=== PATIENT | male | born 1940 | race Caucasian/White ===

== ENCOUNTER 2018-02-18 01:23 | Outpatient (CLI) | payer MEDICARE, OTHER, SELFPAY ==
[2018-02-18 11:26] LABS: Hemoglobin A1C 5.8 % (4.5-6.2)
[2018-02-18 11:36] LABS: ALT 29 U/L (12-78); AST 16 U/L (15-37); Alkaline Phosphatase 74 U/L (46-116); Anion Gap 8.3 mmol/L (3-11); BUN 18 mg/dL (7-18); Bilirubin, Total 0.7 mg/dL (0.2-1.0); CO2 29.7 mmol/L (21.0-32.0); CREATININE 0.83 mg/dL (0.70-1.30); Chloride 104 mmol/L (98-107); Cholesterol 162 mg/dL (50-200); Glucose 99 mg/dL (70-100); HDL Cholesterol 47 mg/dL (40-60); LDL CHOLESTEROL 92 mg/dL (<100); Potassium 4.1 mmol/L (3.5-5.1); Sodium 142 mmol/L (136-145); Total Protein 6.4 g/dL (6.4-8.2); Triglyceride 151 mg/dL (30-150)
== END 2018-02-18 01:43 ==
PROVIDERS: PCP Family Medicine; Visit Provider Family Medicine
DX: E11.9 Type 2 diabetes mellitus without complications (principal)
CPT/HCPCS: 36415; 80053; 80061; 83721; 83036

== ENCOUNTER 2018-04-20 11:22 | Emergency (ER) | payer MEDICARE, OTHER, SELFPAY ==
[2018-04-20 11:32] VITALS: BP 158/69; PULSE 73; RESP 16; TEMP 37; O2SAT 97
--- NOTE | 2018-04-20 11:55 | ED.GENADUL_ITS ---
Discharge Plan Disposition Patient Disposition: HOME Condition: Improving Discharge Details Chief Complaint: EarProblem Clinical Impression: Acute foreign body of right ear canal Primary Care Provider: Sanjana Langley ED Provider: Jese Dillard Home Meds and New Rx's Prescriptions: No Action tamsulosin 0.4 mg capsule 0.4 mg PO BID RF: 0 gabapentin 300 mg capsule 300 mg PO TID Qty: 90 RF: 2 ropinirole 0.5 mg tablet 0.5 mg PO HS Qty: 30 RF: 3 Hold Instructions: None diltiazem HCl [Cardizem] 120 MG tablet 120 mg PO Q8H PRN Qty: 30 RF: 2 CONTOUR STRIPS 1 strip Sub-Q DAILY Qty: 100 RF: 1 magnesium gluconate 27.5 MG tablet 27.5 mg PO BID Qty: 60 RF: 3 Eliquis 5 MG tablet 5 mg PO BID Qty: 180 RF: 3 metformin [Glucophage] 500 MG tablet 500 mg PO BID Qty: 180 RF: 4 pravastatin 40 MG tablet 40 mg PO DAILY Qty: 90 RF: 3 meloxicam [Mobic] 15 MG tablet 15 mg PO DAILY PRNQty: 90 RF: 0 amlodipine-benazepril [Lotrel] 1 EACH capsule 1 tab-cap PO DAILY Qty: 90 RF: 4 esomeprazole magnesium [Nexium] 20 MG capsule,delayed release(DR/EC) 20 mg PO DAILY Qty: 90 RF: 4 finasteride 5 MG tablet 5 mg PO DAILY Qty: 90 RF: 3 Discharge Instructions Instructions: Ear Foreign Body (ED) Additional Instructions: Watch for any signs of acute localized infection due to foreign body being in the ear otherwise follow-up with primary care provider as needed for reassessment. Referrals: Sanjana Langley MD [Primary Care Provider] - (As needed) Discharge Data Discharge Date/Time-TO BE ENTERED AT DEPARTURE: 04/20/18 12:01 Medical Decision Making Patient presenting to the emergency department for chief complaint of foreign body in his right ear. Patient states that he had a piece of his hearing aid get stuck in his right ear. Attempted to remove it but feels like they may have pushed it in further. Patient denies any drainage from the ear, hearing loss, or other symptoms. Visualization of the right ear shows a plastic retained foreign body that is consistent with hearing aid plastic part. Tweezers were utilized to pull this out and was removed without incident, no bleeding, only minimal discomfort stated by patient. TM was then visualized and no signs of rupture and only local irritation. Patient encouraged to watch for any signs or symptoms of infection and return immediately HPI General Mode of arrival: ambulatory . Date/Time Provider Initiated Documentation: 04/20/18 11:37 . Limitations to Documentation: no limitations . Information obtained by: patient and RN notes reviewed . History of Present Illness 77 year old M presents to the emergency department with the chief complaint of Foreign body in ear, Quality is described as other (Denies pain ), Patient started experiencing this day(s) (1) and it has been constant. Patient notes no other symptoms.. Patient did receive the following treatments prior to arrival, none Related Data Home Medications Medication Instructions Recorded Confirmed diltiazem HCl [Cardizem] 120 mg PO Q8H PRN #30 tab 09/21/15 04/20/18 magnesium gluconate 27.5 mg PO BID #60 tab-cap 10/17/16 04/20/18 amlodipine-benazepril [Lotrel 1 tab-cap PO DAILY #90 tab-cap 06/28/17 04/20/18 5/20mg Capsule] apixaban [Eliquis] 5 mg PO BID #180 tab-cap 06/28/17 04/20/18 esomeprazole magnesium [Nexium] 20 mg PO DAILY #90 tab-cap 06/28/17 04/20/18 meloxicam [Mobic] 15 mg PO DAILY PRN #90 tab-cap 06/28/17 04/20/18 metformin [Glucophage] 500 mg PO BID #180 tab-cap 06/28/17 04/20/18 pravastatin 40 mg PO DAILY #90 tab-cap 06/28/17 04/20/18 finasteride 5 mg PO DAILY #90 tab-cap 08/07/17 04/20/18 ropinirole 0.5 mg tablet 0.5 mg PO HS #30 tab 02/13/18 04/20/18 gabapentin 300 mg capsule 300 mg PO TID #90 cap 04/10/18 04/20/18 tamsulosin 0.4 mg capsule 0.4 mg PO BID tab-cap 12/20/18 12/30/18 Previous Rx's Medication Instructions Recorded amlodipine-benazepril [Lotrel 1 tab-cap PO DAILY #90 tab-cap 06/28/17 5/20mg Capsule] apixaban [Eliquis] 5 mg PO BID #180 tab-cap 06/28/17 esomeprazole magnesium [Nexium] 20 mg PO DAILY #90 tab-cap 06/28/17 metformin [Glucophage] 500 mg PO BID #180 tab-cap 06/28/17 pravastatin 40 mg PO DAILY #90 tab-cap 06/28/17 finasteride 5 mg PO DAILY #90 tab-cap 08/07/17 ropinirole 0.5 mg tablet 0.5 mg PO HS #30 tab 02/13/18 gabapentin 300 mg capsule 300 mg PO TID #90 cap 04/10/18 Allergies Allergy/AdvReac Type Severity Reaction Status Date / Time No Known Allergies Allergy Unverified 04/20/18 11:35 General Stated Complaint: EarProblem ERICK: 4 Review of Systems Constitutional Denies chills and Denies fever(s) ENT Reports as per HPI, Denies vertigo, Denies dizziness, Denies ear discharge, Denies otalgia, Denies nasal congestion and Denies nasal discharge Neurologic Denies vertigo and Denies dizziness PFSH Surgical History Arthroscopy, Shoulder Extraction of cataract (~2012) Family History Mother Diabetes Heart disease Hyperlipidemia Father No problems noted. Sister Essential hypertension Hyperlipidemia Brother Neoplasm Brother No problems noted. Grandfather No problems noted. Grandfather No problems noted. Grandmother Essential hypertension Heart disease Hyperlipidemia Grandmother No problems noted. Daughter No problems noted. Daughter No problems noted. Daughter No problems noted. Social History current occupational status: retired duration: 60-90 minutes/day Smoking/Tobacco Use Status: Former Tobacco Use alcohol intake: current alcohol intake frequency: a few times a month substance use type: marijuana and other details: MED[employer]IN[employer] car/faith: OTHER special car needs: No Exam Const General: cooperative, healthy appearing and comfortable Orientation: alert, awake and oriented x3 HENMT Head: normal to inspection Ears: mastoids normal, no periauricular adenopathy and unable to visualize TM on the right (Due to plastic hearing aid part) Resp Effort & Inspection: normal respiratory effort and able to speak in complete sentences Course Vital Signs Temperature 37 C 04/20/18 11:32 Pulse 73 04/20/18 11:32 Respiratory Rate 16 04/20/18 11:32 Blood Pressure 158/69 H 04/20/18 11:32 Pulse Oximetry 97 04/20/18 11:32 Temperature 37 C 04/20/18 11:32 Temperature Source Skin 04/20/18 11:32 Pulse 73 04/20/18 11:32 Respiratory Rate 16 04/20/18 11:32 Respiratory Effort Non-Labored 04/20/18 11:32 Blood Pressure 158/69 H 04/20/18 11:32 Blood Pressure Position Sitting 04/20/18 11:32 Pulse Oximetry 97 04/20/18 11:32 Oxygen Delivery Method Room Air 04/20/18 11:32 Oxygen Flow Rate 0 04/20/18 11:32 Pain Level 3 04/20/18 11:32
== END 2018-04-20 12:01 | disposition home or self-care (01) ==
PROVIDERS: Emergency Provider Nurse Practitioner Family; PCP Family Medicine
DX: T16.1XXA Foreign body in right ear, initial encounter (principal)
CPT/HCPCS: 69200

== ENCOUNTER → 2018-04-29 14:33 | Outpatient (BNVA) | payer MEDICARE, OTHER, SELFPAY | PROVIDERS: PCP Family Medicine; Visit Provider Nurse Practitioner Gerontology | DX: N40.1 Benign prostatic hyperplasia with lower urinary tract symptoms (principal); R35.0 Frequency of micturition | CPT/HCPCS: 51798; 99213 ==

== ENCOUNTER → 2018-08-13 09:05 | Outpatient (BNVA) | payer MEDICARE, SELFPAY | PROVIDERS: PCP Family Medicine; Visit Provider Student in an Organized Health Care Education/Training Program | DX: I48.0 Paroxysmal atrial fibrillation (principal); I10 Essential (primary) hypertension; E78.00 Pure hypercholesterolemia, unspecified; E11.40 Type 2 diabetes mellitus with diabetic neuropathy, unspecified | CPT/HCPCS: 99214 ==

== ENCOUNTER 2018-08-13 09:45 | Outpatient (CLI) | payer MEDICARE, OTHER, SELFPAY ==
[2018-08-13 10:18] LABS: HCT 43.1 % (40.0-50.0); HGB 14.9 g/dL (13.5-17.5); Mean Corp. HGB Concentration 34.6 g/dL (32.0-36.0); Mean Corpuscular Hemoglobin 29.8 pg (27.0-33.0); Mean Corpuscular Volume 86.2 fL (80-95); Mean Platelet Volume 9.6 fL (8.0-11.0); Platelet Count 162 x1000/uL (130-400); RBC Distribution Width 12.2 % (11.8-14.1); White Blood Cell Count 5.18 k/cumm (4.4-10.8)
[2018-08-13 11:31] LABS: ALT 29 U/L (12-78); AST 15 U/L (15-37); Alkaline Phosphatase 78 U/L (46-116); Anion Gap 9.9 mmol/L (3-11); BUN 14 mg/dL (7-18); Bilirubin, Direct 0.13 mg/dL (0.00-0.20); Bilirubin, Total 0.6 mg/dL (0.2-1.0); CO2 27.1 mmol/L (21.0-32.0); CREATININE 0.77 mg/dL (0.70-1.30); Calcium 8.6 mg/dL (8.5-10.1); Chloride 103 mmol/L (98-107); Glucose 126 mg/dL (70-100); Sodium 140 mmol/L (136-145); Total Protein 6.4 g/dL (6.4-8.2)
== END 2018-08-13 10:05 ==
PROVIDERS: PCP Family Medicine; Visit Provider Student in an Organized Health Care Education/Training Program
DX: I48.0 Paroxysmal atrial fibrillation (principal); I28.9 Disease of pulmonary vessels, unspecified; I10 Essential (primary) hypertension; E78.00 Pure hypercholesterolemia, unspecified
CPT/HCPCS: 36415; 80048; 80076; 85027; 99214

== ENCOUNTER 2018-10-13 10:27 | Outpatient (CLI) | payer MEDICARE, OTHER, SELFPAY ==
[2018-10-13 13:49] LABS: Magnesium 1.9 mg/dL (1.8-2.4)
[2018-10-13 15:46] LABS: Microalb ug/mg Crea 20.2 ug/mg Cr
== END 2018-10-13 10:47 ==
PROVIDERS: PCP Family Medicine; Visit Provider Family Medicine
DX: E11.9 Type 2 diabetes mellitus without complications (principal); E83.42 Hypomagnesemia
CPT/HCPCS: 36415; 82043; 82570; 83036; 83735

== ENCOUNTER 2019-02-23 09:22 | Emergency (ER) | payer MEDICARE, OTHER, SELFPAY ==
[2019-02-23] VITALS (9 sets, daily range): BP systolic 137–162; BP diastolic 77–89; PULSE 50–80; RESP 16–18; TEMP 36.6; O2SAT 93–98
--- NOTE | 2019-02-23 09:27 | ED.GENADUL_ITS ---
Discharge Plan Disposition Patient Disposition: HOME Condition: Fair Discharge Details Chief Complaint: Nausea/Vomit/Diar Clinical Impression: Nausea & vomiting, Dizziness Primary Care Provider: Sanjana Langley ED Provider: Trish Guadarrama Home Meds and New Rx's Prescriptions: New promethazine 12.5 mg tablet 12.5 mg PO QID PRN (Reason: nausea and vomiting) Qty: 10 RF: 0 meclizine 12.5 mg tablet 12.5 mg PO TID PRN (Reason: dizziness) Qty: 5 RF: 0 Continued gabapentin 300 mg capsule 300 mg PO TID Qty: 360 RF: 4 diltiazem HCl [Cardizem] 120 MG tablet 120 mg PO Q8H PRN Qty: 30 RF: 2 CONTOUR STRIPS 1 strip Sub-Q DAILY Qty: 100 RF: 1 magnesium gluconate 27.5 MG tablet 27.5 mg PO BID Qty: 60 RF: 3 metformin [Glucophage] 500 mg tablet 500 mg PO BID Qty: 180 RF: 4 pravastatin 40 mg tablet 40 mg PO DAILY Qty: 90 RF: 3 finasteride 5 mg tablet 5 mg PO DAILY Qty: 90 RF: 3 esomeprazole magnesium [Nexium] 20 mg capsule,delayed release(DR/EC) 20 mg PO DAILY Qty: 90 RF: 4 Eliquis 5 mg tablet 5 mg PO BID Qty: 180 RF: 3 amlodipine-benazepril [Lotrel] 5-20 mg capsule 1 cap PO DAILY Qty: 90 RF: 4 meloxicam [Mobic] 15 mg tablet 15 mg PO DAILY PRN (Reason: pain) Qty: 90 RF: 3 tamsulosin 0.4 mg capsule 0.4 mg PO BID Qty: 180 RF: 3 Discharge Instructions Instructions: Acute Nausea and Vomiting (ED), Dizziness (ED) Additional Instructions: This is likely a viral illness. CT scan of the abdomen is reassuring today only shows diverticulosis and also arthritis in her spine. MRI is also reassuring with no findings to suggest mass or stroke. Labs are also reassuring small amount of. Please follow-up with your primary care provider later this week for reevaluation. If you develop chest pain, shortness of breath, inability stay hydrated, increased abdominal pain or the new/worsening symptoms please seek care urgently once again. May use Phenergan as prescribed to help with any recurrence of your nausea or vomiting, meclizine as prescribed to help with dizziness. Advance diet as tolerated. Referrals: Sanjana Langley MD [Primary Care Provider] - Discharge Data Discharge Date/Time-TO BE ENTERED AT DEPARTURE: 02/23/19 15:04 Medical Decision Making Patient is a 78-year-old male, accompanied by his , with chief complaint of abdominal pain and nausea/vomiting. Since she can just over 24 hours ago. Denies any fevers or chills. No known sick contacts. States that he is able to keep down small sips of water but often is bringing up even water he takes. Has not been able to take his medications. Denies any hematemesis, coffee-ground emesis, change in bowel habits. Denies any chest pain or shortness of breath. On exam, patient is resting comfortably. He is holding an emesis bag and endorses active nausea. No peritoneal findings on exam the patient is tender directly over McBurney's point. Remaining exam is benign. Plan for rehydration, antiemetics, imaging to evaluate for possible appendicitis. EKG. By Dr. Piña, difficult to visualize P waves, patient is in a regular rhythm. Patient reports some improvement with zofran, requesting further antiemetics. Will give PO phenergan. CT reviewed by radiology: The lung bases show dependent changes. The liver, gallbladder, spleen, pancreas and adrenals are unremarkable. There is a small right renal cyst. There is no evidence of urinary tract calculi or hydronephrosis. The prostate is mildly enlarged and shows calcification. The prostate and impresses on the base of the bladder. The urinary bladder wall shows diffuse mild wall thickening and trabeculation. There small bilateral fatty containing inguinal hernias. The appendix is well seen and appears normal. There is a normal quantity of stool. There are few scattered diverticula. There is no evidence of diverticulitis or colitis. There is no small bowel dilatation. The aorta shows mild calcification is normal in diameter. There are degenerative changes in the spine greatest at L5-S1. IMPRESSION: No acute abnormality. Influenza negative. Discussed these findings with the patient. He is now reporting that his dizziness is what seems to be driving his GI upset. This is not initially made clear. He is reporting dizziness over the past 2 days. Describes further as things floating in front of him. States that when he looks around he sees objects swimming. Denies any headache. Has not noted any areas of weakness. No sensory deficit. Is currently asymptomatic. Neurologic exam was performed and found to be normal. No nystagmus noted. However, given his symptoms, I feel that MRI is appropriate to look for evidence of posterior stroke. Discussed plan with patient who is in agreement. MRI reviewed by radiologist: There is age-related atrophy. No acute infarct, hemorrhage or mass is seen. There are no significant white matter changes. The ventricles are normal in size. Vascular flow voids appear intact. There is minimal sinus disease. The re are no areas of restricted diffusion. IMPRESSION: Atrophy. No acute abnormality. Discussed these findings with the patient. Repeat ECG appears improved, reviewed by Dr. Piña.NSR, no acute ischemic changes. The patient's description of his symptoms seem more vertiginous in nature than a lightheadedness associated with cardiac etiology or PE. Labs are reassuring. EKG without acute abnormalities, imaging completing today without significant abnormality. Advised this may be associated with acute illness driving symptoms. He reports that he has used meclizine historically with good results. We will continue with the oral Phenergan as this worked well here. He was given strict return precautions. Advise follow-up with primary care in the next few days for reevaluation. Advised that this may be viral illness that could be causing labyrinthitis and subsequent nausea vomiting. Patient feels improved and is ready for discharge at this time. All of his questions and concerns were addressed and he is in agreement this plan. HPI General Mode of arrival: ambulatory . Date/Time Provider Initiated Documentation: 02/23/19 09:27 . Limitations to Documentation: no limitations . Information obtained by: patient, family () and RN notes reviewed . HPI Narrative: Patient is 78-year-old male, accompanied by his , chief complaint of nausea vomiting and right lower quadrant pain. Patient has history of peripheral neuropathy, hypercholesterolemia, GERD, hypertension, type 2 diabetes, BPH, atrial fibrillation. States that symptoms began at 3 AM yest erday. States that yesterday he vomited multitude of times. Is vomited 3 times thus far today. Is currently nauseated. Denies any fevers or chills. No previous abdominal surgeries. No other sick contacts. Denies any diarrhea. No melena or hematochezia. No dysuria, hematuria. Does report that he urinates multiple times a night but states this is baseline associated with BPH. No recent travel. No unusual foods, states that she is been eating samples he has. Related Data Home Medications Medication Instructions Recorded Confirmed diltiazem HCl [Cardizem] 120 mg PO Q8H PRN #30 tab 09/21/15 10/13/18 magnesium gluconate 27.5 mg PO BID #60 tab-cap 10/17/16 10/13/18 amlodipine 5 mg-benazepril 20 mg 1 cap PO DAILY #90 tab-cap 06/11/18 10/13/18 capsule apixaban 5 mg tablet 5 mg PO BID #180 tab-cap 06/11/18 10/13/18 esomeprazole magnesium 20 mg 20 mg PO DAILY #90 tab-cap 06/11/18 10/13/18 capsule,delayed release finasteride 5 mg tablet 5 mg PO DAILY #90 tab-cap 06/11/18 10/13/18 metformin 500 mg tablet 500 mg PO BID #180 tab-cap 06/11/18 10/13/18 pravastatin 40 mg tablet 40 mg PO DAILY #90 tab-cap 06/11/18 10/13/18 meloxicam 15 mg tablet 15 mg PO DAILY PRN #90 tab-cap 08/06/18 10/13/18 gabapentin 300 mg capsule 300 mg PO TID #360 cap 10/13/18 10/13/18 tamsulosin 0.4 mg capsule 0.4 mg PO BID #180 tab-cap 11/02/18 meclizine 12.5 mg PO TID PRN #5 tab 02/23/19 promethazine 12.5 mg PO QID PRN #10 tab 02/23/19 Previous Rx's Medication Instructions Recorded amlodipine 5 mg-benazepril 20 mg 1 cap PO DAILY #90 tab-cap 06/11/18 capsule apixaban 5 mg tablet 5 mg PO BID #180 tab-cap 06/11/18 esomeprazole magnesium 20 mg 20 mg PO DAILY #90 tab-cap 06/11/18 capsule,delayed release finasteride 5 mg tablet 5 mg PO DAILY #90 tab-cap 06/11/18 metformin 500 mg tablet 500 mg PO BID #180 tab-cap 06/11/18 pravastatin 40 mg tablet 40 mg PO DAILY #90 tab-cap 06/11/18 meloxicam 15 mg tablet 15 mg PO DAILY PRN #90 tab-cap 08/06/18 gabapentin 300 mg capsule 300 mg PO TID #360 cap 10/13/18 tamsulosin 0.4 mg capsule 0.4 mg PO BID #180 tab-cap 11/02/18 meclizine 12.5 mg PO TID PRN #5 tab 02/23/19 promethazine 12.5 mg PO QID PRN #10 tab 02/23/19 Allergies Allergy/AdvReac Type Severity Reaction Status Date / Time No Known Allergies Allergy Unverified 10/13/18 09:22 General ERICK: 4 Review of Systems Constitutional Constitutional: Reports as per HPI, Denies chills, Denies fatigue, Denies fever(s) and Denies headache(s) ENT Ears, Nose, Mouth, and Throat: Denies headache(s) Cardiovascular Cardiovascular: Reports as per HPI, Denies chest pain and Denies dyspnea Respiratory Respiratory: Reports as per HPI, Denies cough and Denies dyspnea Gastrointestinal Gastrointestinal: Reports as per HPI, Reports abdominal pain, Denies melena, Denies hematochezia, Denies change in stool character, Denies coffee ground emesis, Denies constipation, Reports nausea, Reports vomiting and Denies hematemesis Genitourinary Genitourinary: Denies system reviewed and no additional complaints, except as docu (patient denies any change in urinary habits) Musculoskeletal Musculoskeletal: Reports as per HPI and Denies back pain Integumentary/Breasts Skin/Breast: Reports as per HPI and Denies rash Neurologic Neurologic: Reports as per HPI and Denies headache(s) Endocrine Endocrine: Denies fatigue PFSH Surgical History Arthroscopy, Shoulder [facility]; LEFT Extraction of cataract (~2012) B/L Social History Smoking/Tobacco Use Status: Former Tobacco Use Quit Date: 04/22/74 Alcohol Intake: current Alcohol Intake frequency: 0-2 drinks per day Alcohol type: hard liquor Drug use: Daily Substance use type: marijuana and other Details: MEDICINAL PURPOSES Caregiver/Support person: No Household members: spouse Pets and animals: Yes Pets and animals: other Details: goats Sexually active: Yes Do you think of yourself as: straight/heterosexual What is your relationship status?: How often do you talk on the phone with friends or family?: three or more times per week How often do you get together with friends or relatives?: decline to answer How often do you attend confucianist or amish services?: decline to answer Do you belong to any clubs or organized social groups?: yes Panel score (0-1 are the most socially isolated patients): 3 What type of physical activity do you participate in: other Details: Cutting wood, yard work, gardening Duration: 60-90 minutes/day Frequency: 3-4 times per week Randa/Scientologist: OTHER Special randa needs: No Seatbelt use: always Drive intox or ride w/intox drive away driver: No Do you feel safe in your relationship?: Yes Exam Const General: cooperative, healthy appearing, comfortable, no acute distress and well developed Nutritional Appearance: average body habitus and well nourished Orientation: alert and awake HENMT Head: normal to inspection Mouth: mucous membranes dry (patient appears dry) Resp Effort & Inspection: normal respiratory effort, able to speak in complete sentences and no respiratory distress Auscultation: clear to auscultation bilaterally, no rales, no rhonchi and no wheezes Cardio Rate: regular rate Rhythm: regular rhythm Heart Sounds: S1 normal and S2 normal GI Inspection: normal to inspection, no edema, non-distended, no incisions, no visible herniation and no visible pulsation Palpation: soft, no hepatosplenomegaly, not firm, no guarding, no hernias, no masses, not rigid, tender at McBurney's point and No ascites Percussion: normal to percussion Auscultation: hypoactive bowel sounds Back/Spine/Pelvis Back: no CVA tenderness Skin General skin exam: no rashes or lesions noted Trauma: no lacerations or abrasions Neuro General: alert, awake, oriented x3, gait normal, tone normal, moves all extremities, no meningeal signs, no focal motor deficits and deep tendon reflexes 2+ bilaterally Cranial Nerves: CN's II-XI intact bilaterally Cognition: normal cognition Speech: speech normal Gait: normal gait Motor: muscle tone normal throughout, strength 5/5 throughout, no pronator drift, no movement abnormalities noted and no fasciculations Sensory Exam: no sensory deficits noted Coordination: [id number] test normal, [id number] test normal, Romberg test normal and tandem gait normal Psych Appearance: grossly normal and well kempt Mental Status: mental status grossly normal Speech and Movement: speech and movement normal
[2019-02-23] MEDS: Ondansetron 4 MG/2 ML VIAL IVP (09:57)
[2019-02-23 10:04] LABS: Abs Immature Grans 0.01 k/cumm (0.0-0.09); Absolute Basophil Count 0.01 k/cumm (0.0-0.2); Absolute Eosinophil Count 0.02 k/cumm (0.0-0.7); Absolute Lymphocyte Count 0.91 k/cumm (1.2-3.4); Absolute Monocyte Count 0.51 k/cumm (0.11-0.7); Absolute Neutrophil Count 3.75 k/cumm (1.2-6.7); Basophils % 0.2; Eosinophils % 0.4; HGB 16.6 g/dL (13.5-17.5); Immature Grans % 0.2; Lymphocytes % 17.5; Mean Corp. HGB Concentration 34.6 g/dL (32.0-36.0); Mean Corpuscular Hemoglobin 29.5 pg (27.0-33.0); Mean Corpuscular Volume 85.4 fL (80-95); Mean Platelet Volume 9.7 fL (8.0-11.0); Monocytes % 9.8; Neutrophils % 71.9; Platelet Count 209 x1000/uL (130-400); RBC 5.62 m/cumm (4.50-6.00); RBC Distribution Width 12.3 % (11.8-14.1); White Blood Cell Count 5.21 k/cumm (4.4-10.8)
[2019-02-23 10:18] LABS: Anion Gap 9.3 mmol/L (3-11); CO2 29.7 mmol/L (21.0-32.0); Chloride 101 mmol/L (98-107); Potassium 3.6 mmol/L (3.5-5.1); Sodium 140 mmol/L (136-145)
[2019-02-23 10:32] LABS: Bilirubin Negative (Negative); Blood Negative (Negative); Clarity Clear (Clear); Glucose Negative (Negative); Ketones 15 mg/dL (Negative); Leukocyte Esterase Negative (Negative); Nitrite Negative (Negative); Urobilinogen 0.2 EU/dL (Up TO 0.2); pH 7.5 (5-8)
[2019-02-23] MEDS: Promethazine 25 MG TAB PO (10:38)
[2019-02-23 10:42] LABS: ALT 24 U/L (16-63); AST 20 U/L (15-37); Albumin 4.1 g/dL (3.4-5.0); Alkaline Phosphatase 88 U/L (46-116); BUN 16 mg/dL (7-18); Bilirubin, Total 0.9 mg/dL (0.2-1.0); CREATININE 0.84 mg/dL (0.70-1.30); Calcium 8.9 mg/dL (8.5-10.1); Glucose 144 mg/dL (70-100); Total Protein 7.2 g/dL (6.4-8.2)
[2019-02-23 10:47] LABS: Troponin I < 0.05 ng/mL (0.00-0.06)
[2019-02-23 10:50] LABS: Bacteria Few HPF (Negative); Crystals Few Amorphous HPF (Negative); Epithelial Cells Rare HPF (Negative); Other Cells Rare Renal (Negative)
[2019-02-23] MEDS: Normal Saline 1,000 ML 1000 ML IV (10:52)
[2019-02-23 10:53] LABS: C & S Indicated? No; Casts Negative LPF (Negative); Mucus Trace (Negative)
--- NOTE | 2019-02-23 11:06 | DI.CT_ITS ---
EXAM: CT ABDOMEN PELVIS W CLINICAL HISTORY: RLQ pain TECHNIQUE: Post IV contrast. No oral contrast. COMPARISON: ABDOMEN ULTRASOUND (P) from 03/05/2013 FINDINGS: The lung bases show dependent changes. The liver, gallbladder, spleen, pancreas and adrenals are un remarkable. There is a small right renal cyst. There is no evidence of urinary tract calculi or hyd ronephrosis. The prostate is mildly enlarged and shows calcification. The prostate and impresses on the base of the bladder. The urinary bladder wall shows diffuse mild wall thickening and trabeculat ion. There small bilateral fatty containing inguinal hernias. The appendix is well seen and appears normal. There is a normal quantity of stool. There are few scattered diverticula. There is no david dence of diverticulitis or colitis. There is no small bowel dilatation. The aorta shows mild calcif ication is normal in diameter. There are degenerative changes in the spine greatest at L5-S1. IMPRESSION: No acute abnormality.
[2019-02-23] MEDS: Omnipaque 350 MG/ML 100 ML BTL IJ (11:07)
[2019-02-23] MEDS: Acetaminophen 325 MG TAB 650 MG PO (12:22)
--- NOTE | 2019-02-23 13:51 | DI.MRI_ITS ---
EXAM: MR BRAIN WO CLINICAL HISTORY: dizziness and vomiting, concerned for stroke. TECHNIQUE: Multiplanar multisequence MRI was performed. COMPARISON: No exams were available for comparison FINDINGS: There is age-related atrophy. No acute infarct, hemorrhage or mass is seen. There are no signific ant white matter changes. The ventricles are normal in size. Vascular flow voids appear intact. Th ere is minimal sinus disease. There are no areas of restricted diffusion. IMPRESSION: Atrophy. No acute abnormality.
== END 2019-02-23 15:04 | disposition home or self-care (01) ==
PROVIDERS: Emergency Provider Physician Assistant; PCP Family Medicine
DX: R11.2 Nausea with vomiting, unspecified (principal); R42 Dizziness and giddiness; E11.42 Type 2 diabetes mellitus with diabetic polyneuropathy; Z79.84 Long term (current) use of oral hypoglycemic drugs; I10 Essential (primary) hypertension
CPT/HCPCS: 80053; 87449; 93005; 96361; 96374; 99285; 70551; 74177; 81003; 81015; 84484; 85025; 93010; 99284; J2405; J3490

== ENCOUNTER → 2019-05-04 10:23 | Outpatient (BNVA) | payer MEDICARE, OTHER, SELFPAY | PROVIDERS: PCP Family Medicine; Visit Provider Nurse Practitioner Gerontology | DX: N40.1 Benign prostatic hyperplasia with lower urinary tract symptoms (principal); N13.8 Other obstructive and reflux uropathy | CPT/HCPCS: 99213 ==

== ENCOUNTER → 2019-08-04 11:21 | Outpatient (BNVA) | payer MEDICARE, OTHER, SELFPAY | PROVIDERS: PCP Family Medicine; Referring Provider Family Medicine; Visit Provider Internal Medicine Cardiovascular Disease | DX: I48.91 Unspecified atrial fibrillation (principal); I48.0 Paroxysmal atrial fibrillation; I10 Essential (primary) hypertension | CPT/HCPCS: 99203; 99442 ==

== ENCOUNTER 2019-10-13 01:23 | Outpatient (CLI) | payer MEDICARE, OTHER, SELFPAY ==
[2019-10-13 17:23] LABS: Iron 82 ug/dL (65-175); Total Iron Binding Capacity 269 ug/dL (250-450); Transferrin Sat 30 % (20-55)
[2019-10-13 17:24] LABS: COMMENT (LAB VIEW ONLY) 259.21 mg/dL
[2019-10-13 17:26] LABS: Microalb ug/mg Crea 51.3 ug/mg Cr
[2019-10-13 17:28] LABS: Hemoglobin A1C 6.1 % (3.8-5.6)
[2019-10-13 17:31] LABS: ALT 24 U/L (16-63); AST 19 U/L (15-37); Alkaline Phosphatase 87 U/L (46-116); Anion Gap 10.7 mmol/L (3-11); BUN 21 mg/dL (7-18); Bilirubin, Total 0.6 mg/dL (0.2-1.0); CO2 25.3 mmol/L (21.0-32.0); CREATININE 0.95 mg/dL (0.70-1.30); Calcium 8.6 mg/dL (8.5-10.1); Calculated LDL 46 mg/dL (<100); Chloride 106 mmol/L (98-107); Cholesterol 144 mg/dL (<200); Ferritin 62 ng/mL (26-388); Glucose 135 mg/dL (74-106); HDL Cholesterol 42 mg/dL (40-60); Magnesium 1.7 mg/dL (1.8-2.4); Potassium 4.3 mmol/L (3.5-5.1); Sodium 142 mmol/L (136-145); Total Protein 6.1 g/dL (6.4-8.2); Triglyceride 283 mg/dL (<150)
== END 2019-10-13 01:43 ==
PROVIDERS: PCP Family Medicine; Visit Provider Family Medicine
DX: E11.9 Type 2 diabetes mellitus without complications (principal); I48.91 Unspecified atrial fibrillation; E83.42 Hypomagnesemia; G25.81 Restless legs syndrome; R79.89 Other specified abnormal findings of blood chemistry
CPT/HCPCS: 36415; 80053; 80061; 82043; 82570; 82728; 83036; 83540; 83550; 83735

== ENCOUNTER 2020-02-21 15:06 | Observation (INO) | payer MEDICARE, OTHER, SELFPAY ==
[2020-02-21] VITALS (106 sets, daily range): BP systolic 97–164; BP diastolic 57–94; PULSE 57–95; RESP 11–24; TEMP 36–36.4; O2SAT 92–99
--- NOTE | 2020-02-21 15:00 | RT.EKG_ITS ---
APPROVED REPORT Exam: Resting ECG Patient Location: E HR:72 bpm ECG Measurements Heart Rate 72 AXIS MS 228 P 18 QRSd 101 QRS -7 QT 387 T 66 QTc 424 Conclusion Sinus rhythm...normal P axis, V-rate 60- 99 Prolonged MS interval...MS >220, V-rate 50- 90
[2020-02-21 15:47] LABS: Abs Immature Grans 0.01 10^3/uL (0.0-0.06); Absolute Basophil Count 0.01 10^3/uL (0.0-0.2); Absolute Eosinophil Count 0.01 10^3/uL (0.0-0.7); Absolute Monocyte Count 0.41 10^3/uL (0.1-0.8); Absolute Neutrophil Count 3.98 10^3/uL (1.2-6.7); Basophils % 0.2; Eosinophils % 0.2; HCT 42.9 % (40.0-50.0); HGB 14.7 g/dL (13.5-17.5); Immature Grans % 0.2; Lymphocytes % 18.5; MCH 30.4 pg (27.0-33.0); MCHC 34.3 % (32.0-36.0); MCV 88.8 fL (80-95); Monocytes % 7.6; Neutrophils % 73.3; Nucleated RBC 0 %; Platelet Count 193 10^3/uL (130-400); RBC 4.83 10^6/uL (4.36-5.78); RDW 11.6 % (11.8-14.1); RDW-SD 37.3 fL; WBC 5.42 10^3/uL (4.4-10.8)
--- NOTE | 2020-02-21 15:50 | W.ED.GENAD ---
Discharge Plan Disposition Patient Disposition: [facility] INPATIENT Condition: Serious Discharge Details Chief Complaint: Palpitatns Clinical Impression: Heart palpitations, Syncope, Hypomagnesemia Primary Care Provider: Sanjana Langley ED Provider: Yovani Piña Home Meds and New Rx's Prescriptions: No Action Shingrix (PF) 50 mcg/0.5 mL suspension for reconstitution 0.5 ml IM ONCE Qty: 1 RF: 1 diltiazem HCl [Cardizem] 120 MG tablet 120 mg PO Q8H PRN Qty: 30 RF: 2 CONTOUR STRIPS 1 strip Sub-Q DAILY Qty: 100 RF: 1 magnesium gluconate 27.5 MG tablet 27.5 mg PO BID Qty: 60 RF: 3 Eliquis 5 mg tablet 5 mg PO BID Qty: 180 RF: 3 finasteride 5 mg tablet 5 mg PO DAILY Qty: 90 RF: 3 pravastatin 40 mg tablet 40 mg PO DAILY Qty: 90 RF: 3 amlodipine-benazepril [Lotrel] 5-20 mg capsule 1 cap PO DAILY Qty: 90 RF: 4 esomeprazole magnesium [Nexium] 20 mg capsule,delayed release(DR/EC) 20 mg PO DAILY Qty: 90 RF: 4 metformin [Glucophage] 500 mg tablet 500 mg PO BID Qty: 180 RF: 4 gabapentin 300 mg capsule 300 - 900 mg PO DIRECTED Qty: 360 RF: 2 meloxicam [Mobic] 15 mg tablet 15 mg PO DAILY PRN (Reason: pain) Qty: 90 RF: 3 pramipexole 0.25 mg tablet 0.25 mg PO QHS Qty: 90 RF: 1 tamsulosin 0.4 mg capsule 0.4 mg PO BID Qty: 180 RF: 3 promethazine 12.5 mg tablet 12.5 mg PO QID PRN (Reason: nausea and vomiting) Qty: 10 RF: 0 Medical Decision Making 1554??79-year-old male with multimedical problems including history of A. fib, on Eliquis, hypercholesterolemia, hypertension, diabetes, BPH, here with intermittent palpitations over the past 16 hours and episode of brief syncope about an hour prior to arrival. Screening ECG was reviewed and interpreted by me: Sinus rhythm 72 bpm, prolonged DE interval 228, normal axis. While assessing the patient I did interpret continuous ECG monitoring and patient having intermittent bouts irregular rhythm, suspect rate controlled A. fib. Unclear as to etiology for syncope. Consider sick sinus syndrome and bradycardic episode versus ventricular arrhythmia. Plan to check electrolytes and TSH. Plan for likely admission for cardiac monitoring. 16:20 --Labs reviewed and mild hypomagnesemia noted. I will give magnesium 1 g IV. I called and spoke with hospitalist on-call, Dr. Jones, we discussed ED presentation and course including diagnostics. She will admit the patient to her service for cardiac monitoring. Care transition to Dr. Jones. Lab Data Lab results reviewed: Yes I reviewed the patient's lab results. Labs: Laboratory Tests Range/Units 02/21/20 02/21/20 02/21/20 15:30 15:30 16:23 WBC (4.4-10.8) 10^3/uL 5.42 RBC (4.36-5.78) 10^6/uL 4.83 Hgb (13.5-17.5) g/dL 14.7 Hct (40.0-50.0) % 42.9 MCV (80-95) fL 88.8 MCH (27.0-33.0) pg 30.4 MCHC (32.0-36.0) % 34.3 RDW (11.8-14.1) % 11.6 L Plt Count (130-400) 10^3/uL 193 MPV (8.0-11.0) fL 10.0 Immature Gran % 0.2 Neutrophils % 73.3 Lymphocytes % 18.5 Monocytes % 7.6 Eosinophils % 0.2 Basophils % 0.2 Nucleated RBC % % 0 Absolute Neutrophils (1.2-6.7) 10^3/uL 3.98 Absolute Lymphocytes (1.2-3.4) 10^3/uL 1.00 L Absolute Monocytes (0.1-0.8) 10^3/uL 0.41 Absolute Eosinophils (0.0-0.7) 10^3/uL 0.01 Absolute Basophils (0.0-0.2) 10^3/uL 0.01 Sodium (136-145) mmol/L 138 Potassium (3.5-5.1) mmol/L 3.6 Chloride (98-107) mmol/L 104 Carbon Dioxide (21.0-32.0) mmol/L 26.7 Anion Gap (3-11) mmol/L 7.3 BUN (7-18) mg/dL 14 Creatinine (0.70-1.30) mg/dL 1.05 Estimated GFR/1.73 m2 (mL/min/1.73m2) >= 60.00 Glucose (74-106) mg/dL 184 H Calcium (8.5-10.1) mg/dL 8.6 Magnesium (1.8-2.4) mg/dL 1.7 L Total Bilirubin (0.2-1.0) mg/dL 0.4 AST (15-37) U/L 15 ALT (16-63) U/L 23 Alkaline Phosphatase (46-116) U/L 89 Troponin I (<0.06) ng/mL < 0.05 Total Protein (6.4-8.2) g/dL 6.5 Albumin (3.4-5.0) g/dL 4.0 TSH (0.36-3.74) uIU/mL 0.53 COVID-19 PCR Cancelled Nasopharyn COVID-19 PCR Cancelled Ref Test Perform Site Cancelled HPI General Mode of arrival: ambulatory. Date/Time Provider Initiated Documentation: 02/21/20 15:17. Limitations to Documentation: no limitations. Information obtained by: patient. HPI Narrative: 79-year-old male with history of atrial fibrillation, diabetes, hypertension, hypercholesterolemia, presents with chief complaint of palpitations. Patient notes he has had intermittent palpitations for the past 15 hours. He does have a history of atrial fibrillation but is not typically in A. fib. Patient states episodes of palpitations last seconds to minutes, occur frequently, and has no modifiers. Concerning to him was a brief episode of loss of consciousness while at rest 1 hour prior to arrival today. Patient notes he was sitting holding a phone and lost consciousness and dropped the phone. Patient denies associated chest pain. He does have some shortness of breath when he is having palpitations. He currently does not have shortness of breath. No leg swelling. No calf pain. Patient has been taking Eliquis as prescribed. Related Data Home Medications Medication Instructions Recorded Confirmed diltiazem HCl [Cardizem] 120 mg PO Q8H PRN #30 tab 09/21/15 02/21/20 magnesium gluconate 27.5 mg PO BID #60 tab-cap 10/17/16 02/21/20 promethazine 12.5 mg PO QID PRN #10 tab 02/23/19 02/21/20 apixaban 5 mg tablet 5 mg PO BID #180 tab-cap 04/17/19 02/21/20 finasteride 5 mg tablet 5 mg PO DAILY #90 tab-cap 04/17/19 02/21/20 pravastatin 40 mg tablet 40 mg PO DAILY #90 tab-cap 04/17/19 02/21/20 amlodipine 5 mg-benazepril 20 mg 1 cap PO DAILY #90 tab-cap 06/23/19 02/21/20 capsule esomeprazole magnesium 20 mg 20 mg PO DAILY #90 tab-cap 06/23/19 02/21/20 capsule,delayed release metformin 500 mg tablet 500 mg PO BID #180 tab-cap 06/23/19 02/21/20 varicella-zoster glycoE vacc-[id number] 0.5 ml IM ONCE #1 each 10/21/19 02/21/20 adj(PF) 50 mcg/0.5 mL IM susp, kit gabapentin 300 mg capsule 300 - 900 mg PO DIRECTED #360 01/26/20 02/21/20 cap meloxicam 15 mg tablet 15 mg PO DAILY PRN #90 tab-cap 01/26/20 02/21/20 pramipexole 0.25 mg tablet 0.25 mg PO QHS #90 tab 01/26/20 02/21/20 tamsulosin 0.4 mg capsule 0.4 mg PO BID #180 tab-cap 02/18/20 02/21/20 Previous Rx's Medication Instructions Recorded promethazine 12.5 mg PO QID PRN #10 tab 02/23/19 apixaban 5 mg tablet 5 mg PO BID #180 tab-cap 04/17/19 finasteride 5 mg tablet 5 mg PO DAILY #90 tab-cap 04/17/19 pravastatin 40 mg tablet 40 mg PO DAILY #90 tab-cap 04/17/19 amlodipine 5 mg-benazepril 20 mg 1 cap PO DAILY #90 tab-cap 06/23/19 capsule esomeprazole magnesium 20 mg 20 mg PO DAILY #90 tab-cap 06/23/19 capsule,delayed release metformin 500 mg tablet 500 mg PO BID #180 tab-cap 06/23/19 varicella-zoster glycoE vacc-AS01B 0.5 ml IM ONCE #1 each 10/21/19 adj(PF) 50 mcg/0.5 mL IM susp, kit gabapentin 300 mg capsule 300 - 900 mg PO DIRECTED #360 01/26/20 cap meloxicam 15 mg tablet 15 mg PO DAILY PRN #90 tab-cap 01/26/20 pramipexole 0.25 mg tablet 0.25 mg PO QHS #90 tab 01/26/20 tamsulosin 0.4 mg capsule 0.4 mg PO BID #180 tab-cap 02/18/20 Allergies Allergy/AdvReac Type Severity Reaction Status Date / Time No Known Allergies Allergy Unverified 02/21/20 15:19 General Stated Complaint: Palpitatns ERICK: 2 Review of Systems All systems reviewed & are unremarkable except as noted in HPI and below Constitutional Constitutional: Denies fever(s) Gastrointestinal Comments: Intermittent bilateral lower abdominal pain (not currently present) [facility] Medical History Atrial fibrillation ECHO NEG, HOLTER 04/29 FEW PVC'S/PAC'S Eliqu/2017: Benign prostatic hyperplasia (05/28/12) Diabetes mellitus (09/24/12) no ophtalmopathy: : normal microalb. 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 Sister Essential hypertension Hyperlipidemia Brother , 62 Diabetes Blastoma Brother No problems noted. Maternal Grandfather , 47 No problems noted. Paternal Grandfather , 85 Hyperlipidemia Hypertension Maternal Grandmother , 85 Essential hypertension Heart disease Hyperlipidemia Paternal Grandmother , 95 No problems noted. Daughter No problems noted. Daughter No problems noted. Daughter No problems noted. Social History Smoking/Tobacco Use Status: Former Tobacco Use Quit Date: 04/22/74 Smoking risk assessment performed?: Yes Alcohol Intake: current Alcohol Intake frequency: 0-2 drinks per day Alcohol type: hard liquor Drug use: Daily Substance use type: marijuana and other Details: MEDICINAL PURPOSES Caregiver/Support person: No Household members: spouse Communication Needs: Hard of Hearing Do you need help understanding health information?: Never Pets and animals: Yes Pets and animals: other Details: goats Sexually active: Yes Do you think of yourself as: straight/heterosexual What is your relationship status?: How often do you talk on the phone with friends or family?: three or more times per week How often do you get together with friends or relatives?: decline to answer How often do you attend adventism or christian services?: decline to answer Do you belong to any clubs or organized social groups?: yes Panel score (0-1 are the most socially isolated patients): 3 What type of physical activity do you participate in: other Details: Cutting wood, yard work, gardening, Golf Duration: 60-90 minutes/day Frequency: 5-6 times per week Randa/Baptist: OTHER Special randa needs: No Seatbelt use: always Drive intox or ride w/intox meals on wheels driver: No Do you feel safe in your relationship?: Yes Exam Const General: cooperative and no acute distress [facility] Head: normocephalic and atraumatic Mouth: moist mucous membranes Eyes Conjunctivae: normal conjunctivae Sclera: normal sclerae Neck Neck: trachea midline and supple Resp Auscultation: clear to auscultation bilaterally, no rales, no rhonchi and no wheezes Cardio Jugular venous pressure: no JVD Rate: regular rate and not tachycardic Rhythm: abnormal rhythm irregularly irregular GI Palpation: soft, not firm, no guarding, no masses, not rigid and nontender Skin General skin exam: no rashes or lesions noted Neuro General: patient alert, patient awake, patient oriented x3 and tone normal Extrem General: no edema Psych Appearance: grossly normal Mental Status: mental status grossly normal Speech and Movement: speech and movement normal Course Vital Signs Vital signs: Vital Signs Temperature 36.4 C L 02/21/20 15:14 Pulse 95 H 02/21/20 15:14 Respiratory Rate 16 02/21/20 15:14 Blood Pressure 152/79 H 02/21/20 15:14 Pulse Oximetry 97 02/21/20 15:14 Temperature 36.4 C L 02/21/20 15:14 Temperature Source Skin 02/21/20 15:14 Pulse 95 H 02/21/20 15:14 Respiratory Rate 16 02/21/20 15:14 Respiratory Effort Non-Labored 02/21/20 15:14 Blood Pressure 152/79 H 02/21/20 15:14 Blood Pressure Position Supine 02/21/20 15:14 Pulse Oximetry 97 02/21/20 15:14 Oxygen Delivery Method Room Air 02/21/20 15:14 Oxygen Flow Rate 0 02/21/20 15:14 Pain Level 2 02/21/20 15:23 Lab/Test Results Lab/Test Results: Laboratory Tests Range/Units 02/21/20 15:30 WBC (4.4-10.8) 10^3/uL 5.42 RBC (4.36-5.78) 10^6/uL 4.83 Hgb (13.5-17.5) g/dL 14.7 Hct (40.0-50.0) % 42.9 MCV (80-95) fL 88.8 MCH (27.0-33.0) pg 30.4 MCHC (32.0-36.0) % 34.3 RDW (11.8-14.1) % 11.6 L Plt Count (130-400) 10^3/uL 193 MPV (8.0-11.0) fL 10.0 Immature Gran % 0.2 Neutrophils % 73.3 Lymphocytes % 18.5 Monocytes % 7.6 Eosinophils % 0.2 Basophils % 0.2 Nucleated RBC % % 0 Absolute Neutrophils (1.2-6.7) 10^3/uL 3.98 Absolute Lymphocytes (1.2-3.4) 10^3/uL 1.00 L Absolute Monocytes (0.1-0.8) 10^3/uL 0.41 Absolute Eosinophils (0.0-0.7) 10^3/uL 0.01 Absolute Basophils (0.0-0.2) 10^3/uL 0.01
[2020-02-21 16:08] LABS: ALT 23 U/L (16-63); AST 15 U/L (15-37); Alkaline Phosphatase 89 U/L (46-116); Anion Gap 7.3 mmol/L (3-11); BUN 14 mg/dL (7-18); Bilirubin, Total 0.4 mg/dL (0.2-1.0); CO2 26.7 mmol/L (21.0-32.0); CREATININE 1.05 mg/dL (0.70-1.30); Calcium 8.6 mg/dL (8.5-10.1); Chloride 104 mmol/L (98-107); Glucose 184 mg/dL (74-106); Magnesium 1.7 mg/dL (1.8-2.4); Potassium 3.6 mmol/L (3.5-5.1); Sodium 138 mmol/L (136-145); TSH (W/Ref FT4) 0.53 uIU/mL (0.36-3.74); Total Protein 6.5 g/dL (6.4-8.2); Troponin I < 0.05 ng/mL (<0.06)
--- NOTE | 2020-02-21 16:28 | W.PM.HP.N ---
Date of service: 02/21/20 Time of Service: 16:28 Assessment and Plan Assessment and plan (1) Syncope: Status: Acute Assessment and plan: In setting of paroxysmal Afib, patient touching his carotid, as well as prolonged DE interval, h/o tick bite. Concern for SSS/heart block, other arrhythmia, lyme carditis, carotid stenosis. Monitor on tele. Obtain echo and carotid doppler. Tick studies pending. Due to lack of actually witnessed nonconducted P waves, I am not yet starting the patient on ceftriaxone (for Lyme carditis). Will trend troponins. Replete mag (2) Heart palpitations: Status: Acute Assessment and plan: As above (3) Chest pain: Status: Acute Assessment and plan: R/o ACS. Monitor on tele. Repeat EKG in am. Obtain an echo and plan for a stress test. NPO after midnight. (4) Hypomagnesemia: Status: Acute Assessment and plan: As above (5) Atrial fibrillation: Status: Chronic Assessment and plan: As above Continue eliquis for anticoagulation. Obtain an echo (6) Diabetes mellitus: Status: Acute Assessment and plan: Hold metformin. Cover with corrective insulin. (7) Essential hypertension: Status: Acute Assessment and plan: At this time, holding amlodipine/benazepril. The patient is already on diltiazem. On discharge, perhaps, could go on deysi-i and diltiazem. (8) Gastroesophageal reflux disease with esophagitis: Status: Acute Assessment and plan: Continue PPI (9) DVT prophylaxis: Status: Acute Assessment and plan: On therapeutic eliquis (10) Discharge planning issues: Status: Acute Assessment and plan: DNR/DNI Observation status. History of Present Illness History of Present Illness Chief Complaint: palpitations, syncope Narrative: Mr Glass is a 79 year old male with PMHx of paroxysmal Atrial fibrillation, on eliquis, as well as h/o HTN, hyperlipidemia, NIDDM2 with neuropathy, BPH, who presented to [facility] ED today following a syncopal episode at about 2 pm while talking on the phone with his , sitting. The patient states that he normally gets palpitations on and off, but he noticed them more so last night and this morning. Additionally, this morning he also noticed L-sided dull chest pain lasting for about an hour, at rest. The patient also describes a headache, feeling short of breath with the palpitations, and slight dizziness. The patient was calling his to discuss his symptoms and tried to assess his pulse/rhythm by putting his fingers on the left carotid artery. He states that he, then, fainted for a few seconds, phone falling out of his hands. The patient does not have any chest pain currently. He states he has had a stress test in the past (the only mention of one I can find is from 2005), which was negative. In the ED, his workup revealed baseline NSR with occasional bouts of Afib/PACs, but he does have a prolonged DE interval of 228 msec and a magnesium of 1.7. His troponin is negative. The patient endorses having a tick bite in the beginning of summer, but did not pursue testing. Review of Systems All systems reviewed & are unremarkable except as noted in HPI and below PFSH Medical History Atrial fibrillation ECHO NEG, HOLTER 04/29 FEW PVC'S/PAC'S Eliqu: Benign prostatic hyperplasia (05/28/12) Diabetes mellitus (09/24/12) no ophtalmopathy: : normal microalb. 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 Sister Essential hypertension Hyperlipidemia Brother , 62 Diabetes Blastoma Brother No problems noted. Maternal Grandfather , 47 No problems noted. Paternal Grandfather , 85 Hyperlipidemia Hypertension Maternal Grandmother , 85 Essential hypertension Heart disease Hyperlipidemia Paternal Grandmother , 95 No problems noted. Daughter No problems noted. Daughter No problems noted. Daughter No problems noted. Social History Smoking/Tobacco Use Status: Former Tobacco Use Quit Date: 04/22/74 Smoking risk assessment performed?: Yes Alcohol Intake: current Alcohol Intake frequency: 0-2 drinks per day Alcohol type: hard liquor Drug use: Daily Substance use type: marijuana and other Details: MEDICINAL PURPOSES Caregiver/Support person: No Household members: spouse Communication Needs: Hard of Hearing Do you need help understanding health information?: Never Pets and animals: Yes Pets and animals: other Details: goats Sexually active: Yes Do you think of yourself as: straight/heterosexual What is your relationship status?: How often do you talk on the phone with friends or family?: three or more times per week How often do you get together with friends or relatives?: decline to answer How often do you attend restoration or latter day services?: decline to answer Do you belong to any clubs or organized social groups?: yes Panel score (0-1 are the most socially isolated patients): 3 What type of physical activity do you participate in: other Details: Cutting wood, yard work, gardening, Golf Duration: 60-90 minutes/day Frequency: 5-6 times per week Randa/Cheondoism: OTHER Special randa needs: No Seatbelt use: always Drive intox or ride w/intox milk delivery driver: No Do you feel safe in your relationship?: Yes Meds Home Medications and Allergies Home Medications Medication Instructions Recorded Confirmed Type diltiazem HCl [Cardizem] 120 mg PO Q8H PRN #30 tab 09/21/15 02/21/20 History Contour Strips 1 strip SUB-Q DAILY #100 strip 06/22/16 02/21/20 Clinic magnesium gluconate 27.5 mg PO BID #60 tab-cap 10/17/16 02/21/20 History promethazine 12.5 mg PO QID PRN #10 tab 02/23/19 02/21/20 Rx apixaban 5 mg tablet 5 mg PO BID #180 tab-cap 04/17/19 02/21/20 Rx finasteride 5 mg tablet 5 mg PO DAILY #90 tab-cap 12/27/19 11/01/20 Rx pravastatin 40 mg tablet 40 mg PO DAILY #90 tab-cap 04/17/19 02/21/20 Rx amlodipine 5 mg-benazepril 20 mg 1 cap PO DAILY #90 tab-cap 06/23/19 02/21/20 Rx capsule esomeprazole magnesium 20 mg 20 mg PO DAILY #90 tab-cap 06/23/19 02/21/20 Rx capsule,delayed release metformin 500 mg tablet 500 mg PO BID #180 tab-cap 06/23/19 02/21/20 Rx varicella-zoster glycoE vacc-AS01B 0.5 ml IM ONCE #1 each 10/21/19 02/21/20 Rx adj(PF) 50 mcg/0.5 mL IM susp, kit gabapentin 300 mg capsule 300 - 900 mg PO DIRECTED #360 01/26/20 02/21/20 Rx cap meloxicam 15 mg tablet 15 mg PO DAILY PRN #90 tab-cap 01/26/20 02/21/20 Rx pramipexole 0.25 mg tablet 0.25 mg PO QHS #90 tab 01/26/20 02/21/20 Rx tamsulosin 0.4 mg capsule 0.4 mg PO BID #180 tab-cap 02/18/20 02/21/20 Rx Allergies Allergy/AdvReac Type Severity Reaction Status Date / Time No Known Allergies Allergy Unverified 02/21/20 15:19 Exam Narrative Exam Narrative: General: Pleasant elderly male who looks younger than his stated age, laying comfortably in bed, good history provider Neurological: A&Ox3, slight difficulty hearing, no focal deficits Psychiatric: appropriate speech pattern/ content Skin: Visible skin intact HEENT: Atraumatic, normocephalic, EOMI, dry MM, clear oropharynx, no submandibular or cervical lymphadenopathy, no goiter or JVD Cardiovascular: RRR, no m/r/g Lungs: CTAB Gastrointestinal: soft, nontender, nondistended Genitourinary: deferred Extremities: no e/c/c BLE's, +1 pedal pulses B Results Imaging Additional studies: EKG: SR, HR 72, DE interval of 228 ms, no acute ischemia Labs Result diagrams: 02/21/20 15:30 02/21/20 15:30 Labs: Laboratory Results - last 24 hr 02/21/20 02/21/20 15:30 15:30 WBC 5.42 RBC 4.83 Hgb 14.7 Hct 42.9 MCV 88.8 MCH 30.4 MCHC 34.3 RDW 11.6 L Plt Count 193 MPV 10.0 Immature Gran % 0.2 Neutrophils % 73.3 Lymphocytes % 18.5 Monocytes % 7.6 Eosinophils % 0.2 Basophils % 0.2 Nucleated RBC % 0 Absolute Neutrophils 3.98 Absolute Lymphocytes 1.00 L Absolute Monocytes 0.41 Absolute Eosinophils 0.01 Absolute Basophils 0.01 Sodium 138 Potassium 3.6 Chloride 104 Carbon Dioxide 26.7 Anion Gap 7.3 BUN 14 Creatinine 1.05 Estimated GFR/1.73 m2 >= 60.00 Glucose 184 H Calcium 8.6 Magnesium 1.7 L Total Bilirubin 0.4 AST 15 ALT 23 Alkaline Phosphatase 89 Troponin I < 0.05 Total Protein 6.5 Albumin 4.0 TSH 0.53 Last Vital Signs Temp 36.4 C L 02/21/20 15:14 Pulse 95 H 02/21/20 15:14 Resp 16 02/21/20 15:14 BP 152/79 H 02/21/20 15:14 Pulse Ox 97 02/21/20 15:14 COVID-19 Screening Have you,or household,traveled outside [place] in last 14 days?: No Had IN PERSON contact w/suspected or confirmed C-19 person: No
[2020-02-21] MEDS: MAGNESIUM SULFATE 1 GM/100 ML BAG IVPB (16:31)
[2020-02-21 17:10] LABS: NT-proBNP 44 pg/mL (<300)
[2020-02-21] MEDS: Normal Saline 1,000 ML 125 ML IV (18:31)
[2020-02-21] MEDS: Normal Saline Flush 10 ML SYR IVP (18:32)
[2020-02-21] MEDS: Apixaban 5 MG TAB PO (20:57)
[2020-02-21] MEDS: Tamsulosin 0.4 MG CAPCR PO (20:57)
[2020-02-21] MEDS: dilTIAZem 60 MG TAB 120 MG PO (20:58)
[2020-02-21] MEDS: Magnesium Gluconate 500 MG TAB PO (21:38)
[2020-02-21] MEDS: Pramipexole 0.25 MG TAB PO (21:38)
[2020-02-21] MEDS: Gabapentin 300 MG CAP 900 MG PO (21:38)
[2020-02-21] MEDS: Melatonin 3 MG TAB PO (21:38)
[2020-02-21] MEDS: Insulin Aspart 300 UNITS/3 ML PEN SC (21:49)
[2020-02-21 22:31] LABS: Troponin I < 0.05 ng/mL (<0.06)
[2020-02-22] VITALS (25 sets, daily range): BP systolic 105–168; BP diastolic 43–86; PULSE 45–71; RESP 11–21; TEMP 36.8; O2SAT 94–99
[2020-02-22] MEDS: Normal Saline 1,000 ML 125 ML IV ×2 (02:24→11:00)
[2020-02-22 07:09] LABS: Anion Gap 4.9 mmol/L (3-11); BUN 13 mg/dL (7-18); CO2 29.1 mmol/L (21.0-32.0); CREATININE 0.83 mg/dL (0.70-1.30); Calcium 7.8 mg/dL (8.5-10.1); Calculated LDL 73 mg/dL (<100); Chloride 105 mmol/L (98-107); Cholesterol 134 mg/dL (<200); Glucose 110 mg/dL (74-106); HDL Cholesterol 40 mg/dL (40-60); Magnesium 1.7 mg/dL (1.8-2.4); Potassium 3.9 mmol/L (3.5-5.1); Sodium 139 mmol/L (136-145); Triglyceride 105 mg/dL (<150)
[2020-02-22 07:30] LABS: Troponin I < 0.05 ng/mL (<0.06)
--- NOTE | 2020-02-22 08:00 | DI.US_ITS ---
EXAM: US CAROTID CLINICAL HISTORY: ?carotid stenosis. TECHNIQUE: Ultrasound carotids performed using grayscale, color-flow, and spectral Doppler imaging. COMPARISON: No exams were available for comparison FINDINGS: RIGHT CAROTID ARTERY: Plaque: Minimal. Velocity elevation: None. LEFT CAROTID ARTERY: Plaque: Minimal. Velocity elevation: None. VERTEBRAL ARTERIES: Antegrade flow. Measurements: R Bulb: 72cm/s PS / 10.9cm/s ED R CCA: 112.5cm/s PS / 12.2cm/s ED R ECA: 111.8cm/s PS / 10.3cm/s ED R ICA Prox: 66.8cm/s PS /14.1cm/s ED R ICA Mid: 69.4cm/s PS / 11.6cm/s ED R ICA Distal: 77.1cm/s PS /18cm/s ED R Vert: 54cm/s PS / 7.1cm/s ED R SVR: 0.69 R DVR: 1.48 L Bulb: 73.3cm/s PS /9cm/s ED L CCA: 102.2cm/s PS / 14.1cm/s ED L ECA: 73.9cm/s PS /8.4cm/s ED L ICA Prox:69.4cm/s PS / 13.5cm/s ED L ICA Mid: 83.6cm/sPS / 16.7cm/s ED L ICA Distal: 86.8cm/s PS / 19.3cm/s ED L Vert: 50.5cm/s PS / 8.9cm/s ED L SVR: 0.85 L DVR: 1.37 IMPRESSION: No evidence for hemodynamically significant carotid stenosis. Criteria for Carotid Stenosis: Normal: ICA PSV <125 cm/s no plaque or intimal thickening is visible. <50% stenosis: ICA PSV <125 cm/s and plaque or intimal thickening is visible. 50-69% stenosis: ICA PSV is 125-250 cm/s and plaque is visible. >70% stenosis to near occlusion: ICA PSV >250 cm/s with visible plaque and luminal narrowing. DATA REPOSITORY:
--- NOTE | 2020-02-22 08:00 | DI.NM_ITS ---
APPROVED REPORT Exam: Pharmacologic Patient Location: In-Patient Room/Bed: Stress Nurse: Tiffany Robb RN BMI: 25.79 Baseline Rhythm: First Degree Heart Block Indications: Syncope. Medical History Medical History: Paroxysmal Atrial Fibrillation, GERD, HTN, Hypercholesterolemia, Peripheral Neuropat hy, Diabetes, Smoking. Cardiac Medications: Diltiazem (PRN), Esomeprazole, Apixaban, Amlodipine-Benazepril, Metformin, Magne sium Gluconate, Pravastatin. Allergies: NKDA. Cardiac Risk Factors: HTN, Hyperlipidemia, Diabetes (non-insulin), Smoking (former) Previous Cardiac Procedures: None. Pretest Chest Pain Characteristics: No chest pain Exercise History: Physically active Physical Disabilities: None. Lung Sounds: Clear to auscultation Heart Sounds: Regular Stress Test Details Test: Pharmacologic stress testing performed using 0.4 mg of regadenoson per 5 mL given IV over 10 s econds. Reason for pharmacologic stress test: COVID results pending. Nuclear Acquisition: Rest Tc-99m/Stress Tc-99m 1 day Rest Isotope: Tc-99m Sestamibi. Dose: 11.6 Date: 02/22/2020 Injection Time: 1145 Stress Isotope: Tc-99m Sestamibi. Dose: 36.1 Date: 02/22/2020 Injection Time: 1342 HR Resting HR Supine: 63 bpm Max Heart Rate (APMHR): 142 bpm Target HR (85% APMHR): 120 bpm Max HR Achieved: 88 bpm % of APMHR: 61 BP Resting BP Supine: 178/76 mmHg Max BP: 178/76 mmHg Recovery BP: 160/72 mmHg ECG Resting ECst degree AV block Ectopy: None. Stress ECst degree AV block ST Change: No significant ST segment changes noted. Arrhythmia: None. Recovery ECst degree AV block Recovery ST Change: No significant ST segment changes noted. Recovery Arrhythmia: None. Stress ECG Conclusion 1. This is a pharmacological stress test. 2. The patient no symptoms suggestive of ischemia 3. EKG portion of this exam is nondiagnostic. Stress Test Summary STAGE HR BP Symptoms NOTES Supine 63 178/76 1 min post Lexiscan injection 81 162/70 None. 3 min post Lexiscan injection 76 158/76 6 min post Lexiscan injection 66 160/72 MPI Conclusion Patient's ejection fraction was 67% with stress. There were no wall motion abnormalities. There is no evidence of ischemia on the imaging portion of the exam. This represents a normal SPECT stress test. Radiologist Interpretation Radiologist Interpretation by: Javed Roper MD Interpretation Date/Time: 02/23/2020 09:15:09
--- NOTE | 2020-02-22 08:14 | W.PM.PROGNOT ---
Subjective Subjective Interval history since last seen: Bradycardic, 40s overnight consistently. Went to 30s 3 times. 1 apnea period - 20 seconds? 4 am cardizem held. MPI this morning. No syncope overnight. Objective Last Vital Signs Temp 36 C L 02/21/20 20:50 Pulse 45 L 02/22/20 06:01 Resp 13 02/22/20 06:01 BP 106/43 L 02/22/20 06:01 Pulse Ox 95 02/22/20 06:01 Laboratory Results - last 24 hr 02/21/20 02/21/20 02/21/20 15:30 15:30 15:30 WBC 5.42 RBC 4.83 Hgb 14.7 Hct 42.9 MCV 88.8 MCH 30.4 MCHC 34.3 RDW 11.6 L Plt Count 193 MPV 10.0 Immature Gran % 0.2 Neutrophils % 73.3 Lymphocytes % 18.5 Monocytes % 7.6 Eosinophils % 0.2 Basophils % 0.2 Nucleated RBC % 0 Absolute Neutrophils 3.98 Absolute Lymphocytes 1.00 L Absolute Monocytes 0.41 Absolute Eosinophils 0.01 Absolute Basophils 0.01 Sodium 138 Potassium 3.6 Chloride 104 Carbon Dioxide 26.7 Anion Gap 7.3 BUN 14 Creatinine 1.05 Estimated GFR/1.73 m2 >= 60.00 Glucose 184 H Hemoglobin A1c Calcium 8.6 Magnesium 1.7 L Total Bilirubin 0.4 AST 15 ALT 23 Alkaline Phosphatase 89 Troponin I < 0.05 NT-Pro-B Natriuret Pep 44 Total Protein 6.5 Albumin 4.0 Triglycerides Total Cholesterol LDL Cholesterol, Calc HDL Cholesterol TSH 0.53 COVID-19 PCR Nasopharyn COVID-19 PCR Ref Test Perform Site 02/21/20 02/21/20 02/22/20 16:23 22:05 06:15 WBC RBC Hgb Hct MCV MCH MCHC RDW Plt Count MPV Immature Gran % Neutrophils % Lymphocytes % Monocytes % Eosinophils % Basophils % Nucleated RBC % Absolute Neutrophils Absolute Lymphocytes Absolute Monocytes Absolute Eosinophils Absolute Basophils Sodium 139 Potassium 3.9 Chloride 105 Carbon Dioxide 29.1 Anion Gap 4.9 BUN 13 Creatinine 0.83 Estimated GFR/1.73 m2 >= 60.00 Glucose 110 H D Hemoglobin A1c Calcium 7.8 L Magnesium 1.7 L Total Bilirubin AST ALT Alkaline Phosphatase Troponin I < 0.05 < 0.05 NT-Pro-B Natriuret Pep Total Protein Albumin Triglycerides 105 Total Cholesterol 134 LDL Cholesterol, Calc 73 HDL Cholesterol 40 TSH COVID-19 PCR Cancelled Nasopharyn COVID-19 PCR Cancelled Ref Test Perform Site Cancelled 02/22/20 06:15 WBC RBC Hgb Hct MCV MCH MCHC RDW Plt Count MPV Immature Gran % Neutrophils % Lymphocytes % Monocytes % Eosinophils % Basophils % Nucleated RBC % Absolute Neutrophils Absolute Lymphocytes Absolute Monocytes Absolute Eosinophils Absolute Basophils Sodium Potassium Chloride Carbon Dioxide Anion Gap BUN Creatinine Estimated GFR/1.73 m2 Glucose Hemoglobin A1c 6.0 H Calcium Magnesium Total Bilirubin AST ALT Alkaline Phosphatase Troponin I NT-Pro-B Natriuret Pep Total Protein Albumin Triglycerides Total Cholesterol LDL Cholesterol, Calc HDL Cholesterol TSH COVID-19 PCR Nasopharyn COVID-19 PCR Ref Test Perform Site
--- NOTE | 2020-02-22 08:30 | RT.EKG_ITS ---
APPROVED REPORT Exam: Resting ECG Patient Location: I HR:56 bpm ECG Measurements Heart Rate 56 AXIS VA [id number] P [id number] QRSd 99 QRS 4 QT 426 T 62 QTc 413 Conclusion Sinus bradycardia
--- NOTE | 2020-02-22 08:36 | DI.US_ITS ---
APPROVED REPORT EXAM: Comprehensive 2D, Doppler, and color-flow Echocardiogram Patient Location: In-Patient Room/Bed: [id number] [place] Technician: Meghna Patel RDCS (AE) Indications: Syncope, Palpitations, Chest pain, A Fib Other Information Study Quality: Adequate Conclusion Left Ventricle : The left ventricle is normal size. The left ventricular systolic function is normal. The left ventricular ejection fraction is within the normal range. There is normal left ventricular wall thickness. There is normal LV segmental wall motion. The left ventricular diastolic function is normal. LVEF is 56%. Right Ventricle : The right ventricle is normal size. The right ventricular systolic function is norm al. The RVSP is 23.2mmHg. Atria : The left atrium size is normal. The right atrium size is normal. Valves: There are no hemodynamically significant valvular lesions. Great Vessels : The aortic root is normal in size. The ascending aorta is normal in size. IVC is norm al in size and collapses >50% with inspiration. Compared to study from 07/11/2016, there is no significant change. Wall motion Left Ventricle The left ventricle is normal size. The left ventricular systolic function is normal. The left ventric ular ejection fraction is within the normal range. There is normal left ventricular wall thickness. T here is normal LV segmental wall motion. The left ventricular diastolic function is normal. There is no ventricular septal defect visualized. LVEF is 56%. Right Ventricle The right ventricle is normal size. The right ventricular systolic function is normal. The RVSP is 23 .2mmHg. Atria The left atrium size is normal. The right atrium size is normal. The interatrial septum is intact wit h no evidence for an atrial septal defect. Aortic Valve The Aortic valve is sclerotic. Aortic valve is trileaflet. There is no aortic valvular stenosis. No a ortic regurgitation is present. Mitral Valve Mild mitral annular calcification. No evidence of mitral valve stenosis. Trace mitral regurgitation. Tricuspid Valve The tricuspid valve is normal in structure. There is no tricuspid valve stenosis. Trace tricuspid reg urgitation. Pulmonic Valve The pulmonary valve is normal in structure. There is no pulmonic valvular stenosis. Trace pulmonic re gurgitation. Great Vessels The aortic root is normal in size. The ascending aorta is normal in size. IVC is normal in size and c ollapses >50% with inspiration. Pericardium There is no pericardial effusion. 2D Dimensions IVSD d PLAX 1.04 cm M: 0.6-1.2 LV Vol A2C d MOD 100.6 mL LVPW d PLAX 1.05 cm M: 0.6 - 1.2 LV Vol A4C d MOD 120.7 mL LVID d PLAX 4.48 cm M: 4.2 - 5.8 LA vol/ BSA A2C s A-L 21.8 mL/m2 LVDs 3.10 cm M: 2.5 - 4.0 LA vol/ BSA A4C s A-L 26.7 mL/m2 Ao Root d 3.09 cm M: 3.1 - 3.7 LA Vol/ BSA Biplane s A-L 27.0 mL/m2 RA Area A4C 12.15 cm2 LA Area A4C s MOD 18.89 cm2 RA Vol/ BSA A4C s A-L 13.0 mL/m2 LA Area A2C s MOD 15.29 cm2 Ao Asc Diam d 3.36 cm M: 2.6 - 3.4 LV EF A4C MOD 54.2 % LV EF Teichholz 58.5 % LV EF A2C MOD 56.6 % LVEF (Glass's) 55.02 % M: 52 - 72 LV EF Biplane MOD 55.0 % LV Volume 81.98 mL M: 62 - 150 SV 60.49 mL LV Volume Index 40.38 mL/m2 M: 34 - 74 SV Index 29.72 mL/m2 LV Vol Biplane MOD 110.0 mL FS 30.75 % M-Mode TAPSE 2.76 cm (M/F) >1.7 LV Diastology MV E' medial 0.067 (>0.07 m/s) E/A Ratio 1.1 LV E/e MED 11.85 (<14) MV E Vmax 0.80 (0.4-1.3 m/s) MV E' lateral 0.083 (>0.1 m/s) MV A Vmax 0.70 (0.4-1.3 m/s) LV E/e LAT 9.60 (<14) MV E/A Ratio 1.10 MV E/E' medial 11.89 MV E/E' lateral 9.62 Aortic Valve LVOT Area 2.87 cm2 AoV Area Vmax 1.89 cm2 LVOT Vmax 1.06 m/s AoV Area/ BSA (Vmax) 0.93 cm2/m2 LVOT Mean Darrell. 0.74 m/s JADEN Mean Darrell. 1.83 cm2 LVOT Peak Grad 4.5 mmHg JADEN Mean Darrell. Index 0.90 cm2/m2 LVOT Mean Grad 2.5 mmHg LVOT VTI 0.266 m LVOT Diam s 1.90 cm AoV Vmax 1.61 m/s Velocity Ratio 0.65 AoV Mean Darrell. 1.16 m/s AoV Peak Grad 10.4 mmHg LVOT SV 76.42 mL AoV Mean Grad 6.1 mmHg AoV VTI 0.340 m AoV Area VTI 2.25 cm2 AoV Area/ BSA (VTI) 1.10 cm/m2 Mitral Valve MV DT 205 (160-240 msec) MV PHT 59 msec MV Area PHT 3.70 cm2 MV VTI 0.281 m MV Area VTI 2.72 (4.0-6.0 cm2) Pulmonary Valve PV Vmax 0.80 (0.5-1.5 m/s) RVOT Peak Gr. 2.07 mmHg PV Peak Grad 2.6 mmHg RVOT Mean Gr. 1.00 mmHg PV Mean Grad 1.4 mmHg RVOT VTI 0.177 m PV VTI 0.177 m RVOT Vmax 0.72 m/s Tricuspid Valve TR Peak Grad 20.2 mmHg TR Vmax 2.25 m/s RA Pressure 3.00 mmHg RVSP (TR) 23.2 mmHg
--- NOTE | 2020-02-22 09:32 | INITIAL_ITS ---
- If Service Date Differs Date of service: 02/22/20 Time of Service: 09:32 Care Management Initial Assess REASON FOR HOSPITALIZATION:: Syncope, paroxysmal afib PAST MEDICAL HISTORY/PAST SURGICAL HISTORY:: Medical History . Atrial fibrillation. Benign prostatic hyperplasia (05/28/12). Diabetes mellitus (09/24/12). no ophtalmopathy: . : normal microalb. Essential hypertension (02/25/13). Gastroesophageal reflux disease with esophagitis. H/O THOMPSON'S, ENDOSCOPY 1994. Hypercholesterolemia (09/24/12). Joint pain. multiple joint pains w/ osteoarthritis. Peripheral neuropathy (11/24/14). evaluated : db related . POLST (Physician Orders for Life-Sustaining Treatment). Tinnitus. Trochanteric bursitis of right hip (11/18/15). Surgical History . Arthroscopy, Shoulder. [facility]; LEFT. Extraction of cataract. B/L PREVIOUS FUNCTIONAL STATUS/SOCIAL/FAMILY SUPPORTS:: Elie lives with his spouse Annette in [place], [place]. 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 He continues to drive and care for himself. CURRENT FUNCTIONAL STATUS:: Elie is alert and engaged he is hopeful to return home today. His heart rate is currently in the 60's which he reports is normal for him. He understands his medication management of his afib. ADVANCE DIRECTIVES:: [employer] on file his spouse is his agent Annette Has patient been provided with info about the portal/API?: Yes Did the patient sign up for the portal?: Yes CODE STATUS:: DNR/DNI INSURANCE COVERAGE / FINANCIAL ISSUES:: Medicare, [employer] CURRENT HOME/COMMUNITY SERVICES/EQUIPMENT:: None at this time do not anticiapte any services at discharge. PRIMARY CARE PHYSICIAN:: POTENTIAL DISCHARGE NEEDS:: Anticipate he will need a cardiac event monitor and follow up scheduled with his primary care and professional athletes coach. PATIENT/FAMILY EDUCATION NEEDS:: Discharge education, limitations and follow up plan of care including ask me three. ANTICIPATED BARRIERS TO DISCHARGE:: None at this time TRANSPORTATION:: Via private car with spouse. PLAN:: Elie will be discharged home when medically ready. Anticipate he will not need and additional home services, per morning meeting he will need a ken dowling event monitor at time of discharge.
[2020-02-22] MEDS: Apixaban 5 MG TAB PO (09:39)
[2020-02-22] MEDS: MAGNESIUM SULFATE 2 GM/50 ML BAG IVPB (09:39)
[2020-02-22] MEDS: Finasteride 5 MG TAB PO (09:39)
[2020-02-22] MEDS: Magnesium Gluconate 500 MG TAB 1000 MG PO (09:39)
[2020-02-22] MEDS: Esomeprazole 20 MG CAPCR PO (09:39)
[2020-02-22] MEDS: Gabapentin 300 MG CAP PO (09:39)
[2020-02-22] MEDS: Tamsulosin 0.4 MG CAPCR PO (09:39)
--- NOTE | 2020-02-22 11:58 | PDOC.CMPRO ---
- If Service Date Differs Date of service: 02/22/20 Time of Service: 11:58
[2020-02-22] MEDS: Regadenoson 0.4 MG/5 ML SYR IVP (13:33)
--- NOTE | 2020-02-22 15:52 | DSE_ITS ---
Date of service: 02/22/20 Time of Service: 15:52 DS: Diagnosis Discharge Diagnosis (1) Syncope: Status: Acute (2) Atrial fibrillation: Status: Chronic (3) Heart palpitations: Status: Acute (4) Chest pain: Status: Acute (5) First degree heart block: Status: Acute (6) Hypomagnesemia: Status: Acute (7) Hypocalcemia: Status: Acute (8) Diabetes mellitus: Status: Acute (9) Essential hypertension: Status: Acute (10) Gastroesophageal reflux disease with esophagitis: Status: Acute (11) Benign prostatic hyperplasia: Status: Acute Discharge Plan Disposition Patient Disposition: HOME Condition: Stable Discharge Details Reason For Visit: SYNCOPE,PAROXYSMAL AFIV,PROLONGED AL INTERVAL Admit Date/Time: 02/21/20 16:20 Admit Provider: Liberty Jones Attending Provider: Liberty Jones Primary Care Provider: [facility] Hospital Course: Mr Glass is a 79 year old male with PMHx of paroxysmal Afib, as well as chronic hypomagnesemia, hypertension, hyperlipidemia, who was observed on [facility] hospitalist service from 02/21/2020 until 02/22/2020 after presenting c/o prolonged period of palpitations and a syncopal episode. He also reported chest pain. He ruled out for ACS. He did not have evidence of arrhythmia other than occasional PACs on telemetry. He does have a baseline 1st degree heart block, and his heart rate does dip into 30s when he sleeps (when cardizem is on board). He was hypomagnesemic, which was repleted. He underwent a nuclear stress test, which was negative. He had an echocardiogram which showed LVEF of 56%, no wall motion abnormalities, no hemodynamically significant valvular lesions. He does have evidence of mild pulmonary hypertension (RVSP 23.2 mmHg). This, along with the fact that the patient has a h/o Afib and was noted to have an episode of apnea overnight, suggests that he should undergo a sleep study, as it is likely that he has obstructive sleep apnea. As far as his syncopal episode, the patient did describe trying to feel his carotid pulse immediately before he syncopized. It is possible that this delivered enough of a vagal stimulus for the patient to syncopize as it could be interpreted as carotid massage. His carotid doppler was checked and did not reveal any hemodynamically significant stenosis. He is felt to be safe for discharge home today with a 30 day event recorder, bloodwork in 1 week (magnesium), and follow up with his PCP within 1 week. Home Meds and New Rx's Prescriptions: New melatonin 3 mg Tablet Extended Release 3 mg PO HS Qty: 30 RF: 0 Continued Shingrix (PF) 50 mcg/0.5 mL suspension for reconstitution 0.5 ml IM ONCE Qty: 1 RF: 1 diltiazem HCl [Cardizem] 120 MG tablet 120 mg PO DAILY PRN PRN (Reason: rapid afib) Qty: 30 RF: 2 CONTOUR STRIPS 1 strip Sub-Q DAILY Qty: 100 RF: 1 Eliquis 5 mg tablet 5 mg PO BID Qty: 180 RF: 3 finasteride 5 mg tablet 5 mg PO DAILY Qty: 90 RF: 3 pravastatin 40 mg tablet 40 mg PO DAILY Qty: 90 RF: 3 amlodipine-benazepril [Lotrel] 5-20 mg capsule 1 cap PO DAILY Qty: 90 RF: 4 esomeprazole magnesium [Nexium] 20 mg capsule,delayed release(DR/EC) 20 mg PO DAILY Qty: 90 RF: 4 metformin [Glucophage] 500 mg tablet 500 mg PO BID Qty: 180 RF: 4 gabapentin 300 mg capsule 300 - 900 mg PO DIRECTED Qty: 360 RF: 2 meloxicam [Mobic] 15 mg tablet 15 mg PO DAILY PRN (Reason: pain) Qty: 90 RF: 3 pramipexole 0.25 mg tablet 0.25 mg PO QHS Qty: 90 RF: 1 tamsulosin 0.4 mg capsule 0.4 mg PO BID Qty: 180 RF: 3 promethazine 12.5 mg tablet 12.5 mg PO QID PRN (Reason: nausea and vomiting) Qty: 10 RF: 0 Changed magnesium gluconate 27.5 MG tablet 55 mg PO BID Qty: 60 RF: 3 Discharge Instructions Instructions: Syncope (DC), Hypomagnesemia (DC) Additional Instructions: Return to the hospital with any fever, bleeding, chest pain, shortness of breath, or recurrent syncope/fainting. Bloodwork in 1 week. Follow up with your PCP in 1 week. Stand Alone Forms: Nursing Discharge Form Referrals: [facility] [OTHER] - Sanjana Langley MD [Primary Care Provider] - Activity:: Activity as Tolerated Equipment/Supplies:: cardiac event recorder Diet:: As Tolerated Discharge Orders Discharge Orders: Discharge Order (Routine); Ordered 02/22/20 Ordered By: Liberty Jones Other Ambulatory Orders: Basic Metabolic Panel (Routine) Timeframe: 1 Week Location: Determined by Patient Ordered By: Liberty Jones Magnesium (Routine) Timeframe: 1 Week Location: Determined by Patient Ordered By: Liberty Jones Cardiac Event Recorder (Outpt) (ONCE) Timeframe: [id number] Facility: [facility] - Location: Respiratory Therapy Ordered By: Liberty Jones DS: Summary Status at Discharge Functional status at discharge: independent ambulation Overall status at discharge: patient is back to baseline Mental Status: mental status grossly normal Speech and Movement: speech and movement normal Mood: congruent mood Affect: normal affect Exam Narrative Exam Narrative: General: Pleasant elderly male who looks younger than his stated age, laying comfortably in bed, A&Ox3 HEENT: Atraumatic, normocephalic, EOMI, MMM Cardiovascular: RRR, no m/r/g Lungs: CTAB Gastrointestinal: soft, nontender, nondistended Extremities: no e/c/c BLE's, +1 pedal pulses B Psych Mental Status: mental status grossly normal Speech and Movement: speech and movement normal Mood: congruent mood Affect: normal affect DS: Data Vitals/I&O Vitals and I&O: Vital Signs Temperature 36 C L 02/21/20 20:50 Temperature Source Temporal Artery Scan 02/21/20 20:50 Pulse 59 L 02/22/20 12:40 Pulse Rhythm Regular 02/22/20 08:30 Pulse 53 L 02/22/20 12:00 Respiratory Rate 13 02/22/20 12:00 Respiratory Effort Non-Labored 02/22/20 08:30 Respiratory Depth Normal 02/22/20 08:30 Respiratory Pattern Normal 02/22/20 08:30 Blood Pressure 146/70 H 02/22/20 12:40 Blood Pressure Mean 89 02/22/20 12:40 Blood Pressure Position Supine 02/21/20 20:50 Pulse Oximetry 96 02/22/20 12:00 Oxygen Delivery Method Room Air 02/21/20 20:50 Oxygen Flow Rate 0 02/21/20 20:50 Pain Level 0 02/21/20 20:50 Intake & Output 02/21/20 02/22/20 02/22/20 23:59 11:59 23:59 Intake Total 580 / 580 2189.167 / 2189.167 0 / 2189.167 Output Total 500 / 500 975 / 1200 225 / 1200 Balance 80 / 80 1214.167 / 989.167 -225 / 989.167 Weight 83.6 kg 86.4 kg Intake: IV 100 / 100 2189.167 / 2189.167 0 / 2189.167 Oral 480 / 480 Output: Urine 500 / 500 975 / 1200 225 / 1200 Other: Urine Color Pale Pale Yellow Yellow Yellow Urine Appearance Clear Clear Clear Urine Odor Normal Normal Normal Voiding Methods Urinal Urinal Data Completed and Pending Completed studies during hospitalization [Text1]: Echo: Left Ventricle : The left ventricle is normal size. The left ventricular systolic function is normal. The left ventricular ejection fraction is within the normal range. There is normal left ventricular wall thickness. There is normal LV segmental wall motion. The left ventricular diastolic function is normal. LVEF is 56%. Right Ventricle : The right ventricle is normal size. The right ventricular systolic function is normal. The RVSP is 23.2mmHg. Atria : The left atrium size is normal. The right atrium size is normal. Valves: There are no hemodynamically significant valvular lesions. Great Vessels : The aortic root is normal in size. The ascending aorta is normal in size. IVC is normal in size and collapses >50% with inspiration. Compared to study from 07/11/2016, there is no significant change. US carotid: No evidence for hemodynamically significant carotid stenosis. MPI: Stress ECG Conclusion 1. This is a pharmacological stress test. 2. The patient no symptoms suggestive of ischemia 3. EKG portion of this exam is nondiagnostic. MPI Conclusion Patient's ejection fraction was 67% with stress. There were no wall motion abnormalities. There is no evidence of ischemia on the imaging portion of the exam. This represents a normal SPECT stress test. Pending studies at discharge: COVID-19 PCR Labs on day of discharge: Labs from last 24 hours 02/22/20 02/22/20 02/21/20 06:15 06:15 22:05 Sodium 139 Potassium 3.9 Chloride 105 Carbon Dioxide 29.1 Anion Gap 4.9 BUN 13 Creatinine 0.83 Estimated GFR/1.73 m2 >= 60.00 Glucose 110 H D Hemoglobin A1c 6.0 H Calcium 7.8 L Magnesium 1.7 L Total Bilirubin AST ALT Alkaline Phosphatase Troponin I < 0.05 < 0.05 NT-Pro-B Natriuret Pep Total Protein Albumin Triglycerides 105 Total Cholesterol 134 LDL Cholesterol, Calc 73 HDL Cholesterol 40 TSH COVID-19 PCR Nasopharyn COVID-19 PCR SARS-CoV-2 Source SARS-CoV-2 (PCR) Ref Test Perform Site 02/21/20 02/21/20 02/21/20 16:23 15:30 15:30 Sodium 138 Potassium 3.6 Chloride 104 Carbon Dioxide 26.7 Anion Gap 7.3 BUN 14 Creatinine 1.05 Estimated GFR/1.73 m2 >= 60.00 Glucose 184 H Hemoglobin A1c Calcium 8.6 Magnesium 1.7 L Total Bilirubin 0.4 AST 15 ALT 23 Alkaline Phosphatase 89 Troponin I < 0.05 NT-Pro-B Natriuret Pep 44 Total Protein 6.5 Albumin 4.0 Triglycerides Total Cholesterol LDL Cholesterol, Calc HDL Cholesterol TSH 0.53 COVID-19 PCR Cancelled Nasopharyn COVID-19 PCR Cancelled SARS-CoV-2 Source Pending SARS-CoV-2 (PCR) Pending Ref Test Perform Site Cancelled [facility] Medical History Atrial fibrillation ECHO NEG, HOLTER 04/29 FEW PVC'S/PAC'S Eliquis/2017: Benign prostatic hyperplasia (05/28/12) Diabetes mellitus (09/24/12) no ophtalmopathy: : normal microalb. 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 Sister Essential hypertension Hyperlipidemia Brother , 62 Diabetes Blastoma Brother No problems noted. Maternal Grandfather , 47 No problems noted. Paternal Grandfather , 85 Hyperlipidemia Hypertension Maternal Grandmother , 85 Essential hypertension Heart disease Hyperlipidemia Paternal Grandmother , 95 No problems noted. Daughter No problems noted. Daughter No problems noted. Daughter No problems noted. Social History Smoking/Tobacco Use Status: Former Tobacco Use Quit Date: 04/22/74 Smoking risk assessment performed?: Yes Alcohol Intake: current Alcohol Intake frequency: 0-2 drinks per day Alcohol type: hard liquor Drug use: Daily Substance use type: marijuana and other Details: MEDICINAL PURPOSES Caregiver/Support person: No Household members: spouse Communication Needs: Hard of Hearing Do you need help understanding health information?: Never Pets and animals: Yes Pets and animals: other Details: goats Sexually active: Yes Do you think of yourself as: straight/heterosexual What is your relationship status?: How often do you talk on the phone with friends or family?: three or more times per week How often do you get together with friends or relatives?: decline to answer How often do you attend tenriism or catholic services?: decline to answer Do you belong to any clubs or organized social groups?: yes Panel score (0-1 are the most socially isolated patients): 3 What type of physical activity do you participate in: other Details: Cutting wood, yard work, gardening, Golf Duration: 60-90 minutes/day Frequency: 5-6 times per week Randa/Restorationism: OTHER Special randa needs: No Seatbelt use: always Drive intox or ride w/intox recycling collections driver: No Do you feel safe in your relationship?: Yes
[2020-02-23 15:21] LABS: SARS-CoV-2 RNA Not Detected (NotDetected); SARS-CoV-2 RNA Source Nasal/Nares
[2020-02-24 20:39] LABS: Anaplasma phagocytophilum Negative (Negative); B. miyamotoi PCR Negative (Negative); Babesia divergens/MO-1 Negative (Negative); Babesia duncani Negative (Negative); Babesia microti Negative (Negative); Ehrlichia chaffeensis Negative (Negative); Ehrlichia ewingii/canis Negative (Negative); Ehrlichia muris eauclairensis Negative (Negative)
[2020-02-25 10:52] LABS: Lyme Ab w Rflx to Lyme Confirm Negative (Negative)
== END 2020-02-22 17:00 | disposition home or self-care (01) ==
LOC: ER 16:51 → ICU 17:23
PROVIDERS: Admitting Provider Internal Medicine; Emergency Provider Student in an Organized Health Care Education/Training Program; PCP Family Medicine; Visit Provider Internal Medicine
DX: R55 Syncope and collapse (principal); R00.2 Palpitations; I44.0 Atrioventricular block, first degree; E83.42 Hypomagnesemia; I48.0 Paroxysmal atrial fibrillation; R94.31 Abnormal electrocardiogram [ECG] [EKG]; E78.00 Pure hypercholesterolemia, unspecified; I10 Essential (primary) hypertension; E11.42 Type 2 diabetes mellitus with diabetic polyneuropathy; N40.0 Benign prostatic hyperplasia without lower urinary tract symptoms; Z66 Do not resuscitate; Z11.59 Encounter for screening for other viral diseases; R51.9 Headache, unspecified; Z79.01 Long term (current) use of anticoagulants; R42 Dizziness and giddiness; K21.00 Gastro-esophageal reflux disease with esophagitis, without bleeding; E83.51 Hypocalcemia
CPT/HCPCS: 36415; 78452; 80048; 80053; 80061; 87798; 90662; 93005; 93016; 93018; 93270; 93306; 96365; 99217; 99220; 99285; U0003; 83036; 83735; 83880; 84443; 84484; 85025; 86618; 93010; 93017; 93880; G0378; J0610; J2785; J3475

== ENCOUNTER 2020-02-29 05:05 | Outpatient (CLI) | payer MEDICARE, OTHER, SELFPAY ==
[2020-02-29 10:30] LABS: COMMENT (LAB VIEW ONLY) 77.13 mg/dL
[2020-02-29 10:42] LABS: Anion Gap 9.6 mmol/L (3-11); BUN 12 mg/dL (7-18); CO2 27.4 mmol/L (21.0-32.0); CREATININE 0.73 mg/dL (0.70-1.30); Calcium 8.8 mg/dL (8.5-10.1); Chloride 105 mmol/L (98-107); Glucose 110 mg/dL (74-106); Magnesium 1.8 mg/dL (1.8-2.4); Sodium 142 mmol/L (136-145)
[2020-02-29 11:22] LABS: Hemoglobin A1C 6.1 % (<5.7)
== END 2020-02-29 05:25 ==
PROVIDERS: PCP Family Medicine; Visit Provider Internal Medicine
DX: E11.9 Type 2 diabetes mellitus without complications (principal); E83.42 Hypomagnesemia
CPT/HCPCS: 36415; 80048; 82043; 82570; 83036; 83735

== ENCOUNTER → 2020-03-15 12:34 | Outpatient (BNVA) | payer MEDICARE, OTHER, SELFPAY ==
--- NOTE | 2020-04-04 08:32 | W.CARDEVENT ---
Date of service: 04/04/20 Time of Service: 08:32 Cardiac Event Recorder Referring Provider:: reji Indications:: syncope Cardiac Event Note: This is a 30-day event recorder ordered for indication of syncope. ?Patient was in normal sinus rhythm for the majority of the recording with an average heart rate of 60 bpm. ?The patient had 3 episodes of nonsustained ventricular tachycardia with the longest lasting 16 beats. ?The patient had 12 triggered events which were associated with sinus rhythm and PVCs. ?There was one episode labeled as atrial fibrillation which is likely normal sinus rhythm with a PVC.
== END ==
PROVIDERS: PCP Family Medicine; Referring Provider Family Medicine; Visit Provider Internal Medicine Cardiovascular Disease
DX: I47.2 Ventricular tachycardia (principal); I10 Essential (primary) hypertension; I48.91 Unspecified atrial fibrillation; Z79.01 Long term (current) use of anticoagulants; E11.9 Type 2 diabetes mellitus without complications
CPT/HCPCS: 99215

== ENCOUNTER 2020-04-04 08:32 | Outpatient (CLI) | payer MEDICARE, OTHER, SELFPAY | END 2020-04-04 08:52 | PROVIDERS: PCP Family Medicine; Referring Provider Family Medicine; Visit Provider Internal Medicine Cardiovascular Disease | DX: R55 Syncope and collapse (principal); I47.1 Supraventricular tachycardia; I49.3 Ventricular premature depolarization | CPT/HCPCS: 93272 ==

== ENCOUNTER → 2020-04-19 10:44 | Outpatient (BNVA) | payer MEDICARE, OTHER, SELFPAY | PROVIDERS: PCP Family Medicine; Referring Provider Family Medicine; Visit Provider Internal Medicine Cardiovascular Disease | DX: I47.2 Ventricular tachycardia (principal); R00.2 Palpitations; I48.91 Unspecified atrial fibrillation | CPT/HCPCS: 99214 ==

== ENCOUNTER → 2020-05-03 10:23 | Outpatient (BNVA) | payer MEDICARE, OTHER, SELFPAY | PROVIDERS: PCP Family Medicine; Referring Provider Family Medicine; Visit Provider Nurse Practitioner Gerontology | DX: N40.0 Benign prostatic hyperplasia without lower urinary tract symptoms (principal); R33.9 Retention of urine, unspecified; Z12.5 Encounter for screening for malignant neoplasm of prostate | CPT/HCPCS: 99213 ==

== ENCOUNTER 2020-05-03 15:21 | Outpatient (REF) | payer MEDICARE, OTHER, SELFPAY ==
[2020-05-03 22:34] LABS: PSA, Screening 0.5 ng/mL (0.0-6.5)
== END 2020-05-03 15:41 ==
LOC: LBN 15:21
PROVIDERS: PCP Family Medicine; Visit Provider Nurse Practitioner Gerontology
DX: N40.0 Benign prostatic hyperplasia without lower urinary tract symptoms (principal); Z12.5 Encounter for screening for malignant neoplasm of prostate
CPT/HCPCS: 84153

== ENCOUNTER 2020-05-19 01:53 | Outpatient (CLI) | payer MEDICARE, OTHER, SELFPAY ==
--- NOTE | 2020-05-19 07:00 | DI.US_ITS ---
EXAM: US RENAL CLINICAL HISTORY: elevated PVR, ? hydro,URINARY RETENTION,BENIGN PROSTATIC HYPERPLASIA TECHNIQUE: Ultrasound of both kidneys performed using standard protocol. COMPARISON: Prior CT scan February 2019. FINDINGS: RIGHT KIDNEY: Measures 12 cm in length. There is a small midpole level cyst measuring 11 x 8 millimeters. Normal c ortical thickness and corticomedullary differentiation .No solid masses No intrarenal calculi nor hydronephrosis. LEFT KIDNEY: Measures 12 cm in length. No cysts evident. Normal cortical thickness and corticomedullary different iaion. No solids masses. No intrarenal calculi nor hydonephrosis. URINARY BLADDER: Prevoid volume is 229 cc Postvoid volume is 157 cc Bladder wall is trabeculated No evidence of bladder mass nor diverticuli. Ureterovesical jets: Both identified and appear symmetrical IMPRESSION: 1. No significant ultrasound findings in the kidneys. Small midpole level benign cyst in the right kidney, as evident prior CT scan February 2019. 2. Significantly increased postvoid residual bladder volume of 157 cc. The prostate gland is enlarg ed and the urinary bladder is trabeculated. DATA REPOSITORY:
== END 2020-05-19 02:13 ==
PROVIDERS: PCP Family Medicine; Visit Provider Nurse Practitioner Gerontology
DX: N28.1 Cyst of kidney, acquired (principal); N40.1 Benign prostatic hyperplasia with lower urinary tract symptoms; R33.9 Retention of urine, unspecified
CPT/HCPCS: 76770

== ENCOUNTER → 2020-05-23 11:35 | Outpatient (BNVA) | payer MEDICARE, OTHER, SELFPAY | PROVIDERS: PCP Family Medicine; Referring Provider Family Medicine; Visit Provider Nurse Practitioner Gerontology | DX: N40.0 Benign prostatic hyperplasia without lower urinary tract symptoms (principal) | CPT/HCPCS: 99442 ==

== ENCOUNTER 2020-06-09 02:32 | Outpatient (CLI) | payer MEDICARE, OTHER, SELFPAY ==
[2020-06-10 13:42] LABS: COVID-19 RT-PCR UVMMC Result Negative (Negative)
== END 2020-06-09 02:33 | disposition home or self-care (01) ==
LOC: LBO 02:33
PROVIDERS: PCP Family Medicine; Visit Provider Urology
DX: Z20.822 Contact with and (suspected) exposure to COVID-19 (principal); Z01.818 Encounter for other preprocedural examination
CPT/HCPCS: U0003; U0005

== ENCOUNTER 2020-06-13 06:10 | Inpatient (IN) | payer MEDICARE, OTHER, SELFPAY ==
[2020-06-13] VITALS (15 sets, daily range): BP systolic 98–155; BP diastolic 44–80; PULSE 48–67; RESP 11–20; TEMP 34.7–36.6; O2SAT 95–97
--- NOTE | 2020-06-13 06:51 | W.PM.HP.N ---
Date of service: 06/13/20 Time of Service: 06:51 Assessment and Plan Assessment and plan (1) Lower urinary tract symptoms (LUTS): Status: Acute Assessment and plan: He presents for TURP. We will plan to keep him overnight for continuous bladder irrigation post operatively History of Present Illness Narrative: This is a 79 year old man whois followed for LUTS. He has been managed with maximal medical therapy (on tamsulosin 0.4 mg twice daily and Proscar 5 mg). He notes over the past year he is started to develop some urge incontinence. He has not seen gross hematuria nor had dysuria. He was evaluated with a renal ultrasound that showed no hydronephrosis, but he has a high PVR and has had progression of his symptoms. He presents for TURP. He does note that he ran out of his tamsulosin for a few days and can definitely noticed a difference for the worse when he was off the medication. He states that a few days of the medication his LUTS improved. He has no abnormal weight loss or abnormal bleeding or bruising. Review of Systems Narrative: No fevers or chills Hx cataracts. No dysphasia No thyroid dysfunction No shortness of breath, cough or hemoptysis c/o palpitations. Hx A Fib and SVT. No chest pain Hx GERD. No hepatitis, ulcers, jaundice, diarrhea or constipation No seizures, strokes No bleeding disorders or anemia No gout PFSH Medical History (Updated 06/13/20 @ 06:59 by Trip Santos MD) Atrial fibrillation ECHO NEG, HOLTER 04/29 FEW PVC'S/PAC'S Eliquis/2017: Benign prostatic hyperplasia (05/28/12) Diabetes mellitus (09/24/12) no ophtalmopathy: : normal microalb. 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 Sister Essential hypertension Hyperlipidemia Brother , 62 Diabetes Blastoma Brother No problems noted. Maternal Grandfather , 47 No problems noted. Paternal Grandfather , 85 Hyperlipidemia Hypertension Maternal Grandmother , 85 Essential hypertension Heart disease Hyperlipidemia Paternal Grandmother , 95 No problems noted. Daughter No problems noted. Daughter No problems noted. Daughter No problems noted. Social History Smoking/Tobacco Use Status: Former Tobacco Use Quit Date: 04/22/74 Smoking risk assessment performed?: Yes Alcohol Intake: current Alcohol Intake frequency: 0-2 drinks per day Alcohol type: hard liquor Drug use: Daily Substance use type: marijuana and other Details: MEDICINAL PURPOSES Caregiver/Support person: No Household members: spouse Communication Needs: Hard of Hearing Do you need help understanding health information?: Never Pets and animals: Yes Pets and animals: other Details: goats Sexually active: Yes Do you think of yourself as: straight/heterosexual What is your relationship status?: How often do you talk on the phone with friends or family?: three or more times per week How often do you get together with friends or relatives?: decline to answer How often do you attend zoroastrian or restorationism services?: decline to answer Do you belong to any clubs or organized social groups?: yes Panel score (0-1 are the most socially isolated patients): 3 What type of physical activity do you participate in: other Details: Cutting wood, yard work, gardening, Golf Duration: 60-90 minutes/day Frequency: 5-6 times per week Randa/Rastafarian: OTHER Special randa needs: No Seatbelt use: always Drive intox or ride w/intox lyft driver: No Do you feel safe in your relationship?: Yes Meds Home Medications and Allergies Home Medications Medication Instructions Recorded Confirmed Type diltiazem HCl [Cardizem] 120 mg PO DAILY PRN PRN #30 tab 09/21/15 06/13/20 History Contour Strips 1 strip SUB-Q DAILY #100 strip 06/22/16 06/10/20 Clinic promethazine 12.5 mg PO QID PRN #10 tab 02/23/19 06/13/20 Rx varicella-zoster glycoE [id number] 0.5 ml IM ONCE #1 each 10/21/19 06/10/20 Rx adj(PF) 50 mcg/0.5 mL IM susp, kit tamsulosin 0.4 mg capsule 0.4 mg PO BID #180 tab-cap 02/18/20 06/13/20 Rx magnesium gluconate 55 mg PO BID #60 tab-cap 02/22/20 06/13/20 Rx melatonin 3 mg PO HS #30 tab 02/22/20 06/13/20 Rx meloxicam 15 mg tablet 15 mg PO DAILY PRN #90 tab-cap 02/26/20 06/13/20 Rx gabapentin 300 mg capsule 1,200 mg PO .daily as directed 03/10/20 06/13/20 Rx #360 cap apixaban 5 mg tablet 5 mg PO BID #180 tab-cap 04/05/20 06/13/20 Rx finasteride 5 mg tablet 5 mg PO DAILY #90 tab-cap 04/05/20 06/13/20 Rx pravastatin 40 mg tablet 40 mg PO DAILY #90 tab-cap 04/05/20 06/13/20 Rx metoprolol succinate 25 mg 25 mg PO DAILY #90 tab 04/19/20 06/13/20 Rx tablet,extended release 24 hr pramipexole 0.25 mg tablet 0.25 mg PO QHS #90 tab 04/29/20 06/13/20 Rx amlodipine 5 mg-benazepril 20 mg 1 cap PO DAILY #90 tab-cap 05/27/20 06/13/20 Rx capsule esomeprazole magnesium 20 mg 20 mg PO DAILY #90 tab-cap 05/27/20 06/13/20 Rx capsule,delayed release metformin 500 mg tablet 500 mg PO BID #180 tab-cap 05/27/20 06/13/20 Rx Allergies Allergy/AdvReac Type Severity Reaction Status Date / Time No Known Allergies Allergy Unverified 06/13/20 06:26 Exam Const General: cooperative and no acute distress Neck Neck: supple Resp Effort & Inspection: normal respiratory effort Auscultation: clear to auscultation bilaterally Cardio Rate: regular rate Rhythm: regular rhythm GI Palpation: soft and no masses Neuro General: patient alert, patient awake and patient oriented x3 Results Last Vital Signs Temp 36.3 C L 06/13/20 06:27 Pulse 60 06/13/20 06:27 Resp 16 06/13/20 06:27 BP 152/77 H 06/13/20 06:27 Pulse Ox 97 06/13/20 06:27 COVID-19 Screening Have you, or household traveled for leisure in last 14 days?: No Had IN PERSON contact w/suspected or confirmed C-19 person: No
[2020-06-13] MEDS: Lactated Ringers 1,000 ML 80 ML IV (06:57)
[2020-06-13] MEDS: ceFAZolin 2 GM/50 ML BAG IVPB (07:45)
--- NOTE | 2020-06-13 08:56 | PROST_PTH ---
PATIENT: Elie Glass LOC: U#:[id number] AGE/SX: 79/M ROOM: 229 RE06/13/[address]: Trip Santos MD : 1940 BED: A DIS: 06/14/2020 SPEC #: [id number] RECD: 06/13/20 12:44 STATUS: JOSELO REQ #: [id number] EMILY: 06/13/20 08:[address]: Trip Santos DEPT: Surgical Specimen RECD BY: Ember Nicholas ENTERED: 06/13/20 12:44 SP TYPE: PROST OTHR DR: Sanjana Langley MD Tissues: 1 - PROSTATE CURRETTINGS Procedures: GROSS AND MICRO LEVEL 4 Comments: [id number]
[2020-06-13] MEDS: Lidocaine 2% Jelly 6 ML SYR (09:00)
--- NOTE | 2020-06-13 09:12 | W.PM.OP ---
Date of service: 06/13/20 Time of Service: 09:12 Operative Note Operative Note DATE OF PROCEDURE: 06/13/20 PRE-OP DIAGNOSIS: Lower urinary tract symptoms POST-OP DIAGNOSIS: same PROCEDURE: cystoscopy, TURP, vaporization of prostate SURGEON: Trip Santos ANESTHESIA TYPE: Spinal Refer to Anesthesia Record ESTIMATED BLOOD LOSS: 150 PATHOLOGY: other (prostate chips) COMPLICATIONS: None Patient was transported to: PACU Patient's condition: stable Implants: 24 Moroccan hematuria catheter with 30 cc sterile water in balloon Indications: This is a 79-year-old gentleman who has a history of lower urinary tract symptoms. He is on maximal medical management and his symptoms have progressed. He presents for transurethral resection of the prostate Findings: Trabeculated bladder with no papillary or nodular masses Procedure Description: Patient was given preoperative IV antibiotics. After successful induction of spinal anesthesia, he was placed in the dorsal lithotomy position. His genitalia was prepped and draped. 2% Xylocaine jelly was instilled into the urethra to act as a local anesthetic. A 24 Moroccan resectoscope sheath was then passed through the urethra into the bladder. We used a visual obturator and a 30 degree lens to inspect the urethra and bladder. The pendulous, bulbous and membranous urethra was appeared normal with no strictures. The prostatic urethra showed lateral lobe enlargement but no significant median lobe. The bladder neck was entered and the bladder mucosa was inspected. Both ureteral orifice ease were identified. Clear urine was seen coming from each side. The remainder the bladder was moderately trabeculated with no papillary or nodular lesions. We then utilized bipolar cautery and an Phelan resectoscope to perform transurethral resection from the bladder neck out to the verumontanum. The depth of the resection was down to the prostatic capsule. Periprosthetic fat could be seen in a few areas. All resected chips were evacuated and sent to pathology for permanent section. We then switched over to a vaporization button and vaporize the remaining prostatic tissue back to the capsule. The bladder was then filled with irrigant and the resectoscope was removed. I passed a 24 Moroccan hematuria catheter through the urethra into the bladder. The catheter balloon was inflated with 30 cc of sterile water. Continuous bladder irrigation was begun. Traction was placed on the catheter until the irrigant became clear. He tolerated the procedure well with no complications. He was taken to the recovery room in stable condition.
[2020-06-13] MEDS: fentaNYL 100 MCG/2 ML VIAL IVP (09:42)
[2020-06-13] MEDS: Ketorolac 15 MG/ML VIAL IVP ×3 (09:48→22:53)
[2020-06-13] MEDS: Lactated Ringers 1,000 ML 100 ML IV ×2 (11:15→20:22)
[2020-06-13] MEDS: Acetaminophen 325 MG TAB 650 MG PO ×2 (13:48→18:55)
[2020-06-13] MEDS: Tamsulosin 0.4 MG CAPCR PO (16:33)
[2020-06-13] MEDS: ceFAZolin 1 GM/50 ML BAG IVPB ×2 (16:33→23:40)
[2020-06-13] MEDS: Normal Saline Flush 10 ML SYR IV (16:33)
[2020-06-13] MEDS: metFORMIN 500 MG TAB PO (16:33)
[2020-06-13] MEDS: Pravastatin 40 MG TAB PO (20:21)
[2020-06-13] MEDS: Magnesium Gluconate 500 MG TAB PO (20:21)
[2020-06-13] MEDS: Docusate Sodium 100 MG CAP PO (20:21)
[2020-06-13] MEDS: Pramipexole 0.25 MG TAB PO (21:27)
[2020-06-13] MEDS: Gabapentin 300 MG CAP 900 MG PO (21:27)
[2020-06-13] MEDS: Melatonin 3 MG TAB PO (21:27)
[2020-06-13] MEDS: traMADol 50 MG TAB PO (22:53)
[2020-06-14] MEDS: Lactated Ringers 1,000 ML 100 ML IV (06:23)
[2020-06-14 06:35] LABS: HCT 36.1 % (40.0-50.0); HGB 12.6 g/dL (13.5-17.5); MCHC 34.9 % (32.0-36.0); MPV 9.9 fL (8.0-11.0); Platelet Count 156 10^3/uL (130-400); RDW-SD 37.7 fL; WBC 9.72 10^3/uL (4.4-10.8)
[2020-06-14 06:55] LABS: Anion Gap 6.2 mmol/L (3-11); BUN 18 mg/dL (7-18); CO2 28.8 mmol/L (21.0-32.0); CREATININE 0.8 mg/dL (0.70-1.30); Calcium 8.4 mg/dL (8.5-10.1); Chloride 104 mmol/L (98-107); Glucose 118 mg/dL (74-106); Potassium 4.1 mmol/L (3.5-5.1); Sodium 139 mmol/L (136-145)
--- NOTE | 2020-06-14 07:21 | W.PM.PROGNOT ---
Date of Service Date of service: 06/14/20 Time of Service: 07:21 Assessment and Plan Assessment and plan (1) Lower urinary tract symptoms (LUTS): Status: Acute Assessment and plan: He is doing well in the postoperative time. We will discontinue his bladder irrigation and Hep-Lock his IV fluids. We will recheck him later this morning and decide if we give him a voiding trial or if we discharged him to home with a Black catheter in place. Subjective Subjective Interval history since last seen: He has been relatively comfortable once his catheter was more stably secured to his leg with a strap. He has not had any clot retention. He is tolerating oral nutrition and medications. Exam Narrative Exam Narrative: He looks comfortable. He does not appear septic or toxic. His vital signs are documented elsewhere He is awake and alert His bladder irrigation is clear Objective Last Vital Signs Temp 36.4 C L 06/13/20 23:40 Pulse 57 L 06/13/20 23:40 Resp 17 06/13/20 23:40 BP 152/80 H 06/13/20 23:40 Pulse Ox 95 06/13/20 23:40 Laboratory Results - last 24 hr 06/14/20 06/14/20 06:05 06:05 WBC 9.72 RBC 4.20 L Hgb 12.6 L Hct 36.1 L MCV 86.0 MCH 30.0 MCHC 34.9 RDW 12.0 Plt Count 156 MPV 9.9 Sodium 139 Potassium 4.1 Chloride 104 Carbon Dioxide 28.8 Anion Gap 6.2 BUN 18 Creatinine 0.8 Estimated GFR/1.73 m2 >= 60.00 Glucose 118 H Calcium 8.4 L
--- NOTE | 2020-06-14 07:23 | W.PM.DS.N ---
Date of service: 06/14/20 Time of Service: 07:23 DS: Diagnosis Discharge Diagnosis (1) Lower urinary tract symptoms (LUTS): Status: Acute Discharge Plan Disposition Patient Disposition: HOME Condition: Stable Discharge Details Reason For Visit: LOWER URINARY TRACT SYMPTOMS Admit Date/Time: 06/13/20 06:10 Admit Provider: Trip Santos Attending Provider: Trip Santos Primary Care Provider: Lemuel Shattuck Hospital Course Hospital Course: The patient was admitted and taken to the operating room where he underwent a transurethral resection of the prostate with vaporization using bipolar cautery. The procedure was uneventful. Afterwards, he was admitted for continuous bladder irrigation. The irrigation was maintained for 24 hours and discontinued on postoperative day #1. Once the irrigation was discontinued, the urine was pink-tinged but transparent. His postoperative hemoglobin and creatinine were both stable. He was afebrile. He was able to tolerate oral nutrition and medications. He is being discharged to home on postoperative day #1. Home Meds and New Rx's Prescriptions: New tramadol 50 mg tablet 50 mg PO Q6H PRNQty: 12 RF: 0 cephalexin 500 mg capsule 500 mg PO QHS Qty: 3 RF: 0 No Action Shingrix (PF) 50 mcg/0.5 mL suspension for reconstitution 0.5 ml IM ONCE Qty: 1 RF: 1 diltiazem HCl [Cardizem] 120 MG tablet 120 mg PO DAILY PRN PRN (Reason: rapid afib) Qty: 30 RF: 2 CONTOUR STRIPS 1 strip Sub-Q DAILY Qty: 100 RF: 1 tamsulosin 0.4 mg capsule 0.4 mg PO BID Qty: 180 RF: 3 meloxicam [Mobic] 15 mg tablet 15 mg PO DAILY PRN (Reason: pain) Qty: 90 RF: 3 gabapentin 300 mg capsule 1,200 mg PO .daily as directed Qty: 360 RF: 2 Eliquis 5 mg tablet 5 mg PO BID Qty: 180 RF: 3 finasteride 5 mg tablet 5 mg PO DAILY Qty: 90 RF: 3 pravastatin 40 mg tablet 40 mg PO DAILY Qty: 90 RF: 3 metoprolol succinate 25 mg tablet extended release 24 hr 25 mg PO DAILY Qty: 90 RF: 0 pramipexole 0.25 mg tablet 0.25 mg PO QHS Qty: 90 RF: 3 amlodipine-benazepril [Lotrel] 5-20 mg capsule 1 cap PO DAILY Qty: 90 RF: 4 esomeprazole magnesium [Nexium] 20 mg capsule,delayed release(DR/EC) 20 mg PO DAILY Qty: 90 RF: 4 metformin [Glucophage] 500 mg tablet 500 mg PO BID Qty: 180 RF: 4 promethazine 12.5 mg tablet 12.5 mg PO QID PRN (Reason: nausea and vomiting) Qty: 10 RF: 0 melatonin 3 mg Tablet Extended Release 3 mg PO HS Qty: 30 RF: 0 magnesium gluconate 27.5 MG tablet 55 mg PO BID Qty: 60 RF: 3 Discharge Instructions Additional Instructions: Restart Eliquis on 06/17/2020 (as long as the urine remains clear) No straining or lifting more than 10 to 20 pounds Followup 2 to 3 days for catheter removal (nurse visit) Follow-up appointment in about 2-4 weeks for surgical pathology discussion - likelt already has this appt Stand Alone Forms: Nursing Discharge Form Referrals: Trip Santos MD [ [facility] STAFF PHYSICIAN] - Activity:: No straining or lifting o Equipment/Supplies:: downey to legbag Diet:: As Tolerated Discharge Orders Discharge Orders: Discharge Order (Routine); Ordered 06/14/20 Ordered By: Trip Santos DS: Summary Time Spent with Patient providing and/or coordinating discharge services: Less than 30 minutes Status at Discharge Functional status at discharge: independent ambulation Overall status at discharge: patient is back to baseline Mental Status: mental status grossly normal Speech and Movement: speech and movement normal Mood: congruent mood Affect: normal affect Exam Narrative Exam Narrative: At the time of discharge, he was not in any acute distress. He did not appear septic or toxic His vital signs are documented elsewhere His lungs are clear Cardiac exam shows a regular rate and rhythm His abdomen is soft with no distention His urine is clear He is awake and alert Psych Mental Status: mental status grossly normal Speech and Movement: speech and movement normal Mood: congruent mood Affect: normal affect DS: Data Vitals/I&O Vitals and I&O: Vital Signs Temperature 36.4 C L 06/13/20 23:40 Temperature Source Temporal Artery Scan 06/13/20 23:40 Pulse 57 L 06/13/20 23:40 Pulse Rhythm Regular 06/14/20 03:08 Respiratory Rate 17 06/13/20 23:40 Respiratory Effort Non-Labored 06/14/20 03:08 Respiratory Depth Normal 06/14/20 03:08 Respiratory Pattern Normal 06/13/20 10:35 Blood Pressure 152/80 H 06/13/20 23:40 Pulse Oximetry 95 06/13/20 23:40 Respiratory End-tidal CO2 42 06/13/20 10:20 Oxygen Delivery Method Room Air 06/13/20 23:40 Oxygen Flow Rate 0 06/13/20 23:40 Pain Level 3 06/13/20 23:40 Intake & Output 06/13/20 06/13/20 06/14/20 11:59 23:59 11:59 Intake Total 992 / 3285.334 2293.334 / 3285.334 1050 / 1050 Balance 992 / 3285.334 2293.334 / 3285.334 1050 / 1050 Weight 83.915 kg Intake: IV 992 / 2865.334 1873.334 / 2865.334 1050 / 1050 Oral 420 / 420 Other: Urine Color Hoskins [place] Hoskins Hoskins Urine Appearance Clear Hematuria Hematuria Comment irrigating well, translucent pink to hoskins. still irrigating well, translucent pink to hoskins. Emesis Description None Data Completed and Pending Labs on day of discharge: Labs from last 24 hours 06/14/20 06/14/20 06:05 06:05 WBC 9.72 RBC 4.20 L Hgb 12.6 L Hct 36.1 L MCV 86.0 MCH 30.0 MCHC 34.9 RDW 12.0 Plt Count 156 MPV 9.9 Sodium 139 Potassium 4.1 Chloride 104 Carbon Dioxide 28.8 Anion Gap 6.2 BUN 18 Creatinine 0.8 Estimated GFR/1.73 m2 >= 60.00 Glucose 118 H Calcium 8.4 L PFSH Medical History (Updated 06/13/20 @ 06:59 by Trip Santos MD) Atrial fibrillation ECHO NEG, HOLTER 04/29 FEW PVC'S/PAC'S Eliquis/2017: Benign prostatic hyperplasia (05/28/12) Diabetes mellitus (09/24/12) no ophtalmopathy: : normal microalb. 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 Sister Essential hypertension Hyperlipidemia Brother , 62 Diabetes Blastoma Brother No problems noted. Maternal Grandfather , 47 No problems noted. Paternal Grandfather , 85 Hyperlipidemia Hypertension Maternal Grandmother , 85 Essential hypertension Heart disease Hyperlipidemia Paternal Grandmother , 95 No problems noted. Daughter No problems noted. Daughter No problems noted. Daughter No problems noted. Social History Smoking/Tobacco Use Status: Former Tobacco Use Quit Date: 04/22/74 Smoking risk assessment performed?: Yes Alcohol Intake: current Alcohol Intake frequency: 0-2 drinks per day Alcohol type: hard liquor Drug use: Daily Substance use type: marijuana and other Details: MEDICINAL PURPOSES Caregiver/Support person: No Household members: spouse Communication Needs: Hard of Hearing Do you need help understanding health information?: Never Pets and animals: Yes Pets and animals: other Details: goats Sexually active: Yes Do you think of yourself as: straight/heterosexual What is your relationship status?: How often do you talk on the phone with friends or family?: three or more times per week How often do you get together with friends or relatives?: decline to answer How often do you attend buddhism or alevism services?: decline to answer Do you belong to any clubs or organized social groups?: yes Panel score (0-1 are the most socially isolated patients): 3 What type of physical activity do you participate in: other Details: Cutting wood, yard work, gardening, Golf Duration: 60-90 minutes/day Frequency: 5-6 times per week Randa/Zoroastrianism: OTHER Special randa needs: No Seatbelt use: always Drive intox or ride w/intox national dedicated truck driver: No Do you feel safe in your relationship?: Yes
[2020-06-14 07:42] VITALS: BP 177/70; PULSE 61; RESP 18; TEMP 36.5; O2SAT 96
[2020-06-14] MEDS: metFORMIN 500 MG TAB PO (08:41)
[2020-06-14] MEDS: Finasteride 5 MG TAB PO (08:41)
[2020-06-14] MEDS: Tamsulosin 0.4 MG CAPCR PO (08:41)
[2020-06-14] MEDS: ceFAZolin 1 GM/50 ML BAG IVPB (08:41)
[2020-06-14] MEDS: Magnesium Gluconate 500 MG TAB PO (08:41)
[2020-06-14] MEDS: Benazepril 10 MG TAB 20 MG PO (08:42)
[2020-06-14] MEDS: amLODIPine 5 MG TAB PO (08:42)
[2020-06-14] MEDS: Esomeprazole 20 MG CAPCR PO (08:42)
[2020-06-14] MEDS: Metoprolol CR 25 MG TABCR PO (08:42)
== END 2020-06-14 10:38 | disposition home or self-care (01) | DRG 714 ==
LOC: PDS 06:11 → MS 09:45
PROVIDERS: Admitting Provider Urology; PCP Family Medicine; Visit Provider Urology
PROC: 0VT08ZZ Resection of Prostate, Via Natural or Artificial Opening Endoscopic (ICD-10-PCS; CPT 52601; principal; 2020-06-13 07:30)
DX: C61 Malignant neoplasm of prostate (principal); N40.1 Benign prostatic hyperplasia with lower urinary tract symptoms; I48.91 Unspecified atrial fibrillation; I10 Essential (primary) hypertension; N39.41 Urge incontinence; K21.9 Gastro-esophageal reflux disease without esophagitis; E78.00 Pure hypercholesterolemia, unspecified; E11.42 Type 2 diabetes mellitus with diabetic polyneuropathy; I44.0 Atrioventricular block, first degree
CPT/HCPCS: 52601; 36415; 80048; 85027; 88305; 99238; NC; J0131; J0690; J1100; J1885; J2001; J2405; J2704; J3010

== ENCOUNTER → 2020-06-17 07:47 | Outpatient (BNVA) | payer MEDICARE, OTHER, SELFPAY | PROVIDERS: PCP Family Medicine; Referring Provider Family Medicine; Visit Provider Urology | DX: Z48.816 Encounter for surgical aftercare following surgery on the genitourinary system (principal) ==

== ENCOUNTER 2020-06-22 08:37 | Outpatient (CLI) | payer MEDICARE, OTHER, SELFPAY ==
--- NOTE | 2020-06-22 08:30 | RT.EKG_ITS ---
APPROVED REPORT Exam: Resting ECG Patient Location: O HR:65 bpm ECG Measurements Heart Rate 65 AXIS NJ 221 P 0 QRSd 109 QRS 3 QT 420 T 57 QTc 437 Conclusion Sinus rhythm...normal P axis, V-rate 50- 99 Borderline prolonged NJ interval...NJ >212, V-rate 50- 90 RSR' in V1 or V2, probably normal variant...small R' only
== END 2020-06-22 08:38 | disposition home or self-care (01) ==
LOC: DI.CARD 08:38
PROVIDERS: PCP Family Medicine; Visit Provider Internal Medicine Cardiovascular Disease

== ENCOUNTER → 2020-06-22 09:49 | Outpatient (BNVA) | payer MEDICARE, OTHER, SELFPAY | PROVIDERS: PCP Family Medicine; Referring Provider Family Medicine; Visit Provider Internal Medicine Cardiovascular Disease | DX: R00.2 Palpitations (principal); I48.91 Unspecified atrial fibrillation | CPT/HCPCS: 99213 ==

== ENCOUNTER → 2020-07-05 10:52 | Outpatient (BNVA) | payer MEDICARE, OTHER, SELFPAY | PROVIDERS: PCP Family Medicine; Referring Provider Family Medicine; Visit Provider Urology | DX: Z48.816 Encounter for surgical aftercare following surgery on the genitourinary system (principal); C61 Malignant neoplasm of prostate; N40.0 Benign prostatic hyperplasia without lower urinary tract symptoms ==

== ENCOUNTER → 2020-07-29 09:36 | Outpatient (BNVA) | payer MEDICARE, OTHER, SELFPAY | PROVIDERS: PCP Family Medicine; Referring Provider Family Medicine; Visit Provider Internal Medicine Cardiovascular Disease | DX: R00.2 Palpitations (principal); I47.2 Ventricular tachycardia; I48.91 Unspecified atrial fibrillation; Z79.01 Long term (current) use of anticoagulants; I10 Essential (primary) hypertension | CPT/HCPCS: 99214; 99213 ==

== ENCOUNTER 2020-11-04 03:14 | Outpatient (CLI) | payer MEDICARE, OTHER, SELFPAY ==
[2020-11-07 09:32] LABS: PSA, Diagnostic 0.3 ng/mL (0.0-6.5)
== END 2020-11-04 03:15 | disposition home or self-care (01) ==
PROVIDERS: PCP Family Medicine; Visit Provider Urology
DX: C61 Malignant neoplasm of prostate (principal)
CPT/HCPCS: 36415; 84153

== ENCOUNTER → 2020-11-15 10:17 | Outpatient (BNVA) | payer MEDICARE, OTHER, SELFPAY | PROVIDERS: PCP Family Medicine; Referring Provider Family Medicine; Visit Provider Urology | DX: C61 Malignant neoplasm of prostate (principal); R35.0 Frequency of micturition | CPT/HCPCS: 99213 ==

== ENCOUNTER 2020-11-21 15:54 | Outpatient (CLI) | payer MEDICARE, OTHER, SELFPAY ==
--- NOTE | 2020-11-21 16:00 | RT.EKG_ITS ---
APPROVED REPORT Exam: Resting ECG Reason for Exam: bradycardia Patient Location: O HR:71 bpm ECG Measurements Heart Rate 71 AXIS W[place] 232 P 46 QRSd 92 QRS 7 QT 428 T 65 QTc 428 Conclusion Sinus rhythm...normal P axis, V-rate 60- 99
== END 2020-11-21 15:55 | disposition home or self-care (01) ==
PROVIDERS: PCP Family Medicine; Visit Provider Family Medicine
DX: R00.1 Bradycardia, unspecified (principal); R00.2 Palpitations
CPT/HCPCS: 93010

== ENCOUNTER 2020-11-23 03:20 | Outpatient (CLI) | payer MEDICARE, OTHER, SELFPAY ==
[2020-11-23 12:31] LABS: HCT 45.4 % (40.0-50.0); MCH 29.4 pg (27.0-33.0); MCV 88.8 fL (80-95); MPV 10.6 fL (8.0-11.0); Platelet Count 192 10^3/uL (130-400); RBC 5.11 10^6/uL (4.36-5.78); RDW 12.7 % (11.8-14.1); RDW-SD 41.3 fL; WBC 5.22 10^3/uL (4.4-10.8)
[2020-11-23 13:21] LABS: Hemoglobin A1C 6.3 % (<5.7)
[2020-11-23 13:23] LABS: ALT 28 U/L (16-63); AST 18 U/L (15-37); Albumin 4.2 g/dL (3.4-5.0); Alkaline Phosphatase 71 U/L (46-116); Anion Gap 8.7 mmol/L (3-11); BUN 14 mg/dL (7-18); Bilirubin, Total 0.9 mg/dL (0.2-1.0); CO2 27.3 mmol/L (21.0-32.0); CREATININE 0.9 mg/dL (0.70-1.30); Chloride 105 mmol/L (98-107); Glucose 129 mg/dL (74-106); Potassium 4.3 mmol/L (3.5-5.1); Sodium 141 mmol/L (136-145); TSH 0.82 uIU/mL (0.36-3.74); Total Protein 6.6 g/dL (6.4-8.2)
[2020-11-23 13:43] LABS: COMMENT (LAB VIEW ONLY) 126.18 mg/dL
[2020-11-23 13:48] LABS: Microalb ug/mg Crea 106.4 ug/mg Cr
== END 2020-11-23 03:21 | disposition home or self-care (01) ==
PROVIDERS: PCP Family Medicine; Visit Provider Family Medicine
DX: E11.9 Type 2 diabetes mellitus without complications (principal); R00.2 Palpitations; Z01.30 Encounter for examination of blood pressure without abnormal findings
CPT/HCPCS: 36415; 80053; 85027; 82043; 82570; 83036; 83735; 84443

== ENCOUNTER → 2021-01-26 09:25 | Outpatient (BNVA) | payer MEDICARE, OTHER, SELFPAY | PROVIDERS: PCP Family Medicine; Referring Provider Family Medicine; Visit Provider Internal Medicine Cardiovascular Disease | DX: R00.2 Palpitations (principal); I10 Essential (primary) hypertension; I48.91 Unspecified atrial fibrillation; Z79.899 Other long term (current) drug therapy | CPT/HCPCS: 99214; 99213 ==

== ENCOUNTER 2021-02-22 08:37 | Outpatient (CLI) | payer MEDICARE, OTHER, SELFPAY ==
--- NOTE | 2021-02-22 08:30 | RT.EKG_ITS ---
APPROVED REPORT Exam: Resting ECG Reason for Exam: VT, afib Patient Location: O HR:68 bpm ECG Measurements Heart Rate 68 AXIS CO 218 P -22 QRSd 107 QRS -5 QT 415 T 63 QTc 442 Conclusion Sinus rhythm...normal P axis, V-rate 50- 99 Borderline prolonged CO interval...CO >212, V-rate 50- 90
== END 2021-02-22 08:38 | disposition home or self-care (01) ==
LOC: DI.CARD 08:45
PROVIDERS: PCP Family Medicine; Referring Provider Family Medicine; Visit Provider Internal Medicine Cardiovascular Disease
DX: I47.2 Ventricular tachycardia (principal); I48.91 Unspecified atrial fibrillation
CPT/HCPCS: 93010

== ENCOUNTER → 2021-02-22 08:37 | Outpatient (BNVA) | payer MEDICARE, OTHER, SELFPAY | PROVIDERS: PCP Family Medicine; Referring Provider Family Medicine; Visit Provider Internal Medicine Cardiovascular Disease | DX: I47.2 Ventricular tachycardia (principal); I48.91 Unspecified atrial fibrillation | CPT/HCPCS: 99214 ==

== ENCOUNTER 2021-02-23 09:18 | Outpatient (RCR) | payer MEDICARE, OTHER, SELFPAY ==
--- NOTE | 2021-02-23 11:30 | HOLTER_ITS ---
APPROVED REPORT Conclusion This is a 24-hour Holter monitor ordered for atrial fibrillation, palpitations, ventricular tachycard ia Predominant rhythm was sinus with an average heart rate of 59. Minimum was 46, maximum 86 There were very rare ventricular ectopic beats, 1 ventricular couplet, no ventricular tachycardia There were very rare atrial premature beats, 1 atrial couplet There was no supraventricular tachycardia or atrial fibrillation. There were no pauses greater than 3 seconds. There was no high-grade AV block Patient symptoms corresponded to sinus rhythm at 62
== END 2021-03-21 23:59 | disposition home or self-care (01) ==
LOC: RT 09:18
PROVIDERS: PCP Family Medicine; Visit Provider Internal Medicine Cardiovascular Disease
DX: R00.2 Palpitations (principal); I48.91 Unspecified atrial fibrillation; I47.2 Ventricular tachycardia; I49.3 Ventricular premature depolarization
CPT/HCPCS: 93227; 93225; 93226

== ENCOUNTER 2021-05-12 01:46 | Outpatient (CLI) | payer MEDICARE, OTHER, SELFPAY ==
[2021-05-12 11:11] LABS: Hemoglobin A1C 6.3 % (<5.7)
[2021-05-12 11:52] LABS: BUN 11 mg/dL (7-18); CREATININE 0.9 mg/dL (0.70-1.30); Chloride 101 mmol/L (98-107); Glucose 225 mg/dL (74-106); Potassium 4.2 mmol/L (3.5-5.1); Sodium 139 mmol/L (136-145)
[2021-05-12 11:55] LABS: COMMENT (LAB VIEW ONLY) 44.73 mg/dL
[2021-05-12 12:09] LABS: Microalb ug/mg Crea 159.6 ug/mg Cr
[2021-05-12 17:18] LABS: PSA, Diagnostic 0.5 ng/mL (0.0-6.5)
== END 2021-05-12 01:47 | disposition home or self-care (01) ==
LOC: LBO 01:46
PROVIDERS: Family Medicine; PCP Family Medicine; Visit Provider Urology
DX: E11.9 Type 2 diabetes mellitus without complications (principal); C61 Malignant neoplasm of prostate
CPT/HCPCS: 36415; 80048; 82043; 82570; 83036; 84153

== ENCOUNTER → 2021-05-19 09:44 | Outpatient (BNVA) | payer MEDICARE, OTHER, SELFPAY | PROVIDERS: PCP Family Medicine; Referring Provider Family Medicine; Visit Provider Urology | DX: C61 Malignant neoplasm of prostate (principal) | CPT/HCPCS: 99213 ==

== ENCOUNTER → 2021-10-26 09:18 | Outpatient (BNVA) | payer MEDICARE, OTHER, SELFPAY | PROVIDERS: PCP Nurse Practitioner Family; Referring Provider Nurse Practitioner Family; Visit Provider Internal Medicine Cardiovascular Disease | DX: R00.2 Palpitations (principal); I10 Essential (primary) hypertension; I48.91 Unspecified atrial fibrillation; I47.2 Ventricular tachycardia | CPT/HCPCS: 99214; 99213 ==

== ENCOUNTER 2021-11-17 01:11 | Outpatient (CLI) | payer MEDICARE, OTHER, SELFPAY ==
[2021-11-17 18:22] LABS: PSA, Diagnostic 0.5 ng/mL (<=6.5)
== END 2021-11-17 01:12 | disposition home or self-care (01) ==
LOC: LBO 01:12
PROVIDERS: PCP Nurse Practitioner Family; Visit Provider Urology
DX: C61 Malignant neoplasm of prostate (principal)
CPT/HCPCS: 36415; 84153

== ENCOUNTER → 2021-11-24 10:08 | Outpatient (BNVA) | payer MEDICARE, OTHER, SELFPAY | PROVIDERS: PCP Nurse Practitioner Family; Referring Provider Nurse Practitioner Family; Visit Provider Urology | DX: C61 Malignant neoplasm of prostate (principal) | CPT/HCPCS: 99214 ==

== ENCOUNTER 2022-02-05 11:18 | Outpatient (REF) | payer MEDICARE, OTHER, SELFPAY ==
--- NOTE | 2022-02-05 09:30 | SKI_PTH ---
PATIENT: Elie Glass LOC: [facility] U#:[id number] AGE/SX: 81/M ROOM: RE02/05/[address]: Mac Ravi MD : 1940 BED: DIS: 02/05/2022 SPEC #: [id number] RECD: 02/05/22 17:04 STATUS: JOSELO RELidia #: [id number] EMILY: 02/05/22 09:[address]: Mac Ravi DEPT: Surgical Specimen RECD BY: Ember Nicholas ENTERED: 02/05/22 17:04 SP TYPE: NILE DE SANTIAGO DR: Hiram Shankar, [employer] Tissues: 1 - SKIN BIOPSY(SHAVE/PUNCH) Procedures: SKIN LEVEL 4 Comments: [id number]
== END 2022-02-05 11:19 | disposition home or self-care (01) ==
LOC: LBN 11:18
PROVIDERS: PCP Nurse Practitioner Family; Visit Provider Otolaryngology
DX: C44.212 Basal cell carcinoma of skin of right ear and external auricular canal (principal)
CPT/HCPCS: 88305

== ENCOUNTER → 2022-02-21 08:44 | Outpatient (BNVA) | payer MEDICARE, OTHER, SELFPAY | PROVIDERS: PCP Nurse Practitioner Family; Referring Provider Nurse Practitioner Family; Visit Provider Internal Medicine Cardiovascular Disease | DX: I48.91 Unspecified atrial fibrillation (principal); G47.30 Sleep apnea, unspecified | CPT/HCPCS: 99214 ==

== ENCOUNTER 2022-04-24 04:11 | Outpatient (CLI) | payer MEDICARE, SELFPAY ==
[2022-04-24 19:26] LABS: PSA, Screening 0.6 ng/mL (<=6.5)
== END 2022-04-24 04:12 | disposition home or self-care (01) ==
PROVIDERS: PCP Nurse Practitioner Family; Visit Provider Urology
DX: C61 Malignant neoplasm of prostate (principal); Z12.5 Encounter for screening for malignant neoplasm of prostate
CPT/HCPCS: 36415; 84153

== ENCOUNTER 2022-06-22 01:50 | Outpatient (CLI) | payer MEDICARE, OTHER, SELFPAY ==
[2022-06-22 20:05] LABS: PSA, Diagnostic 0.6 ng/mL (<=6.5)
== END 2022-06-22 01:51 | disposition home or self-care (01) ==
LOC: LBO 01:50
PROVIDERS: PCP Nurse Practitioner Family; Visit Provider Urology
DX: C61 Malignant neoplasm of prostate (principal)
CPT/HCPCS: 36415; 84153

== ENCOUNTER → 2022-06-29 10:20 | Outpatient (BNVA) | payer MEDICARE, OTHER, SELFPAY | PROVIDERS: PCP Nurse Practitioner Family; Visit Provider Urology | DX: R35.0 Frequency of micturition (principal); C61 Malignant neoplasm of prostate | CPT/HCPCS: 99213 ==

== ENCOUNTER 2022-08-29 12:25 | Outpatient (CLI) | payer MEDICARE, OTHER, SELFPAY ==
--- NOTE | 2022-08-29 10:30 | DI.RAD_ITS ---
Exam(s) XR RIBS RT W PA LAT CHEST CLINICAL HISTORY: rib pain for 6 months,r07.81. COMPARISON: CR CHEST 2 VIEWS PA,LAT from 07/26/2016 TECHNIQUE:: PA and lateral views of the chest and four views of the right ribs were performed. FINDINGS: LUNGS:Clear. No pleural abnormality seen. HEART: Normal. MEDIASTINUM: Normal. BONES: No displaced rib fracture is seen. No bony destructive lesion is seen. Prominent degenerative changes in the thoracic spine. Degenerative and postsurgical changes of the right shoulder. IMPRESSION: 1. Unremarkable radiographic appearance of the right ribs. 2. No acute pulmonary findings.
== END 2022-08-29 12:45 ==
LOC: DI 12:26
PROVIDERS: PCP Nurse Practitioner Family; Visit Provider Nurse Practitioner Family
DX: R07.81 Pleurodynia (principal)
CPT/HCPCS: 71046; 71100

== ENCOUNTER 2022-10-26 08:25 | Outpatient (CLI) | payer MEDICARE, OTHER, SELFPAY ==
--- NOTE | 2022-10-26 08:15 | RT.EKG_ITS ---
APPROVED REPORT Exam: Resting ECG Reason for Exam: history of a fib Patient Location: O HR:55 bpm ECG Measurements Heart Rate 55 AXIS AR 223 P 11 QRSd 104 QRS 3 QT 410 T 54 QTc 393 Conclusion Sinus rhythm...normal P axis, V-rate 50- 99 Prolonged AR interval...AR >220, V-rate 50- 90 RSR' in V1 or V2
== END 2022-10-26 08:26 | disposition home or self-care (01) ==
LOC: DI.CARD 08:31
PROVIDERS: PCP Nurse Practitioner Family; Visit Provider Internal Medicine Cardiovascular Disease
DX: I48.91 Unspecified atrial fibrillation (principal)
CPT/HCPCS: 93010

== ENCOUNTER → 2022-10-26 09:01 | Outpatient (BNVA) | payer MEDICARE, OTHER, SELFPAY | PROVIDERS: PCP Nurse Practitioner Family; Visit Provider Internal Medicine Cardiovascular Disease | DX: Z79.01 Long term (current) use of anticoagulants (principal); E11.9 Type 2 diabetes mellitus without complications; I48.91 Unspecified atrial fibrillation; I10 Essential (primary) hypertension | CPT/HCPCS: 93005; 99213 ==

== ENCOUNTER 2022-12-21 02:39 | Outpatient (CLI) | payer MEDICARE, OTHER, SELFPAY ==
[2022-12-21 09:32] LABS: HGB 16.4 g/dL (13.5-17.5); MCH 29.1 pg (27.0-33.0); MCHC 34.2 % (32.0-36.0); MCV 85 fL (80-95); MPV 9.4 fL (8.0-11.0); Platelet Count 203 10^3/uL (130-400); RBC 5.64 10^6/uL (4.36-5.78); RDW 11.9 % (11.8-14.1); RDW-SD 36.8 fL
[2022-12-24 09:02] LABS: PSA, Diagnostic 0.9 ng/mL (<=6.5)
== END 2022-12-21 02:40 | disposition home or self-care (01) ==
LOC: LBO 02:41
PROVIDERS: Family Medicine; PCP Nurse Practitioner Family; Visit Provider Urology
DX: C61 Malignant neoplasm of prostate (principal); R53.83 Other fatigue
CPT/HCPCS: 36415; 85027; 84153

== ENCOUNTER → 2022-12-27 15:10 | Outpatient (BNVA) | payer MEDICARE, OTHER, SELFPAY | PROVIDERS: PCP Nurse Practitioner Family; Visit Provider Nurse Practitioner Gerontology | DX: R39.89 Other symptoms and signs involving the genitourinary system (principal); E11.9 Type 2 diabetes mellitus without complications; I10 Essential (primary) hypertension; C61 Malignant neoplasm of prostate | CPT/HCPCS: 99213 ==

== ENCOUNTER → 2023-01-25 00:53 | Outpatient (CLI) | payer MEDICARE, OTHER, SELFPAY ==
--- NOTE | 2023-01-25 07:45 | DI.MRI_ITS ---
Exam(s) MR LUMBAR SPINE WO EXAM: MR LUMBAR SPINE WO CLINICAL HISTORY: Worsening lower back pain. TECHNIQUE: Multiplanar multisequence MRI of the Lumbar spine was performed. COMPARISON: None FINDINGS: Bones: The last intervertebral disc space is designated the L5/S1 level for the numbering purpose of this ex amination. The vertebral body heights are well maintained. Endplate osteophytes and degenerative signal changes throughout. No suspicious lesions. Alignment: Mild degenerative dextroscoliosis. Cord: The conus tip ends at the T12 level. It is of normal size and signal intensity. T12-L1: No focal disc herniation is present. No central spinal canal stenosis.No neural foraminal st enosis. L1-2:No focal disc herniation is present. No central spinal canal stenosis.No neural foraminal stenos is. L2-3:Moderate to severe loss of disc height with endplate osteophytes eccentric toward the left. No f ocal disc herniation is present. No central spinal canal stenosis.Severe left neural foraminal narrow ing. Mild right neural foraminal narrowing. L3-4: Moderate to severe loss of disc height. Broad-based disc osteophytes. Facet degenerative jane ges and ligamentous hypertrophy. Severe bilateral neural foraminal. Moderate central canal stenosis . L4-5: Severe loss of disc height eccentric toward the right. Prominent facet degenerative changes an d ligamentous hypertrophy on the right. Moderate central canal stenosis. Severe right and mild left neural foraminal narrowing. L5-S1: Severe loss of disc height with endplate osteophytes eccentric toward the left. High facet de generative changes and ligamentous hypertrophy. No significant central canal stenosis. Severe bilat eral neural foraminal narrowing The visualized SI joints and sacrum are well maintained. Soft tissues: The paraspinal soft tissues are unremarkable. IMPRESSION: Advanced degenerative disc changes from L2-3 through L5-S1. Multilevel severe bilateral neural bessie inal narrowing. Moderate central canal stenosis at L3-4 and L4-5. DATA REPOSITORY:
== END ==
PROVIDERS: PCP Nurse Practitioner Family; Visit Provider Nurse Practitioner Family
DX: E11.9 Type 2 diabetes mellitus without complications (principal); M51.36 Other intervertebral disc degeneration, lumbar region; M99.63 Osseous and subluxation stenosis of intervertebral foramina of lumbar region
CPT/HCPCS: 72148

== ENCOUNTER 2023-03-01 11:33 | Outpatient (CLI) | payer MEDICARE, OTHER, SELFPAY | END 2023-03-01 11:34 | disposition home or self-care (01) | LOC: DI.CM 11:33 | PROVIDERS: PCP Nurse Practitioner Family; Visit Provider Nurse Practitioner Family | DX: Z01.810 Encounter for preprocedural cardiovascular examination (principal) | CPT/HCPCS: 93010 ==

== ENCOUNTER 2023-03-26 02:32 | Outpatient (CLI) | payer MEDICARE, OTHER, SELFPAY ==
--- OUTSIDE RECORDS SUMMARY | 2023-03-26 02:34 | XMS_ITS | Continuity of Care Document ---
Author Name Unknown Organization [facility] Address [address] [place] [address] Care Team Providers Care Supervisor Labor Gang Name Role Phone RAJAN LUCIA Primary Care Physicia n Encounter [facility] NBR [id number] Date(s): 02/08/23 - 02/08/23 [facility] [address] [place] [address]- [place] Discharge Disposition: Home Patient Care team information Care Team Personnel Name: RAJAN LUCIA Position: No Access Member Role: Primary Care Physician Address: Address: [address] [place] [address] [address] [place], [place] [address]
[2023-03-26 10:52] LABS: BUN 13 mg/dL (7-18); CREATININE 0.9 mg/dL (0.70-1.30); Calcium 9.3 mg/dL (8.5-10.1); Chloride 102 mmol/L (98-107); Glucose 230 mg/dL (74-106); Sodium 137 mmol/L (136-145)
== END 2023-03-26 02:33 | disposition home or self-care (01) ==
LOC: LBO 02:32
PROVIDERS: PCP Nurse Practitioner Family; Visit Provider Nurse Practitioner Family
DX: E11.21 Type 2 diabetes mellitus with diabetic nephropathy (principal)
CPT/HCPCS: 36415; 80048

== ENCOUNTER 2023-06-26 04:57 | Outpatient (CLI) | payer MEDICARE, OTHER, SELFPAY ==
[2023-06-27 18:44] LABS: PSA, Ultrasensitive 1.3 ng/mL (<= 7.2)
== END 2023-06-26 04:58 | disposition home or self-care (01) ==
LOC: LOS 04:58
PROVIDERS: PCP Nurse Practitioner Family; Visit Provider Nurse Practitioner Gerontology
DX: C61 Malignant neoplasm of prostate (principal)
CPT/HCPCS: 36415; 84153

== ENCOUNTER 2023-07-05 01:56 | Outpatient (RCR) | payer MEDICARE, OTHER, SELFPAY ==
[2023-07-03] MEDS: Normal Saline Flush 10 ML SYR IVP (14:28)
[2023-07-04] MEDS: Normal Saline Flush 10 ML SYR IVP (09:15)
[2023-07-05] MEDS: Normal Saline Flush 10 ML SYR IVP (09:30)
== END 2023-07-21 23:59 | disposition home or self-care (01) ==
LOC: INF 01:56
PROVIDERS: PCP Nurse Practitioner Family; Visit Provider Nurse Practitioner Family
DX: C61 Malignant neoplasm of prostate (principal)
CPT/HCPCS: 96365; J2930

== ENCOUNTER 2023-08-21 05:20 | Outpatient (CLI) | payer MEDICARE, OTHER, SELFPAY ==
[2023-08-21 12:56] LABS: Vitamin B12 1357 pg/mL (193-986)
[2023-08-21 13:07] LABS: C-Reactive Protein 0.73 mg/dL (<or=0.5)
[2023-08-22 13:02] LABS: Albumin 66.4 % (55.8-66.1); Albumin g/dL 4.2 g/dL (3.6-5.2); Total Protein 6.4 g/dL (6.3-8.2)
== END 2023-08-21 05:21 | disposition home or self-care (01) ==
LOC: LOS 05:21
PROVIDERS: PCP Nurse Practitioner Family; Visit Provider Nurse Practitioner Family
DX: G54.1 Lumbosacral plexus disorders (principal)
CPT/HCPCS: 36415; 82607; 84165; 86140

== ENCOUNTER 2023-10-07 05:57 | Outpatient (CLI) | payer MEDICARE, OTHER, SELFPAY ==
[2023-10-09 10:10] LABS: PSA, Ultrasensitive 1.1 ng/mL (<= 7.2)
== END 2023-10-07 05:58 | disposition home or self-care (01) ==
LOC: LOS 05:57
PROVIDERS: PCP Nurse Practitioner Family; Visit Provider Nurse Practitioner Gerontology
DX: C61 Malignant neoplasm of prostate (principal)
CPT/HCPCS: 36415; 84153

== ENCOUNTER → 2023-10-16 13:20 | Outpatient (BNVA) | payer MEDICARE, OTHER, SELFPAY | PROVIDERS: PCP Nurse Practitioner Family; Visit Provider Nurse Practitioner Gerontology | DX: R31.0 Gross hematuria (principal); R33.8 Other retention of urine; C61 Malignant neoplasm of prostate | CPT/HCPCS: 51798; 99213 ==

== ENCOUNTER → 2023-10-21 09:21 | Outpatient (BNVA) | payer MEDICARE, OTHER, SELFPAY | PROVIDERS: PCP Nurse Practitioner Family; Visit Provider Internal Medicine Cardiovascular Disease | DX: I48.91 Unspecified atrial fibrillation (principal); I10 Essential (primary) hypertension | CPT/HCPCS: 99213 ==

== ENCOUNTER → 2023-10-22 02:22 | Outpatient (CLI) | payer MEDICARE, OTHER, SELFPAY ==
--- NOTE | 2023-10-22 08:00 | DI.US_ITS ---
Exam(s) US RENAL EXAM: US RENAL CLINICAL HISTORY: ? hydro w/ incomplete emptying,Gross hematuria,R31.0,R33.9. TECHNIQUE: Casiano scale, color and spectral Doppler were used. COMPARISON: No exams were available for comparison FINDINGS: Renal size in cm: Right: 11.7. Left: 12.7. Echogenicity: Normal. Hydronephrosis: No. Cyst or mass: There is a simple cyst in the left kidney measuring 1.7 x 1.5 x 1.9 cm. No follow-up i s recommended. Nephrolithiasis: No. Other findings: None. Bladder:There is mild thickening of the around the wall of the urinary bladder. Ureteral jets: Right: Visualized and unremarkable. Left: Visualized and unremarkable. Prevoid vol:305 cc Postvoid vol:100 cc Prostate: 7 cc Renal color flow: Symmetric and within normal limits. IMPRESSION: 1. No evidence of hydronephrosis. 2. Mild wall thickening/trabeculation of the urinary bladder. Differential considerations include ch ronic bladder outlet obstruction, cystitis or neurogenic bladder. Please correlate clinically. 3. Large postvoid urinary bladder residual. DATA REPOSITORY:
== END ==
PROVIDERS: PCP Nurse Practitioner Family; Visit Provider Nurse Practitioner Gerontology
DX: R31.0 Gross hematuria (principal); R33.9 Retention of urine, unspecified
CPT/HCPCS: 76770

== ENCOUNTER 2024-03-11 02:24 | Outpatient (CLI) | payer MEDICARE, OTHER, SELFPAY ==
[2024-03-11 12:20] LABS: Calculated LDL 151 mg/dL (<100); Cholesterol 230 mg/dL (<200); HDL Cholesterol 49 mg/dL (40-60); Triglyceride 152 mg/dL (<150)
== END 2024-03-11 02:25 | disposition home or self-care (01) ==
LOC: LOS 02:25
PROVIDERS: PCP Nurse Practitioner Family; Visit Provider Nurse Practitioner Family
DX: Z13.6 Encounter for screening for cardiovascular disorders (principal)
CPT/HCPCS: 36415; 80061

== ENCOUNTER 2024-04-08 04:20 | Outpatient (CLI) | payer MEDICARE, OTHER, SELFPAY ==
[2024-04-10 13:49] LABS: PSA, Ultrasensitive 1.2 ng/mL (<= 7.2)
== END 2024-04-08 04:21 | disposition home or self-care (01) ==
LOC: LOS 04:21
PROVIDERS: PCP Nurse Practitioner Family; Visit Provider Nurse Practitioner Gerontology
DX: C61 Malignant neoplasm of prostate (principal)
CPT/HCPCS: 36415; 84153

== ENCOUNTER → 2024-04-13 14:28 | Outpatient (BNVA) | payer MEDICARE, OTHER, SELFPAY | PROVIDERS: PCP Nurse Practitioner Family; Visit Provider Nurse Practitioner Gerontology | DX: C61 Malignant neoplasm of prostate (principal); R39.9 Unspecified symptoms and signs involving the genitourinary system; R33.9 Retention of urine, unspecified; R31.0 Gross hematuria | CPT/HCPCS: 51798; 99213 ==

== ENCOUNTER 2024-04-14 03:10 | Outpatient (CLI) | payer MEDICARE, OTHER, SELFPAY ==
--- NOTE | 2024-04-14 07:00 | DI.MRI_ITS ---
Exam(s) MR LUMBAR SPINE WO EXAM: MR LUMBAR SPINE WO CLINICAL HISTORY: low back pain, weakness rt leg,r29.898,m54.50,g89.20. TECHNIQUE: Multiplanar multisequence MRI of the Lumbar spine was performed. COMPARISON: MR MR LUMBAR SPINE WO from 01/25/2023 FINDINGS: Bones: The last intervertebral disc space is designated the L5/S1 level for the numbering purpose of this examination. The patient has had a prior L3 and L4 laminectomy. There is a right convex lumba r scoliosis. There are endplate degenerative signal changes at multiple levels of the lumbar spine. The findings are most marked from L2-3 through L5-S1. There is disc space narrowing at L2-3, L3-4 a nd L5-S1. Cord: The conus tip ends at the T12 level. It is of normal size and signal intensity. T12-L1: No disc herniations or bulges are present. No central spinal canal or neural foraminal stenos is. L1-2: No disc herniations or bulges are present. No central spinal canal or neural foraminal stenosis . L2-3: There is a diffuse disc bulge. Degenerative changes of the facets are seen. There is mild netta rowing of the central spinal canal. No significant right neural foraminal stenosis is seen. There i s moderately severe left neural foraminal stenosis. L3-4: There is a diffuse disc bulge. Degenerative changes of the facets are present. Mild narrowing of the central spinal canal is present. There are small synovial cysts seen bilaterally projecting into the spinal canal. There is marked right and moderately severe left neural foraminal stenosis. L4-5: There is a diffuse disc bulge present. There are degenerative changes of the facets. There al so appears to be a 0.7 x 1.1 cm synovial cyst arising from the right facet joints and extending into the central spinal canal. There is mild narrowing of the central spinal canal.There is marked right neural foraminal stenosis and moderate left neural foraminal stenosis. L5-S1: There is a diffuse disc bulge eccentric to the right. It does extend into the right neural fo ramen. There are degenerative changes of the facets. There is mild narrowing of the central spinal canal. There is moderately severe right and moderate to severe left neural foraminal stenosis. Soft tissues: The visualized SI joints and sacrum are well maintained. The paraspinal soft tissues ar e unremarkable. IMPRESSION: 1. Marked degenerative changes seen in the lumbar spine resulting in central spinal canal and neural foraminal stenosis as described above. Please see the above discussion for the individual levels. 2. Postsurgical changes with laminectomies at L3 and L4. DATA REPOSITORY:
== END 2024-04-14 03:30 ==
LOC: DI 03:10
PROVIDERS: PCP Nurse Practitioner Family; Visit Provider Student in an Organized Health Care Education/Training Program
DX: M48.062 Spinal stenosis, lumbar region with neurogenic claudication (principal)
CPT/HCPCS: 72148

== ENCOUNTER 2024-06-01 02:50 | Outpatient (CLI) | payer MEDICARE, OTHER, SELFPAY ==
[2024-06-01 14:29] LABS: Hemoglobin A1C 6.5 % (<5.7)
== END 2024-06-01 02:51 | disposition home or self-care (01) ==
LOC: LBO 02:50
PROVIDERS: PCP Nurse Practitioner Family; Visit Provider Nurse Practitioner Gerontology
DX: E11.9 Type 2 diabetes mellitus without complications (principal)
CPT/HCPCS: 36415; 83036

== ENCOUNTER 2024-06-01 14:13 | Observation (INO) | payer MEDICARE, OTHER, SELFPAY ==
[2024-06-01] VITALS (50 sets, daily range): BP systolic 114–163; BP diastolic 40–67; PULSE 44–71; RESP 11–20; TEMP 36–37; O2SAT 89–100
--- NOTE | 2024-06-01 14:00 | RT.EKG_ITS ---
APPROVED REPORT Exam: Resting ECG Reason for Exam: chest pain Patient Location: E HR:70 bpm ECG Measurements Heart Rate 70 AXIS ME 202 P 39 QRSd 92 QRS -19 QT 406 T 43 QTc 440 Conclusion Sinus rhythm...normal P axis, V-rate 60- 99 No STEMI
--- NOTE | 2024-06-01 14:30 | DI.RAD_ITS ---
Exam(s) XR PORTABLE CHEST AP EXAM: XR PORTABLE CHEST AP CLINICAL HISTORY: Chest pain TECHNIQUE: 2D digital imaging was performed. COMPARISON: CR XR RIBS RT W PA LAT CHEST from 08/29/2022 FINDINGS: Exam is mildly limited by under penetration at the lung bases and suboptimal pulmonary inflation. LUNGS: Clear. No pleural abnormality seen. HEART: Normal size. AORTA: Normal diameter. BONES: Postsurgical changes in the shoulders. Degenerative changes in the spine. Soft tissues: Unremarkable. IMPRESSION: No acute findings. DATA REPOSITORY: RADIATION DOSE DELIVERED:
--- NOTE | 2024-06-01 14:35 | W.ED.GENAD ---
Discharge Plan Discharge Details Chief Complaint: Chest Pain Primary Care Provider: Hiram Shankar ED Provider: Jason Saucedo Home Meds and New Rx's Prescriptions: No Action hydrochlorothiazide 25 mg tablet 25 mg PO DAILY Qty: 90 3RF CONTOUR STRIPS 1 strip Sub-Q DAILY Qty: 100 1RF sennosides-docusate sodium [Senna with Docusate Sodium] 8.6-50 mg tablet 2 tab-cap PO BID PRN Rx Instructions: per [facility] discharge metformin 500 mg tablet 500 mg PO BID Qty: 180 4RF gabapentin 300 mg capsule 600 mg PO TID Qty: 540 0RF Eliquis 5 mg tablet 5 mg PO BID Qty: 180 4RF pramipexole 0.5 mg tablet 0.5 mg PO QHS Qty: 90 3RF metoprolol succinate 25 mg tablet extended release 24 hr 25 mg PO DAILY Qty: 90 3RF tamsulosin [Flomax] 0.4 mg capsule 0.4 mg PO DAILY Qty: 90 3RF amlodipine-benazepril [Lotrel] 10-20 mg capsule 1 cap PO DAILY Qty: 90 3RF esomeprazole magnesium [Nexium] 20 mg capsule,delayed release(DR/EC) 20 mg PO DAILY Qty: 90 4RF oxycodone 5 mg tablet 5 mg PO QHS MDD 5 PRN (Reason: pain) Qty: 30 0RF magnesium gluconate 27.5 MG tablet 55 mg PO BID Qty: 60 3RF HPI General Date/Time Provider Initiated Documentation: 06/01/24 14:24. HPI Narrative: MDM This is an overall well-appearing afebrile and not tachycardic 83-year-old male with risk factors for ACS in the emergency department setting of chest pain radiating to his left shoulder. He has a nonischemic ECG however will obtain troponins to rule stratify for ACS. No tearing quality to suggest aortic dissection. No shortness of breath to suggest PE so I did not send a D-dimer. No pain or proportion to suggest necrotizing soft tissue infection. Patient not hypotensive nor a dialysis patient making my suspicion low for tamponade. No trauma to chest to suggest pneumothorax. No history of recent emesis to suggest esophageal rupture. No rash to chest to suggest zoster. 4:42 PM Initial troponin reassuring. Given risk factors and elevated heart score advised patient that he should remain in the emergency department. He is amenable to staying in the ED. I signed patient out to Dr. Oneil pending repeat troponin testing and hospitalization. HEART SCORE Chest pain Diagnostic Protocol: [- History/Physical/Gestalt: Moderately Suspicious (+1)] [-EKG: Normal and/or unchanged from prior EKG (0)] [- AGE: 65 and older (+2)] [- RISK FACTORS: 3 or more risk factors and/or known CAD (+2)] [-TROPONIN: <= normal limit (0)] - TOTAL SCORE: 5 Chronic conditions affecting the care of the patient: Diabetes hypertension hyperlipidemia History obtained from an outside historian: N/A External record review: N/A [Diagnostic interpretations performed by me: Per my independent interpretation chest x-ray shows: No acute cardiopulmonary process Per my independent interpretation EKG shows: Narrow complex normal sinus rhythm at a rate of 70. Left axis deviation no signs of LVH. First-degree AV block. Compared to prior dated 2 years ago first-degree AV block persistent. Left axis persistent. No acute injury pattern. Medications: 324 mg aspirin HPI This is an 83-year-old male with history of hypertension hyperlipidemia diabetes right in the emergency department via private vehicle in setting of chest pain this morning that radiated to his left shoulder. He has a history of atrial fibrillation and took his diltiazem today. Says his pain began when he was exercising. He describes a pain in his neck and chest that is dull. No falls. No nausea. No vomiting. Patient denies history of coronary artery disease. No chest pain at the moment. Denies tobacco occasionally drinks ethanol. Exam General: Well-appearing in no acute distress speaking in complete sentences. Head: Normocephalic, atraumatic. Eye: Extraocular eye movements intact. No conjunctival injection. No scleral icterus. Ear, nose, mouth, throat: Grossly normal inspection. Normal voice, handling secretions normally. Neck: Trachea midline. Cardiovascular: Well-perfused distal extremities. Respiratory: Nonlabored respiration. Clear lungs bilaterally. Gastrointestinal: Nondistended abdomen. Regular rate and rhythm. Musculoskeletal: No edema. Moving all 4 extremities spontaneously. Skin: Normal for age and race, grossly normal temperature and turgor. No acute rash. Neurologic: Alert and appropriate, no apparent acute deficits. Psychiatric: Mood and manner are appropriate. Grooming and personal hygiene are appropriate. Related Data Home Medications ?Medication ?Instructions ?Recorded ?Confirmed magnesium gluconate 27.5 mg 55 mg (2 x 27.5 mg magne- sium 02/22/20 06/01/24 magnesium (500 mg) tablet (500 mg)) PO BID #60 tab-caps sennosides 8.6 mg-docusate sodium 2 tab-cap PO BID PRN 03/18/23 06/01/24 50 mg tablet (Senna with Docusate Sodium) metformin 500 mg tablet 500 mg PO BID #180 tab-caps 05/27/23 06/01/24 gabapentin 300 mg capsule 600 mg (2 x 300 mg) PO TID #540 07/03/23 06/01/24 caps apixaban 5 mg tablet (Eliquis) 5 mg PO BID #180 tab-caps 08/21/23 06/01/24 pramipexole 0.5 mg tablet 0.5 mg PO QHS #90 tabs 09/11/23 06/01/24 metoprolol succinate 25 mg 25 mg PO DAILY #90 tabs 10/18/23 06/01/24 tablet,extended release 24 hr tamsulosin 0.4 mg capsule (Flomax) 0.4 mg PO DAILY #90 caps 11/01/23 06/01/24 hydrochlorothiazide 25 mg tablet 25 mg PO DAILY #90 tabs 01/17/24 06/01/24 amlodipine 10 mg-benazepril 20 mg 1 cap PO DAILY #90 caps 02/26/24 06/01/24 capsule (Lotrel) esomeprazole magnesium 20 mg 20 mg PO DAILY #90 tab-caps 05/13/24 06/01/24 capsule,delayed release (Nexium) oxycodone 5 mg tablet 5 mg PO QHS PRN pain #30 tabs 05/20/24 06/01/24 Previous Rx's ?Medication ?Instructions ?Recorded magnesium gluconate 27.5 mg 55 mg (2 x 27.5 mg magne- sium 02/22/20 magnesium (500 mg) tablet (500 mg)) PO BID #60 tab-caps metformin 500 mg tablet 500 mg PO BID #180 tab-caps 05/27/23 gabapentin 300 mg capsule 600 mg (2 x 300 mg) PO TID #540 07/03/23 caps apixaban 5 mg tablet (Eliquis) 5 mg PO BID #180 tab-caps 08/21/23 pramipexole 0.5 mg tablet 0.5 mg PO QHS #90 tabs 09/11/23 metoprolol succinate 25 mg 25 mg PO DAILY #90 tabs 10/18/23 tablet,extended release 24 hr tamsulosin 0.4 mg capsule (Flomax) 0.4 mg PO DAILY #90 caps 11/01/23 hydrochlorothiazide 25 mg tablet 25 mg PO DAILY #90 tabs 01/17/24 amlodipine 10 mg-benazepril 20 mg 1 cap PO DAILY #90 caps 02/26/24 capsule (Lotrel) esomeprazole magnesium 20 mg 20 mg PO DAILY #90 tab-caps 05/13/24 capsule,delayed release (Nexium) oxycodone 5 mg tablet 5 mg PO QHS PRN pain #30 tabs 05/20/24 Allergies Allergy/AdvReac Type Severity Reaction Status Date / Time No Known Allergies Allergy Verified 06/01/24 14:28 General Stated Complaint: Chest Pain ERICK: 3 Course Vital Signs Vital signs: Vital Signs Temperature 36.3 C L 06/01/24 14:16 Pulse 71 06/01/24 14:16 Respiratory Rate 14 06/01/24 14:16 Blood Pressure 144/62 H 06/01/24 14:16 Pulse Oximetry 97 06/01/24 14:16 Temperature 36.3 C L 06/01/24 14:16 Temperature Source Oral 06/01/24 14:16 Pulse 71 06/01/24 14:16 Respiratory Rate 14 06/01/24 14:16 Blood Pressure 144/62 H 06/01/24 14:16 Pulse Oximetry 97 06/01/24 14:16 Oxygen Delivery Method Room Air 06/01/24 14:16 Oxygen Flow Rate 0 06/01/24 14:16 Medical Decision Making Quality:SDOH Health Related Social Needs: Health related social needs details none PFSH All Active Problems (Updated 05/06/24 @ 10:38 by Luiz Sierra DO) Lumbar radiculopathy (Acute) Bilateral lower extremity edema (Acute) Chronic pain syndrome (Chronic) Weakness of right leg (Acute) Lumbosacral plexopathy (Acute) Restless leg syndrome (Acute) Low back pain (Acute) Sleep apnea, unspecified (Acute) Skin lesion of right ear (Acute) Wrist pain (Acute) Skin lesion (Acute) Hyperlipidemia (Acute) 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 tach-16 beats, asymptomatic, Atrial fibrillation (Chronic) ECHO NEG, HOLTER 04/29 FEW PVC'S/PAC'S Eliqu: Followed by cardiology at [facility] Diabetes mellitus (Acute 09/24/12) no ophtalmopathy: : normal microalb. Essential hypertension (Acute 02/25/13) Gastroesophageal reflux disease with esophagitis (Acute) H/O [facility], ENDOSCOPY 1994 Peripheral neuropathy (Acute 11/24/14) evaluated : db related Medical History Basal cell carcinoma of right ear Prostate cancer First degree heart block Syncope Surgical History History of tonsillectomy and adenoidectomy S/P TURP (status post transurethral resection of prostate) History of rotator cuff surgery right Extraction of cataract (~2012) B/L Arthroscopy, Shoulder [facility]; LEFT Family History Mother , 88 Diabetes Heart disease Hyperlipidemia Father , 97 No problems noted. Sister Essential hypertension Hyperlipidemia Brother , 62 Diabetes Blastoma Brother No problems noted. Maternal Grandfather , 47 No problems noted. Paternal Grandfather , 85 Hyperlipidemia Hypertension Maternal Grandmother , 85 Essential hypertension Heart disease Hyperlipidemia Paternal Grandmother , 95 No problems noted. Daughter No problems noted. Daughter No problems noted. Daughter No problems noted. Social History Smoking/Tobacco Use Status: Former Tobacco Use Quit Date: 04/22/74 Smoking risk assessment performed?: Yes Alcohol Intake: current Alcohol Intake frequency: 0-2 drinks per day Alcohol type: hard liquor Drug use: Daily Substance use type: marijuana and other Details: MEDICINAL PURPOSES Adopted: No Caregiver/Support person: Yes Household members: spouse Housing: apartment Number of Children: 3 number of grandchildren: 6 Communication Needs: Hard of Hearing and Corrective Lenses Do you need help understanding health information?: Often current occupation: Retired Pets and animals: Yes Pets and animals: other Details: goats Sexually active: Yes Do you think of yourself as: decline to answer Current gender identity: decline to answer What is your relationship status?: How often do you talk on the phone with friends or family?: decline to answer How often do you get together with friends or relatives?: decline to answer How often do you attend jehovah's witness or anabaptism services?: decline to answer Do you belong to any clubs or organized social groups?: no Panel score (0-1 are the most socially isolated patients): 1 Duration: 15-30 minutes/day Frequency: 5-6 times per week Randa/Mosque: OTHER Special randa needs: No Seatbelt use: always Drive intox or ride w/intox local [place] truck driver: No Firearms in home: Yes Do you feel safe at home: Yes Do you feel safe in your relationship?: Yes Would you like helpful sources: No PAWSS Have you Been Recently Intoxicated or Drunk Within the Last 30 days?: No Have you Ever Experienced Previous Episodes of Alcohol Withdrawal?: No Have you ever Experienced Withdrawal Seizures?: No Have you ever Experienced Delirium Tremens(DT)s?: No Have you ever undergone Alcohol Rehabilitation Treatment (i.e, inpt ot outpatient treatment programs)?: No Have you ever Experienced Blackouts?: No Have you ever Combined Alcohol with other Downers within the last 90 days?: No Have you ever Combined Alcohol with any other Substance of Abuse during the last 90 days?: No Positive Blood Alcohol level on Presentation? [PCS.BAL]: No Evidence of Increased Autonomic Activity (i.e. HR>120, tremor, sweating, agitation, nausea)?: No Result: 0
--- OUTSIDE RECORDS SUMMARY | 2024-06-01 14:37 | XMS_ITS | Continuity of Care Document ---
Author Organization [facility] Address [address] [place] [address] Care Team Providers Care Sheet Rock Applicator Name Role Phone Hiram Shankar Primary Care Physician [phone] Encounter [facility] Date(s): 03/21/22 - 03/21/22 [facility] [address] [place] [address] Discharge Disposition: Home or Self Care Attending Physician: Kandis Pak NP Admitting Physician: Kandis Pak NP Referring Physician: Kandis Pak NP Allergies, Adverse Reactions, Alerts No Known Allergies Assessment and Plan Future Appointments Medications amLODIPine 10 mg oral tablet 10 mg = 1 tab, Oral, Daily, # 30 tab, 0 Refill(s) Start Date: 03/14/22 Status: Ordered apixaban 5 mg oral tablet 5 mg = 1 tab, Oral, BID, # 60 tab, 0 Refill(s) Start Date: 03/14/22 Status: Ordered esomeprazole 20 mg oral delayed release capsule 20 mg = 1 cap, Oral, Daily, # 30 cap, 0 Refill(s) Start Date: 03/14/22 Status: Ordered magnesium oxide 500 mg oral capsule 500 mg = 1 cap, Oral, Daily, # 7 cap, 0 Refill(s) Start Date: 03/14/22 Stop Date: 03/21/22 Status: Ordered meloxicam 15 mg oral tablet 15 mg = 1 tab, Oral, Daily, # 30 tab, 0 Refill(s) Start Date: 03/14/22 Status: Ordered metFORMIN 500 mg oral tablet 500 mg = 1 tab, Oral, BID, # 180 tab, 0 Refill(s) Start Date: 03/14/22 Status: Ordered pramipexole 0.25 mg oral tablet 0.25 mg = 1 tab, Oral, TID, # 90 tab, 0 Refill(s) Start Date: 03/14/22 Status: Ordered pravastatin 40 mg oral tablet 40 mg = 1 tab, Oral, Daily, # 30 tab, 0 Refill(s) Start Date: 03/14/22 Status: Ordered Shingrix intramuscular injection 0.5 mL, IM, Once, repeat dose in 2 to 6 months, # 2 EA, 0 Refill(s) Start Date: 03/14/22 Status: Ordered zolpidem 5 mg oral tablet See Instructions, PRN as needed for insomnia, Take 1 tab PO on night of sleep study AFTER setup, may repeat x 1 if ineffective after 30 min., # 2 tab, 0 Refill(s), Pharmacy: [id number] Start Date: 03/16/22 Status: Ordered Problem List Condition Confirmation Course Effective Dates Status H ealth Status Informant Actinic keratosis Confirmed Active Atrial fibrillation Confirmed Active Basal cell carcinoma of right ear Confirmed Active Essential hypertension Confirmed Active First degree heart block Confirmed Active Gastroesophageal reflux disease with esophagitis Confirmed Active Hyperlipidemia Confirmed Active Skin lesion of right ear Confirmed Active Lower urinary tract symptoms Confirmed Active Prostate cancer Confirmed Active Nonsustained ventricular tachycardia Confirmed Active Wrist pain Confirmed Active Peripheral neuropathy Confirmed Active Skin lesion Confirmed Active Sleep apnea Confirmed Active Syncope Confirmed Active Type 2 diabetes with nephropathy Confirmed Active Social History Social History Type Response Tobacco Former tobacco user Tobacco Use:. QUIT 1975 per day. Sex Male Patient Care team information Personnel Name: Hiram Shankar-C Address: Address: [address]
--- OUTSIDE RECORDS SUMMARY | 2024-06-01 14:38 | XMS_ITS | Encounter Summary ---
Author Organization Formerly [facility] [place] [address] Care Team Providers Care Chemical Plant Operator Supervisor Name Role Phone Hiram Shankar APRN Primary Care Provider +1- [phone] Reason for Referral * Diagnostic Test (Routine) - Pending Review Specialty Diagnoses / Procedures Referred By Contac t Referred To Contact Radiology Diagnoses Dorsalgia Other specified dorsopathies, lumbar region Procedures CT Facet Joint Injection Lumbosacral Single Level Dora Kim PA [address] [place] [address] [facility] [place] [address] Referral ID Status Reason Start Date Expiration Date Visits Requested Visits Authorized [id number] Pending Review Specialty Service Requested 04/28/2024 10/26/2025 1 1 Reason for Visit * Reason Comments Establish Care LBP and Rt leg pain with Narciso LE numbness and burning from knees to foot. Swelling in feet (LT>RT) Previous lumbar surgery was to treat left sided symptoms. Rt sided symptoms are new. * Consultation (Routine) - Closed Specialty Diagnoses / Procedures Referred By Contac t Referred To Contact Neurosurgery Diagnoses Spinal stenosis of lumbar region, unspecified whether neurogenic claudication present Smith Desir MD [address] [place] [address] Ya Watts MD [address] [place] [address] Referral ID Status Reason Start Date Expiration Date V isits Requested Visits Authorized [id number] Closed Consult, Test & Treat 04/23/2024 04/23/2025 1 1 Encounter Details Date Type Department Care Team (Latest Contact Info) Description 04/28/2024 12:30 PM EST Office Visit Neurosurgery at [facility] [address] [place] [id number] Dora Ceja PA [address] [facility] [place] [address] Atrial fibrillation, unspecified type; History of prostate cancer; Bertolotti syndrome; Dorsalgia; Other specified dorsopathies, lumbar region; Spondylosis of lumbar region without myelopathy or radiculopathy Social History Tobacco Use Types Packs/Day Years Used Date Smoking Tobacco: Former Cigarettes Q uit: 1975 Smokeless Tobacco: Never Alcohol Use Standard Drinks/Week Comments Yes 7 (1 standard drink = 0.6 oz pur e alcohol) [facility] IPV Inpatient Questions Answer Date Recorded Does Anyone Try to Keep You From Having Contact with Others or Doing Things Outside Your Home? unable to answer (comment required) 03/11/2023 Feels Threatened by Someone unable to an swer (comment required) 03/11/2023 Feels Unsafe at Home or Work/School unab le to answer (comment required) 03/11/2023 Physical Signs of Abuse Present no 03/11/2023 Sex and Gender Information Value Date Recorded Sex Assigned at Not on file Gender Identity Not on file Sexual Orientation Not on file documented as of this encounter Last Filed Vital Signs Vital Sign Reading Time Taken Comments Blood Pressure 142/78 04/28/2024 12:16 PM EST Pulse 66 04/28/2024 12:16 PM EST Temperature - - Respiratory Rate 16 04/28/2024 12:16 PM EST Oxygen Saturation 98% 04/28/2024 12:16 PM EST Inhaled Oxygen Concentration - - Weight 89.6 kg (197 lb 9.6 oz) 04/28/2024 12:16 PM EST Height 177.8 cm (5' 10) 04/28/2024 12:16 PM EST Body Mass Index 28.35 04/28/2024 12:16 PM EST documented in this encounter Progress Notes * Dora Ceja PA - 04/28/2024 12:30 PM EST Subjective: HPI: Lilian Glass is a 83 y.o. male presenting to the [facility] Neurosurgery Clinic with a chief complaint of right low back pain. To summarize, lilian presented to the orthopedic clinic over 1 year ago with a complaint of back pain that radiated into his bilateral buttocks and posterior lateral thighs. He also noted weakness in his left foot. On March 11, 2023, he underwent an L3-L5 laminectomywith Dr. Doyle. Lilian did well following surgery but several weeks after his surgery he started to fall. He developed weakness in his right leg. He also noted persistent right low back pain that radiated into his right buttock. He has no pain in the right leg but notes hyperesthesias in his anterior and lateral thigh. He can note similar symptoms on the left but they are mild compared to the right. He underwent EMG and nerve conduction studies and his neurologist recommended 3-day course of IV steroids which Wlder completed. Unfortunately, he did not note any change with IV steroids. He has been doing physical therapy and has started to note only mild improvement in his right leg strength. He has been doing deep muscle massage which has been helpful. Of his complaints, his primary complaint is right low back pain. This is prevalent when he stands or walks for even a few minutes. He also has pain when sleeping prone. He generally does well with sleeping supine or on his left side. He notes pain when sleeping on his right. Objective: VS: BP 142/78 (BP Location (NBP): Left arm, Patient Position: Sitting) Pulse 66 Resp 16 Ht 177.8 cm (5' 10) Wt 89.6 kg (197 lb 9.6 oz) SpO2 98% BMI 28.35 kg/m?? Back: His incision has healed well. He does point to the area off the midline to the right as a source of back pain. He also notes pain in the superior buttocks. Lumbar flexion does not change his symptoms. Lumbar extension worsens his low back pain. Lower extremities: His left quadricep psoas and hamstring are full at 5 out of 5. His right quadricep strength is 3 out of 5 and his psoas strength is 4 out of 5. His left dorsiflexion strength is 4 out of 5 in his right dorsiflexion strength is full. He has full plantarflexion bilaterally. He is areflexic in the patella and ankles. He has hyperesthesias to light touch over the right anterior andlateral thigh. Hip: He has no pain with internal/external rotation of his right hip. MRI: MRI of the lumbar spine was compared to an x-ray. 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 He has multilevel spondylitic changes and degenerative disc disease. EMGs: These were completed by Dr. Leos in September 2023. 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 In regards to his right low back pain, I have asked him to undergo a CT-guided injection for diagnostic purposes. 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 In regards to his thigh hyperesthesias and weakness, I will discuss this with Dr. Watts and contact Lilian with her plan. He is scheduled for a consultation with [facility] pain clinic in the near future. FOLLOWUP: No follow-ups on file. 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
--- OUTSIDE RECORDS SUMMARY | 2024-06-01 14:38 | XMS_ITS | Encounter Summary ---
Author [facility] [place] [address] Care Team Providers Care Supervisor Livestock Yard Name Role Phone Hiram Shankar APRN Primary Care Provider +1- [phone] Reason for Visit * Reason Comments Medication Refill Encounter Details Date Type Department Care Team (Late st Contact Info) Description 12/24/2023 [place] [address] Tony Bob MD [facility] [place] [address] Neuropathic pain Social History Tobacco Use Types Packs/Day Years Used Date Smoking Tobacco: Former Cigarettes Q uit: 1975 Smokeless Tobacco: Never Alcohol Use Standard Drinks/Week Comments Yes 7 (1 standard drink = 0.6 oz pur e alcohol) IPV Inpatient Questions Answer Date Recorded Does [...] on file documented as of this encounter Miscellaneous Notes * Telephone Encounter - Lety Chandra CMA - 12/26/2023 9:35 AM EDT Prescription Renewal Request Name: Elie Glass : 1940 Prescription(s) Requested: Requested Prescriptions Pending Prescriptions Disp Refills gabapentin (Neurontin) 300 mg capsule [Pharmacy Med Name: GABAPENTIN CAP 300MG (NEUR)] 540 capsule 0 Sig: TAKE 2 CAPSULES BY MOUTH 3 TIMES DAILY Date of Encounter last in This Dept (If need an appointment send to secretaries to schedule): 10/09/2023 with Tony Bob MD Next Encounter in This Dept: 02/04/2024 with Tony Bob MD Date of Last Refill (for each medication): gabapentin (Neurontin) 300 mg capsule TAKE 2 CAPSULES BY MOUTH 3 TIMES DAILY Dispense: 540 capsule,Refills: 0 ordered 10/28/2023 Status of request: Pended No Known Allergies Lety Chandra CMA 12/26/23 9:36 AM documented in this encounter Plan of Treatment Not on file documented as of this encounter Visit Diagnoses Diagnosis Neuropathic pain Neuralgia, neuritis, and radiculitis, unspecified documented in this encounter Care Teams Supervisor Livestock Yard Relationship Specialty Start Date End Date Hiram Shankar APRN [address] [place] [address] PCP - General Family Medicine 02/05/23 documented as of this encounter
--- OUTSIDE RECORDS SUMMARY | 2024-06-01 14:38 | XMS_ITS | Clinical Summary ---
Author Organization [place] [address] Care Team Providers Care Realty Specialist Name Role Phone Hiram Shankar APRN Primary Care Provider +1- [phone] Allergies No known active allergies Medications Medication Sig Dispensed Refills Start Date End Date Status esomeprazole (NEXIUM) 40 mg capsule Take 40 mg by mouth every morning. 10/09/2004 Active Magnesium Gluconate 27 mg magnesium (500 mg) Tablet Twice a day 02/22/2020 Active metFORMIN (Glucophage) 500 mg Tablet Take 500 mg by mouth 2 times daily (with meals). 06/23/2019 Active pramipexole (Mirapex) 0.25 mg Tablet Take 0.5 mg by mouth nightly. 02/26/2020 Active amLODIPine-benazep ril (LOTREL) 5-20 mg Capsule Take 1 capsule by mouth every morning. 06/23/2019 Active dilTIAZem (Cardizem) 120 mg Tablet Daily, as needed 09/21/2015 Active metoprolol succinate XL (Toprol-XL) 25 mg Tablet Sustained Release 24 hr Take 1 tablet by mouth daily. 30 tablet 3 03/25/2020 Active Additional Information Patient taking differently:25 mg OralNIGHTLY, Reported on 02/28/2023 apixaban (Eliquis) 5 mg tablet Take 1 tablet by mouth 2 times daily. 03/15/2023 Active acetaminophen (Tylenol) 500 mg tablet Take 2 tablets by mouth every 8 hours. 03/12/2023 Active Additional Information Patient taking differently:1,000 mg OralPRN, Pain, Reported on 04/28/2024 oxyCODONE (Roxicodone) 5 mg tablet Take 1 tablet by mouth every 4 hours as needed for Pain. 42 tablet 03/12/2023 Active docusate sodium (STOOL SOFTENER ORAL) Take by mouth daily. Active gabapentin (Neurontin) 300 mg capsuleIndications :Neuropathic pain TAKE 2 CAPSULES BY MOUTH 3 TIMES DAILY 540 capsule 3 03/02/2024 Active Additional Information Patient taking differently:600 mg Oral2 TIMES DAILY, Reported on 04/28/2024 tamsulosin (Flomax) 0.4 mg capsule Take 0.4 mg by mouth daily. Active hydroCHLOROthiazid e (HydroDiuril) 25 mg tablet Take 25 mg by mouth daily. Active Active Problems Problem Noted Date Diagnosed Date Sleep apnea 04/24/2024 History of prostate cancer 04/24/202408/09 21 Overview (04/28/2024): Urology at [facility] Dr Mihaela Joyce (PSA 1.2) S/p L3-5 laminectomy 03/11/23 Doyle 03/11/2023 Spinal stenosis of lumbar re gion with neurogenic claudication 02/28/2023 Actinic keratosis 03/23/2020 Atrial fibrillation 03/23/2020 Overview (04/28/2024): Dr Navarro - cardiology at [facility] (October 2023) Chest pain 03/23/2020 Do not resuscitate status 03/23/2020 First degree atrioventricular block 03/23/2020 Gastroesophageal reflux disease with esophagitis 03/23/2020 History of cataract removal with insertion of prosthetic lens 03/23/2020 Hypocalcemia 03/23/2020 Hypomagnesemia 03/23/2020 Nonsustained ventricular tachycardia 03/23/2020 Pain in joint 03/23/2020 Palpitations 03/23/2020 Encounter for deep vein thrombosis (DVT) prophyl axis 03/23/2020 Physician Orders for Life-Sustaining Treatment 1 05/24/2019 Problem related to discharge planning 03/23/2020 Shoulder pain 03/23/2020 Syncope 03/23/2020 Tinnitus 03/23/2020 Microscopic hematuria 04/08/2017 Trochanteric bursitis of right hip 11/18/2015 Peripheral neuropathy 11/24/2014 Essential hypertension 02/25/2013 Diabetes mellitus 09/24/2012 Hypercholesterolemia 09/24/2012 Benign prostatic hyperplasia 05/28/2012 Encounters Date Type Department Care Team Description 05/06/2024 Orders [place] [address] Raegan Poon, TOY ASSEMBLER WOOD 04/28/2024 12:30 PM EST Office Visit Neurosurgery at [place] [address] Dora Ceja PA Atrial fibrillation, unspecified type; History of prostate cancer; Bertolotti syndrome; Dorsalgia; Other specified dorsopathies, lumbar region; Spondylosis of lumbar region without myelopathy or radiculopathy 04/28/2024 Travel 04/24/2024 Travel 04/24/2024 Abstract Neurosurgery [place] [address] Destiney Stacy, BARREL BUNG REMOVER AND DUMPER 04/23/2024 Transcribe Orders eDH Incoming Referrals [phone] Smith Desir MD Spinal stenosis of lumbar region, unspecified whether neurogenic claudication present 04/14/2024 Ancillary Procedure Radiology Library at [facility] [place], [place] [address] Hiram Shankar, TOY ASSEMBLER WOOD 03/01/2024 [place] [address] Tony Bob MD Neuropathic pain from Last 3 Months Immunizations Name Administration Dates Next Due Influenza Vaccine, Whole 02/09/2005 Pneumococcal 23-Valent Polysaccharide (Pneumovax 23) 03/08/2003 Td Adult (not absorbed) 03/08/2003 Family History Medical History Relation Comments Diabetes Brother Other Brother Blastoma Heart Disease Maternal Grandmother Hyperlipidemia Maternal Grandmother Hypertension Maternal Grandmother Diabetes Mother Heart Disease Mother Hyperlipidemia Mother Hyperlipidemia Paternal Grandfather Hypertension Paternal Grandfather Hyperlipidemia Sister Hypertension Sister Relation Status Comments Brother Maternal Grandmother Mother Paternal Grandfather Sister Social History Tobacco Use Types Packs/Day Years Used Date Smoking Tobacco: Former Cigarettes Q uit: 1975 Smokeless Tobacco: Never Tobacco Cessation:Counseling Given: Not Answered Alcohol Use Standard Drinks/Week Comments Yes 7 (1 standard drink = 0.6 oz pur e alcohol) [facility] Inpatient Questions Answer Date Recorded Does Anyone [...] on file Sexual Orientation Not on file Last Filed Vital Signs Vital Sign Reading Time Taken Comments Blood Pressure 142/78 04/28/2024 12:16 PM EST Pulse 66 04/28/2024 12:16 PM EST Temperature 36.7 ??C (98.1 ??F) 03/12/2023 11:[address] Respiratory Rate 16 04/28/2024 12:16 PM EST Oxygen Saturation 98% 04/28/2024 12:16 PM EST Inhaled Oxygen Concentration - - Weight 89.6 kg (197 lb 9.6 oz) 04/28/2024 12:16 PM EST Height 177.8 cm (5' 10) 04/28/2024 12:16 PM EST Body Mass Index 28.35 04/28/2024 12:16 PM EST Plan of Treatment Health Maintenance Due Date Last Done Comments DM Hemoglobin A1c 12/18/1950 DM Opthalmology Exam 12/18/1950 DM Urine Microalbumin yearly 12/18/1950 Zoster vaccine (1 of 2) 12/18/1991 Advance Directive 1996 Tetanus/Diphtheria/Pertussis Vaccines (1 - Tdap) 03/09/2003 03/08/2003 Pneumoccocal Vaccine: 50+ (2 of 2 - PCV) 03/08/2004 03/08/2003 RSV Vaccine (1 - 1-dose 75+ series) 2016 Covid-19 Vaccine ( - season) 2023 Influenza (Flu) vaccine (1 o f 1 - Influenza standard series) 12/22/2023 02/09/2005 DM Creatinine yearly 03/12/2024 03/12/2023, 02/28/2023, 03/25/2020 Procedures Procedure Name Priority Date/Time Associated Diagnosis Comments FILM LIBRARY STORAGE ONLY MR SPINE Routine 04/14/2024 12:00 AM EST BASIC METABOLIC PANEL Routine 03/12/2023 4:30 AM EST from Last 3 Months or Most Recently Relevant to Health Maintenance Results * Film Library- Storage Only MR Spine (04/14/2024 12:00 AM EST) Narrative KATHY - 04/23/2024 2:52 PM EST This exam is auto-finalizing. It's purpose is for storage only. Hiram Shankar APRN IMG FILM LIBRARY O RDERABLES [place], [place] * (ABNORMAL) Basic Metabolic Panel (non-fasting) (03/12/2023 4:30 AM EST) Glucose 130 65 - 199 mg/dL [facility] Comment:Diabetes: >=200 mg/d L plus symptoms Blood Urea Nitrogen 10 10 - 20 mg/dL [facility] Creatinine 0.66(L) 0.80 - 1.50 mg/dL [facility] Sodium 140 135 - 145 mmol/L [facility] Potassium 3.7 3.5 - 5.0 mmol/L [facility] Comment: Please note: ??Patients with WBC >100,000 may have falsely elevated Potassium levels. ??For accurate Potassium quantification in these patients send serum separator tube (gold top) for subsequent determinations. ??Contact the Clinical Chemistry Laboratory if there are any questions. Chloride 101 98 - 107 mmol/L [facility] Carbon Dioxide 27 22 - 31 mmol/L [facility] Anion Gap 12 5 - 15 mmol/L [facility] Calcium 9.1 8.5 - 10.5 mg/dL [facility] Est Glomerular Filtration Rate 94 >=60 mL/min/1. 73 m?? [facility] Comment: This patient's estimated GFR was calculated using the 2020 CKD-EPI equation. The estimated GFR can vary from the measured GFR by up to 30% in the absence of rapidly changing kidney function. Assessment of the estimated GFR is not appropriate when creatinine concentrations are rapidly changing. For clinical situations in which a more precise estimate of GFR is necessary, consider alternative methods of GFR estimation such as a 24-hour urine creatinine clearance. Assignment of CKD stage 1-5 for patients with an eGFR near the transition point between stages may be based on clinical assessment of muscle mass and symptoms in addition to eGFR. Blood 03/12/2023 4:30 AM EST 03/12/2023 4:45 AM EST Narrative Resulting Agency Comment Spec In Lab Brennan Doyle MD CHEMISTRY ORDERABLES [facility] [place] [address] from Last 3 Months or Most Recently Relevant to Health Maintenance Advance Directives * Attempt Cardiopulmonary Resuscitation - Inpatient (Latest Code Status on File) Date Activated Date Inactivated Comments 03/11/2023 10:55 AM 03/12/2023 2:36 PM Question Answer Comments Code Status decision made by: Patient Care Teams Realty Specialist Relationship Specialty Start Date End Date Hiram Shankar, TOY ASSEMBLER WOOD [address] [place] [address] PCP - General Family Medicine 02/05/23
--- OUTSIDE RECORDS SUMMARY | 2024-06-01 14:38 | XMS_ITS | Encounter Summary ---
Author Organization [facility] [place] [address] Care Team Providers Care Banking Representative Name Role Phone Hiram Shankar APRN Primary Care Provider +1- [phone] Encounter Details Date Type Department Care Team (Latest Contact Info) Description 02/04/2024 Travel Social History Tobacco Use Types Packs/Day Years [...] on file documented as of this encounter Plan of Treatment Not on file documented as of this encounter Visit Diagnoses Not on filedocumented in this encounter Care Teams Banking Representative Relationship Specialty Start Date End Date Hiram Shankar APRN [address] [place] [address] PCP - General Family Medicine 02/05/23 documented as of this encounter
--- OUTSIDE RECORDS SUMMARY | 2024-06-01 14:38 | XMS_ITS | Encounter Summary ---
Author Organization [facility] [place] [address] Care Team Providers Care Services Coordinator Name Role Phone Hiram Shankar APRN Primary Care Provider +1- [phone] Encounter Details Date Type Department Care Team (Latest Contact Info) Description 04/24/2024 Travel Social History Tobacco Use Types Packs/Day [...] on filedocumented in this encounter Care Teams Services Coordinator Relationship Specialty Start Date End Date Hiram Shankar APRN [address] [place] [address] PCP - General Family Medicine 02/05/23 documented as of this encounter
--- OUTSIDE RECORDS SUMMARY | 2024-06-01 14:38 | XMS_ITS | Encounter Summary ---
Author Organization [facility] [place] [address] Care Team Providers Care Non Categorical Preschool Teacher Name Role Phone Hiram Shankar APRN Primary Care Provider +1- [phone] Encounter Details Date Type Department Care Team (Late st Contact Info) Description 02/04/2024 2:00 PM EDT [place] [address] Tony Bob MD [facility] [place] [address] Femoral neuropathy of right lower extremity; Neuropathic pain Social History Tobacco Use Types [...] on file documented as of this encounter Progress Notes * Tony Bob MD - 02/04/2024 2:00 PM EDT Images from the original note were not included. Elie Glass is a pleasant [id number] gentleman referred in consultation by Dr. Brennan Doyle for evaluation of new onset right leg weakness that came on about 6 weeks after surgery for spinal stenosis. He was having significant radicular pain prior to the surgery which subsided after the surgery. He developed a new type of pain in the right leg 6 weeks after the surgery. Still some back pain that radiates slightly intp right leg. Walking much better. Got tissue massage. Tried chiropractory. No recent falls. Lots of pain in right leg. Gabapentin doesn;t seem to help/ MRI LS Spine 06/13/23 IMPRESSION: 1. Improved patency of the spinal canal at L3-4 and L4-5 following laminectomies. 2. Peripherally enhancing collections in the dorsal soft tissues at the laminectomy site concerning for abscesses, with likely thin dorsal epidural collections at L4-5 contributing to mild canal stenosis. 3. Peripherally enhancing multiloculated epidural abscess versus synovial cyst adjacent to the left L3-4 facet with mild canal stenosis and severe left subarticular recess stenosis. 4. Right iliopsoas edema without coalescent fluid collection. Saw Brennan Doyle in May 2023. Assessment/plan: Mr. Glass is an 82-year-old male over 3 months outfrom his lumbar laminectomy, from which she did well initially. Over the past 6 weeks, he has developed worsening pain in his right lateral thigh and leg and weakness of his right quadriceps. Additionally, his left foot drop has become somewhat more pronounced. His MRI really does not explain thesenew findings. He has no signs or symptoms of infection, and his wound is well-healed. I see no surgical target. I have referred him to the pain clinic to discuss injection options. I have also put ai referral to neurology to assess the new weakness. Dr. Doyle did not feel that the patient had an infection with no fever and did not feel that the MRI findings explain his right leg weakness. He had some pain that has radiated from his right buttock down the lateral aspect of his right leg. His right leg has become weak proximally and has had 4 falls. His left leg has continued to improve very slowly. He has had no fevers or chills. He does have urinary frequency related to history of prostate cancer. He has a longstanding numbness in his feet related to a peripheral neuropathy over the last 20 years. He has type 2 diabetes and his hemoglobin A1c runs in the mid sixes. Surgery was in Feb. Still having some radicular pain on the right, PMH He lives in [facility]. 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 He is navigating stairs now. Walking with cane. On exam he is a pleasant cooperative man accompanied by his . He has a very tentative gait as he has proximal weakness in his right leg. He walks with a cane. He was bright and alert with a normal mental status. Cranial nerves II through XII are intact. Motor distal sensory loss to all modalities in his feet to about the level of the mid shins. Romberg was not testable. Deep tendon reflexes were trace at the ankles, absent at the knees and normal in the upper extremities. He had 3-4 out of 5 weakness in the hip flexors on the right and quadriceps. Hip adductors were normal. He has some 4+out of 5 weakness in the dorsiflexors of the right foot and some 2 out of 5 weakness in the dorsiflexors of the left foot. 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 Needle EMG suggested significant involvement of the vastus lateralis on the right with active denervation and single motor unit recruitment. The iliopsoas muscle was normal. 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 There was both L5 and S1 nerve root involvement with active and chronic changes in the L5-S1 distribution on the left and some S1 distribution active and chronic changes on the right. Some of these findings are likely related to peripheral neuropathy. There is also likely residual nerve root damage from the prior spinal stenosis. 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 This phenomenon is not unusual and I have seen it several times. They sometimes respond to IV steroids. Despite the fact that he is somewhat diabetic, Iwould recommend to Hiram Shankar that he get 1000 mg of Solu-Medrol IV once a day for 3 days. He is taking Neurontin to 600 mg 3 times a day to try to help with the neuropathic pain. If not done so I would suggest to Hiram Shanakr that the patient have a B12, SPEP, sed rate and CRP level checked.I doubt he has an infection but this should be looked into. Dorsiflexion in right foot is slightly better. Right quads still very weak. I think there is still a chance of improvement. A knee brace should be coming soon. I will plan to see him back in 6 weeks time or sooner as necessary. He has my contact information. Ordered an EDSI through [facility], nut he never heard back from them. Suggest that Hiram Shankar order one at [facility]. He is seeing Oumar Saavedrastefanie PT tomorrow. He needs to be fit with knee brace. F/u with me in 4-5 months. documented in this encounter Plan of Treatment Not on file documented as of this encounter Visit Diagnoses Diagnosis Femoral neuropathy of right lower extremity Neuropathic pain Neuralgia, neuritis, and radiculitis, unspecified documented in this encounter Care Teams Non Categorical Preschool Teacher Relationship Specialty Start Date End Date Hiram Shankar APRN [address] [place] [address] PCP - General Family Medicine 02/05/23 documented as of this encounter
--- OUTSIDE RECORDS SUMMARY | 2024-06-01 14:38 | XMS_ITS | Encounter Summary ---
Author Organization [facility] [place] [address] Care Team Providers Care Shelter Monitor Name Role Phone Hiram Shankar APRN Primary Care Provider +1- [phone] Encounter Details Date Type Department Care Team (Latest Contact Info) Description 04/28/2024 Travel Social History Tobacco Use Types Packs/Day [...] on filedocumented in this encounter Care Teams Shelter Monitor Relationship Specialty Start Date End Date Hiram Shankar APRN [address] [place] [address] PCP - General Family Medicine 02/05/23 documented as of this encounter
--- OUTSIDE RECORDS SUMMARY | 2024-06-01 14:38 | XMS_ITS | Encounter Summary ---
Author Organization [facility] [place] [address] Care Team Providers Care Oil Well Service Operator Helper Name Role Phone Hiram Shankar APRN Primary Care Provider +1- [phone] Encounter Details Date Type Department Care Team (Late st Contact Info) Description 04/14/2024 Ancillary Procedure Radiology Library at [facility] [place] [id number] Hiram Shankar APRN [address] [place] [address] Social History Tobacco Use Types Packs/Day Years [...] on file documented as of this encounter Procedures Procedure Name Priority Date/Time Associated Diagnosis Comments FILM LIBRARY STORAGE ONLY MR SPINE Routine 04/14/2024 12:00 AM EST documented in this encounter Results * Film Library- Storage Only MR Spine (04/14/2024 12:00 AM EST) Narrative KATHY - 04/23/2024 2:52 PM EST This exam is auto-finalizing. It's purpose is for storage only. Hiram Shankar APRN IMG FILM LIBRARY O RDERABLES Performing Organization Address City/State/[facility] Co de Phone Number [place], [place] documented in this encounter Visit Diagnoses Not on filedocumented in this encounter Care Teams Oil Well Service Operator Helper Relationship Specialty Start Date End Date Hiram Shankar APRN [address] [place] [address] PCP - General Family Medicine 02/05/23 documented as of this encounter
--- OUTSIDE RECORDS SUMMARY | 2024-06-01 14:38 | XMS_ITS | Encounter Summary ---
Author Organization [facility] [place] [address] Care Team Providers Care Grading Machine Operator Name Role Phone Hiram Shankar APRN Primary Care Provider +1- [phone] Reason for Visit * Reason Comments Medication Refill Encounter Details Date Type Department Care Team (Late st Contact Info) Description 10/26/2023 [place] [address] Tony Bob MD [facility] [place] [address] Neuropathic pain Social History Tobacco Use Types [...] Telephone Encounter - Lety Chandra CMA - 10/28/2023 9:31 AM EDT Prescription Renewal Request Name: Elie [...] each medication): gabapentin (Neurontin) 300 mg capsule Take 2 capsules by mouth 3 times daily for 90 days. Dispense:540 capsule, Refills: 0 ordered 08/23/2023 Status of request: Pended No Known Allergies Lety Chandra CMA 10/28/23 9:31 AM documented in this encounter Plan of Treatment Not on file documented as of this encounter Visit Diagnoses Diagnosis Neuropathic pain Neuralgia, neuritis, and radiculitis, unspecified documented in this encounter Care Teams Grading Machine Operator Relationship Specialty Start Date End Date Hiram Shankar APRN [address] [place] [address] PCP - General Family Medicine 02/05/23 documented as of this encounter
--- OUTSIDE RECORDS SUMMARY | 2024-06-01 14:38 | XMS_ITS | Encounter Summary ---
Author Organization [facility] [address] Care Team Providers Care Flask Cleaner Name Role Phone Hiram Shankar APRN Primary Care Provider +1- [phone] Encounter Details Date Type Department Care Team (Late st Contact Info) Description 05/06/2024 [place] [address] Raegan Poon APRN [facility] [place] [address] [place] [address] Social History Tobacco Use Types Packs/Day Years [...] on filedocumented in this encounter Care Teams Flask Cleaner Relationship Specialty Start Date End Date Hiram Shankar APRN [address] [place] [address] PCP - General Family Medicine 02/05/23 documented as of this encounter
--- OUTSIDE RECORDS SUMMARY | 2024-06-01 14:38 | XMS_ITS | Encounter Summary ---
Author Organization [facility] [place] [address] Care Team Providers Care Intelligence Consultant Name Role Phone Hiram Shankar APRN Primary Care Provider +1- [phone] Encounter Details Date Type Department Care Team (Late st Contact Info) Description 04/24/2024 Abstract Neurosurgery at [facility] [address] [place] [id number] Destiney Stacy, [facility] Social History Tobacco Use Types Packs/Day Years [...] on filedocumented in this encounter Care Teams Intelligence Consultant Relationship Specialty Start Date End Date Hiram Shankar APRN [address] [place] [address] PCP - General Family Medicine 02/05/23 documented as of this encounter
--- OUTSIDE RECORDS SUMMARY | 2024-06-01 14:38 | XMS_ITS | Encounter Summary ---
Author Organization [facility] [place] [address] Care Team Providers Care Mcat Tutor Name Role Phone Hiram Shankar APRN Primary Care Provider +1- [phone] Encounter Details Date Type Department Care Team (Latest Contact Info) Description 10/09/2023 Travel Social History Tobacco Use Types Packs/Day [...] on filedocumented in this encounter Care Teams Mcat Tutor Relationship Specialty Start Date End Date Hiram Shankar APRN [address] [place] [address] PCP - General Family Medicine 02/05/23 documented as of this encounter
--- OUTSIDE RECORDS SUMMARY | 2024-06-01 14:38 | XMS_ITS | Encounter Summary ---
Author Organization [facility] [place] [address] Care Team Providers Care Target Trimmer Name Role Phone Hiram Shankar APRN Primary Care Provider +1- [phone] Reason for Referral * Consultation (Routine) - Closed Specialty Diagnoses / Procedures Referred By Contac t Referred To Contact Neurosurgery Diagnoses Spinal stenosis of lumbar region, unspecified whether neurogenic claudication present Smith Desir MD [address] [place] [address] [place] [address] Referral ID Status Reason Start Date Expiration Date V isits Requested Visits Authorized [id number] Closed Consult, Test & Treat 04/23/2024 04/23/2025 1 1 Encounter Details Date Type Department Care Team (Latest Contact Info) Description 04/23/2024 Transcribe Orders eDH Incoming Referrals [phone] Smith Desir MD [address] [place] [address] Spinal stenosis of lumbar region, unspecified whether neurogenic claudication present Social History Tobacco Use Types Packs/Day Years Used Date Smoking Tobacco: Former Cigarettes Q uit: 1975 Smokeless Tobacco: Never Alcohol Use Standard Drinks/Week Comments Yes 7 (1 standard drink = 0.6 oz pur e alcohol) [facility] Inpatient Questions Answer Date Recorded Does Anyone [...] as of this encounter Plan of Treatment Scheduled Referrals Name Type Priority Associated Diagnoses Orde r Schedule Referral to Neurosurgery Outpatient Referral Routine Spinal stenosis of lumbar region, unspecified whether neurogenic claudication present Ordered: 04/23/2024 documented as of this encounter Visit Diagnoses Diagnosis Spinal stenosis of lumbar region, unspecified whether neurogenic claudication present documented in this encounter Care Teams Target Trimmer Relationship Specialty Start Date End Date Hiram Shankar, MICROCHIP SPECIALIST [address] [place] [address] PCP - General Family Medicine 02/05/23 documented as of this encounter
--- OUTSIDE RECORDS SUMMARY | 2024-06-01 14:38 | XMS_ITS | Encounter Summary ---
Author Organization [facility] Address [facility] [place] [address] Care Team Providers Care Batch Operator Name Role Phone Hiram Shankar APRN Primary Care Provider +1- [phone] Reason for Referral * Consultation (Routine) - Duplicate Referral Specialty Diagnoses / Procedures Referred By June t Referred To Contact [facility] Diagnoses L-S radiculopathy Tony Bob MD [facility] [place] [address] Daniel Alcantara MD [facility] [place] [address] Referral ID Status Reason Start Date Expiration Date Visits Requested Visits Authorized [id number] Duplicate Referral Consult, Test & Treat 10/09/2023 10/08/2024 1 1 Encounter Details Date Type Department Care Team (Late st Contact Info) Description 10/09/2023 10:00 AM EDT [place] [address] Tony Bob MD [facility] [place] [address] L-S radiculopathy; Femoral neuropathy of right lower extremity; Neuropathic [...] Progress Notes * Tony Bob MD - 10/09/2023 10:00 AM EDT Images from the original note were not included. Elie Glass is a pleasant 82-year-old gentleman referred in consultation by Dr. Brennan Doyle forevaluation of new onset right leg weakness that came on about 6 weeks after surgery for spinal stenosis. He was having significant radicular pain prior to the surgery which subsided after the surgery. He developed a new type of pain in the right leg 6 weeks after the surgery. One recent fall. Fell slowly.Tore his left hamstring recently. Lots of pain in right leg. Gabapentin seems to be helping. MRI LS Spine 06/13/23 IMPRESSION: 1. Improved [...] on the right, PMH He lives in [facility]. 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 On exam he is a pleasant cooperative [...] the dorsiflexors of the left foot. He underwent nerve conduction studies that showed evidence [...] done so I would suggest to Hiram Shankar that the patient have a B12, SPEP, [...] as necessary. He has my contact information. Have ordered an EDSI through [facility]. He is seeing Oumar Dennison PT tomorrow. He needs to be fit with knee brace. F/u with me in 4-5 months. documented in this encounter Plan of Treatment Scheduled Referrals Name Type Priority Associated Diagnoses Orde r Schedule Referral to [facility] (Internal only) Outpatient Referral Routine L-S radiculopathy Ordered: 10/09/2023 documented as of this encounter Visit Diagnoses Diagnosis L-S radiculopathy Thoracic or lumbosacral neuritis or radiculitis, unspecified Femoral neuropathy of right lower extremity Neuropathic pain Neuralgia, neuritis, and radiculitis, unspecified documented in this encounter Care Teams Batch Operator Relationship Specialty Start Date End Date Hiram Shankar APRN [address] [place] [address] PCP - General Family Medicine 02/05/23 documented as of this encounter
--- OUTSIDE RECORDS SUMMARY | 2024-06-01 14:38 | XMS_ITS | Encounter Summary ---
Author Organization [facility] [place] [address] Care Team Providers Care Retail Special Event Associate Name Role Phone Hiram Shankar APRN Primary Care Provider +1- [phone] Reason for Visit * Reason Comments Medication Refill Encounter Details Date Type Department Care Team (Late st Contact Info) Description 03/01/2024 [place] [address] Tony Bob MD [facility] [place] [address] Neuropathic pain Social History Tobacco Use Types [...] encounter Miscellaneous Notes * Telephone Encounter - Lavonne Alexander RN - 03/02/2024 1:38 PM EST Prescription Renewal Request Name: Elie Glass : 1940 Prescription(s) Requested: Requested Prescriptions Pending Prescriptions Disp Refills gabapentin (Neurontin) 300 mg capsule [Pharmacy Med Name: GABAPENTIN CAP 300MG (NEUR)] 540 capsule 3 Sig: TAKE 2 CAPSULES BY MOUTH 3 TIMES DAILY Date of Encounter last in This Dept (If need an appointment send to secretaries to schedule): Tony Bob MD (Physician) Neurology Encounter Date: 02/04/2024 Signed Next Encounter in This Dept: not scheduled Date of Last Refill (for each medication): gabapentin (Neurontin) 300 mg capsule TAKE 2 CAPSULES BY MOUTH 3 TIMES DAILY Dispense: 540 capsule,Refills: 0 ordered 12/26/2023 Medication category requirements (labs etc): n/a Status of request: Pended No Known Allergies Lavonne Alexander, CHERYL 03/02/24 1:38 PM documented in this encounter Plan of Treatment Not on file documented as of this encounter Visit Diagnoses Diagnosis Neuropathic pain Neuralgia, neuritis, and radiculitis, unspecified documented in this encounter Care Teams Retail Special Event Associate Relationship Specialty Start Date End Date Hiram Shankar, SHUBHAM [address] [place] [address] [address] [place] [address] PCP - General Family Medicine 02/05/23 documented as of this encounter
--- OUTSIDE RECORDS SUMMARY | 2024-06-01 14:39 | XMS_ITS | Encounter Summary ---
Author Organization [facility] [place] [address] Care Team Providers Care Warehouse Material Handler Name Role Phone Hiram Shankar APRN Primary Care Provider +1- [phone] Reason for Visit * Consultation (Routine) - Closed Specialty Diagnoses / Procedures Referred By Contac t Referred To Contact Neurology Diagnoses S/P lumbar laminectomy Brennan Doyle MD [facility] [place] [address] Tony Bob MD [facility] [place] [address] Referral ID Status Reason Start Date Expiration Date V isits Requested Visits Authorized [id number] Closed Consult, Test & Treat 06/20/2023 06/19/2024 1 1 Encounter Details Date Type Department Care Team (Late st Contact Info) Description 06/28/2023 3:00 PM EST Office [place] [address] Tony Bob MD [facility] [place] [address] Neuropathic pain; Femoral neuropathy of right lower extremity Social History Tobacco Use Types Packs/Day Years Used Date Smoking Tobacco: Former Cigarettes Q uit: 1975 Smokeless Tobacco: Never Alcohol Use Standard Drinks/Week Comments Yes 7 (1 standard drink = 0.6 oz pur e alcohol) [facility] Inpatient Questions Answer Date Recorded Does [...] Progress Notes * Tony Bob MD - 06/28/2023 3:00 PM EST Images from the original note were not [...] right leg 6 weeks after the surgery. MRI LS Spine 06/13/23 IMPRESSION: 1. Improved [...] Right iliopsoas edema without coalescent fluid collection. Dr. Doyle did not feel that the [...] hemoglobin A1c runs in the mid sixes. PMH He lives in [facility]. 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 On exam he is a pleasant cooperative [...] Hip adductors were normal. He has some 4 out of 5 weakness in the dorsiflexors [...] IV once a day for 3 days. I have upped his Neurontin to 600 mg 3 times a day to try to help with the neuropathic pain. If not doneso I would suggest to Hiram Shankar that the patient have a B12, SPEP, sed rate and CRP level checked. I doubt he has an infection but this should be looked into. I will plan to see him back in 6 weeks time or sooner as necessary. He has my contact information. documented in this encounter Plan of Treatment Not on file documented as of this encounter Visit Diagnoses Diagnosis Neuropathic pain Neuralgia, neuritis, and radiculitis, unspecified Femoral neuropathy of right lower extremity documented in this encounter Care Teams Warehouse Material Handler Relationship Specialty Start Date End Date Hiram Shankar APRN [address] [facility] [address] [facility] [address] [place] [address] PCP - General Family Medicine 02/05/23 documented as of this encounter
--- OUTSIDE RECORDS SUMMARY | 2024-06-01 14:39 | XMS_ITS | Encounter Summary ---
Author Organization [facility] [place] [address] Care Team Providers Care Laborer Brooder Farm Name Role Phone Hiram Shankar APRN Primary Care Provider +1- [phone] Encounter Details Date Type Department Care Team (Latest Contact Info) Description 08/07/2023 Travel Social History Tobacco Use Types Packs/Day [...] on filedocumented in this encounter Care Teams Laborer Brooder Farm Relationship Specialty Start Date End Date Hiram Shankar APRN [address] [place] [address] PCP - General Family Medicine 02/05/23 documented as of this encounter
--- OUTSIDE RECORDS SUMMARY | 2024-06-01 14:39 | XMS_ITS | Encounter Summary ---
Author Organization [facility] [place] [address] Care Team Providers Care Route Process Administrator Name Role Phone Hiram Shankar APRN Primary Care Provider +1- [phone] Reason for Visit * Reason Comments Medication Refill Encounter Details Date Type Department Care Team (Late st Contact Info) Description 08/22/2023 [place] [address] Tony Bob MD [facility] [place] [address] Neuropathic pain Social History Tobacco Use Types [...] Telephone Encounter - Lety Chandra CMA - 08/23/2023 8:38 AM EDT Prescription Renewal Request Name: Elie Glass : 1940 Prescription(s) Requested: Requested Prescriptions Refused Prescriptions Disp Refills gabapentin (Neurontin) 300 mg capsule [Pharmacy Med Name: GABAPENTIN CAP 300MG (NEUR)] 540 capsule 3 Sig: TAKE 2 CAPSULES BY MOUTH 3 TIMES DAILY Original rx prescribed for 90 days 07/03/2023-10/01/2023. Please send new prescription with updated dosing directions if appropriate and pt should continue taking this medication. Status of request: Not pended, message sent to Provider No Known Allergies Lety Chandra CMA 08/23/23 8:40 AM documented in this encounter Plan of Treatment Not on file documented as of this encounter Visit Diagnoses Diagnosis Neuropathic pain Neuralgia, neuritis, and radiculitis, unspecified documented in this encounter Care Teams Route Process Administrator Relationship Specialty Start Date End Date Hiram Shankar APRN [address] [place] [address] [address] [facility] [address] [place] [address] PCP - General Family Medicine 02/05/23 documented as of this encounter
--- OUTSIDE RECORDS SUMMARY | 2024-06-01 14:39 | XMS_ITS | Encounter Summary ---
Author Organization [facility] [place] [address] Care Team Providers Care Field Technical Assistant Name Role Phone Hiram Shankar APRN Primary Care Provider +1- [phone] Encounter Details Date Type Department Care Team (Latest Contact Info) Description 06/20/2023 Travel Social History Tobacco Use Types Packs/Day [...] on filedocumented in this encounter Care Teams Field Technical Assistant Relationship Specialty Start Date End Date Hiram Shankar APRN [address] [place] [address] PCP - General Family Medicine 02/05/23 documented as of this encounter
--- OUTSIDE RECORDS SUMMARY | 2024-06-01 14:39 | XMS_ITS | Encounter Summary ---
Author Organization [facility] [place] [address] Care Team Providers Care Patient Care Coordinator Name Role Phone Hiram Shankar APRN Primary Care Provider +1- [phone] Encounter Details Date Type Department Care Team (Latest Contact Info) Description 06/19/2023 Travel Social History Tobacco Use Types Packs/Day [...] on filedocumented in this encounter Care Teams Patient Care Coordinator Relationship Specialty Start Date End Date Hiram Shankar APRN [address] [place] [address] PCP - General Family Medicine 02/05/23 documented as of this encounter
--- OUTSIDE RECORDS SUMMARY | 2024-06-01 14:39 | XMS_ITS | Encounter Summary ---
Author Organization [facility] [place] [address] Care Team Providers Care Gluing Machine Operator Name Role Phone Hiram Shankar APRN Primary Care Provider +1- [phone] Reason for Referral * Consultation (Routine) - Closed Specialty Diagnoses / Procedures Referred By Contac t Referred To Contact Neurology Diagnoses S/P lumbar laminectomy Brennan Doyle MD [facility] [place] [address] Tony Bob MD [facility] [place] [address] Referral ID Status Reason Start Date Expiration Date V isits Requested Visits Authorized [id number] Closed Consult, Test & Treat 06/20/2023 06/19/2024 1 1 * Consultation (Routine) - Closed Specialty Diagnoses / Procedures Referred By Contac t Referred To Contact [facility] Diagnoses S/P lumbar laminectomy lumbar radiculopathy/S/p L3-5 laminectomy 03/11/23/MRI 06/13/23 in [facility]/? injections Brennan Doyle MD [facility] [place] [address] [facility] [place] [address] Referral ID Status Reason Start Date Expiration Date V isits Requested Visits Authorized [id number] Closed Consult, Test & Treat 06/20/2023 06/19/2024 1 1 Reason for Visit * Reason Comments Follow Up Fracture F/U to Back pain Encounter Details Date Type Department Care Team (Late st Contact Info) Description 06/20/2023 11:00 AM EST Office Visit [place] [address] Brennan Doyle MD [facility] [place] [address] S/p L3-5 laminectomy 03/11/23 Vivek Social History Tobacco Use Types Packs/Day Years [...] Sign Reading Time Taken Comments Blood Pressure - - Pulse - - Temperature - - Respiratory Rate - - Oxygen Saturation - - Inhaled Oxygen Concentration - - Weight 82.1 kg (181 lb) 06/20/2023 10:41 AM EST Height 180.3 cm (5' 11) 06/20/2023 10:41 AM EST Body Mass Index 25.24 06/20/2023 10:41 AM EST documented in this encounter Patient Instructions * Patient Instructions* Brennan Doyle MD - 06/20/2023 11:00 AM EST Follow-up with pain and neurology documented in this encounter Progress Notes * Brennan Doyle MD - 06/20/2023 11:00 AM EST Images from the original note were not included. Date of surgery: 03/11/2020. Surgery: L3-L5 laminectomy Interval history: Mr. Glass returns today over 3 months out from surgery. He did fairly well after surgery up until about 6 weeks ago when he developed new pain radiating to his right lateral thighand leg as well as right quadriceps weakness. He feels as though his right knee is going to give out on him. He continues to have numbness in bilateral lower extremities and a left foot drop. He has been doing physical therapy with no improvement. He takes ibuprofen, Tylenol, and an occasional oxycodone that helps. He denies any fevers, chills, or drainage from the incision. Physical exam General: Patient is comfortable, no acute distress Back: He has a well-healed incision. His back is nontender to palpation. There are no palpable fluid collections. There is no surrounding erythema or drainage. Neurological exam: He has 4/5 strength of his right knee extensors and 2/5 strength of his left ankle dorsiflexor and EHL. He has diminished sensation in a stocking-like distribution bilaterally. Hip exam: He has normal, painless range of motion of both hips. Vascular exam: He has palpable pulses bilaterally. Imaging: MRI of the lumbar spine with and without contrast from 06/13/2023 was reviewed. This shows a moderate stenosis at L2-L3, similar to his preoperative MRI. At L3-L4, there is there is no central stenosis. There is a new left-7 facet cyst abutting the traversing L4 nerve root. There is severe bilateral foraminal stenosis at this level. At L4-L5, there is no central stenosis. There is some material adjacent to the right facet cyst and abutting the traversing right L5 nerve root. This could represent facet cyst or postoperative change. There is a fluid collection in the laminectomy bed consistent with postoperative change. This is read as a potential abscess by the radiologist, but is more consistent with a postoperative seroma. There is enhancement of the paraspinal muscles as one would expect 3 months after surgery. Assessment/plan: Mr. Glass is an 82-year-old male over 3 months out from his lumbar laminectomy, from which she did well initially. Over the past 6 weeks, he has developed worsening pain in his right lateral thigh and leg and weakness of his right quadriceps. Additionally, his left foot drop has become somewhat more pronounced. His MRI really does not explain these new findings. He has no signs or symptoms of infection, and his wound is well-healed. I see no surgical target. I have referred him to the pain clinic to discuss injection options. I have also put in a referral to neurology to assess the new weakness. documented in this encounter Plan of Treatment Scheduled Referrals Name Type Priority Associated Diagnoses Orde r Schedule Referral to [facility] Center (Internal only) Outpatient Referral Routine S/p L3-5 laminectomy 03/11/23 Vivek Ordered: 06/20/2023 Referral to Neurology Outpatient Referral Routine S/p L3-5 laminectomy 03/11/23 Vivek Ordered: 06/20/2023 documented as of this encounter Visit Diagnoses Diagnosis S/p L3-5 laminectomy 03/11/23 Vivek Other postprocedural status documented in this encounter Care Teams Gluing Machine Operator Relationship Specialty Start Date End Date Hiram Shankar, SHUBHAM [address] [place] [address] PCP - General Family Medicine 02/05/23 documented as of this encounter
--- OUTSIDE RECORDS SUMMARY | 2024-06-01 14:39 | XMS_ITS | Encounter Summary ---
[place] [address] Care Team Providers Care Learning Support Aide Name Role Phone Hiram Shankar APRN Primary Care Provider +1- [phone] Encounter Details Date Type Department Care Team (Late st Contact Info) Description 08/23/2023 Orders [place] [address] Tony Bob MD [facility] [place] [address] Neuropathic pain Social History Tobacco Use Types [...] unspecified documented in this encounter Care Teams Learning Support Aide Relationship Specialty Start Date End Date Hiram Shankar APRN [address] [place] [address] PCP - General Family Medicine 02/05/23 documented as of this encounter
--- OUTSIDE RECORDS SUMMARY | 2024-06-01 14:39 | XMS_ITS | Encounter Summary ---
Author Organization [facility] [place] [address] Care Team Providers Care Pay Clerk Name Role Phone Hiram Shankar APRN Primary Care Provider +1- [phone] Encounter Details Date Type Department Care Team (Latest Contact Info) Description 06/28/2023 Travel Social History Tobacco Use Types Packs/Day [...] on filedocumented in this encounter Care Teams Pay Clerk Relationship Specialty Start Date End Date Hiram Shankar APRN [address] [place] [address] PCP - General Family Medicine 02/05/23 documented as of this encounter
--- OUTSIDE RECORDS SUMMARY | 2024-06-01 14:39 | XMS_ITS | Encounter Summary ---
[place] [address] Care Team Providers Care Electronic Plotting System Operator Name Role Phone Hiram Shankar APRN Primary Care Provider +1- [phone] Encounter Details Date Type Department Care Team (Late st Contact Info) Description 07/02/2023 External [place] [address] Tony Bob MD [facility] [place] [address] Social History Tobacco Use Types Packs/Day Years [...] Procedure Name Priority Date/Time Associated Diagnosis Comments EMG WITH F-WAVE Routine 06/28/2023 10:18 AM EST documented in this encounter Results * EMG WITH F-WAVE (06/28/2023 10:18 AM EST) Tony Bob MD NEUROLOGY ORDERABLES documented in this encounter Visit Diagnoses Not on filedocumented in this encounter Care Teams Electronic Plotting System Operator Relationship Specialty Start Date End Date Hiram Shankar APRN [address] [place] [address] PCP - General Family Medicine 02/05/23 documented as of this encounter
--- OUTSIDE RECORDS SUMMARY | 2024-06-01 14:39 | XMS_ITS | Encounter Summary ---
Author Organization [facility] [place] [address] Care Team Providers Care Executive Pastry Chef Name Role Phone Hiram Shankar APRN Primary Care Provider +1- [phone] Encounter Details Date Type Department Care Team (Late st Contact Info) Description 08/07/2023 11:30 AM EDT [place] [address] Tony Bob MD [facility] [place] [address] Neuropathic pain; Femoral neuropathy of right lower [...] Progress Notes * Tony Bob MD - 08/07/2023 11:30 AM EDT Images from the original note [...] right leg 6 weeks after the surgery. Lots of recent falls as right left gives out from under him. Lots of pain in right leg. Gabapentin [...] the mid sixes. PMH He lives in [facility]. 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 On exam he is a pleasant cooperative [...] there is still a chance of improvement. I will plan to see him back in 6 weeks time or sooner as necessary. He has my contact information. He is seeing Oumar Dennison PT tomorrow. He needs to be fit with knee brace. F/u with me in 2 months. documented in this encounter Plan of Treatment Not on file documented as of this encounter Visit Diagnoses Diagnosis Neuropathic pain Neuralgia, neuritis, and radiculitis, unspecified Femoral neuropathy of right lower extremity documented in this encounter Care Teams Executive Pastry Chef Relationship Specialty Start Date End Date Hiram Shankar, SHUBHAM [address] [place] [address] PCP - General Family Medicine 02/05/23 documented as of this encounter
--- OUTSIDE RECORDS SUMMARY | 2024-06-01 14:40 | XMS_ITS | Encounter Summary ---
[place] [address] Care Team Providers Care Fish Culturist Name Role Phone Hiram Shankar APRN Primary Care Provider +1- [phone] Encounter Details Date Type Department Care Team (Late st Contact Info) Description 06/04/2023 Telephone [facility] [place] [address] Nader Espino RN Social History Tobacco Use Types Packs/Day Years Used Date Smoking Tobacco: Former Cigarettes Q uit: 1974 Smokeless Tobacco: Never Alcohol Use Standard Drinks/Week Comments Yes 7 (1 standard drink = 0.6 oz pur e alcohol) [facility] Inpatient Questions Answer Date Recorded Does [...] encounter Miscellaneous Notes * Telephone Encounter - Nader Espino RN - 06/04/2023 10:51 AM EST Received call from patient stating that he wants to be seen in follow up increased pain and perception of weakness in his lower extremities. He is s/p 03/11/2023 L3-L5 laminectomy with Dr. Doyle. He reports that he has been working with O[facility] Dennison PT and his therapist does not feel that his strength is decreasing but just increasing slowly. He feels that he is having more trouble with walking and doing stairs. He reports that his pain is in his hips and legs and feels that it is nerve pain. Itis impacting his sleep, he did resume gabapentin 300 mg at [facility] last week but doesn't think it is helping. Patient to schedule f/u with non-surgical provider for re-evaluation. documented in this encounter Plan of Treatment Not on file documented as of this encounter Visit Diagnoses Not on filedocumented in this encounter Care Teams Fish Culturist Relationship Specialty Start Date End Date Hiram Shankar, SHUBHAM [address] [place] [address] PCP - General Family Medicine 02/05/23 documented as of this encounter
--- OUTSIDE RECORDS SUMMARY | 2024-06-01 14:40 | XMS_ITS | Encounter Summary ---
[place] [address] Care Team Providers Care Accounting Manager Controller Name Role Phone Hiram Shankar APRN Primary Care Provider +1- [phone] Encounter Details Date Type Department Care Team (Latest Contact Info) Description 02/15/2023 Travel Social History Tobacco Use Types Packs/Day Years Used Date Smoking Tobacco: Former Smokeless Tobacco: Never Sex and Gender Information Value Date Recorded Sex Assigned at Not on file Gender Identity Not on file Sexual Orientation Not on file documented as of this encounter Plan of Treatment Not on file documented as of this encounter Visit Diagnoses Not on filedocumented in this encounter Care Teams Accounting Manager Controller Relationship Specialty Start Date End Date Hiram Shankar APRN [address] [place], [place] [id number] PCP - General Family Medicine 02/05/23 documented as of this encounter
--- OUTSIDE RECORDS SUMMARY | 2024-06-01 14:40 | XMS_ITS | Encounter Summary ---
[place] [address] Care Team Providers Care Slat Basket Maker Machine Name Role Phone Hiram Shankar APRN Primary Care Provider +1- [phone] Encounter Details Date Type Department Care Team (Latest Contact Info) Description 02/28/2023 12:30 PM EST [place] [phone] Spinal stenosis of lumbar region with neurogenic claudication; Pain in extremity, unspecified extremity Social History Tobacco Use Types Packs/Day Years Used Date Smoking Tobacco: Former Smokeless Tobacco: Never Alcohol Use Standard Drinks/Week Comments Yes 7 (1 standard drink = 0.6 oz pur e alcohol) Sex and Gender Information Value Date Recorded Sex Assigned at Not on file Gender Identity Not on file Sexual Orientation Not on file documented as of this encounter Plan of Treatment Not on file documented as of this encounter Procedures Procedure Name Priority Date/Time Associated Diagnosis Comments TYPE AND SCREEN VALIDITY Routine 02/28/2023 1:30 PM EST ABORH RECHECK STATUS Routine 02/28/2023 1:30 PM EST HEMOGRAM Routine 02/28/2023 1:30 PM EST Spinal stenosis of lumbar region with neurogenic claudication Pain in extremity, unspecified extremity DIFFERENTIAL, AUTOMATED Routine 02/28/2023 1:30 PM EST Spinal stenosis of lumbar region with neurogenic claudication Pain in extremity, unspecified extremity TYPE AND SCREEN, SDP (FUTURE SURGERY, [facility] SAME DAY PROGRAM ONLY) Routine 02/28/2023 1:30 PM EST Spinal stenosis of lumbar region with neurogenic claudication ABO/RH TYPING Routine 02/28/2023 1:30 PM EST Spinal stenosis of lumbar region with neurogenic claudication PROTHROMBIN TIME Routine 02/28/2023 1:30 PM EST Spinal stenosis of lumbar region with neurogenic claudication Pain in extremity, unspecified extremity CBC (WITH DIFF) Routine 02/28/2023 1:30 PM EST Spinal stenosis of lumbar region with neurogenic claudication Pain in extremity, unspecified extremity ANTIBODY SCREEN Routine 02/28/2023 1:30 PM EST Spinal stenosis of lumbar region with neurogenic claudication BASIC METABOLIC PANEL Routine 02/28/2023 1:30 PM EST Spinal stenosis of lumbar region with neurogenic claudication documented in this encounter Results * Type and Screen Validity (02/28/2023 1:30 PM EST) T&S only valid at [facility] Comment:This Type and Screen result is only valid at the [facility] Blood 02/28/2023 1:30 PM EST 02/28/2023 1:33 PM EST Narrative Resulting Agency Comment Spec In Lab Brennan Doyle MD BLOOD BANK LAB ORDER MICHAEL Performing Organization Address City/[facility]/ZIP Co de Phone Number [facility] [place] [address] * ABORH Recheck Status (02/28/2023 1:30 PM EST) AB[facility]H Recheck Order Order Placed [facility] ABORH Type Recheck Complete [facility] Blood 02/28/2023 1:30 PM EST 02/28/2023 1:33 PM EST Narrative Resulting Agency Comment Spec In Lab Brennan Doyle MD BLOOD BANK LAB ORDER MICHAEL [facility] [place] [address] * Differential, Automated (02/28/2023 1:30 PM EST) Neutrophil % 63.4 % [facility] Neutrophil Absolute 3.54 1.70 - 6.10 x10(3)/[facility] LABORAT[facility] Lymph % 24.2 % [facility] Lymphocytes Abs 1.4 0.9 - 3.2 x10(3)/[facility] LABOR[facility] Monocyte % 11.6 % [facility] Monocyte Abs 0.6 0.3 - 0.9 x10(3)/[facility] LABOR[facility] Eos % 0.2 % [facility] Eosinophils Abs 0.0 0.0 - 0.4 x10(3)/[facility] LAB[facility] Basophil % 0.2 % [facility] Baso Absolute 0.0 0.0 - 0.1 x10(3)/[facility] LAB[facility]AT[facility] Immature Gran % 0.40 % [facility] Comment: Immature granulocytes(IG's)percentage and absolute count will include metamyelocytes, myelocytes, and promyelocytes. Blood smears from CBCs yielding IG's will be scanned manually for concordance. If this scan disagrees with the automated IG or if promyelocytes are noted, a manual differential will be performed. Immature Gran Absolute 0.02 0.00 - 0.04 x10(3)/[facility] Blood 02/28/2023 1:30 PM EST 02/28/2023 1:44 PM EST Narrative Resulting Agency Comment Spec In Lab Brennan Doyle MD HEMATOLOGY ORDERABLE S [facility] [place] [address] * Hemogram (02/28/2023 1:30 PM EST) White Blood Cell 5.6 4.0 - 9.5 x10(3)/[facility] LAB[facility] Red Blood Cell 5.30 4.58 - 5.54 x10(6)/[facility] Hemoglobin 15.7 13.7 - 16.5 g/dL [facility] Hematocrit 45.7 40.5 - 48.5 % [facility] Mean Cell Volume 86.2 82.9 - 93.1 fL [facility] Mean Cell Hemoglobin 29.6 27.5 - 32.1 pg [facility] Mean Cell Hemoglobin Concentration 34.4 32.0 - 35.7 g/dL [facility] Platelet 212 145 - 357 x10(3)/[facility] RDW Standard Deviation 39.3 36.0 - 45.0 fL [facility] RDW coefficient of variation 12.5 11.4 - 13.8 % [facility] Mean Platelet Volume 9.8 7.6 - 12.9 fL [facility] NRBC% auto 0.0 % [facility] NRBC Absolute 0.000 0.000 - 0.000 x10(3)/[facility] Blood 02/28/2023 1:30 PM EST 02/28/2023 1:44 PM EST Narrative Resulting Agency Comment Spec In Lab Brennan Doyle MD HEMATOLOGY ORDERABLE S Performing Organization Address City/[facility] Co de Phone Number [facility] [place] [address] * Antibody screen (02/28/2023 1:30 PM EST) Ab Screen Interp Negative [facility] Expires at [id number] on: 03/14/2023 [facility] Blood 02/28/2023 1:30 PM EST 02/28/2023 1:33 PM EST Narrative Resulting Agency Comment Spec In Lab Brennan Doyle MD BLOOD BANK LAB ORDER MICHAEL Performing Organization Address City/[facility] Co de Phone Number [facility] [place] [address] * ABO/Rh Typing (02/28/2023 1:30 PM EST) ABORH Type O Pos [facility] Blood 02/28/2023 1:30 PM EST 02/28/2023 1:33 PM EST Narrative Resulting Agency Comment Spec In Lab Brennan Doyle MD BLOOD BANK LAB ORDER MICHAEL [facility] [place] [address] * (ABNORMAL) Basic Metabolic Panel (non-fasting) (02/28/2023 1:30 PM EST) Glucose 118 65 - 199 mg/dL [facility] Comment:Diabetes: >=200 mg/d L plus symptoms Blood Urea Nitrogen 17 10 - 20 mg/dL [facility] Creatinine 0.76(L) 0.80 - 1.50 mg/dL [facility] Sodium 140 135 - 145 mmol/L [facility] Potassium 3.9 3.5 - 5.0 mmol/L [facility] Comment: Please note: ??Patients with WBC >100,000 may have falsely elevated Potassium levels. ??For accurate Potassium quantification in these patients send serum separator tube (gold top) for subsequent determinations. ??Contact the Clinical Chemistry Laboratory if there are any questions. Chloride 99 98 - 107 mmol/L [facility] Carbon Dioxide 27 22 - 31 mmol/L [facility] Anion Gap 14 5 - 15 mmol/L [facility] Calcium 10.0 8.5 - 10.5 mg/dL [facility] Est Glomerular Filtration Rate 90 >=60 mL/min/1. 73 m?? [facility] Comment: This patient's estimated GFR was [...] and symptoms in addition to eGFR. Blood 02/28/2023 1:30 PM EST 02/28/2023 1:44 PM EST Narrative Resulting Agency Comment Spec In Lab Brennan Doyle MD CHEMISTRY ORDERABLES [facility] [place] [address] * (ABNORMAL) Prothrombin Time (02/28/2023 1:30 PM EST) Prothrombin Time 12.7(H) 9.4 - 12.5 sec [facility] International Normalization Ratio 1.1 [facility] Comment: An INR <2.0 indicates adequate procoagulant activity for hemostasis in most patients without underlying bleeding disorders, though the INR may not adequately reflect hemostatic capacity in patients with liver disease and synthetic impairment. The recommended target INR range for therapeutic anticoagulation is 2.0 ? 3.0 for most applications, though lower and higher ranges may be appropriate depending on clinical circumstances. Blood 02/28/2023 1:30 PM EST 02/28/2023 1:44 PM EST Narrative Resulting Agency Comment Spec In Lab Brennan Doyle MD HEMATOLOGY ORDERABLE S [facility] [place] [address] documented in this encounter Visit Diagnoses Diagnosis Spinal stenosis of lumbar region with neurogenic claudication Spinal stenosis, lumbar region, with neurogenic claudication Pain in extremity, unspecified extremity documented in this encounter Care Teams Slat Basket Maker Machine Relationship Specialty Start Date End Date Hiram Shankar APRN [address] [place] [address] PCP - General Family Medicine 02/05/23 documented as of this encounter
--- OUTSIDE RECORDS SUMMARY | 2024-06-01 14:40 | XMS_ITS | Encounter Summary ---
Author Organization [facility] [place] [address] Care Team Providers Care Associate Account Director Name Role Phone Hiram Shankar APRN Primary Care Provider +1- [phone] Encounter Details Date Type Department Care Team (Latest Contact Info) Description 02/28/2023 Travel Social History Tobacco Use Types Packs/Day [...] on filedocumented in this encounter Care Teams Associate Account Director Relationship Specialty Start Date End Date Hiram Shankar APRN [address] [place] [address] PCP - General Family Medicine 02/05/23 documented as of this encounter
--- OUTSIDE RECORDS SUMMARY | 2024-06-01 14:40 | XMS_ITS | Encounter Summary ---
[place] [address] Care Team Providers Care [employer] [place] Stayer Machine Operator Name Role Phone Hiram Shankar APRN Primary Care Provider +1- [phone] Encounter Details Date Type Department Care Team (Late st Contact Info) Description 06/07/2023 Telephone [facility] [place] [phone] Florin Wills Social History Tobacco Use Types Packs/Day Years [...] on filedocumented in this encounter Care Teams [employer] Machine Operator Relationship Specialty Start Date End Date Hiram Shankar APRN [address] [place] [address] PCP - General Family Medicine 02/05/23 documented as of this encounter
--- OUTSIDE RECORDS SUMMARY | 2024-06-01 14:40 | XMS_ITS | Encounter Summary ---
Author Organization [facility] [place] [address] Care Team Providers Care Stump Shooter Name Role Phone Hiram Shankar APRN Primary Care Provider [phone] Reason for Visit * Auth/Cert (Routine) Specialty Diagnoses / Procedures Referred By Contac t Referred To Contact Diagnoses Spinal stenosis Procedures PRO LAMINEC/FACETECT/FORAMIN, LUMBAR 1 SEG PRO SPIVEY FACETECTOMY&FORAMOT 1 VRT SGM EA ADDL SGM LAMINECTOMY, FACETECTOMY & FORAMINOTOMY,LUMBAR, ONE LEVEL (WRVU 15.37) EA ADD'L VERTEBRAL SEGMENT CERVICAL, THORACIC, LUMBAR (WRVU 3.47) MODIFIER L3 MODIFIER L4 MODIFIER L5 Brennan Willams MD [facility] [place] [address] [facility] Referral ID Status Reason Start Date Expiration Date Visits Re quested Visits Authorized [id number] 1 1 Encounter Details Date Type Department Care Team (Late st Contact Info) Description 03/11/2023 7:30 AM EST - 03/11/2023 11:45 AM EST Surgery [place] [id number] Brennan Willams MD [facility] [place] [address] LAMINECTOMY, FACETECTOMY & FORAMINOTOMY,LUMBAR, ONE LEVEL (WRVU 15.37) Social History Tobacco Use Types Packs/Day Years [...] Sign Reading Time Taken Comments Blood Pressure 161/82 03/11/2023 11:45 AM EST Pulse 62 03/11/2023 11:45 AM EST Temperature 36.6 ??C (97.9 ??F) 03/11/2023 10:[address] Respiratory Rate 11 03/11/2023 11:45 AM EST Oxygen Saturation 92% 03/11/2023 11:45 AM EST Inhaled Oxygen Concentration - - Weight 81.6 kg (180 lb) 03/11/2023 6:21 AM EST Height 180.3 cm (5' 11) 03/11/2023 6:21 AM EST Body Mass Index 25.1 03/11/2023 6:21 AM EST documented in this encounter Discharge Summaries * Eun Oquendo APRN - 03/12/2023 11:32 AM EST Images from the original note were not included. Discharge Summary Patient Name: Elie Glass Patient Age: 82 y.o. Language: Estonian Race: White Ethnicity: Not nor Admit date: 03/11/2023 Discharge date and time: 03/12/2023 Attending Physician: Brennan Willams MD Discharge Physician: Brennan Willams MD Follow-up Recommendations for Providers: - Patient was given extra mepilex at discharge. See discharge instructions for additional details. Future Appointments Date Time Provider Department Center 04/08/2023 10:15 AM [facility] DB XRAY ROOM 2 MH Xray [facility] Rad 04/08/2023 11:00 AM Brennan Willams MD [facility] Pain Sp [facility] Inpatient Provider Contact Information: Brennan Willams MD Spine Center: [phone] After hours and weekends, call [facility] Children Teacher, , and have the Orthopedic resident paged. Discharge Diagnoses (Hospital Problems) and Secondary Diagnoses (Chronic Problems): Active Hospital Problems Diagnosis S/p L3-5 laminectomy 03/11/23 Vivek Resolved Hospital Problems No resolved problems to display. Active Non-Hospital Problems Diagnosis Spinal stenosis of lumbar region with neurogenic claudication Actinic keratosis Atrial fibrillation Chest pain Do not resuscitate status First degree atrioventricular block Gastroesophageal reflux disease with esophagitis History of cataract removal with insertion of prosthetic lens Hypocalcemia Hypomagnesemia Nonsustained ventricular tachycardia Pain in joint Palpitations Encounter for deep vein thrombosis (DVT) prophylaxis Physician Orders for Life-Sustaining Treatment Problem related to discharge planning Shoulder pain Syncope Tinnitus Microscopic hematuria Trochanteric bursitis of right hip Peripheral neuropathy Essential hypertension Diabetes mellitus Hypercholesterolemia Benign prostatic hyperplasia Operations/Major Procedures: 03/11/2023 Surgeon(s) and Role: * Brennan Willams MD - Primary * Jorge Gabriel MD - Resident - Assisting Procedure(s): L3-L5 laminectomy with medial facetectomies and foraminotomies Operative findings: There was severe tricompartmental stenosis at L3-L4. At L4- L5, there was moderate to severe central and right greater than left lateral recess and foraminal stenosis. At L5-S1, there was moderate-severe bilateral foraminal stenosis. At the conclusion of the case, bilateral L3, L4, and L5 roots were fully decompressed. History of Presentation: Elie Glass is a 82 y.o. male who presents with back pain radiating to his lower extremities and weakness in his left lower extremity. He was found to have spinal stenosis from L3-L5. He failed to improve despite nonoperative treatment and elected to undergo surgery after full discussion of the potential risks and benefits thereof. Hospital Course: Elie Glass was admitted for the above operation. Operative course was uneventful. On POD#1 hewas allowed out of bed ad elia, with no bending or twisting, no lifting more than10 pounds, and no pushing or pulling. These parameters were reinforced by physical therapy. Elie Glass was changed to oral pain medications on POD#1. The downey catheter was removed on POD#1 and he was voiding without difficulty. On POD#1 the dressing was dry and intact and the wound was benign. He did not have abowel movement prior to discharge but was passing flatus and taking PO without difficulty. Prior todischarge on POD#1 Elie Glass was afebrile, with stable vital signs, successfully cleared PT and was deemed stable for discharge to home. OF NOTE: - Patient having issues with post op nausea vomiting. Antiemetics given and nausea resolved Vital Signs at Discharge: Weight: Wt Readings from Last 1 Encounters: 11// 81.6 kg (180 lb) Height: Ht Readings from Last 1 Encounters: 11// 180.3 cm (5' 11) HC: HC Readings from Last 1 Encounters: No data found for HC BMI: Body mass index is 25.1 kg/m??. Last value Range last 24 hrs Temperature Temp: 36.7 ??C (98.1 ??F) Temp: [36.4 ??C (97.5 ??F)-36.8 ??C (98.2 ??F)] Heart Rate Heart Rate: 73 Heart Rate: [62-73] Blood Pressure BP: 159/86 BP: (147-182)/(77-105) Respiratory Rate Resp: 16 Resp: [11-16] SpO2 SpO2: 96 % SpO2: [92 %-99 %] Art BP BP (Arterial Line): -- Functional and Cognitive Status: Patient mobilizing with assistance and FWW, cognitively intact at baseline mental status at time of discharge. Important Lab Data: Last 3 wbc, hgb, hct plt Recent Labs 03/12/23 0430 02/28/23 1330 WBC 10.4* 5.6 HGB 14.1 15.7 HCT 41.2 45.7 PLATELET 246 212 Last 3 Lytes Recent Labs 03/12/23 0430 02/28/23 1330 NA 140 140 K 3.7 3.9 CL 101 99 CO2 27 27 BUN 10 17 CREATININE 0.66* 0.76* Last 3 LFTs No results for input(s): AST, ALT, ALKPHOS, BILITOT, BILIDIR in the last 7068hours. Last Ca, Mg, Phos Recent Labs 03/12/23 0430 CALCIUM 9.1 Last 3 Coags No results for input(s): PT, INR, PTT in the last 168 hours. Last 3 Lipids No results for input(s): CHLPL, HDL, LDLCHOL, LDLDIRECT, TRIG in the last 7068 hours. Last 3 HgbA1C No results for input(s): HA1C in the last 7068 hours. Last CRP, SEDRATENo results for input(s): CRP, SEDRATE in the last 7068 hours. Studies: SCAN DOC: TELEMETRY STRIPS Result Date: 03/11/2023 Ordered by an unspecified provider. XR Lumbar Spine 1 View Result Date: 03/11/2023 EXAMINATION: XR LUMBAR SPINE 1 VIEW CLINICAL HISTORY: Surgery (level confirmation) TECHNIQUE: 1 views of the lumbar spine COMPARISON: Lumbar spine radiograph 02/28/2023. FINDINGS: Intraoperative radiograph demonstrates a metallic localizer and retractors in the dorsal paraspinous soft tissues at the level of L4-L5. Stable spinal alignment and diffuse degenerative disc changes. Metallic localizer at the level of L4-L5 Thank you for letting us participate in the care of this patient. If you are a health care provider and have any questions regarding this report, please contact the number below. For patients who have questions please contact the health director long term care that requested your imaging first. Electronically signed by: Cecilio Feliciano MD, [facility] ([phone]), at 03/11/2023 9:23 AM XR Lumbar Spine AP Flexion and Extension Only Result Date: 02/28/2023 EXAMINATION: XR LUMBAR SPINE AP FLEXION AND EXTENSION ONLY CLINICAL HISTORY: ap, lateral, flex, ex views to assess dynamic motion. Imaging to aid in surgical planning. TECHNIQUE: AP, lateral, flexionand extension views lumbar spine COMPARISON: MRI lumbar spine 01/25/2023 FINDINGS: Mild retrolisthesis at L1-2, L2-3, L3-4 and L4-5, not significantly changed between flexion and extension views. No dynamic instability identified utilizing a 3 mm cut off. Vertebral body heights are maintained. No acute fracture. Severe multilevel degenerative disc disease at L2-3 through L5-S1. Moderate disc degenerative changes in the imaged lower thoracic spine and at L1-2. Multilevel facet arthrosis bilaterally. Minimal dextroconvex curvature of the lumbar spine. Mild aortic vascular calcifications. 1. No evidence of dynamic instability utilizing a 3 mm cut off. 2. Mild retrolisthesis at L1-2, L2-3, L3-4 and L4-5. 3. Advanced multilevel degenerative disc disease and accompanied facet arthrosis Thank you for letting us participate in the care of this patient. If you are a health care provider and have any questions regarding this report, please contact the number below. For patients who have questions please contact the health director long term care that requested your imaging first. Electronically signed by: Mathew Rizo MD, [facility] ([phone]), at 02/28/2023 2:00 PM Pending Studies and Lab Data at Discharge: * No orders in the log * Transfusions: No Discharge Conditions/Prognosis: Stable, awake, and alert. Mobilizing as noted above, pain controlled on oral medications. Discharge to: Home Patient to schedule outpatient PT, has facility selected Updated Allergies/ADRs: No Known Allergies Immunizations Given this Hospitalization: Immunization History Administered Date(s) Administered Influenza Vaccine, Whole 02/09/2005 Pneumococcal Polyvalent 23 03/08/2003 Td, adult 03/08/2003 Discharge Medications: Your Medications New Medications Dose Details ondansetron ODT 4 mg disintegrating tablet Commonly known as: Zofran-ODT Take 1 tablet by mouth every 12 hours as needed for Nausea. 4 mg Quantity: 5 tablet Refills: 0 oxyCODONE 5 mg tablet Commonly known as: Roxicodone Take 1 tablet by mouth every 4 hours as needed for Pain. 5 mg Quantity: 42 tablet Refills: 0 polyethylene glycoL 17 gram/dose Powder Commonly known as: Miralax Take 17 g by mouth 2 times daily as needed for up to 30 days. 17 g Refills: 0 senna-docusate 8.6-50 mg Tablet Commonly known as: Pericolace Take 2 tablets by mouth 2 times daily as needed for Constipation for up to 30 days. 2 tablet Refills: 0 Continued medications with new dosing Dose Details acetaminophen 500 mg tablet Commonly known as: Tylenol Take 2 tablets by mouth every 8 hours. What changed: how much to take when to take this reasons to take this 1,000 mg Refills: 0 apixaban 5 mg tablet Commonly known as: Eliquis Take 1 tablet by mouth 2 times daily. Start taking on: March 15, 2023 What changed: These instructions start on March 15, 2023. If you are unsure what to do until then, ask your doctor or other care provider. 5 mg Refills: 0 metoprolol succinate XL 25 mg ER 24 hr tablet Commonly known as: Toprol-XL Take 1 tablet by mouth daily. What changed: when to take this 25 mg Quantity: 30 tablet Refills: 3 Continued medications, unchanged Dose Details amLODIPine-benazepril 5-20 mg capsule Commonly known as: Lotrel Take 1 capsule by mouth every morning. 1 capsule Refills: 0 dilTIAZem 120 mg tablet Commonly known as: Cardizem Daily, as needed Refills: 0 * gabapentin 300 mg capsule Commonly known as: Neurontin .daily as directed Refills: 0 * gabapentin 100 mg capsule Commonly known as: Neurontin Take 1 capsule by mouth 3 times daily. 100 mg Quantity: 90 capsule Refills: 12 Magnesium Gluconate 27 mg magnesium (500 mg) Tablet Twice a day Refills: 0 metFORMIN 500 mg tablet Commonly known as: Glucophage Take 500 mg by mouth 2 times daily (with meals). 500 mg Refills: [address] capsule Take 40 mg by mouth every morning. Generic drug: esomeprazole 40 mg Refills: 0 pramipexole 0.25 mg tablet Commonly known as: Mirapex Take 0.5 mg by mouth nightly. 0.5 mg Refills: 0 * This list has 2 medication(s) that are the same as other medications prescribed for you. Read thedirections carefully, and ask your doctor or other care provider to review them with you. STOPPED Medications ibuprofen 200 mg tablet Commonly known as: Advil meloxicam 15 mg tablet Commonly known as: Mobic Smoking Status at Discharge: Social History Tobacco Use Smoking Status Former Types: Cigarettes Quit date: 1975 Years since quittin.9 Smokeless Tobacco Never Instructions for Rehab Providers or PCP: See below Instructions Given to Patient at Discharge: Patient Instructions Activity: 1. You may perform your daily activities as tolerated but minimize bending at the waist greater than 90 degrees, twisting around your waist, or lifting anything heavier than 5-10 lbs (about a full gallon of water). 2. In general, guide your activity by the thought that if it hurts, don???t do it. 3. In addition, we recommend taking several walks every day after surgery and gradually increasing your distance and duration over the next 2-4 weeks. 4. You need to call the outpatient physical therapy facility you selected to schedule an appointment to continue to work on your balance and gait. Diet: 1. Eat your normal diet, with adequate amounts of protein and fiber. 2. The pain medications you are taking can cause constipation, so increase your intake of fluids and fiber while you are taking them. 3. You should also take an kmxe-ljk-rcrkfuo stool softener of laxative, such as Cherri-colace or Miralax, to facilitate a bowel movement. Drivin. You are not allowed to drive if you are still requiring narcotic pain medication to manage your discomfort. 2. In general, you may begin to drive once you are off of your pain medications and you are comfortable. Call the Spine Center or your Primary Care Physician if you have questions or concerns. Medication: 1. You are being discharged on a narcotic pain medication. Common side effects of this medication include drowsiness, nausea, and constipation. You should only take the smallest amount of pain medication that adequately controls your pain. 2. You may take Tylenol (acetaminophen) around the clock as directed on the package insert to help reduce the amount of narcotic medication you need. Do not take more than 3,000mg of acetaminophen ai 24 hour period. 3. You have had a spinal fusion surgery. DO NOT take any nonsteroidal anti- inflammatory medication (NSAID) such as Aleve, Ibuprofen, Motrin, Naprosyn, or Advil. 4. If you need a renewal of your pain medication, please contact the Spine Center Prescription Lineat [phone]. PRESCRIPTION RENEWAL REQUESTS CAN TAKE UP TO 3 DAYS TO FILL. Be sure to allow for this when requesting a new prescription. The new prescription will be sent electronically to your preferred pharmacy. 5. You can restart your Eliquis FOUR days after surgery (on 03/15/23). 6. You are being sent home with a prescription for ondansetron (Zofran). This medication will help with nausea. You will be on this medication for a limited period of time only. Take only as directedand use sparingly. Wound Care/Shower/Bath: 1. You have sutures that need to be removed 2-3 weeks after your surgery (about 03/31/23). You havean appointment at your Primary Care Provider's office to have your sutures removed (see below). Thesutures are covered by a silver Mepilex dressing. March 29, 2023 - 1:00pm Hiram Shankar APRN [facility] Please call your Primary Care Providers office if this appointment date/time do not work to reschedule. 2. You were given an extra Mepilex dressing that could be applied if the operative dressing rolls up or comes off. You will have to have someone replace the dressing for you. 3. This dressing should stay in place until 7 days after your surgery (even if you had to replace the original dressing). After 7 days, on 03/18/23, you may remove the dressing and leave the incisionuncovered so long as there is no continued drainage. If there is drainage, you may replace the dressing with a clean, dry gauze held in place with tape. Any bandage over the incision should be dry atall times and should be replaced if wet. If the incision continues to drain 5 days after surgery, please call the Spine Center at the number below. 4. After the dressing is removed, 7 days after surgery, the paper strips (steri- strips) should be kept in place. After 14 days you can remove the remaining steri-strips if they have not fallen off already. 5. For the first 7 days after surgery, avoid getting silver Mepilex dressing wet, as the edges tendto peel up when wet. Keep the dressing dry. After 7 days when the dressing has been removed, you may allow water to run over the incision when you shower but do not scrub the surrounding skin. Gentlypat dry with a clean, dry towel after showering. 6. Do not soak the incision underwater (i.e. lakes, pools, hot tubs, bath tubs, etc.) for at least 4 weeks until the incision has completely healed. PLEASE CALL US AT [phone] TO SPEAK WITH A SPINE CENTER NURSE IF YOU EXPERIENCE THE FOLLOWING: ?? Fevers greater than 101.5 degrees Fahrenheit ?? Chills or night sweats ?? Nausea or vomiting ?? Wound Redness or drainage after 5 days ?? New numbness or tingling in your hands or feet ?? Incontinence of bowel or bladder ?? Any questions or concerns Important Phone Numbers: Clinical issues, nurse questions, medication renewals: [phone] Willams: [phone] Evenings after 5pm and weekends you may contact the Orthopaedic resident novelty balloon assembler and packer: [phone], askthe travograph operator to page the Orthopaedic resident Follow Up Appointments: 1. You will have follow-up appointments at [facility] as indicated in the ???Future Appointments and Orders?? section of your discharge summary. If X-rays have been ordered for you prior to this appointment you will need to report to the Radiology department, desk 3T, 1 hour prior to your spine center appointment. 2. If you do not have a scheduled follow-up appointment listed at the time of discharge, you will be notified of your scheduled appointment on the next business day. Please call [phone] if you do not hear from us by that time, as your timely follow-up is very important to us. Future Appointments Date Time Provider Department Center 04/08/2023 10:15 AM [facility] DB XRAY ROOM 2 Xray [facility] Rad 04/08/2023 11:00 AM Brennan Willams MD [facility] Pain Sp [facility] General Instructions None Future Appointments and Orders Future Appointments and Orders Future Appointments Provider Department Dept Phone 04/08/2023 10:15 AM [facility] DB XRAY ROOM 2 XRay at [facility] Arrive at: Orthodontic Treatment Coordinator Area 3L [phone] Please go to Orthodontic Treatment Coordinator Area 3L ([place] Location). 04/08/2023 11:00 AM Brennan Willams MD Pain and Spine Center at [facility] Arrive at: Orthodontic Treatment Coordinator Area 3D [phone] Primary Care Provider: Hiram Shankar, TERMITE CONTROL TECHNICIAN [phone] Discharge References/Attachments None documented in this encounter Discharge Instructions * Patient Instructions* Eun Oquendo, TERMITE CONTROL TECHNICIAN - 03/11/2023 10:58 AM EST Activity: 1. You may perform your daily activities as tolerated but minimize bending at the waist greater than 90 degrees, twisting around your waist, or lifting anything heavier than 5-10 lbs (about a full gallon of water). 2. In general, guide your activity by the thought that if it hurts, don???t do it. 3. In addition, we recommend taking several walks every day after surgery and gradually increasing your distance and duration over the next 2-4 weeks. 4. You need to call the outpatient physical therapy facility you selected to schedule an appointment to continue to work on your balance and gait. Diet: 1. Eat your normal diet, with adequate amounts of protein and fiber. 2. The pain medications you are taking can cause constipation, so increase your intake of fluids and fiber while you are taking them. 3. You should also take an vphi-yja-tcglhqx stool softener of laxative, such as Cherri-colace or Miralax, to facilitate a bowel movement. Drivin. You are not allowed to drive if you are still requiring narcotic pain medication to manage your discomfort. 2. In general, you may begin to drive once you are off of your pain medications and you are comfortable. Call the Spine Center or your Primary Care Physician if you have questions or concerns. Medication: 1. You are being discharged on a narcotic pain medication. Common side effects of this medication include drowsiness, nausea, and constipation. You should only take the smallest amount of pain medication that adequately controls your pain. 2. You may take Tylenol (acetaminophen) around the clock as directed on the package insert to help reduce the amount of narcotic medication you need. Do not take more than 3,000mg of acetaminophen ai 24 hour period. 3. You have had a spinal fusion surgery. DO NOT take any nonsteroidal anti- inflammatory medication (NSAID) such as Aleve, Ibuprofen, Motrin, Naprosyn, or Advil. 4. If you need a renewal of your pain medication, please contact the Spine Center Prescription Lineat [phone]. PRESCRIPTION RENEWAL REQUESTS CAN TAKE UP TO 3 DAYS TO FILL. Be sure to allow for this when requesting a new prescription. The new prescription will be sent electronically to your preferred pharmacy. 5. You can restart your Eliquis FOUR days after surgery (on 03/15/23). 6. You are being sent home with a prescription for ondansetron (Zofran). This medication will help with nausea. You will be on this medication for a limited period of time only. Take only as directedand use sparingly. Wound Care/Shower/Bath: 1. You have sutures that need to be removed 2-3 weeks after your surgery (about 03/31/23). You havean appointment at your Primary Care Provider's office to have your sutures removed (see below). Thesutures are covered by a silver Mepilex dressing. March 29, 2023 - 1:00pm Hiram Shankar APRN [facility] Please call your Primary Care Providers office if this appointment date/time do not work to reschedule. 2. You were given an extra Mepilex dressing that could be applied if the operative dressing rolls up or comes off. You will have to have someone replace the dressing for you. 3. This dressing should stay in place until 7 days after your surgery (even if you had to replace the original dressing). After 7 days, on 03/18/23, you may remove the dressing and leave the incisionuncovered so long as there is no continued drainage. If there is drainage, you may replace the dressing with a clean, dry gauze held in place with tape. Any bandage over the incision should be dry atall times and should be replaced if wet. If the incision continues to drain 5 days after surgery, please call the Spine Center at the number below. 4. After the dressing is removed, 7 days after surgery, the paper strips (steri- strips) should be kept in place. After 14 days you can remove the remaining steri-strips if they have not fallen off already. 5. For the first 7 days after surgery, avoid getting silver Mepilex dressing wet, as the edges tendto peel up when wet. Keep the dressing dry. After 7 days when the dressing has been removed, you may allow water to run over the incision when you shower but do not scrub the surrounding skin. Gentlypat dry with a clean, dry towel after showering. 6. Do not soak the incision underwater (i.e. lakes, pools, hot tubs, bath tubs, etc.) for at least 4 weeks until the incision has completely healed. PLEASE CALL US AT [phone] TO SPEAK WITH A SPINE CENTER NURSE IF YOU EXPERIENCE THE FOLLOWING: ?? Fevers greater than 101.5 degrees Fahrenheit ?? Chills or night sweats ?? Nausea or vomiting ?? Wound Redness or drainage after 5 days ?? New numbness or tingling in your hands or feet ?? Incontinence of bowel or bladder ?? Any questions or concerns Important Phone Numbers: Clinical issues, nurse questions, medication renewals: [phone] Willams: [phone] Evenings after 5pm and weekends you may contact the Orthopaedic resident novelty balloon assembler and packer: [phone], askthe travograph operator to page the Orthopaedic resident Follow Up Appointments: 1. You will have follow-up appointments at [facility] as indicated in the ???Future Appointments and Orders?? section of your discharge summary. If X-rays have been ordered for you prior to this appointment you will need to report to the Radiology department, desk 3T, 1 hour prior to your spine center appointment. 2. If you do not have a scheduled follow-up appointment listed at the time of discharge, you will be notified of your scheduled appointment on the next business day. Please call [phone] if you do not hear from us by that time, as your timely follow-up is very important to us. Future Appointments Date Time Provider Department Center 04/08/2023 10:15 AM [facility] DB XRAY ROOM 2 Xray [facility] Rad 04/08/2023 11:00 AM Brennan Willams MD [facility] Pain Sp [facility] documented in this encounter Medications at Time of Discharge Medication Sig Dispensed Refills Start Date End Date apixaban (Eliquis) 5 mg tablet Take 1 tablet by mouth 2 times daily. 03/15/2023 acetaminophen (Tylenol) 500 mg tablet Take 2 tablets by mouth every 8 hours. 03/12/2023 oxyCODONE (Roxicodone) 5 mg tablet Take 1 tablet by mouth every 4 hours as needed for Pain. 42 tablet 03/12/2023 metoprolol succinate XL (Toprol-XL) 25 mg Tablet Sustained Release 24 hr Take 1 tablet by mouth daily. 30 tablet 3 03/25/2020 Magnesium Gluconate 27 mg magnesium (500 mg) Tablet Twice a day 02/22/2020 metFORMIN (Glucophage) 500 mg Tablet Take 500 mg by mouth 2 times daily (with meals). 06/23/2019 pramipexole (Mirapex) 0.25 mg Tablet Take 0.5 mg by mouth nightly. 02/26/2020 amLODIPine-benazepril (LOTREL) 5-20 mg Capsule Take 1 capsule by mouth every morning. 06/23/2019 dilTIAZem (Cardizem) 120 mg Tablet Daily, as needed 09/21/2015 esomeprazole (NEXIUM) 40 mg capsule Take 40 mg by mouth every morning. 10/09/2004 polyethylene glycoL (Miralax) 17 gram/dose Powder Take 17 g by mouth 2 times daily as needed for up to 30 days. 03/12/2023 04/11/2023 senna-docusate (Pericolace) 8.6-50 mg Tablet Take 2 tablets by mouth 2 times daily as needed for Constipation for up to 30 days. 03/12/2023 04/11/2023 ondansetron ODT (Zofran-ODT) 4 mg disintegrating tablet Take 1 tablet by mouth every 12 hours as needed for Nausea. 5 tablet 03/12/2023 06/19/2023 gabapentin (Neurontin) 100 mg capsuleIndications:Rad iculopathy of lumbar region,Central spinal stenosis,Spinal stenosis of lumbar region with neurogenic claudication Take 1 capsule by mouth 3 times daily. 90 capsule 12 02/15/2023 05/22/2023 gabapentin (Neurontin) 300 mg Capsule .daily as directed 03/10/2020 024 documented as of this encounter Progress Notes * Brennan Reynolds RN - 03/12/2023 12:18 PM EST [facility] Short Stay Unit Discharge Note All relevant discharge milestones have been met by the patent. After Visit Summary and discharge teaching reviewed with the patient. IV access has been discontinued. All personal belongings have been returned to the patient/family upon their departure from the unit. Patient has been discharged to home The patient has been discharged without VNA services. Pt asked about continuing MJ usage at home. Consulted with MD team, pt told not to resume until he talks with MD Willams on follow up (2 weeks.) PT smokes and takes edibles. * Haydee Davidson, PT - 03/12/2023 8:51 AM EST Physical Therapy (P) evaluation (P) 1 Patient profile: Elie Glass is a 82 y.o. male admitted to hospital on 03/11 for Neurogenic claudication 2/2 L3-L5 spinal stenosis and is now s/p L3-L5 Laminectomy by Dr. Willams. Patient with the following active problems: Past Medical History: Diagnosis Date Cancer prostate Social History: Pt lives in a single level home with his , [address] with R ascending handrail. 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 Pt plans to sleep in chair at home. PLOF: Independent DME available at home: FWW Falls: None reported Precautions/Special Considerations: Spine precautions no b/t/l >5lbs Mobility and Positioning Recommendations: Pt should utilize FWW with supervision assist for transfers and ambulation with nursing. Please encourage up to chair for meal times as able. Pt encouraged to ambulate into the bathroom for toileting and walking out in the [place] >/= 3 times daily as able with nursing assist. Subjective: ???I would like to be able to get home today?? Objective: Pt seen for evaluation today. Pain: Mild c/o R hip pain but reports improved from baseline Vital Signs / Cardiopulmonary: Stable on RA SpO2: 97 % BP: 167/105 mmHg HR: 79 bpm Mental Status: alert, oriented to person, place, and time Skin: incision site covered Musculoskeletal: ROM: BLE WFL Strength: BLE not formally assessed but grossly 3/5 seen with functional activity Sensation: BLE below knee impaired to LT, deep pressure, and proprioception Bed Mobility: Supine to Sit: Independent c HOB elevated Sit to Supine: Independent c HOB elevated Transfers: Sit to Stand: Supervision with FWW Stand to Sit: Supervision with FWW Gait: Distance: 100' then 150' Device used: FWW Level of assist: SBA Gait deviations: Very NBOS due to neuropathy with frequent cueing to widen JAZMYN for safety and decreased stance time RLE secondary to R hip pain Stairs: ascend/descend 8 steps CGA with BUE support on R ascending hand rail; ascend with LLE and descend with RLE non reciprocal gait pattern Balance: Fair (+) with FWW Education/Exercise Instruction: Pt educated on safety and sequencing for AD use, gait training trials, stair negotiation, spine precautions, and log roll technique. Pt verbalizes and demonstrates understanding of each. Assessment: Elie Glass was seen today for physical therapy evaluation. Pt presents with decreased BLE functional strength and decreased standing balance. Pt performing transfer training, gait training, and stair negotiation safely as noted above. Pt has met all goals appropriate for dischargefrom inpatient PT services. PT recommending pt discharge home with for supervision and f/u outpatient PT services to progress towards PLOF when medically appropriate. Plan: (P) once Patient/family understand and agree with plan as stated above. Discharge Recommendations: Based on current functional status- (P) home with supervision, home withoutpatient therapy services Equipment needs for home at d/c: (P) None Patient status, treatment, and mobility recommendations have been discussed with nursing. Time IN / OUT: 8:51 - 9:12 Total Time: (P) 21 minutes, Haydee Davidson, PT Pager: [phone] Physical Therapy Inpatient Rehabilitation Department 2017 PT Evaluation Code Rationale: Diagnosis & Pertinent Co-Morbidities, personal factors, and present illness affecting Plan of Care: (see above); Additional personal factors or co- morbidities that impact plan: Total # of Factors: 0 1-2 3+ Examination of body system impairments, functional limitations and behaviors, and/or participation restrictions. Addressing 1-2 elements Addressing 3 + elements Addressing 4 + elements Clinical presentation: See assessment above. Stable/Uncomplicated Evolving/Fluctuating Symptoms Unstable/Unpredictable Clinical decision making of moderate complexity based on pt's functional performance as outlined inthis evaluation. * Brennan Willams MD - 03/12/2023 6:56 AM EST ORTHOPAEDIC SURGERY INPATIENT POST OP NOTE Patient Name: Elie Glass Age: 82 y.o. Surgery/Issue: L3-L5 Laminectomy / Neurogenic claudication 2/2 L3-L5 spinal stenosis Attending: Dr. Willams Date of surgery: 03/11/2023 SUBJECTIVE / INTERVAL HISTORY: Patient with significant nausea/vomiting yesterday managed with haldol/propofol per Anesthesia. Much improved today. No new numbness or tingling in LE. Denies chest pain, SOB, nausea, vomiting, dizziness, lightheadedness. Planning to be out of bed this AM. Pre-op Symptoms: LBP radiating to bilateral buttocks, posterolateral thighs. LLE subjective weakness. 4/5 L EHL, ADF. Standing limited to 10 minutes, walking to 50 feet. Stocking-leg neuropathy bilaterally. Pre-op symptoms currently present: Stocking-leg neuropathy bilaterally. FOCUSED REVIEW OF SYSTEMS: as above. Active Hospital Problems Diagnosis S/p L3-5 laminectomy 03/11/23 Vivek Resolved Hospital Problems No resolved problems to display. Active Non-Hospital Problems Diagnosis Spinal stenosis of lumbar region with neurogenic claudication Actinic keratosis Atrial fibrillation Chest pain Do not resuscitate status First degree atrioventricular block Gastroesophageal reflux disease with esophagitis History of cataract removal with insertion of prosthetic lens Hypocalcemia Hypomagnesemia Nonsustained ventricular tachycardia Pain in joint Palpitations Encounter for deep vein thrombosis (DVT) prophylaxis Physician Orders for Life-Sustaining Treatment Problem related to discharge planning Shoulder pain Syncope Tinnitus Microscopic hematuria Trochanteric bursitis of right hip Peripheral neuropathy Essential hypertension Diabetes mellitus Hypercholesterolemia Benign prostatic hyperplasia MEDICATIONS: BUpivacaine-EPINEPHrine (Marcaine-epiNEPHrine) 0.25 %-1:200,000 injection gelatin adsorbable 100 (Gelfoam) sponge thrombin (Bovine) (Thrombinar) kit vancomycin (Vancocin) injection gabapentin (Neurontin) capsule 200 mg metFORMIN (Glucophage) tablet 500 mg metoprolol succinate XL (Toprol-XL) tablet 25 mg sodium chloride 0.9 % (flush) (BD PosiFlush Normal Saline 0.9) flush 5 mL sodium chloride 0.9 % (flush) (BD PosiFlush Normal Saline 0.9) flush 5-20 mL lidocaine (Xylocaine) 1% (10 mg/mL) injection 3 mg ondansetron (pf) (Zofran) (2 mg/mL) injection 4 mg sodium chloride 0.9% infusion ceFAZolin (Ancef) 2 g vial attach to sodium chloride 0.9% 100 mL Mini-Bag Plus oxyCODONE (Roxicodone) tablet 5 mg OR oxyCODONE (Roxicodone) tablet 10 mg OR oxyCODONE (Roxicodone) tablet 15 mg acetaminophen (Tylenol) tablet 975 mg ondansetron ODT (Zofran-ODT) disintegrating tablet 4 mg lisinopriL (Zestril) tablet 20 mg amLODIPine (Norvasc) tablet 10 mg haloperidoL lactate (Haldol) (5 mg/mL) injection 0.5 mg haloperidoL lactate (Haldol) (5 mg/mL) injection 1 mg sodium chloride 0.9% 1,000 mL (03/12/23 0034) OBJECTIVE: Temp: [36.4 ??C (97.5 ??F)-36.8 ??C (98.2 ??F)] Heart Rate: [62-73] Resp: [11-18] BP: (147-177)/(75-91) Intake/Output Summary (Last 24 hours) at 03/12/2023 0656 Last data filed at 03/12/2023 0434 Gross per 24 hour Intake 565 ml Output 4220 ml Net -3655 ml Body mass index is 25.1 kg/m??. Exam: General: NAD, awake/alert, responds to questions - appears uncomfortable. Vomiting during interaction. CV: RRR assessed peripherally Resp: Breathing comfortably on RA Back: Dressing c/d/i, no hematoma Motor: Segment Muscle Action R L L2 Iliopsoas Hip flexion 5 5 L3 Quadriceps Knee extension 5 5 L4,5 Hamstring Knee Flexion 5 5 L4 Tibialis anterior Dorsiflexion 5 5 L5 Extensor hallucis Great toe extension 5 4 S1 Gastrocnemius, FHL Plantar flexion 5 5 Sensory: Sensation (light touch) (0=absent, 1=impaired, 2=normal) Segment Location Right Left L1 upper inner thigh 2 2 L2 mid-ant thigh 2 2 L3 med femoral condyle 2 2 L4 medial mal 1 1 L5 dorsum foot, 3rd MT 1 1 S1 lat heal 1 1 S2 Popliteal fossa 1 1 Lab Results Component Value Date NA 140 03/12/2023 K 3.7 03/12/2023 CL 101 03/12/2023 CO2 27 03/12/2023 BUN 10 03/12/2023 CREATININE 0.66 (L) 03/12/2023 GLUCOSE 130 03/12/2023 CALCIUM 9.1 03/12/2023 Lab Results Component Value Date WBC 10.4 (H) 03/12/2023 HGB 14.1 03/12/2023 HCT 41.2 03/12/2023 MCV 86.7 03/12/2023 PLATELET 246 03/12/2023 Lab Results Component Value Date INR 1.1 02/28/2023 IMAGING: Intra-op lateral shows instrumentation in place at L4-L5. ASSESSMENT / PLAN: Elie Glass is a 82 y.o. male with history of AF on apixaban, HLD, HTN, DM2, prostate cancer who is 1 Day Post-Op s/p L3-L5 laminectomy for neurogenic claudication 2/2 spinal stenosis. Plan to work with PT/OT today. Activity: AAT no b/t/l > 5 lbs DVT prophylaxis: NA - to restart home eliquis on 03/15 Closure: Sutures (remove 21 days) (out ~03/31/23) Dressing: Mepilex x 7 days (remove 03/18) Antibiotics: Periop Ancef Jorge Gabriel MD 03/12/2023 Future Appointments Date Time Provider Department Center 04/08/2023 10:15 AM [facility] DB XRAY ROOM 2 Xray [facility] Rad 04/08/2023 11:00 AM Brennan Willams MD [facility] Pain Sp [facility] Spine Attending I have seen and examined the patient and agree with the resident's findings and plan. He reports expected surgical site pain, no LE pain. Has mobilized up and down hallway. Feels nauseous this am, denies cp/sob/mancera. Neuro exam as above. Will work on pain control, mobilization, and nausea. * Fabian Medrano MD - 03/11/2023 5:17 PM EST ORTHOPAEDIC SURGERY INPATIENT POST OP NOTE Patient Name: Elie Glass Age: 82 y.o. Surgery/Issue: L3-L5 Laminectomy / Neurogenic claudication 2/2 L3-L5 spinal stenosis Attending: Dr. Willams Date of surgery: 03/11/2023 SUBJECTIVE / INTERVAL HISTORY: Significant PONV. Not responsive to antiemetics. Anesthesia now managing with propofol/haldol Otherwise no acute events post-operatively. Pain well controlled. No new numbness or tingling in LE. Denies chest pain, SOB, nausea, vomiting, dizziness, lightheadedness. Pre-op Symptoms: LBP radiating to bilateral buttocks, posterolateral thighs. LLE subjective weakness. 4/5 L EHL, ADF. Standing limited to 10 minutes, walking to 50 feet. Stocking-leg neuropathy bilaterally. Pre-op symptoms currently present: Stocking-leg neuropathy bilaterally. FOCUSED REVIEW OF SYSTEMS: as above. There are no hospital problems to display for this patient. Active Non-Hospital Problems Diagnosis Spinal stenosis of lumbar region with neurogenic claudication Actinic keratosis Atrial fibrillation Chest pain Do not resuscitate status First degree atrioventricular block Gastroesophageal reflux disease with esophagitis History of cataract removal with insertion of prosthetic lens Hypocalcemia Hypomagnesemia Nonsustained ventricular tachycardia Pain in joint Palpitations Encounter for deep vein thrombosis (DVT) prophylaxis Physician Orders for Life-Sustaining Treatment Problem related to discharge planning Shoulder pain Syncope Tinnitus Microscopic hematuria Trochanteric bursitis of right hip Peripheral neuropathy Essential hypertension Diabetes mellitus Hypercholesterolemia Benign prostatic hyperplasia MEDICATIONS: sodium chloride 0.9 % (flush) (BD PosiFlush Normal Saline 0.9) flush 5-20 mL lidocaine (Xylocaine) 1% (10 mg/mL) injection 3 mg lactated ringers infusion BUpivacaine-EPINEPHrine (Marcaine-epiNEPHrine) 0.25 %-1:200,000 injection gelatin adsorbable 100 (Gelfoam) sponge thrombin (Bovine) (Thrombinar) kit vancomycin (Vancocin) injection PHENYLephrine (Saúl-Synephrine) (80 mcg/mL) in sodium chloride 0.9% 250 mL infusion fentaNYL (pf) (50 mcg/mL) multi-dose injection rocuronium (Zemuron) (10 mg/mL) multi-dose injection propofoL (Diprivan) 10 mg/mL bolus injection (Anesthesia) ePHEDrine sulfate (5 mg/mL) multi-dose injection lidocaine (pf) (Xylocaine) (20 mg/mL) 2% injection syringe tranexamic acid (Cyklokapron) (100 mg/mL) IV bolus HYDROmorphone (Dilaudid) (2 mg/mL) multi-dose injection solution lactated Ringers OBJECTIVE: Temp: [36.7 ??C (98.1 ??F)] Heart Rate: [70] Resp: [20] BP: (161)/(81) Intake/Output Summary (Last 24 hours) at 03/11/2023 1019 Last data filed at 03/11/2023 0859 Gross per 24 hour Intake -- Output 1500 ml Net -1500 ml Body mass index is 25.1 kg/m??. Exam: General: NAD, awake/alert, responds to questions - appears uncomfortable. Vomiting during interaction. CV: RRR assessed peripherally Resp: Breathing comfortably on RA Back: Dressing c/d/i, no hematoma Motor: Segment Muscle Action R L L2 Iliopsoas Hip flexion 5 5 L3 Quadriceps Knee extension 5 5 L4,5 Hamstring Knee Flexion 5 5 L4 Tibialis anterior Dorsiflexion 5 5 L5 Extensor hallucis Great toe extension 5 4 S1 Gastrocnemius, FHL Plantar flexion 5 5 Sensory: Sensation (light touch) (0=absent, 1=impaired, 2=normal) Segment Location Right Left L1 upper inner thigh 2 2 L2 mid-ant thigh 2 2 L3 med femoral condyle 2 2 L4 medial mal 1 1 L5 dorsum foot, 3rd MT 1 1 S1 lat heal 1 1 S2 Popliteal fossa 1 1 Lab Results Component Value Date NA 140 02/28/2023 K 3.9 02/28/2023 CL 99 02/28/2023 CO2 27 02/28/2023 BUN 17 02/28/2023 CREATININE 0.76 (L) 02/28/2023 GLUCOSE 118 02/28/2023 CALCIUM 10.0 02/28/2023 Lab Results Component Value Date WBC 5.6 02/28/2023 HGB 15.7 02/28/2023 HCT 45.7 02/28/2023 MCV 86.2 02/28/2023 PLATELET 212 02/28/2023 Lab Results Component Value Date INR 1.1 02/28/2023 IMAGING: Intra-op lateral shows instrumentation in place at L4-L5. ASSESSMENT / PLAN: Elie Glass is a 82 y.o. male with history of AF on apixaban, HLD, HTN, DM2, prostate cancer who is Day of Surgery s/p L3-L5 laminectomy for neurogenic claudication 2/2 spinalstenosis. Discharge pending evaluation by PT/OT on POD1. Unfortunately he is having difficulty with PONV currently. Appreciate anesthesia assistance in managing this. Activity: AAT no b/t/l > 5 lbs DVT prophylaxis: NA - to restart home eliquis on 03/15 Closure: Sutures (remove 21 days) (out ~03/31/23) Dressing: Mepilex x 7 days (remove 03/18) Antibiotics: Periop Rosalba Medrano MD 03/11/2023 Future Appointments Date Time Provider Department Center 04/08/2023 10:15 AM [facility] DB XRAY ROOM 2 MH Xray [facility] Rad 04/08/2023 11:00 AM Brennan Willams MD [facility] Pain Sp [facility] * Anoop Tracy MD - 03/11/2023 4:28 PM EST Evaluated patient at bedside in the Short Stay Unit for nausea. He has received zofran and compazine and still has intractable vomiting. He appears uncomfortable. His vital signs are stable. I administered 10 mg propofol which relieved his nausea and discomfort considerably, though given the short acting pharmacokinetics of this medicine I suspect he will need more treatment soon. Plan: - haldol PRN * Gianna Richter RN - 03/11/2023 11:43 AM EST 1140: RN break relief. Pt resting in bed, reporting pain is tolerable. VSS. 1150: Pt reporting quick onset nausea, PRNs given with good effect. * Liliam Madera RN - 03/11/2023 11:21 AM EST 1059: Elie Glass arrived from OR to PACU 16. Attached to monitors, alarms set appropriately & are audible. No apparent airway distress, lungs are clear. NSR with 1st degree AV block on telemetry monitor. 1200: Phase II criteria met. 1224: Report given to CRIS Ritchie RN. documented in this encounter H&P Notes * Brennan Willams MD - 03/11/2023 6:46 AM EST Preop H+P The patient's history and physical exam have been reviewed and completed. There has been no interval change from that of the pre-operative history and physical exam done within the last 30 days. General: NAD CV: RRR Pulm: CTAB Spine marked. 4/5 left EHL and ADF. Otherewise motor 5/5. Sensation decreased below knees in stocking distribution bilateral, baseline. Otherwise sensory intact. Plan to proceed to OR as scheduled for L3-5 laminectomy. Spine Attending I have seen and examined the patient and agree with the resident's findings and plan. Will proceed with L3-L5 lami. documented in this encounter Miscellaneous Notes * Brief Op Note - Brennan Willams MD - 03/11/2023 11:20 AM EST Brief Operative Note Patient Name: Elie Glass : [id number] MR#: [id number] Case Date: 03/11/2023 Surgeon: Surgeon(s) and Role: * Brennan Willams MD - Primary * Jorge Gabriel MD - Resident - Assisting Preoperative diagnosis: Spinal stenosis Postoperative diagnosis: Spinal stenosis Procedure: L3-L5 laminectomy (35952, [id number] x 2) Anesthesia: General Findings: There was severe tricompartmental stenosis at L3-L4. At L4-L5, there was moderate to severe central and right greater than left lateral recess and foraminal stenosis. At L5-S1, there was moderate-severe bilateral foraminal stenosis. At the conclusion of the case, bilateral L3, L4, and L5 roots were fully decompressed. No CSF. Complications: None Intake: 1 L crystalloid Output: Estimated Blood Loss: 200 mL Urine Output:: 1,600 mL Drains: None Specimens removed during surgery: None Disposition: awakened from anesthesia, extubated and taken to the recovery room in a stable condition, having suffered no apparent untoward event. Condition: doing well without problems Attestation: Case Date: 03/11/2023 I was present and I participated during the entire procedure (does not need to include opening and closing). * Initial Assessments - Rory Alamo OT - 03/11/2023 8:50 AM EST Occupational Therapy Evaluation Patient profile: Elie Glass is a 82 y.o. male admitted on 03/11/2023 for Neurogenic claudication 2/2 L3-L5 spinal stenosis and is now s/p L3-L5 Laminectomy by Dr. Willams. Past Medical History: Diagnosis Date Cancer prostate Past Surgical History: Procedure Laterality Date PRO SPIVEY FACETECTOMY&FORAMOT 1 VRT SGM EA ADDL SGM N/A 03/11/2023 EA ADD'L VERTEBRAL SEGMENT CERVICAL, THORACIC, LUMBAR (WRVU 3.47) performed by Brennan Willams MD at [facility] MAIN OR PRO LAMINEC/FACETECT/FORAMIN, LUMBAR 1 SEG Midline 03/11/2023 LAMINECTOMY, FACETECTOMY & FORAMINOTOMY,LUMBAR, ONE LEVEL (WRVU 15.37) performed by Brennan Willams MD at [facility] MAIN OR Social History: Patient lives with In single level home Home Setup: 12 ARANZA with R handrail DME: shower chair Baseline ADL/Mobility: Independent with self cares and mobility. Retired but participates in volunteer work Precautions/Special Considerations: Spine precautions (no bending, lifting >5 lbs, twisting) Subjective: I had problems with wiping myself before my surgery Objective: Seen today for OT evaluation in collaboration with PT. Cognitive Status/Behavior: Behavior / Mood: alert and cooperative Alert and oriented to: person, place, and situation Follows commands: 2 step Attention: WFL Safety awareness: WFL Vision & Perception: WNL / WFL Communication: WFL Range of motion, strength, coordination: Bilateral UEs are within functional limitations LE limitations: BLE weakness Sensation: Absent in B feet to light touch, deep pressure, and proprioception; diminished above knee Activities of Daily Living: Self-feeding: independent Grooming: independent Dressing: SBA; able to adhere to precautions Bathing: SBA for safety Toileting: Transfer: SBA with FWW Hygiene: SBA; use of toilet aid for post BM posterior hygiene Functional Mobility: Supine to sit: Independent with HOB elevated Sit to stand: SBA with FWW Ambulation: SBA with FWW Stand to sit: SBA Sit to supine: Independent with HOB elevated Balance: Sitting balance: Good Standing balance: Good Vitals: SpO2: 97 % on RA BP: 167/105 mmHg HR: 79 bpm Pain: Mild c/o R hip pain Skin: not assessed Education: patient have been educated on Role of occupational therapy/rehabilitation, Transfers, ADL, Positioning, Safety, Precautions/Protocol, Functional Mobility, Activity pacing/Energy conservation, Home Management, Balance, Recommendations, and Discharge planning and verbalize understanding. Patient status, treatment, and mobility recommendations discussed with nursing. Assessment: Pt has been seen for occupational therapy evaluation. Elie Glass presents with the following performance skill deficits and client factors: decreased flexibility / ROM, decreased strength, decreased sitting / standing balance, sensory deficits, and precautions / bracing. These performance deficits have led to activity limitations and participation restrictions in the following areas of occupation: dressing, transfers / mobility, and home management. However, despite the deficits listed above pt demonstrates the ability to utilize figure four technique for dressing/bathing and complete functional transfers with SBA using FWW. Pt required verbal cuing for positioning on BLE due to neuropathy. Provided with toilet aid for posterior hygiene while maintaining twist precaution. Pt lives with and will have assist as needed at home. Anticipate that pt will return home with assistance once medically ready. Do not anticipate further OT needs while hospitalized. Equipment needs at discharge: walker, front wheeled Anticipated Discharge Dispostion: home with supervision, home with outpatient therapy services Other Recommendations: Utilize upright chair position using bed features or transfer to recliner chair as appropriate withSBA using FWW, ambulate as tolerated Encourage participation in ADL's by providing set up A on tray table and physical assist only as needed Other Recommendations: No other consults recommended at this time. Plan: OT: Therapy Frequency (OT): evaluation only Planned OT interventions: No further OT services indicated at this time . Total Minutes, Occupational Therapy: 30 (08:50-09:20) Eval: Low 2017 OT Evaluation Code Rationale: Diagnosis & Pertinent Co-Morbidities affecting Plan of Care: see PMHx Occupational Profile & Client History: Mod Brief Expanded Extensive x Assessment of Occupational Performance: 1-3 performance deficits x 3-5 performance deficits 5 + performance deficits Clinical Decision Making: Low Moderate High x Clinical decision making of moderate complexity using standardized patient assessment instrument and measurable assessment of functional outcome. Pager: [phone] Rory Alamo OTR/L, [employer] Occupational Therapy Rehabilitation Department * Op Note - Brennan Willams MD - 03/11/2023 8:15 AM EST [facility] [place] Operative Note Patient Name: Elie Glass : [id number] MR#: [id number] Case Date: 03/11/2023 Surgeon: Surgeon(s) and Role: * Brennan Willams MD - Primary * Jorge Gabriel MD - Resident - Assisting Preoperative diagnosis: Spinal stenosis Postoperative diagnosis: Spinal stenosis Procedure: L3-L5 laminectomy with medial facetectomies and foraminotomies Anesthesia: General Operative findings: There was severe tricompartmental stenosis at L3-L4. At L4- L5, there was moderate to severe central and right greater than left lateral recess and foraminal stenosis. At L5-S1, there was moderate-severe bilateral foraminal stenosis. At the conclusion of the case, bilateral L3, L4, and L5 roots were fully decompressed. Indications for procedure: Mr. Glass is an 82-year-old male who presents with back pain radiatingto his lower extremities and weakness in his left lower extremity. He was found to have spinal stenosis from L3-L5. He failed to improve despite nonoperative treatment and elected to undergo surgery after full discussion of the potential risks and benefits thereof. Description of procedure: The patient was taken to the operating room, and general anesthesia was administered. He was positioned prone on the Jack spine table with all bony prominences well-padded and his legs in the sling. A timeout was performed to identify the patient and the planned procedure. He received preoperative antibiotics. The back was prepped with Hibiclens and DuraPrep and draped in usual sterile fashion. A midline incision was made from approximately L3-L5. The electrocautery was used to dissect down to the level of the fascia, which was divided in the midline. The paraspinal muscles were elevated from the spinous processes and laminae from L3-L5, out to the level of the pars. A [place] was placed caudal to the L4 lamina, and a lateral x-ray was obtained, demonstrating our level. We then turned our attention to the laminectomy. The L3, L4, and cranial portion of the L5 spinous processes were taken down with a rongeur. The L3, L4, and cranial portion of the L5 laminae were thinned with a rongeur. The ligamentum flavum was elevated from the cranial edge of the L5 lamina, and a central L5 laminectomy was performed down to the level of the L5 pedicle. We then used our Kerrison to create a central laminectomy trough up to the level of the L3 pedicle. We then turned our attention to the lateral decompression. We started on the right side. We performed a foraminotomy at L3-L4 and confirmed that the exiting L3 nerve root was fully decompressed. We performed a medial facetectomy at L3-L4 and confirmed that the traversing L4 nerve root was fully decompressed. We performed a foraminotomy at L4-L5 and confirmed that the exiting L4 nerve root was fully decompressed. We performed a medial facetectomy at L4-L5 and confirmed that the traversing L5 nerve root was fully decompressed. We performed a foraminotomy at L5-S1 and confirmed that the exiting L5 nerve root was fully decompressed. We performed a similar decompression on the left side. Following decompression, we confirmed that bilateral L3, L4, and L5 nerve roots and the thecal sac were fully decompressed. Hemostasis was achieved in the epidural space using the bipolar Floseal. The wound was copiously irrigated. 1 g of vancomycin powder was placed in the wound. The fascia was closed using interrupted #1 Vicryl. The subcutaneous tissues were closed using interrupted 2-0 Vicryl. The skin was closed using 3-0 nylon in a vertical mattress fashion. A Mepilex dressing applied. The patient was transferredto the hospital bed and awakened from general anesthesia. He was taken to the recovery room in stable condition. There were no evident complications. Attestation: Case Date: 03/11/2023 I was present and I participated during the entire procedure except for the opening and closing which overlapped with the opening or closing of another case. The overlapping portions were non-machuca portions and I was immediately available BRENNAN WILLAMS MD 03/11/2023 documented in this encounter Plan of Treatment Not on file documented as of this encounter Procedures Procedure Name Priority Date/Time Associated Diagnosis Comments EKG 12-LEAD Routine 03/12/2023 7:37 AM EST At risk for long QT syndrome SCAN, PERIPHERAL BLOOD Routine 03/12/2023 4:30 AM EST HEMOGRAM Routine 03/12/2023 4:30 AM EST DIFFERENTIAL, AUTOMATED Routine 03/12/2023 4:30 AM EST CBC (WITH DIFF) Routine 03/12/2023 4:30 AM EST BASIC METABOLIC PANEL Routine 03/12/2023 4:30 AM EST POCT GLUCOSE Routine 03/11/2023 11:03 AM EST XR LUMBAR SPINE 1 VIEW Routine 03/11/2023 8:39 AM EST MODIFIER L5 03/11/2023 7:35 AM EST Spinal stenosis of lumbar region with neurogenic claudication MODIFIER L4 03/11/2023 7:35 AM EST Spinal stenosis of lumbar region with neurogenic claudication MODIFIER L3 03/11/2023 7:35 AM EST Spinal stenosis of lumbar region with neurogenic claudication Spivey Facetectomy&Foramot 1 Vrt Sgm Ea Addl Sgm ([id number]) 03/11/2023 7:35 AM EST Spinal stenosis of lumbar region with neurogenic claudication Laminec/Facetect/For burt, Lumbar 1 Seg ([id number]) 03/11/2023 7:35 AM EST Spinal stenosis of lumbar region with neurogenic claudication POCT GLUCOSE Routine 03/11/2023 6:44 AM EST ADD'L INTERSPACES CX., THORACIC, LUMBAR Routine 03/11/2023 5:59 AM EST Spinal stenosis of lumbar region with neurogenic claudication LAMINECTOMY, FACETECTOMY & FORAMINOTOMY,LUMAR, ONE LEVEL Routine 03/11/2023 5:59 AM EST Spinal stenosis of lumbar region with neurogenic claudication documented in this encounter Results * EKG 12 Lead (03/12/2023 7:37 AM EST) Ventricular rate 60 BPM MUSE SYSTEM Atrial Rate 60 BPM MUSE SYSTEM P-R Interval 216 ms MUSE SYSTEM QRS Duration 100 ms MUSE SYSTEM Q-T Interval 420 ms MUSE SYSTEM QTC Calculated (Bezet) 420 ms MUSE SYSTEM Calculated P [place] 43 degrees MUSE SYSTEM Calculated R [place] 5 degrees MUSE SYSTEM Calculated T [place] 65 degrees MUSE SYSTEM INTERPRETATION Sinus rhythm with 1st degree A-V block Nonspecific T wave abnormality Abnormal ECG When compared with ECG of 28-FEB-2023 13:17, Nonspecific T wave abnormality now evident in Anterior leads Confirmed by fellow Susan Goldman ([id number]) on 03/12/2023 4:50:04 PM Confirmed by MD Rona, [place] ([id number]) on 03/12/2023 9:31:38 PM MUSE SYSTEM 03/12/2023 7:37 AM EST 03/12/2023 9:31 PM EST Brennan Willams MD ECG ORDERABLES MUSE SYSTEM * Scan, Peripheral Blood (03/12/2023 4:30 AM EST) Plat estimate Normal [facility] RBC Morphology Abnormal [facility] Ovalocytes 1-5 /HPF [facility] Genna Cells 1-5 /HPF [facility] Blood 03/12/2023 4:30 AM EST 03/12/2023 4:45 AM EST Narrative Resulting Agency Comment Spec In Lab Jorge Gabriel MD HEMATOLOGY ORDER MICHAEL Performing Organization Address City/[facility]/[place] [address] * (ABNORMAL) Differential, Automated (03/12/2023 4:30 AM EST) Neutrophil % 71.3 % [facility] Neutrophil Absolute 7.43(H) 1.70 - 6.10 x10(3)/mc L [facility] Lymph % 10.4 % [facility] Lymphocytes Abs 1.1 0.9 - 3.2 x10(3)/mc L [facility] Monocyte % 18.0 % [facility] Monocyte Abs 1.9(H) 0.3 - 0.9 x10(3)/mc L [facility] Eos % 0.0 % [facility] Eosinophils Abs 0.0 0.0 - 0.4 x10(3)/[facility] Basophil % 0.1 % [facility] Baso Absolute 0.0 0.0 - 0.1 x10(3)/ L [facility] Immature Gran % 0.20 % [facility] Comment: Immature granulocytes(IG's)percentage and absolute count will include metamyelocytes, myelocytes, and promyelocytes. Blood smears from CBCs yielding IG's will be scanned manually for concordance. If this scan disagrees with the automated IG or if promyelocytes are noted, a manual differential will be performed. Immature Gran Absolute 0.02 0.00 - 0.04 x10(3)/ L [facility] Blood 03/12/2023 4:30 AM EST 03/12/2023 4:45 AM EST Narrative Resulting Agency Comment Spec In Lab Jorge Gabriel MD HEMATOLOGY ORDER MICHAEL Performing Organization Address City/[facility]/ZIP Co de Phone Number [facility] [address] * (ABNORMAL) Hemogram (03/12/2023 4:30 AM EST) White Blood Cell 10.4(H) 4.0 - 9.5 x10(3)/ L [facility] Red Blood Cell 4.75 4.58 - 5.54 x10(6)/mc L [facility] Hemoglobin 14.1 13.7 - 16.5 g/dL [facility] Hematocrit 41.2 40.5 - 48.5 % [facility] Mean Cell Volume 86.7 82.9 - 93.1 fL [facility] Mean Cell Hemoglobin 29.7 27.5 - 32.1 pg [facility] Mean Cell Hemoglobin Concentration 34.2 32.0 - 35.7 g/dL [facility] Platelet 246 145 - 357 x10(3)/mc L [facility] RDW Standard Deviation 39.5 36.0 - 45.0 fL [facility] RDW coefficient of variation 12.4 11.4 - 13.8 % [facility] Mean Platelet Volume 9.4 7.6 - 12.9 fL [facility] NRBC% auto 0.0 % [facility] NRBC Absolute 0.000 0.000 - 0.000 x10(3)/ L [facility] Blood 03/12/2023 4:30 AM EST 03/12/2023 4:45 AM EST Narrative Resulting Agency Comment Spec In Lab Jorge Gabriel MD HEMATOLOGY ORDER MICHAEL [facility] [address] * (ABNORMAL) Basic Metabolic Panel (non-fasting) (03/12/2023 4:30 AM EST) Glucose 130 65 - 199 mg/dL [facility] Comment:Diabetes: >=200 mg/d L plus symptoms Blood Urea Nitrogen 10 10 - 20 mg/dL [facility] Creatinine 0.66(L) 0.80 - 1.50 mg/dL [facility] Sodium 140 135 - 145 mmol/L [facility] Potassium 3.7 3.5 - 5.0 mmol/L [facility] Comment: Please note: ??Patients with WBC >100,000 may have falsely elevated Potassium levels. ??For accurate Potassium quantification in these patients send serum separator tube (gold top) for subsequent determinations. ??Contact the Clinical Chemistry Laboratory if there are any questions. Chloride 101 98 - 107 mmol/L [facility] Carbon Dioxide 27 22 - 31 mmol/L [facility] Anion Gap 12 5 - 15 mmol/L [facility] Calcium 9.1 8.5 - 10.5 mg/dL [facility] Est Glomerular Filtration Rate 94 >=60 mL/min/1. 73 m?? [facility] Comment: This patient's estimated GFR was [...] Resulting Agency Comment Spec In Lab Brennan Wlilams MD CHEMISTRY ORDERABLES Performing Organization Address City/[facility]/ZIP Co de Phone Number [facility] [address] * POCT Glucose (03/11/2023 11:03 AM EST) Glucose, POC 125 65 - 199 mg/dL [facility] Comment: Supplemental ranges: <140 mg/dL before meals <180 mg/dL all other times of the day Blood 03/11/2023 11:0 3 AM EST 03/11/2023 11:03 AM EST Brennan Willams MD POINT OF CARE TEST O RDERABLES Performing Organization Address City/[facility]/ZIP Co de Phone Number [facility] [address] * XR Lumbar Spine 1 View (03/11/2023 8:39 AM EST) Anatomical Region Laterality Modality L-spine N/A Digital Radiogra phy Impressions 03/11/2023 9:23 AM EST Metallic localizer at the level of L4-L5 Thank you for letting us participate in the care of this patient. ??If you are a health care provider and have any questions regarding this report, please contact the number below. ??For patients who have questions please contact the health director long term care that requested your imaging first. ? Electronically signed by: Cecilio Feliciano MD, [facility] ([phone]), at 03/11/2023 9:23 AM Narrative 03/11/2023 9:23 AM EST EXAMINATION: XR LUMBAR SPINE 1 VIEW CLINICAL HISTORY: Surgery (level confirmation) TECHNIQUE: 1 views of the lumbar spine COMPARISON: Lumbar spine radiograph 02/28/2023. FINDINGS: Intraoperative radiograph demonstrates a metallic localizer and retractors in the dorsal paraspinous soft tissues at the level of L4-L5. Stable spinal alignment and diffuse degenerative disc changes. Procedure Note Cecilio Feliciano MD - 03/11/2023 EXAMINATION: XR LUMBAR SPINE 1 VIEW CLINICAL HISTORY: Surgery (level confirmation) TECHNIQUE: 1 views of the lumbar spine COMPARISON: Lumbar spine radiograph 02/28/2023. FINDINGS: Intraoperative radiograph demonstrates a metallic localizer and retractorsin the dorsal paraspinous soft tissues at the level of L4-L5. Stable spinal alignment and diffuse degenerative disc changes. IMPRESSION Metallic localizer at the level of L4-L5 Thank you for letting us participate in the care of this patient. If youare a health care provider and have any questions regarding this report,please contact the number below. For patients who have questions please contactthe health director long term care that requested your imaging first. Electronically signed by: Cecilio Feliciano MD, [facility]([phone]), at 03/11/2023 9:23 AM Brennan Willams MD IMG DX ORDERABLES * POCT Glucose (03/11/2023 6:44 AM EST) Glucose, POC 119 65 - 199 mg/dL [facility] Comment: Supplemental ranges: <140 mg/dL before meals <180 mg/dL all other times of the day Blood 03/11/2023 6:44 AM EST 03/11/2023 6:44 AM EST Brennan Willams MD POINT OF CARE TEST O RDERABLES [facility] [place] [address] documented in this encounter Visit Diagnoses Diagnosis S/p L3-5 laminectomy 03/11/23 Vivek- Primary Other postprocedural status Spinal stenosis of lumbar region with neurogenic claudication Spinal stenosis, lumbar region, with neurogenic claudication At risk for long QT syndrome Spinal stenosis of lumbar region with neurogenic claudication Spinal stenosis, lumbar region, with neurogenic claudication documented in this encounter Admitting Diagnoses Diagnosis S/P lumbar laminectomy Other postprocedural status documented in this encounter Administered Medications Inactive Administered Medications - up to 3 most recent administrations Medication Order MAR Action Action Date Dose Rate Site acetaminophen (Tylenol) tablet 975 mg 975 mg, Oral, ONCE, 1 dose, On Sat03/11/23 at 0645, Administer with a SIP of water only. Maximum dose of acetaminophen is 4,000 mg from all sources in 24 hours., Day of Surgery (Day of Procedure), Routine Given 03/11/2023 6:31 AM EST 975 mg acetaminophen (Tylenol) tablet 975 mg 975 mg, Oral, EVERY 8 HOURS SCHEDULED, First dose on Sat03/11/23 at 1400, Until Discontinued, Maximum dose of acetaminophen is 4,000 mg from all sources in 24 hours. When ordered for pain, acetaminophen should be given even when other ordered pain medications are indicated., Routine Given 03/12/2023 4:41 AM EST 975 mg Given 03/11/2023 9:07 PM EST 975 mg amLODIPine (Norvasc) tablet 10 mg 10 mg, Oral, DAILY, First dose on Sat03/12/23 at 0900, Until Discontinued, Formulary sub for home amlodipine/benazepril 10-20mg, Routine Given 03/12/2023 8:54 AM EST 10 mg BUpivacaine-EPINEPHrine (Marcaine-epiNEPHrine) 0.25 %-1:200,000 injection PRN, Starting on Sat03/11/23 at 0815, Until Sat03/12/23 at 1436, Intra-Operative (Intra-Procedure), Routine Given 03/11/2023 10:35 AM EST 10 mLs 19- Surgical Site Given 03/11/2023 8:15 AM EST 20 mLs 19 - Surgical Site ceFAZolin (Ancef) 2 g vial attach to sodium chloride 0.9% 100 mL Mini-Bag Plus 2 g, Intravenous, EVERY 8 HOURS, 3 doses, First dose on Sat03/11/23 at 1615, Last dose on Sat03/12/23 at 0815, Administer over 30 Minutes, Adjust to 4 hours from intraoperative dose. * Beta-lactam based antibiotics (eg. Ampicillin, ceFAZolin, Aztreonam) should be administered within 4 hours of the preceding intraoperative dose. * Vancomycin, Fluoroquinolones, Clindamycin, Gentamicin, and metroNIDAZOLE should be administered within 8 hours of the preceding intraoperative dose., Recovery (Recovery-Hospital Unit), Indication for (Active or Suspected): Prophylaxis New Bag 03/12/2023 9:36 AM EST 2 g 200 mL/hr New Bag 03/12/2023 12:34 AM EST 2 g 200 mL/hr New Bag 03/11/2023 3:56 PM EST 2 g 200 mL/hr gabapentin (Neurontin) capsule 200 mg 200 mg, Oral, 3 TIMES DAILY, First dose on Sat03/11/23 at 1615, Until Discontinued, Routine Given 03/12/2023 8:55 AM EST 200 mg Given 03/11/2023 9:08 PM EST 200 mg gelatin adsorbable 100 (Gelfoam) sponge PRN, Starting on Sat03/11/23 at 0815, Until Sat03/12/23 at 1436, Intra-Operative (Intra-Procedure), Routine Given 03/11/2023 8:15 AM EST 1 each 19- Surgical Site haloperidoL lactate (Haldol) (5 mg/mL) injection 0.5 mg 0.5 mg, Intravenous, EVERY 30 MIN PRN, 2 doses, Starting on Sat03/11/23 at 1840, Until Sat03/12/23 at 1436, Agitation, nausea/vomiting, If multiple antiemetics ordered, use ondansetron first and if ineffective use prochlorperazine or haloperidoL second, PACU Recovery, Routine haloperidoL lactate (Haldol) (5 mg/mL) injection 1 mg 1 mg, Intravenous, ONCE PRN, 1 dose, Starting on Sat03/11/23 at 1634, Until Sat03/12/23 at 1436, nausea, If medication ordered subcutaneously, do not administer more than 3 mL as a single injection., Routine HYDROmorphone (Dilaudid) (2 mg/mL) multi-dose injection solution 0.4 mg 0.4 mg, Intravenous, EVERY 10 MIN PRN, Starting on Sat03/11/23 at 1027, Until Sat03/11/23 at 1216, Pain, For Moderate to Severe Pain (6-10 out of 10), Hold for respiratory rate less than 10 per minute. Maximum dose 3 mg over one hour including administrations in the OR. If multiple pain medications are ordered, start with HYDROmorphone or morphine and use fentaNYL for breakthrough pain., PACU Recovery, Routine Given 03/11/2023 11:37 AM EST 0.4 mg lisinopriL (Zestril) tablet 20 mg 20 mg, Oral, DAILY, First dose on Sat03/12/23 at 0900, Until Discontinued, Formulary sub for home amlodipine/benazepril 10-20mg, Routine Given 03/12/2023 8:53 AM EST 20 mg metFORMIN (Glucophage) tablet 500 mg 500 mg, Oral, 2 TIMES DAILY WITH MEALS, First dose on Sat03/12/23 at 0800, Until Discontinued, Routine Given 03/12/2023 8:53 AM EST 500 mg metoprolol succinate XL (Toprol-XL) tablet 25 mg 25 mg, Oral, NIGHTLY, First dose on Sat03/11/23 at 2100, Until Discontinued, DO NOT CRUSH OR OPEN, Routine Given 03/11/2023 9:07 PM EST 25 mg ondansetron ODT (Zofran-ODT) disintegrating tablet 4 mg 4 mg, Oral, EVERY 8 HOURS PRN, Starting on Sat03/11/23 at 1323, Until Sat03/12/23 at 1436, Nausea, Routine Given 03/11/2023 1:42 PM EST 4 mg oxyCODONE (Roxicodone) tablet 10 mg 10 mg, Oral, EVERY 4 HOURS PRN, Starting on Sat03/11/23 at 1120, Until Sat03/12/23 at 1103, Pain, moderate pain (4-6), For moderate pain (4-6). Do not exceed 15 mg in 4 hours. If pain not relieved, call provider., Routine Given 03/12/2023 4:41 AM EST 10 mg Given 03/11/2023 9:07 PM EST 10 mg Given 03/11/2023 11:26 AM EST 10 mg oxyCODONE (Roxicodone) tablet 5-10 mg 5-10 mg, Oral, EVERY 4 HOURS PRN, Starting on Sat03/12/23 at 1102, Until Sat03/12/23 at 1436, Pain, Give 5 mg for pain (1-5), 10 mg for moderate pain (6-10) May give an additional 5 mg in 30 minutes ONCE if pain not relieved., Routine Given 03/12/2023 12:13 PM EST 5 mg prochlorperazine (Compazine) (5 mg/mL) injection 10 mg 10 mg, Intravenous, ONCE PRN, 1 dose, Starting on Sat03/12/23 at 0727, Until Sat03/12/23 at 0735, Nausea, Vomiting, please give after trying zofran, Routine Given 03/12/2023 7:35 AM EST 10 mg prochlorperazine (Compazine) (5 mg/mL) injection 5 mg 5 mg, Intravenous, EVERY 30 MIN PRN, 2 doses, Starting on Sat03/11/23 at 1027, Until Sat03/11/23 at 1216, Nausea, Vomiting, If multiple antiemetics ordered, use ondansetron first and if ineffective use prochlorperazine or haloperidoL second, PACU Recovery, Routine Given 03/11/2023 11: 51 AM EST 5 mg prochlorperazine (Compazine) (5 mg/mL) injection 5 mg 5 mg, Intravenous, ONCE PRN, 1 dose, Starting on Sat03/11/23 at 1406, Until Sat03/11/23 at 1517, Nausea, Routine Given 03/11/2023 3:17 PM EST 5 mg sodium chloride 0.9 % (flush) (BD PosiFlush Normal Saline 0.9) flush 5 mL 5 mL, Intravenous, 2 TIMES DAILY, First dose on Sat03/11/23 at 2100, Until Discontinued, Routine Given 03/12/2023 9:14 AM EST 5 mLs Given 03/11/2023 9:08 PM EST 5 mLs sodium chloride 0.9% infusion 1,000 mL, at 100 mL/hr, Intravenous, CONTINUOUS, Starting on Sat03/11/23 at 1145, Until Sat03/12/23 at 1436 New Bag 03/12/2023 12:34 AM EST 1,000 mLs 100 mL/hr New Bag 03/11/2023 11:29 AM EST 1,000 mLs 100 mL/hr thrombin (Bovine) (Thrombinar) kit PRN, Starting on Sat03/11/23 at 0815, Until Sat03/12/23 at 1436, Intra-Operative (Intra-Procedure) Given 03/11/2023 8:15 AM EST 20,000 Units 19- Surgical Site vancomycin (Vancocin) injection PRN, Starting on Sat03/11/23 at 1016, Until Sat03/12/23 at 1436, Intra-Operative (Intra-Procedure), Routine Given 03/11/2023 10:16 AM EST 1 g 19- Surgical Site documented in this encounter Active and Recently Administered Medications Times are shown in EST. Scheduled Medication Order 03/10/2023 03/11/2023 03/12/2023 acetaminophen (Tylenol) tablet 975 mg (COMPLETED) 975 mg, Oral, ONCE, 1 dose, On Sat03/11/23 at 0645, Administer with a SIP of water only. Maximum dose of acetaminophen is 4,000 mg from all sources in 24 hours., Day of Surgery (Day of Procedure), Routine 0631 (Given - Provider: Elisa Linn RN) acetaminophen (Tylenol) tablet 975 mg 975 mg, Oral, EVERY 8 HOURS SCHEDULED, First dose on Sat03/11/23 at 1400, Until Discontinued, Maximum dose of acetaminophen is 4,000 mg from all sources in 24 hours. When ordered for pain, acetaminophen should be given even when other ordered pain medications are indicated., Routine 1430 (Not Given - Provider: Erma Downey RN - Reason: Patient/family refused - Comment: patient actively vomiting)2107 (Given - Provider: Yazmin Cantu RN) 0441 (Given - Provider: Yazmin Cantu RN)0600 (Canceled Entry - Provider: Yazmin Cantu RN - Reason: See comment - Comment: given earlier time) amLODIPine (Norvasc) tablet 10 mg 10 mg, Oral, DAILY, First dose on Sat03/12/23 at 0900, Until Discontinued, Formulary sub for home amlodipine/benazepril 10-20mg, Routine 0854 (Given - Provid er: Brennan Reynolds RN) ceFAZolin (Ancef) 2 g vial attach to sodium chloride 0.9% 100 mL Mini-Bag Plus (COMPLETED) 2 g, Intravenous, EVERY 4 HOURS, 1 dose, First dose on Sat03/11/23 at 0645, Administer over 30 Minutes, Redose after 4 hours., Day of Surgery (Day of Procedure), Indication for (Active or Suspected): Prophylaxis 0808 (New Bag - Provider: Anoop Tracy MD) ceFAZolin (Ancef) 2 g vial attach to sodium chloride 0.9% 100 mL Mini-Bag Plus (COMPLETED) 2 g, Intravenous, EVERY 8 HOURS, 3 doses, First dose on Sat03/11/23 at 1615, Last dose on Sat03/12/23 at 0815, Administer over 30 Minutes, Adjust to 4 hours from intraoperative dose. * Beta-lactam based antibiotics (eg. Ampicillin, ceFAZolin, Aztreonam) should be administered within 4 hours of the preceding intraoperative dose. * Vancomycin, Fluoroquinolones, Clindamycin, Gentamicin, and metroNIDAZOLE should be administered within 8 hours of the preceding intraoperative dose., Recovery (Recovery-Hospital Unit), Indication for (Active or Suspected): Prophylaxis 1556 (New Bag - Provider: Erma Downey RN)1633 (Stopped - Provider: Erma Downey RN) 0034 (New Bag - Provider: Yazmin Cantu RN)0104 (Stopped - Provider: Yazmin Cantu RN)0936 (New Bag - Provider: Brennan Reynolds RN)1006 (Stopped - Provider: Brennan Reynolds RN) gabapentin (Neurontin) capsule 200 mg 200 mg, Oral, 3 TIMES DAILY, First dose on Sat03/11/23 at 1615, Until Discontinued, Routine 161 (Not Given - Provider: Erma Downey RN - Reason: Patient/family refused - Comment: patient actively vomiting)2107 (Given - Provider: Yazmin Cantu RN) 0855 (Given - Provider: Brennan Reynolds RN) lisinopriL (Zestril) tablet 20 mg 20 mg, Oral, DAILY, First dose on Sat03/12/23 at 0900, Until Discontinued, Formulary sub for home amlodipine/benazepril 10-20mg, Routine 0853 (Given - Provid er: Brennan Reynolds RN) metFORMIN (Glucophage) tablet 500 mg 500 mg, Oral, 2 TIMES DAILY WITH MEALS, First dose on Sat03/12/23 at 0800, Until Discontinued, Routine 08 (Given - Provid er: Brennan Reynolds RN) metoprolol succinate XL (Toprol-XL) tablet 25 mg 25 mg, Oral, NIGHTLY, First dose on Sat03/11/23 at 2100, Until Discontinued, DO NOT CRUSH OR OPEN, Routine 2106 (Given - Provider: Yazmin Cantu RN) sodium chloride 0.9 % (flush) (BD PosiFlush Normal Saline 0.9) flush 5 mL 5 mL, Intravenous, 2 TIMES DAILY, First dose on Sat03/11/23 at 2100, Until Discontinued, Routine 2107 (Given - Provider: Yazmin Cantu RN) 0914 (Given - Provider: Brennan Reynolds RN) Continuous Medication Order 03/10/2023 03/11/2023 03/12/2023 lactated ringers infusion (CANCELED) 1,000 mL, at 100 mL/hr, Intravenous, CONTINUOUS, Starting on Sat03/11/23 at 0645, Until Sat03/11/23 at 1120, Day of Surgery (Day of Procedure) 0735 (New Bag - Provider: Anoop Tracy MD) sodium chloride 0.9% infusion 1,000 mL, at 100 mL/hr, Intravenous, CONTINUOUS, Starting on Sat03/11/23 at 1145, Until Sat03/12/23 at 1436 1129 (New Bag - Provider: Liliam Madera, CHERYL) 0034 (New Bag - Provider: Yazmin Cantu RN)1436 (Due: Stopped) PRN Medication Order 03/10/2023 03/11/2023 03/12/2023 BUpivacaine-EPINEPHrine (Marcaine-epiNEPHrine) 0.25 %-1:200,000 injection (CANCELED) PRN, Starting on Sat03/11/23 at 0815, Until Sat03/12/23 at 1436, Intra-Operative (Intra-Procedure), Routine 0815 (Given - Provider: Brennan Willams MD - Comment: Posterior lumbar spine)1035 (Given - Provider: Jorge Gabriel MD - Comment: Posterior lumbar spine) gelatin adsorbable 100 (Gelfoam) sponge (CANCELED) PRN, Starting on Sat03/11/23 at 0815, Until Sat03/12/23 at 1436, Intra-Operative (Intra-Procedure), Routine 0815 (Given - Provider: Brennan Willams MD - Comment: Posterior lumbar spine) haloperidoL lactate (Haldol) (5 mg/mL) injection 0.5 mg 0.5 mg, Intravenous, EVERY 30 MIN PRN, 2 doses, Starting on Sat03/11/23 at 1840, Until Sat03/12/23 at 1436, Agitation, nausea/vomiting, If multiple antiemetics ordered, use ondansetron first and if ineffective use prochlorperazine or haloperidoL second, PACU Recovery, Routine haloperidoL lactate (Haldol) (5 mg/mL) injection 1 mg 1 mg, Intravenous, ONCE PRN, 1 dose, Starting on Sat03/11/23 at 1634, Until Sat03/12/23 at 1436, nausea, If medication ordered subcutaneously, do not administer more than 3 mL as a single injection., Routine HYDROmorphone (Dilaudid) (2 mg/mL) multi-dose injection solution 0.4 mg (CANCELED)(Linked Group 1) 0.4 mg, Intravenous, EVERY 10 MIN PRN, Starting on Sat03/11/23 at 1027, Until Sat03/11/23 at 1216, Pain, For Moderate to Severe Pain (6-10 out of 10), Hold for respiratory rate less than 10 per minute. Maximum dose 3 mg over one hour including administrations in the OR. If multiple pain medications are ordered, start with HYDROmorphone or morphine and use fentaNYL for breakthrough pain., PACU Recovery, Routine 1137 (Given - Provider: Liliam Madera RN) lidocaine (Xylocaine) 1% (10 mg/mL) injection 3 mg 3 mg (0.3 mL), Subcutaneous, ONCE PRN, 1 dose, Starting on Sat03/11/23 at 1528, Until Sat03/12/23 at 1436, for discomfort with PIV insertion, Routine ondansetron (pf) (Zofran) (2 mg/mL) injection 4 mg 4 mg, Intravenous, EVERY 8 HOURS PRN, Starting on Sat03/11/23 at 1528, Until Sat03/12/23 at 1436, Nausea, If multiple antiemetics are ordered, use ondansetron first, prochlorperazine second, metoclopramide third. ondansetron ODT (Zofran-ODT) disintegrating tablet 4 mg 4 mg, Oral, EVERY 8 HOURS PRN, Starting on Sat03/11/23 at 1323, Until Sat03/12/23 at 1436, Nausea, Routine 1342 (Given - Provider: Erma Downey RN)2106 (Not Given - Provider: Yazmin Cantu RN - Reason: See comment - Comment: pt prefers IV form) oxyCODONE (Roxicodone) tablet 10 mg (CANCELED)(Linked Group 2) 10 mg, Oral, EVERY 4 HOURS PRN, Starting on Sat03/11/23 at 1120, Until Sat03/12/23 at 1103, Pain, moderate pain (4-6), For moderate pain (4-6). Do not exceed 15 mg in 4 hours. If pain not relieved, call provider., Routine 1126 (Given - Provider: Liliam Madera RN)2106 (Given - Provider: Yazmin Cantu RN) 0441 (Given - Provider: Yazmin Cantu RN) oxyCODONE (Roxicodone) tablet 5-10 mg 5-10 mg, Oral, EVERY 4 HOURS PRN, Starting on Sat03/12/23 at 1102, Until Sat03/12/23 at 1436, Pain, Give 5 mg for pain (1-5), 10 mg for moderate pain (6-10) May give an additional 5 mg in 30 minutes ONCE if pain not relieved., Routine 1213 (Given - Provider: Brennan Reynolds, RN) prochlorperazine (Compazine) (5 mg/mL) injection 10 mg (COMPLETED) 10 mg, Intravenous, ONCE PRN, 1 dose, Starting on Sat03/12/23 at 0727, Until Sat03/12/23 at 0735, Nausea, Vomiting, please give after trying zofran, Routine 0735 (Given - Provider: Geovany Stacy RN) prochlorperazine (Compazine) (5 mg/mL) injection 5 mg (CANCELED) 5 mg, Intravenous, EVERY 30 MIN PRN, 2 doses, Starting on Sat03/11/23 at 1027, Until Sat03/11/23 at 1216, Nausea, Vomiting, If multiple antiemetics ordered, use ondansetron first and if ineffective use prochlorperazine or haloperidoL second, PACU Recovery, Routine 1151 (Given - Provider: Gianna Richter RN) prochlorperazine (Compazine) (5 mg/mL) injection 5 mg (COMPLETED) 5 mg, Intravenous, ONCE PRN, 1 dose, Starting on Sat03/11/23 at 1406, Until Sat03/11/23 at 1517, Nausea, Routine 1517 (Given - Provider: Erma Downey RN) sodium chloride 0.9 % (flush) (BD PosiFlush Normal Saline 0.9) flush 5-20 mL 5-20 mL, Intravenous, EVERY 1 MIN PRN, Starting on Sat03/11/23 at 1528, Until Sat03/12/23 at 1436, flush, Flush pertains to all indwelling lines. Flush per protocol found in the job aid using the link provided on this medication record., Routine thrombin (Bovine) (Thrombinar) kit (CANCELED) PRN, Starting on Sat03/11/23 at 0815, Until Sat03/12/23 at 1436, Intra-Operative (Intra-Procedure) 0815 (Given - Provider: Brennan Willams MD - Comment: Posterior lumbar spine) vancomycin (Vancocin) injection (CANCELED) PRN, Starting on Sat03/11/23 at 1016, Until Sat03/12/23 at 1436, Intra-Operative (Intra-Procedure), Routine 1016 (Given - Provider: Brennan Willams MD - Comment: Placed in incision prior to closure) Linked Groups Order Group 1: HYDROmorphone (Dilaudid) (2 mg/mL) multi-dose injection solution 0.2 mg (CANCELED) 0.2 mg, Intravenous, EVERY 10 MIN PRN, Starting on Sat03/11/23 at 1027, Until Sat03/11/23 at 1216, Pain, For Mild to Moderate Pain (1-5 out of 10), Hold for respiratory rate less than 10 per minute. Maximum dose 3 mg over one hour including administrations in the OR. If multiple pain medications are ordered, start with HYDROmorphone or morphine and use fentaNYL for breakthrough pain., PACU Recovery, Routine Or HYDROmorphone (Dilaudid) (2 mg/mL) multi-dose injection solution 0.4 mg (CANCELED)Jump to med 0.4 mg, Intravenous, EVERY 10 MIN PRN, Starting on Sat03/11/23 at 1027, Until Sat03/11/23 at 1216, Pain, For Moderate to Severe Pain (6-10 out of 10), Hold for respiratory rate less than 10 per minute. Maximum dose 3 mg over one hour including administrations in the OR. If multiple pain medications are ordered, start with HYDROmorphone or morphine and use fentaNYL for breakthrough pain., PACU Recovery, Routine Group 2: oxyCODONE (Roxicodone) tablet 5 mg (CANCELED) 5 mg, Oral, EVERY 4 HOURS PRN, Starting on Sat03/11/23 at 1120, Until Sat03/12/23 at 1103, Pain, mild pain (1-3), For mild pain (1-3). Do not exceed 15 mg in 4 hours. If pain not relieved, call provider., Routine Or oxyCODONE (Roxicodone) tablet 10 mg (CANCELED)Jump to med 10 mg, Oral, EVERY 4 HOURS PRN, Starting on Sat03/11/23 at 1120, Until Sat03/12/23 at 1103, Pain, moderate pain (4-6), For moderate pain (4-6). Do not exceed 15 mg in 4 hours. If pain not relieved, call provider., Routine Or oxyCODONE (Roxicodone) tablet 15 mg (CANCELED) 15 mg, Oral, EVERY 4 HOURS PRN, Starting on Sat03/11/23 at 1120, Until Sat03/12/23 at 1103, Pain, severe pain (7-10), For severe pain (7-10). Do not exceed 15 mg in 4 hours. If pain not relieved, call provider., Routine documented in this encounter Care Teams Stump Shooter Relationship Specialty Start Date End Date Hiram Shankar, [employer] [address] [place] [address] PCP - General Family Medicine 02/05/23 documented as of this encounter
--- OUTSIDE RECORDS SUMMARY | 2024-06-01 14:40 | XMS_ITS | Encounter Summary ---
Author Organization [facility] [place] [address] Care Team Providers Care Salt Refiner Name Role Phone Hiram Shankar APRN Primary Care Provider +1- [phone] Reason for Visit * Auth/Cert (Routine) Specialty Diagnoses / Procedures Referred By Contac t Referred To Contact Diagnoses Spinal stenosis Procedures PRO LAMINEC/FACETECT/FORAMIN, LUMBAR 1 SEG PRO SPIVEY FACETECTOMY&FORAMOT 1 VRT SGM EA ADDL SGM LAMINECTOMY, FACETECTOMY & FORAMINOTOMY,LUMBAR, ONE LEVEL (WRVU 15.37) EA ADD'L VERTEBRAL SEGMENT CERVICAL, THORACIC, LUMBAR (WRVU 3.47) MODIFIER L3 MODIFIER L4 MODIFIER L[address] [facility] [place] [address] [facility] Referral ID Status Reason Start Date Expiration Date Visits Re quested Visits Authorized [id number] 1 1 Encounter Details Date Type Department Care Team (Latest Contact Info) Description 03/11/2023 5:51 AM EST - 03/12/2023 12:36 PM EST Hospital Encounter [place] [id number] Brennan Willams MD [facility] [place] [address] Spinal stenosis of lumbar region with neurogenic claudication; At risk for long QT syndrome Discharge Disposition: Home Social History Tobacco Use Types Packs/Day Years [...] Sign Reading Time Taken Comments Blood Pressure 159/86 03/12/2023 11:09 AM EST Pulse 73 03/11/2023 12:00 PM EST Temperature 36.7 ??C (98.1 ??F) 03/12/2023 11:[address] Respiratory Rate 16 03/12/2023 4:06 AM EST Oxygen Saturation 96% 03/12/2023 11:09 AM EST Inhaled Oxygen Concentration - - [...] Elie Glass Patient Age: 82 y.o. Language: Armenian Race: White Ethnicity: Not nor Admit date: 03/11/2023 Discharge date and time: 03/12/2023 Attending Physician: Brennan Willams MD Discharge Physician: Brennan Willams MD Follow-up Recommendations for Providers: - Patient was given extra mepilex at discharge. See discharge instructions for additional details. Future Appointments Date Time Provider Department Center 04/08/2023 10:15 AM [facility] DB XRAY ROOM 2 MH Xray [facility] Rad 04/08/2023 11:00 AM Brennan Willams MD [facility] Pain Sp [facility] Inpatient Provider Contact Information: Brennan Willams MD Spine Center: [phone] After hours and weekends, call [facility] Oxidized Finish Plater, , and have the Orthopedic resident paged. [...] Height: Ht Readings from Last 1 Encounters: // 180.3 cm (5' 11) HC: HC Readings [...] who have questions please contact the health neurocritical care physician that requested your imaging first. Electronically signed by: Cecilio Feliciano MD, [facility] ([phone]), at 03/11/2023 9:23 AM XR Lumbar Spine [...] who have questions please contact the health neurocritical care physician that requested your imaging first. Pending Studies and Lab Data at Discharge: [...] them. 3. You should also take an tyef-xah-hkkykrv stool softener of laxative, such as Cherri-colace [...] please contact the Spine Center Prescription Lineat [phone]. PRESCRIPTION RENEWAL REQUESTS CAN TAKE UP TO [...] 29, 2023 - 1:00pm Hiram Shankar APRN [facility] Please call your Primary Care Providers office [...] has completely healed. PLEASE CALL US AT [phone] TO SPEAK WITH A SPINE CENTER NURSE [...] Numbers: Clinical issues, nurse questions, medication renewals: [phone] Willams: [phone] Evenings after 5pm and weekends you may contact the Orthopaedic resident ocean transportation intermediary: [phone], askthe stiff leg derrick operator to page the Orthopaedic resident Follow Up Appointments: 1. You will have follow-up appointments at [facility] as indicated in the ???Future Appointments [...] on the next business day. Please call [phone] if you do not hear from us by that time, as your timely follow-up is very important to us. Future Appointments Date Time Provider Department Center 04/08/2023 10:15 AM [facility] DB XRAY ROOM 2 Xray [facility] Rad 04/08/2023 11:00 AM Brennan Willams MD [facility] Pain Sp [facility] General Instructions None Future Appointments and Orders Future Appointments and Orders Future Appointments Provider Department Dept Phone 04/08/2023 10:15 AM [facility] DB XRAY ROOM 2 XRay at [facility] Arrive at: [facility] Please go to [facility] ([place] Location). 04/08/2023 11:00 AM Brennan Willams MD [facility] Sp[facility] Center at [facility] Arrive at: [facility]D [phone] Primary Care Provider: Hiram Shankar, SPORTS TEAM MANAGER [phone] Discharge References/Attachments None documented in this encounter Discharge Instructions * Patient Instructions* Eun Oquendo, SPORTS TEAM MANAGER - 03/11/2023 10:58 AM EST Activity: 1. [...] them. 3. You should also take an qnbm-zid-wrxrcwo stool softener of laxative, such as Cherri-colace [...] please contact the Spine Center Prescription Lineat [phone]. PRESCRIPTION RENEWAL REQUESTS CAN TAKE UP TO [...] 29, 2023 - 1:00pm Hiram Shankar APRN [facility] Please call your Primary Care Providers office [...] has completely healed. PLEASE CALL US AT [phone] TO SPEAK WITH A SPINE CENTER NURSE [...] Numbers: Clinical issues, nurse questions, medication renewals: [phone] Willams: [phone] Evenings after 5pm and weekends you may contact the Orthopaedic resident ocean transportation intermediary: [phone], askthe stiff leg derrick operator to page the Orthopaedic resident Follow Up Appointments: 1. You will have follow-up appointments at [facility] as indicated in the ???Future Appointments [...] on the next business day. Please call [phone] if you do not hear from us by that time, as your timely follow-up is very important to us. Future Appointments Date Time Provider Department Center 04/08/2023 10:15 AM [facility] DB XRAY ROOM 2 Xray [facility] Rad 04/08/2023 11:00 AM Brennan Willams MD [facility] Pain Sp [facility] documented in this encounter Medications at [...] Reynolds RN - 03/12/2023 12:18 PM EST [facility] Short Stay Unit Discharge Note All [...] (P) 21 minutes, Haydee Davidson, PT Pager: [phone] Physical Therapy Inpatient Rehabilitation Department 2017 PT [...] Time Provider Department Center 04/08/2023 10:15 AM [facility] DB XRAY ROOM 2 Xray [facility] Rad 04/08/2023 11:00 AM Brennan Willams MD [facility] Pain Sp [facility] Spine Attending I have seen and [...] Time Provider Department Center 04/08/2023 10:15 AM [facility] DB XRAY ROOM 2 MH Xray [facility] Rad 04/08/2023 11:00 AM Brennan Willams MD [facility] Pain Sp [facility] * Anoop Tracy MD - 03/11/2023 [...] NSR with 1st degree AV block on tamale maker. 1200: Phase II criteria met. 1224: Report [...] Operative Note Patient Name: Elie Glass : [id number] MR#: [id number] Case Date: 03/11/2023 Surgeon: Surgeon(s) and Role: * Brennan Willams MD - Primary * Jorge Gabriel MD - Resident - Assisting Preoperative diagnosis: Spinal stenosis Postoperative diagnosis: Spinal stenosis Procedure: L3-L5 laminectomy (18686, 65473 x 2) Anesthesia: General Findings: There was [...] 3.47) performed by Brennan Willams MD at [facility] MAIN OR PRO LAMINEC/FACETECT/FORAMIN, LUMBAR 1 SEG Midline 03/11/2023 LAMINECTOMY, FACETECTOMY & FORAMINOTOMY,LUMBAR, ONE LEVEL (WRVU 15.37) performed by Brennan Willams MD at [facility] MAIN OR Social History: Patient lives [...] and measurable assessment of functional outcome. Pager: [phone] Rory Alamo OTR/L, BOOT LINER MAKER Occupational Therapy Rehabilitation Department * Op Note - Brennan Willams MD - 03/11/2023 8:15 AM EST [facility] Operative Note Patient Name: Elie Glass : [id number] MR#: [id number] Case Date: 03/11/2023 Surgeon: Surgeon(s) and Role: [...] to the level of the pars. A Mcpherson was placed caudal to the L4 lamina, [...] Facetectomy&Foramot 1 Vrt Sgm Ea Addl Sgm ([id number]) 03/11/2023 7:35 AM EST Spinal stenosis of lumbar region with neurogenic claudication Laminec/Facetect/For burt, Lumbar 1 Seg ([id number]) 03/11/2023 7:35 AM EST Spinal stenosis of [...] (Bezet) 420 ms MUSE SYSTEM Calculated P Clayton 43 degrees MUSE SYSTEM Calculated R Clayton 5 degrees MUSE SYSTEM Calculated T Clayton 65 degrees MUSE SYSTEM INTERPRETATION Sinus rhythm with 1st degree A-V block Nonspecific T wave abnormality Abnormal ECG When compared with ECG of 28-FEB-2023 13:17, Nonspecific T wave abnormality now evident in Anterior leads Confirmed by fellow Susan Goldman ([id number]) on 03/12/2023 4:50:04 PM Confirmed by MD Rona, [place] ([id number]) on 03/12/2023 9:31:38 PM MUSE SYSTEM 03/12/2023 7:37 AM EST 03/12/2023 9:31 PM EST Brennan Willams MD ECG ORDERABLES Performing Organization Address City/[facility] Co de Phone Number MUSE SYSTEM * Scan, Peripheral Blood (03/12/2023 4:30 AM EST) Plat estimate Normal [facility] H OSPITAL [facility] RBC Morphology Abnormal [facility] Ovalocytes 1-5 /HPF [facility] HOSP ITAL LABORATORY [place] Cells 1-5 /HPF [facility] HOSP ITAL [facility]OR[facility] Blood 03/12/2023 4:30 AM EST 03/12/2023 4:45 AM EST Narrative Resulting Agency Comment Spec In Lab Jorge Gabriel MD [place] [address] * (ABNORMAL) Differential, Automated (03/12/2023 4:30 AM EST) Neutrophil % 71.3 % [facility] Neutrophil Absolute 7.43(H) 1.70 - 6.10 x10(3)/mc L [facility] Lymph % 10.4 % [facility] Lymphocytes Abs 1.1 0.9 - 3.2 x10(3)/mc L [facility] Monocyte % 18.0 % [facility] Monocyte Abs 1.9(H) 0.3 - 0.9 x10(3)/ L [facility] Eos % 0.0 % [facility] Eosinophils Abs 0.0 0.0 - 0.4 x10(3)/[facility] Basophil % 0.1 % [facility] Baso Absolute 0.0 0.0 - 0.1 x10(3)/mc L [facility] Immature Gran % 0.20 % [facility] Comment: Immature granulocytes(IG's)percentage and absolute count will include metamyelocytes, myelocytes, and promyelocytes. Blood smears from CBCs yielding IG's will be scanned manually for concordance. If this scan disagrees with the automated IG or if promyelocytes are noted, a manual differential will be performed. Immature Gran Absolute 0.02 0.00 - 0.04 x10(3)/ L [facility] Blood 03/12/2023 4:30 AM EST 03/12/2023 4:45 AM EST Narrative Resulting Agency Comment Spec In Lab Jorge Gabriel MD HEMATOLOGY ORDER MICHAEL Performing Organization Address City/[facility]/[place] [address] * (ABNORMAL) Hemogram (03/12/2023 4:30 AM EST) White Blood Cell 10.4(H) 4.0 - 9.5 x10(3)/ L [facility] Red Blood Cell 4.75 4.58 - 5.54 x10(6)/mc L [facility] Hemoglobin 14.1 13.7 - 16.5 g/dL [facility] Hematocrit 41.2 40.5 - 48.5 % [facility] Mean Cell Volume 86.7 82.9 - 93.1 fL [facility] Mean Cell Hemoglobin 29.7 27.5 - 32.1 pg [facility] Mean Cell Hemoglobin Concentration 34.2 32.0 - 35.7 g/dL [facility] Platelet 246 145 - 357 x10(3)/mc L [facility] RDW Standard Deviation 39.5 36.0 - 45.0 fL [facility] RDW coefficient of variation 12.4 11.4 - 13.8 % [facility] Mean Platelet Volume 9.4 7.6 - 12.9 fL [facility] NRBC% auto 0.0 % [facility] NRBC Absolute 0.000 0.000 - 0.000 x10(3)/ L [facility] Blood 03/12/2023 4:30 AM EST 03/12/2023 4:45 AM EST Narrative Resulting Agency Comment Spec In Lab Jorge Gabriel MD HEMATOLOGY ORDER MICHAEL [facility] [place] [address] * (ABNORMAL) Basic Metabolic Panel (non-fasting) (03/12/2023 4:30 AM EST) Glucose 130 65 - 199 mg/dL [facility] Comment:Diabetes: >=200 mg/d L plus symptoms Blood Urea Nitrogen 10 10 - 20 mg/dL [facility] Creatinine 0.66(L) 0.80 - 1.50 mg/dL [facility] Sodium 140 135 - 145 mmol/L [facility] Potassium 3.7 3.5 - 5.0 mmol/L [facility] Comment: Please note: ??Patients with WBC >100,000 may have falsely elevated Potassium levels. ??For accurate Potassium quantification in these patients send serum separator tube (gold top) for subsequent determinations. ??Contact the Clinical Chemistry Laboratory if there are any questions. Chloride 101 98 - 107 mmol/L [facility] Carbon Dioxide 27 22 - 31 mmol/L [facility] Anion Gap 12 5 - 15 mmol/L [facility] Calcium 9.1 8.5 - 10.5 mg/dL [facility] Est Glomerular Filtration Rate 94 >=60 mL/min/1. 73 m?? [facility] Comment: This patient's estimated GFR was [...] Resulting Agency Comment Spec In Lab Brennan Willams MD CHEMISTRY ORDERABLES [facility] [place] [address] * POCT Glucose (03/11/2023 11:03 AM EST) Glucose, POC 125 65 - 199 mg/dL [facility] Comment: Supplemental ranges: <140 mg/dL before meals <180 mg/dL all other times of the day Blood 03/11/2023 11:0 3 AM EST 03/11/2023 11:03 AM EST Brennan Willams MD POINT OF CARE TEST O RDERABLES Performing Organization Address City/[facility]/ZIP Co de Phone Number [facility] [place] [address] * XR Lumbar Spine 1 View (03/11/2023 [...] who have questions please contact the health neurocritical care physician that requested your imaging first. ? Electronically signed by: Cecilio Feliciano MD, [facility] ([phone]), at 03/11/2023 9:23 AM Narrative 03/11/2023 9:23 [...] patients who have questions please contactthe health neurocritical care physician that requested your imaging first. Electronically signed by: Cecilio Feliciano MD, [facility]([phone]), at 03/11/2023 9:23 AM Brennan Willams MD IMG DX ORDERABLES * POCT Glucose (03/11/2023 6:44 AM EST) Glucose, POC 119 65 - 199 mg/dL [facility] Comment: Supplemental ranges: <140 mg/dL before meals <180 mg/dL all other times of the day Blood 03/11/2023 6:44 AM EST 03/11/2023 6:44 AM EST Brennan Willams MD POINT OF CARE TEST O RDERABLES [facility] [place] [address] documented in this encounter Visit Diagnoses Diagnosis S/p L3-5 laminectomy 03/11/23 Vivek- Primary Other postprocedural status Spinal stenosis of lumbar region with neurogenic claudication Spinal stenosis, lumbar region, with neurogenic claudication At risk for long QT syndrome documented in this encounter Admitting Diagnoses Diagnosis [...] Given 03/12/2023 8:54 AM EST 10 mg ceFAZolin (Ancef) 2 g vial attach to [...] Given 03/11/2023 9:08 PM EST 200 mg haloperidoL lactate (Haldol) (5 mg/mL) injection [...] 11:29 AM EST 1,000 mLs 100 mL/hr documented in this encounter Active and Recently [...] Procedure), Indication for (Active or Suspected): Prophylaxis 08 (New Bag - Provider: Anoop Tracy MD) [...] RN) 0034 (New Bag - Provider: Yazmin Canut RN)0104 (Stopped - Provider: Yazmin Cantu RN)0936 (New Bag - Provider: Brennan Reynolds RN)1006 (Stopped - Provider: Brennan Reynolds RN) gabapentin (Neurontin) capsule 200 mg 200 mg, Oral, 3 TIMES DAILY, First dose on Sat03/11/23 at 1615, Until Discontinued, Routine 1615 (Not Given - Provider: Erma Downey RN - Reason: Patient/family refused - Comment: patient actively vomiting)210 (Given - Provider: Yazmin Cantu RN) 0855 [...] on Sat03/12/23 at 0800, Until Discontinued, Routine 0853 (Given - Provid er: Brennan [...] on Sat03/11/23 at 2100, Until Discontinued, Routine 210 (Given - Provider: Yazmin Cantu RN) 0914 (Given - Provider: Brennan Reynolds, RN) Continuous Medication Order 03/10/2023 03/11/2023 03/12/2023 [...] 1436 1129 (New Bag - Provider: Liliam Madera RN) 0034 (New Bag - Provider: Yazmin [...] Routine 1342 (Given - Provider: Erma Downey RN)2107 (Not Given - Provider: Yazmin Cantu RN [...] RN)2106 (Given - Provider: Yazmin Cantu RN) 440 (Given - Provider: Yazmin Cantu RN) oxyCODONE (Roxicodone) tablet 5-10 mg 5-10 mg, Oral, EVERY 4 HOURS PRN, Starting on Sat03/12/23 at 1102, Until Sat03/12/23 at 1436, Pain, Give 5 mg for pain (1-5), 10 mg for moderate pain (6-10) May give an additional 5 mg in 30 minutes ONCE if pain not relieved., Routine 1213 (Given - Provider: Brennan Reynolds RN) prochlorperazine (Compazine) (5 mg/mL) injection 10 [...] Routine documented in this encounter Care Teams Salt Refiner Relationship Specialty Start Date End Date Hiram Shankar, SPORTS TEAM MANAGER [address] [place] [address] PCP - General Family Medicine 02/05/23 documented as of this encounter
--- OUTSIDE RECORDS SUMMARY | 2024-06-01 14:40 | XMS_ITS | Encounter Summary ---
Author [place] [address] Care Team Providers Care Calender Machine Operator Helper Name Role Phone Hiram Shankar APRN Primary Care Provider +1- [phone] Encounter Details Date Type Department Care Team (Late st Contact Info) Description 06/11/2023 Telephone [place] [address] Dina Stacy LPN Social History Tobacco Use Types Packs/Day Years Used Date Smoking Tobacco: Former Cigarettes Q uit: 1975 Smokeless Tobacco: Never Alcohol Use Standard Drinks/Week Comments Yes 7 (1 standard drink = 0.6 oz pur e alcohol) [facility], [facility] Inpatient Questions Answer Date Recorded Does Anyone [...] encounter Miscellaneous Notes * Telephone Encounter - Dina Stacy LPN - 06/11/2023 8:39 AM EST called concerned as patient is worsening right leg and hip pain, left leg weakening, set up for MRI at [facility] 06-19-23, hoping to get MRI sooner here, forwarded call to home care scheduler Florin to determine if there is an earlier appt [place] [facility] documented in this encounter Plan of Treatment Not on file documented as of this encounter Visit Diagnoses Not on filedocumented in this encounter Care Teams Calender Machine Operator Helper Relationship Specialty Start Date End Date Hiram Shankar APRN [address] [place] [address] PCP - General Family Medicine 02/05/23 documented as of this encounter
--- OUTSIDE RECORDS SUMMARY | 2024-06-01 14:40 | XMS_ITS | Encounter Summary ---
Author Organization [facility] [place] [address] Care Team Providers Care Power Shovel Operator Helper Name Role Phone Hiram Shankar APRN Primary Care Provider +1- [phone] Reason for Visit * Reason Comments Follow-up S/P L3-L5 lami Encounter Details Date Type Department Care Team (Late st Contact Info) Description 04/08/2023 11:00 AM EST Office Visit [facility] [place] [address] Brennan Doyle MD [facility] [place] [address] S/p L3-5 laminectomy 03/11/23 Vivek Social History [...] - Inhaled Oxygen Concentration - - Weight 81.6 kg (180 lb) 04/08/2023 10:51 AM EST Height 180.3 cm (5' 11) 04/08/2023 10:51 AM EST Body Mass Index 25.1 04/08/2023 10:51 AM EST documented in this encounter Progress Notes * Brennan Doyle MD - 04/08/2023 11:00 AM EST Date of surgery: 03/11/2020. Surgery: L3-L5 laminectomy Interval history: Mr. Glass returns today about 4 weeks out from surgery. He is doing fairly well. He reports mild surgical site pain and feels as though his lower extremity pain has improved substantially compared to before surgery. He continues to have a left foot drop. He recently started physical therapy. He denies any fevers, chills, or drainage from the incision. He is taking Tylenol as needed. Overall, he is pleased with how he is doing. Physical exam General: Patient is comfortable, no acute distress Back: He has a well-healed incision. There is no drainage or surrounding erythema. Neurological exam: He has 4/5 strength of his left ankle dorsiflexor and left EHL with other motors5/5. He has diminished sensation in a stocking-like distribution bilaterally. Imaging: AP lateral x-rays of the lumbar spine from 04/08/2023 were reviewed. These demonstrate an apex right lumbar curve similar to before surgery. There is no spondylolisthesis. The laminectomy isevident. Assessment/plan: Mr. Glass is about 4 weeks out from his lumbar laminectomy, and he is doing quite well. I encouraged him to gradually advance his activities as tolerated. I will follow-up with himon as-needed basis. documented in this encounter Plan of Treatment Not on file documented as of this encounter Visit Diagnoses Diagnosis S/p L3-5 laminectomy 03/11/23 Vivek Other postprocedural status documented in this encounter Care Teams Power Shovel Operator Helper Relationship Specialty Start Date End Date Hiram Shankar APRN [address] [place] [address] [address] [place] [address] PCP - General Family Medicine 02/05/23 documented as of this encounter
--- OUTSIDE RECORDS SUMMARY | 2024-06-01 14:40 | XMS_ITS | Encounter Summary ---
[place] [address] Care Team Providers Care Township Supervisor Name Role Phone Hiram Shankar APRN Primary Care Provider +1- [phone] Encounter Details Date Type Department Care Team (Late st Contact Info) Description 03/18/2023 Telephone [place] [address] Nader Espino RN Social History Tobacco Use Types Packs/Day Years Used Date Smoking Tobacco: Former Cigarettes Q uit: 1975 Smokeless Tobacco: Never Alcohol Use Standard Drinks/Week Comments Yes 7 (1 standard drink = 0.6 oz pur e alcohol) [facility] Inpatient Questions Answer Date Recorded Does Anyone [...] Telephone Encounter - Nader Espino RN - 03/18/2023 3:10 PM EST Received call from patient reporting that he has continued to have nausea following discharge, he ran out of Zofran yesterday. Patient is s/p 03/11/2023 L3-L5 laminectomy. He also had constipation and used a fleets enema today producing a small bowel movement. He is passing gas and is not distended. He reports he has not eaten much since home due to the nausea. He has been using Oxycodone 5 mg, taking 1 tab at least 3 times daily. Recommended that he be using the stool softener and Miralax as long as he is taking the Oxycodone, he agrees.He also reports having a history Garsia's Esophagus which has been treated with Nexium and has not been an issue but he is noticing some trouble with swallowing s/p surgery. He is concerned that the intubation may have irritated it. He states that related to his lumbar surgery he feels he is doing well. Above discussed with Dr. Doyle, he authorized refill of the Zofran and recommends patient reach out to his PCP regarding the GI and swallowing concerns. Patient was contacted and informed of the above. I will connect with PCPs office regarding the GI and swallowing concerns. Patient will update as needed. A call was placed to PCPHiram APRN's office and a message was left for the triage nurserequesting a return call. Received call back from nurseSravanthi, at PCP's office, she was informed of the above. They will reach out to patient. documented in this encounter Plan of Treatment Not on file documented as of this encounter Visit Diagnoses Not on filedocumented in this encounter Care Teams Township Supervisor Relationship Specialty Start Date End Date Hiram Shankar APRN [address] [place] [address] [address] [facility] [address] [place] [address] PCP - General Family Medicine 02/05/23 documented as of this encounter
--- OUTSIDE RECORDS SUMMARY | 2024-06-01 14:40 | XMS_ITS | Encounter Summary ---
Author Organization [facility]ly [facility], [facility] [place] [address] Care Team Providers Care Rug Inspector Helper Name Role Phone Hiram Shankar APRN Primary Care Provider [phone]- [phone] Encounter Details Date Type Department Care Team (Latest Contact Info) Description 02/28/2023 11:45 AM EST - 02/28/2023 11:59 PM [facility] Hospital [place] [phone] Discharge Disposition: Home Social History Tobacco Use Types Packs/Day Years Used Date Smoking Tobacco: Former Smokeless Tobacco: Never Alcohol Use Standard Drinks/Week Comments Yes 7 (1 standard drink = 0.6 oz pur e alcohol) Sex and Gender Information Value Date Recorded Sex Assigned at Not on file Gender Identity Not on file Sexual Orientation Not on file documented as of this encounter Medications at Time of Discharge [...] tablet Take 1 tablet by mouth every 8 hours as needed for Nausea. 10 tablet 03/12/2023 03/12/2023 ondansetron ODT (Zofran-ODT) 4 mg disintegrating tablet Take 1 tablet by mouth every 12 hours as needed for Nausea. 5 tablet 03/12/2023 06/19/2023 meloxicam (Mobic) 15 mg tablet Take 15 mg by mouth. 09/28/2022 023 acetaminophen (Tylenol) 500 mg tablet Take 500 mg by mouth every 6 hours as needed for Pain. 03/12/2023 ibuprofen (Advil) 200 mg tablet Take 400 mg by mouth every 6 hours as needed for Pain. 03/12/2023 gabapentin (Neurontin) 100 mg capsuleIndications:Rad iculopathy of lumbar region,Central spinal stenosis,Spinal stenosis of lumbar region with neurogenic claudication Take 1 capsule by mouth 3 times daily. 90 capsule 12 02/15/2023 05/22/2023 apixaban (Eliquis) 5 mg Tablet Take 5 mg by mouth 2 times daily. 04/17/2019 03/12/2023 gabapentin (Neurontin) 300 mg Capsule .daily as directed 03/10/2020 024 documented as of this encounter Plan of Treatment Not on file documented as of this encounter Visit Diagnoses Not on filedocumented in this encounter Care Teams Rug Inspector Helper Relationship Specialty Start Date End Date [place], Hiram R, RESIDENTIAL SUBSTANCE ABUSE COUNSELOR [address] [place] [address] PCP - General Family Medicine 02/05/23 documented as of this encounter
--- OUTSIDE RECORDS SUMMARY | 2024-06-01 14:40 | XMS_ITS | Encounter Summary ---
Author Organization [facility] [place] [address] Care Team Providers Care Event Promotions Coordinator Name Role Phone Hiram Shankar APRN Primary Care Provider +1- [phone] Encounter Details Date Type Department Care Team (Latest Contact Info) Description 06/06/2023 Travel Social History Tobacco Use Types Packs/Day [...] on filedocumented in this encounter Care Teams Event Promotions Coordinator Relationship Specialty Start Date End Date Hiram Shankar APRN [address] [place] [address] PCP - General Family Medicine 02/05/23 documented as of this encounter
--- OUTSIDE RECORDS SUMMARY | 2024-06-01 14:40 | XMS_ITS | Encounter Summary ---
Author Organization [facility] [place] [address] Care Team Providers Care Sail Maker Name Role Phone Hiram Shankar APRN Primary Care Provider +1- [phone] Encounter Details Date Type Department Care Team (Latest Contact Info) Description 02/28/2023 7:42 AM EST - 02/28/2023 11:59 PM [facility] Hospital Encounter XRay at [facility] [place] [address] Mason Min MD [facility] [place] [address] Radiculopathy of lumbar region; Central spinal stenosis; Spinal stenosis of lumbar region with neurogenic claudication Discharge Disposition: Home Social History Tobacco Use [...] Procedure Name Priority Date/Time Associated Diagnosis Comments XR LUMBAR SPINE AP FLEXION AND EXTENSION ONLY Routine 02/28/2023 7:56 AM EST Radiculopathy of lumbar region 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 ??No evidence of dynamic instability utilizing a 3 mm cut off. 2. ??Mild retrolisthesis at L1-2, L2-3, L3-4 and L4-5. 3. ??Advanced multilevel degenerative disc disease and accompanied facet arthrosis Thank you for letting us participate in the care of this patient. ??If you are a health care provider and have any questions regarding this report, please contact the number below. ??For patients who have questions please contact the health health care assistant that requested your imaging first. ? Electronically signed by: Mathew Rizo MD, [facility] ??([phone]), at 02/28/2023 2:00 PM Narrative 02/28/2023 2:00 PM EST EXAMINATION: XR LUMBAR SPINE AP FLEXION AND EXTENSION ONLY CLINICAL HISTORY: ap, lateral, flex, ex views to assess dynamic motion. Imaging to aid in surgical planning. TECHNIQUE: AP, lateral, flexion and extension views lumbar spine COMPARISON: MRI lumbar [...] the lumbar spine. Mild aortic vascular calcifications. Procedure Note Mathew Rizo MD - 02/28/2023 EXAMINATION: XR LUMBAR SPINE AP FLEXION AND EXTENSION ONLY CLINICAL HISTORY: ap, lateral, flex, ex views to assess dynamic motion.Imaging to aid in surgical planning. TECHNIQUE: AP, lateral, flexion and extension views lumbar spine COMPARISON: MRI lumbar spine 01/25/2023 FINDINGS: Mild retrolisthesis at L1-2, L2-3, L3-4 and L4-5, not significantlychanged between flexion and extension views. No dynamic instability identifiedutilizing a 3 mm cut off. Vertebral body heights are maintained. No acute fracture.Severe multilevel degenerative disc disease at L2-3 through L5-S1. Moderatedisc degenerative changes in the imaged lower thoracic spine and at L1-2.Multilevel facet arthrosis bilaterally. Minimal dextroconvex curvature of the lumbarspine. Mild aortic vascular calcifications. IMPRESSION 1. No evidence of dynamic instability utilizing [...] patients who have questions please contactthe health health care assistant that requested your imaging first. Electronically signed by: Mathew Rizo MD, [facility]([phone]), at 02/28/2023 2:00 PM Mason Min MD IMG DX ORDERABLES documented in this encounter Visit Diagnoses Diagnosis Radiculopathy of lumbar region Thoracic or lumbosacral neuritis or radiculitis, unspecified Central spinal stenosis Spinal stenosis, unspecified region other than cervical Spinal stenosis of lumbar region with neurogenic claudication Spinal stenosis, lumbar region, with neurogenic claudication documented in this encounter Care Teams Sail Maker Relationship Specialty Start Date End Date Hiram Shankar, LAMINATING MACHINE TENDER [address] [place] [address] PCP - General Family Medicine 02/05/23 documented as of this encounter
--- OUTSIDE RECORDS SUMMARY | 2024-06-01 14:40 | XMS_ITS | Encounter Summary ---
Author Organization [facility] Address [facility] [place] [address] Care Team Providers Care Chief Juvenile Probation Officer Name Role Phone Hiram Shankar APRN Primary Care Provider +1- [phone] Reason for Referral * Diagnostic Test (Routine) - Closed Specialty Diagnoses / Procedures Referred By Contac t Referred To Contact Radiology Diagnoses S/P lumbar laminectomy Radiculopathy of lumbar region Procedures MRI Lumbar Spine wwo Contrast Geovany Youssef PA [facility] [place] [address] Referral ID Status Reason Start Date Expiration Date V isits Requested Visits Authorized [id number] Closed Specialty Service Requested 06/06/2023 12/04/2024 1 1 Reason for Visit * Reason Comments Follow-up f/u pain and weaknes s Encounter Details Date Type Department Care Team (Late st Contact Info) Description 06/06/2023 1:30 PM EST Office Visit [place] [address] Geovany Youssef PA [facility] [place] [address] S/P lumbar laminectomy; Radiculopathy of lumbar region Social History Tobacco Use Types Packs/Day Years [...] - - Weight 81.6 kg (180 lb) 06/06/2023 1:16 PM EST Height 180.3 cm (5' 11) 06/06/2023 1:16 PM EST Body Mass Index 25.1 06/06/2023 1:16 PM EST documented in this encounter Progress Notes * Geovany Youssef PA - 06/06/2023 1:30 PM EST Images from the original note were not included. [facility] Geovany Youssef PA-C Dear Colleagues, I had the pleasure of seeing this patient at the [facility] for evaluation. Surgery overview: Date of Surgery: 03/11/23 Surgery: L3-5 laminectomy Surgeon: Dr. Doyle HPI: Elie is an 82 year old male who presents to clinic for evaluation of worsening back and leg pain with history of above surgery. He was doing well when he last met with Dr. Doyle on 04/08/23 but since that time symptoms have changed. He reports night time pain that starts in the low back and radiates to the right lateral thigh. Pain is most problematic at night and significantly reduces that amount of sleep he has been able to get. He has been taking oxycodone without significant relief. He has also been using gabapentin without a significant improvement. He states that during the day he is doing quite well. Imaging: No new spine imaging available for review. Assessment: Elie is an 82 year old male who presents to clinic for evaluation of worsening back and leg symptoms after undergoing L3-5 laminectomy about 3 months ago. We discussed the possible causes of his symptoms which at this point is a bit unclear. We discussed obtaining MRI wwo of lumbar spine to look for any new neural impingement or complication of prior surgery. HE is agreeable to this and would like to pursue this closer to home. We also discussed role of medrol dosepak and script sent. We willfollow up after MRI for further discussion. Plan: 1) Lumbar MRI wwo contrast 2) Medrol Dosepak 3) Follow up after imaging for further discussion Sincerely, Geovany Youssef PA-C [facility] documented in this encounter Plan of Treatment Not on file documented as of this encounter Results * MRI Lumbar Spine wwo Contrast (06/13/2023 4:06 PM EST) Anatomical Region Laterality Modality L-spine Magnetic Resonan ce Impressions 06/14/2023 3:08 PM EST 1. ??Improved patency of the spinal canal at L3-4 and L4-5 following laminectomies. 2. ??Peripherally enhancing collections in the dorsal soft tissues at the laminectomy site concerning for abscesses, with likely thin dorsal epidural collections at L4-5 contributing to mild canal stenosis. 3. ??Peripherally enhancing multiloculated epidural abscess versus synovial cyst adjacent to the left L3-4 facet with mild canal stenosis and severe left subarticular recess stenosis. 4. ??Right iliopsoas edema without coalescent fluid collection. Comment: The following findings are so common in people without low back pain that while we report their presence, they must be interpreted with caution and in context of the clinical situation (Reference- Reggievik Et Al, Spine 2001). Findings: (Prevalence in patients without low back pain), disc degeneration (decreased T2 signal, height loss, bulge) (91%), disc T2-signal loss (83%), disc height loss (56%), disc bulge (64%), disc protrusion (32%), annular fissure (38%). Thank you for letting us participate in the care of this patient. ??If you are a health care provider and have any questions regarding this report, please contact the number below. ??For patients who have questions please contact the health manager urgent care that requested your imaging first. ? Narrative 06/14/2023 3:08 PM EST EXAMINATION: MRI LUMBAR SPINE WWO CONTRAST CLINICAL HISTORY: Lumbar radiculopathy, symptoms persist with conservative treatment; Low back pain, prior surgery, new symptoms; lumbar radiculopathy lumbar radiculopathy Z98.890, Other specified postprocedural states - M54.16, Radiculopathy, lumbar region TECHNIQUE: MRI of the lumbar spine was performed before and after the intravenous administration of 17cc Dotarem. COMPARISON: MRI lumbar spine January 25, 2023. Radiographs of the lumbar spine April 08, 2023. FINDINGS: Trace retrolisthesis of L2 on L3, L3 on L4 and L4 and L5. Mild rightward curvature centered at L2-3, with disc space narrowing and fatty endplate changes eccentric to the left at L2-3 and L3-4. Mild edema throughout the L2-L4 vertebral bodies is not significantly changed since the prior MRI. Postsurgical changes associated with interval L3-4 and L4-5 laminectomies with improved, now mild, canal stenosis at both levels. There is extensive soft tissue enhancement at the surgical site, within which there are multiple peripherally enhancing fluid collections. The largest is within the laminectomy defect at L4-5 measuring 2 cm craniocaudad by 1.8 cm AP by 1.2 cm transverse. There is another measuring 1.6 cm AP by 1.9 cm transverse and 1.3 cm craniocaudad overlying the right L3-4 facet joint and extending into the laminectomy defect. At L4-5, abnormal enhancement and thin epidural collections are present in the dorsal spinal canal bilaterally. ?? There is edema in the dorsal paraspinous musculature eccentric to the right, and edema and enhancement in the right medial psoas and iliacus muscles bilaterally at L3-4, without coalescent fluid collection.. T12-L1: No significant canal or foraminal stenosis. L1-2: No significant canal or foraminal stenosis. L2-3: Disc bulge, ligamentum flavum buckling and severe right greater than left facet arthropathy with moderate canal stenosis, severe left and mild to moderate right foraminal stenosis, not significantly changed. L3-4: There are new multiloculated cystic structures associated with the left facet joint measuring up to 1.7 cm craniocaudad and 7 mm AP and transverse, contributing to mild canal stenosis and severe left subarticular recess stenosis. Mild disc bulge. Unchanged severe bilateral foraminal stenosis due to foraminal disc osteophytes and facet arthropathy. L4-5: Disc bulge eccentric to the right, severe right and moderate left facet arthropathy. Bilateral dorsal lateral epidural collections consistent with abscesses contribute to mild canal stenosis and severe right subarticular recess stenosis. Severe bilateral foraminal stenosis due to facet arthropathy and foraminal disc protrusions, not significantly changed. L5-S1: Disc height loss, diffuse disc bulge slightly eccentric to the right with central radial fissure. Severe right greater than left neural foraminal stenosis. Mild canal stenosis. There is left subarticular recess stenosis, not significantly changed. Procedure Note Magy Zapata MD - 06/14/2023 EXAMINATION: MRI LUMBAR SPINE WWO CONTRAST CLINICAL HISTORY: Lumbar radiculopathy, symptoms persist withconservative treatment; Low back pain, prior surgery, new symptoms; lumbarradiculopathy lumbar radiculopathy Z98.890, Other specified postprocedural states - M54.16, Radiculopathy,lumbar region TECHNIQUE: MRI of the lumbar spine was performed before and after the intravenous administration of 17cc Dotarem. COMPARISON: MRI lumbar spine January 25, 2023. Radiographs of the lumbar spine 2022. FINDINGS: Trace retrolisthesis of L2 on L3, L3 on L4 and L4 and L5. Mild rightward curvature centered at L2-3, with disc space narrowing and fatty endplatechanges eccentric to the left at L2-3 and L3-4. Mild edema throughout the L2-L4 vertebral bodies is not significantly changed since the prior MRI. Postsurgical changes associated with interval L3-4 and L4-5 laminectomieswith improved, now mild, canal stenosis at both levels. There is extensive soft tissue enhancement at the surgical site, withinwhich there are multiple peripherally enhancing fluid collections. The largestis within the laminectomy defect at L4-5 measuring 2 cm craniocaudad by 1.8cm AP by 1.2 cm transverse. There is another measuring 1.6 cm AP by 1.9 cmtransverse and 1.3 cm craniocaudad overlying the right L3-4 facet joint and extendinginto the laminectomy defect. At L4-5, abnormal enhancement and thin epidural collections are present inthe dorsal spinal canal bilaterally. There is edema in the dorsal paraspinous musculature eccentric to theright, and edema and enhancement in the right medial psoas and iliacus musclesbilaterally at L3-4, without coalescent fluid collection.. T12-L1: No significant canal or foraminal stenosis. L1-2: No significant canal or foraminal stenosis. L2-3: Disc bulge, ligamentum flavum buckling and severe right greater thanleft facet arthropathy with moderate canal stenosis, severe left and mild tomoderate right foraminal stenosis, not significantly changed. L3-4: There are new multiloculated cystic structures associated with theleft facet joint measuring up to 1.7 cm craniocaudad and 7 mm AP andtransverse, contributing to mild canal stenosis and severe left subarticular recess stenosis. Mild disc bulge. Unchanged severe bilateral foraminal stenosisdue to foraminal disc osteophytes and facet arthropathy. L4-5: Disc bulge eccentric to the right, severe right and moderate leftfacet arthropathy. Bilateral dorsal lateral epidural collections consistentwith abscesses contribute to mild canal stenosis and severe right subarticularrecess stenosis. Severe bilateral foraminal stenosis due to facet arthropathyand foraminal disc protrusions, not significantly changed. L5-S1: Disc height loss, diffuse disc bulge slightly eccentric to theright with central radial fissure. Severe right greater than left neural foraminal stenosis. Mild canal stenosis. There is left subarticular recess stenosis,not significantly changed. IMPRESSION 1. Improved patency of the spinal canal at L3-4 and L4-5 following laminectomies. 2. Peripherally enhancing collections in the dorsal soft tissues at the laminectomy site concerning for abscesses, with likely thin dorsalepidural collections at L4-5 contributing to mild canal stenosis. 3. Peripherally enhancing multiloculated epidural abscess versus synovialcyst adjacent to the left L3-4 facet with mild canal stenosis and severe left subarticular recess stenosis. 4. Right iliopsoas edema without coalescent fluid collection. Comment: The following findings are so common in people without low backpain that while we report their presence, they must be interpreted with cautionand in context of the clinical situation (Reference- Reggievik Et Al, [id number]). Findings: (Prevalence in patients without low back pain), discdegeneration (decreased T2 signal, height loss, bulge) (91%), disc T2-signal loss(83%), disc height loss (56%), disc bulge (64%), disc protrusion (32%), annularfissure (38%). Thank you for letting us participate in the care of this patient. If youare a health care provider and have any questions regarding this report,please contact the number below. For patients who have questions please contactthe health manager urgent care that requested your imaging first. Brennan Doyle MD IMG MRI ORDERABLES documented in this encounter Visit Diagnoses Diagnosis S/P lumbar laminectomy Other postprocedural status Radiculopathy of lumbar region Thoracic or lumbosacral neuritis or radiculitis, unspecified S/P lumbar laminectomy Other postprocedural status Radiculopathy of lumbar region Thoracic or lumbosacral neuritis or radiculitis, unspecified documented in this encounter Care Teams Chief Juvenile Probation Officer Relationship Specialty Start Date End Date Hiram Shankar APRN [address] [place] [address] [address] [place] [address] PCP - General Family Medicine 02/05/23 documented as of this encounter
--- OUTSIDE RECORDS SUMMARY | 2024-06-01 14:40 | XMS_ITS | Encounter Summary ---
Author Organization [facility] [place] [address] Care Team Providers Care Safety Investigator Name Role Phone Hiram Shankar APRN Primary Care Provider [phone]- [phone] Reason for Referral * Consultation (Routine) - Closed Specialty Diagnoses / Procedures Referred By June lugo Referred To Contact Pre-Admission Testing Diagnoses Do not attempt intubation Brennan Willams MD [facility] [address] [facility] Pre [place]mit [place] [address] [place] [address] Referral ID Status Reason Start Date Expiration Date V isits Requested Visits Authorized [id number] Closed Consult Only 02/28/2023 02/28/2024 1 1 Encounter Details Date Type Department Care Team (Late st Contact Info) Description 02/28/2023 Telephone [place] [address] Yesica Samson RN Social History Tobacco Use Types Packs/Day [...] encounter Miscellaneous Notes * Telephone Encounter - Yesica Samson RN - 02/28/2023 6:12 PM EST [facility] Surgery Intake Elie Camacho is 82 y.o. Referral Source: PCC Intended Surgery: L3-L5 laminectomy Date of Surgery: 03/11/2023 Hiram Shankar APRN - has appt 03/01 Has ability to have Telehealth appointment PHONE CM Initial Assessment: Source of information: Patient Readmission within the last 30 days: no previous admission in last 30 days Decision Maker: Self Order of surrogacy information: Advanced directive: Yes, not on file Who is your DPOA-HC: Spouse Did you serve in the : No Are you enrolled in the VA for your healthcare: Are you here under your VA benefit: Current or prior mental health history: Living Environment: People in home: spouse Current living arrangements: home/apartment/condo Home accessibility (concerns, stairs, handicapped accessibility, etc.): 13 steps to enter one levelhome Resource/environmental concerns: none Environment concerns: Financial concerns: Home accessibility concerns: Transportation: no concerns Current care provided by: self Caregiver phone number: Provides primary care for: no one Caregiver if needed: child(elva), adult, spouse Primary caregiver(s) name: Quality of family relationships: supportive Able to return to prior arrangement at discharge or after rehab: Current outpatient/agency/support: none Functional Status: Current functional status: Prior functional status: Assistive Equipment Equipment currently used at home: cane - straight Patient/Family Anticipated Discharge: Patient/family anticipates transition to : home with family / other Patient/family anticipated services at transition: rehabilitation services Transportation anticipated: family or friend will provide Concerns to be addressed: no discharge needs identified Advance Directives Will bring on day of surgery. DPOA is Annette. Preoperative Geriatric Vulnerability Screening Results: Age > 85: No 02/28/2023 12:30 PM Risk Screening Date: Planned Procedure LAMINECTOMY, FACETECTOMY & FORAMINOTOMY,LUMBAR, ONE LEVEL (WRVU 15.37), EA ADD'L VERTEBRAL SEGMENT CERVICAL, THORACIC, LUMBAR (WRVU 3.47), MODIFIER L3, MODIFIER L4, MODIFIER L5 Planned Surgeon BRENNAN WILLAMS Planned Procedure Date 03/11/2023 Impaired Cognition per Mini-Cog (Elective Screen): Not Assessed Impaired Cognition per AD8 (Elective Screen): No Frailty (Elective Screen): Positive Delirium Risk (Elective Screen): At risk Impaired Mobility (Elective Screen): Yes Impaired Functional Status (Elective Screen): No impairment/totally independent Malnutrition: Negative Difficulty Swallowing: Negative Palliative Care Consult Indicated: Not assessed Overall High Risk Assessment: Positive documented in this encounter Plan of Treatment Scheduled Referrals Name Type Priority Associated Diagnoses Order Schedule Anesthesia Pre-Operative Evaluation Referral Outpatient Referral Routine Do not attempt intubation Ordered: 02/28/2023 documented as of this encounter Visit Diagnoses Diagnosis Do not attempt intubation Other specified conditions influencing health status documented in this encounter Care Teams Safety Investigator Relationship Specialty Start Date End Date Hiram Shankar, RIG OPERATOR [address] [place] [address] PCP - General Family Medicine 02/05/23 documented as of this encounter
--- OUTSIDE RECORDS SUMMARY | 2024-06-01 14:40 | XMS_ITS | Encounter Summary ---
Author Organization [facility] Address [facility] [place] [address] Care Team Providers Care Recovery Assistant Name Role Phone Hiram Shankar APRN Primary Care Provider [phone]- [phone] Reason for Referral * Diagnostic Test (Routine) - Closed Specialty Diagnoses / Procedures Referred By Contac t Referred To Contact Radiology Diagnoses S/P lumbar laminectomy Radiculopathy of lumbar region Procedures MRI Lumbar Spine wwo Contrast Geovany Youssef PA [facility] [place] [address] Referral ID Status Reason Start Date Expiration Date V isits Requested Visits Authorized [id number] Closed Specialty Service Requested 06/06/2023 12/04/2024 1 1 Reason for Visit * Diagnostic Test (Routine) - Closed Specialty Diagnoses / Procedures Referred By Contac t Referred To Contact Radiology Diagnoses S/P lumbar laminectomy Radiculopathy of lumbar region Procedures MRI Lumbar Spine wwo Contrast Geovany Youssef PA [facility] [place] [address] Referral ID Status Reason Start Date Expiration Date V isits Requested Visits Authorized [id number] Closed Specialty Service Requested 06/06/2023 12/04/2024 1 1 Encounter Details Date Type Department Care Team (Latest Contact Info) Description 06/13/2023 2:08 PM EST - 06/13/2023 11:59 PM EST Hospital [place] [address] [facility] [place] [address] S/P lumbar laminectomy; Radiculopathy of lumbar region Discharge Disposition: Home Social History Tobacco Use [...] Sig Dispensed Refills Start Date End Date docusate sodium (STOOL SOFTENER ORAL) Take by mouth daily. apixaban (Eliquis) 5 mg tablet Take 1 [...] 40 mg by mouth every morning. 10/09/2004 methylPREDNISolone (MEDROL DOSPACK) 4 mg Tablets, Dose PackIndications:S/P lumbar laminectomy,Radiculopathy of lumbar region Use as directed on product package. 21 tablet 06/06/2023 06/19/2023 gabapentin (Neurontin) 100 mg capsule Take 300 mg by mouth nightly. 06/28/2023 ondansetron (Zofran) 4 mg tablet Take 1 tablet by mouth every 8 hours as needed for Nausea. 15 tablet 03/18/2023 06/19/2023 ondansetron ODT (Zofran-ODT) 4 mg disintegrating tablet Take 1 tablet by mouth every 12 hours as needed for Nausea. 5 tablet 03/12/2023 06/19/2023 documented as of this encounter Plan of Treatment Not on file documented as of this encounter Procedures Procedure Name Priority Date/Time Associated Diagnosis Comments MRI LUMBAR SPINE WITH/WO CONTRAST Routine 06/13/2023 4:06 PM EST S/P lumbar laminectomy Radiculopathy of lumbar region documented in this encounter Results * MRI Lumbar Spine [...] in context of the clinical situation (Reference- Edwink Et Al, Spine 2001). Findings: (Prevalence in [...] have questions please contact the health manager intensive care that requested your imaging first. ? [...] in context of the clinical situation (Reference- Jarvik Et Al, [id number]). Findings: (Prevalence in patients without low back [...] who have questions please contactthe health manager intensive care that requested your imaging first. Brennan Doyle MD IMG MRI ORDERABLES documented in this encounter Visit Diagnoses Diagnosis S/P lumbar laminectomy Other postprocedural status Radiculopathy of lumbar region Thoracic or lumbosacral neuritis or radiculitis, unspecified documented in this encounter Administered Medications Inactive Administered Medications - up to 3 most recent administrations Medication Order MAR Action Action Date Dose Rate Site gadoterate meglumine (Dotarem) (0.5 mMol/mL) injection solution 0-100 mL 0-100 mL, Intravenous, ONCE PRN, 1 dose, Starting on Monet 06/13/23 at 1606, Until Monet 06/13/23 at 1606, Per Protocol, Radiology Contrast, Routine Given 06/13/2023 4:06 PM EST 17 mLs documented in this encounter Care Teams Recovery Assistant Relationship Specialty Start Date End Date Hiram Shankar, PROGRAMMER OPERATOR NUMERICAL CONTROL [address] [place] [address] [address] [place] [address] PCP - General Family Medicine 02/05/23 documented as of this encounter
--- OUTSIDE RECORDS SUMMARY | 2024-06-01 14:40 | XMS_ITS | Encounter Summary ---
Author Organization [facility] [place] [address] Care Team Providers Care Personal Development Mentor Name Role Phone Hiram Shankar APRN Primary Care Provider +1- [phone] Encounter Details Date Type Department Care Team (Latest Contact Info) Description 06/13/2023 Travel Social History Tobacco Use Types Packs/Day [...] on filedocumented in this encounter Care Teams Personal Development Mentor Relationship Specialty Start Date End Date Hiram Shankar APRN [address] [place] [address] PCP - General Family Medicine 02/05/23 documented as of this encounter
--- OUTSIDE RECORDS SUMMARY | 2024-06-01 14:40 | XMS_ITS | Encounter Summary ---
Author Organization [facility] [place] [address] Care Team Providers Care Attendant [facility] Name Role Phone Hiram Shankar APRN Primary Care Provider +1- [phone] Reason for Referral * Consultation (Routine) - Closed Specialty Diagnoses / Procedures Referred By June t Referred To Contact General Surgery Diagnoses Spinal stenosis of lumbar region with neurogenic claudication Noreen Reaves APRN [address] [place] [address] [place] [address] [facility] Gen Surgery [address] [place] [address] Referral ID Status Reason Start Date Expiration Date V isits Requested Visits Authorized [id number] Closed Consult, Test & Treat 02/28/2023 02/28/2024 1 1 Encounter Details Date Type Department Care Team (Latest Contact Info) Description 02/28/2023 12:30 PM EST Clinical [place] [address] Spinal stenosis of lumbar region with neurogenic claudication (Primary Dx) Social History Tobacco Use Types Packs/Day Years Used Date Smoking Tobacco: Former Smokeless Tobacco: Never Tobacco Cessation:Counseling Given: Not [...] Sign Reading Time Taken Comments Blood Pressure 154/75 02/28/2023 12:56 PM EST Pulse 61 02/28/2023 12:56 PM EST Temperature - - Respiratory Rate - - Oxygen Saturation 97% 02/28/2023 12:56 PM EST Inhaled Oxygen Concentration - - Weight - - Height - - Body Mass Index - - documented in this encounter Progress Notes * Maria Del Carmen Brennan RN - 02/28/2023 12:30 PM EST Abbreviated Anesthesia questionnaire reviewed with patient and Annette while in [facility]. Pt has had anesthesia in the past. Pre-operative instruction booklet reviewed. Patient verbalizes a good understanding of all information reviewed. PLAN: Testing: type and screen, other labs, EKG Special medication instructions: pt has instructions from clinic to stop aspirin, Nsaids, fish oil 7 days prior to surgery and Eliquis 3 days prior to surgery. Procedure date: 03-11-23 Dr Doyle Pre Surgery Covid screening: Were you diagnosed with COVID 19 or had symptoms consistent with COVID19 within the last month. No Preoperative Geriatric Vulnerability Screen: Surgery Details: Surgeon: Brennan Doyle MD Planned Procedure: LAMINECTOMY, FACETECTOMY & FORAMINOTOMY,LUMBAR, ONE LEVEL (WRVU 15.37), EA ADD'L VERTEBRAL SEGMENT CERVICAL, THORACIC, LUMBAR (WRVU 3.47), MODIFIER L3, MODIFIER L4, MODIFIER L5 Date of Planned Procedure: 03/11/2023 Final Risk Assessment: Is the patient high risk?: Yes Screening Results: Age >= 85: No Impaired Cognition per Mini-Cog: Not assessed Impaired Cognition per AD8: No Frailty Screen: Positive Impaired Mobility: Yes Delirium Risk: Cognitive Impairment / Frailty Screen Positive in Clinic Impaired Functional Status: No impairment/totally independent Malnutrition: No Difficulty Swallowing: No Palliative Care Consult may be indicated: Not assessed Additional Notes/Comments: Patient would like to speak with surgeon again: @[email or web address]@@[email or web address]([id number])@ documented in this encounter Plan of Treatment Scheduled Referrals Name Type Priority Associated Diagnoses Orde r Schedule Amb Referral to Geriatric Surgery Program Outpatient Referral Routine Spinal stenosis of lumbar region with neurogenic claudication Ordered: 02/28/2023 documented as of this encounter Procedures Procedure Name Priority Date/Time Associated Diagnosis Comments EKG 12-LEAD Routine 02/28/2023 1:17 PM EST documented in this encounter Results * EKG 12 Lead (02/28/2023 1:17 PM EST) Ventricular rate 59 BPM MUSE SYSTEM Atrial Rate 59 BPM MUSE SYSTEM P-R Interval 216 ms MUSE SYSTEM QRS Duration 86 ms MUSE SYSTEM Q-T Interval 420 ms MUSE SYSTEM QTC Calculated (Bezet) 415 ms MUSE SYSTEM Calculated P Pingree 27 degrees MUSE SYSTEM Calculated R P[place]ree 16 degrees MUSE SYSTEM Calculated T P[place]ree 71 degrees MUSE SYSTEM INTERPRETATION Sinus bradycardia with 1st degree A-V block Otherwise normal ECG When compared with ECG of 25-MAR-2020 14:04, No significant change was found Confirmed by MD Griffith Danette ([id number]) on 02/28/2023 5:43:59 PM MUSE SYSTEM 02/28/2023 1:17 PM EST 02/28/2023 5:43 PM EST Brennan Doyle MD ECG ORDERABLES MUSE SYSTEM documented in this encounter Visit Diagnoses Diagnosis Spinal stenosis of lumbar region with neurogenic claudication- Primary Spinal stenosis, lumbar region, with neurogenic claudication documented in this encounter Care Teams Attendant [facility] Relationship Specialty Start Date End Date Hiram Shankar APRN [address] [place] [address] PCP - General Family Medicine 02/05/23 documented as of this encounter
--- OUTSIDE RECORDS SUMMARY | 2024-06-01 14:40 | XMS_ITS | Encounter Summary ---
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 Geovany Youssef PA [facility] [place] [address] [facility] [place] [address] Referral ID Status Reason Start Date Expiration Date V isits Requested Visits Authorized [id number] Closed Surgical 02/15/2023 02/15/2024 1 1 Encounter Details Date Type Department Care Team (Late st Contact Info) Description 02/28/2023 11:20 AM EST Office Visit [facility] [place] [address] Brennan Willams MD [facility] [place] [address] Spinal stenosis of lumbar region with neurogenic [...] - Inhaled Oxygen Concentration - - Weight 83.9 kg (185 lb) 02/28/2023 11:10 AM EST Height 180.3 cm (5' 11) 02/28/2023 11:10 AM EST Body Mass Index 25.8 02/28/2023 11:10 AM EST documented in this encounter Progress Notes * Brennan Willams MD - 02/28/2023 11:20 AM EST Chief complaint: Low back pain radiating to left greater than right lower extremity History of present illness: Mr. Glass is an 82-year-old male whom I am seeing in consultation Vanessa Youssef regards to his back pain that radiates to bilateral buttocks and posterolateral thighs. The symptoms came on fairly acutely about 3 months ago. He describes some baseline numbness distal to his knees. His left lower extremity feels weak to him. His pain is worse with standing andwalking and improves if he sits down. His standing is currently limited to less than 10 minutes andwalking to less than 50 or 100 feet. He denies constitutional symptoms or change in his bowel or bladder function. He did 2 months of physical therapy that tended to make things worse. He is taking gabapentin without much improvement. He gets some benefit from Tylenol and ibuprofen. He has not had prior spinal injections or prior spinal surgery. Past medical history: Atrial fibrillation for which he takes apixaban, hyperlipidemia, hypertension, diabetes, prostate cancer Past surgical history: Rotator cuff repair Medications and allergies were reviewed and are in E DH. He is on apixaban. Family history: Cancer Social history: He is retired. He does not smoke or drink. Review of systems: All negative except musculoskeletal as above. Physical exam Patient is 5 foot 11, 185 pounds, with a BMI of 25.8 General: Patient is comfortable, no acute distress Back: His back is nontender to palpation. He can flex 80 degrees and extend 5 degrees, which is painful. Neurological exam: He walks with a slow, antalgic, forward flexed gait. Motor exam reveals 4 -/5 strength of his left ankle dorsiflexor and left EHL. Other motors are 5/5. He has diminished sensationdistal to his knees in a stocking-leg distribution bilaterally. Reflexes are 1/4 at the right knee,trace at the left knee, trace at the ankles. Straight leg raise negative bilaterally. He has no clonus. Hip exam: He has normal, painless range of motion of both hips. Vascular exam: He has 1+ pulses bilaterally. Imaging: AP and lateral flexion/extension x-rays of the lumbar spine from 02/28/2023 were reviewed. He has a mild apex right lumbar curve. There are marked degenerative changes throughout the lumbar spine. There is no spondylolisthesis. MRI of the lumbar spine from 01/25/2023 was reviewed. At L2-L3, there is mild central stenosis. At L3-L4, there is severe central and lateral recess stenosis. At L4-L5, there is moderate to severe central with severe right lateral recess and foraminal stenosis. At L5-S1, there is severe bilateral foraminal stenosis and moderate right lateral recess stenosis. Assessment/plan: Mr. Glass is an 82-year-old male who presents with about 3 months back pain and neurogenic claudication in the setting of spinal stenosis from L3-L5. We discussed treatment optionsfor this that include continued medication, further physical therapy, epidural steroid injection, and surgery. At this point, this is markedly compromising his quality of life, and he wants to proceed with surgery. Surgery in his case will involve an L3-L5 laminectomy. The planned surgery was demonstrated on the spine model. Consent was obtained. Risks were documented on the consent form. The typical recovery was reviewed. He will need a history and physical from his primary care physician and p readmission testing. I told him to avoid any aspirin, anti-inflammatory medication, or fish oil within 1 week of surgery. I told him to stop his Eliquis 3 days prior to surgery. We will schedule surgery at his convenience. documented in this encounter Miscellaneous Notes * Addendum Note - Brennan Willams MD - 02/28/2023 11:20 AM ESTAddended by: BRENNAN WILLAMS on: 02/28/2023 12:18 PM Modules accepted: Orders documented in this encounter Plan of Treatment Scheduled Orders Name Type Priority Associated Diagnoses Orde r Schedule EKG 12 Lead ECG Routine Spinal stenosis of lumbar region with neurogenic claudication Expected: 02/28/2023, Expires: 06/28/2023 documented as of this encounter Results * XR Lumbar Spine 2 Or 3 Views (Generic) (04/08/2023 9:46 AM EST) Anatomical Region Laterality Modality L-spine N/A Digital Radiogra phy Impressions 04/08/2023 11:42 AM EST 1. ??Status post posterior decompression at L3-L5. 2. ??Multilevel degenerative disc disease and facet arthropathy is unchanged. Thank you for letting us participate in the care of this patient. ??If you are a health care provider and have any questions regarding this report, please contact the number below. ??For patients who have questions please contact the health critical care rn that requested your imaging first. ? Electronically signed by: Renetta Fallon MD, [facility] ([phone]), at 04/08/2023 11:42 AM Narrative 04/08/2023 11:42 AM EST EXAMINATION: XR LUMBAR SPINE 2 OR 3 VIEWS (GENERIC) CLINICAL HISTORY: ??s/p surgery ?? (as entered by ordering provider in the order requisition) TECHNIQUE: AP and lateral views of the lumbar spine. COMPARISON: Lumbar spine radiographs 03/11/2023 and 02/28/2023. FINDINGS: The last rib-bearing vertebral body corresponds to T12. There are 5 nonrib-bearing lumbar-type vertebral bodies. There are postoperative changes status post posterior decompression at L3-L5. There is focal rightward curvature of the upper lumbar spine. 5 mm retrolisthesis of L1 and L2. 7 mm retrolisthesis of L2 on L3.. There is disc space narrowing at all levels of the lumbar spine with relative sparing at L1-2. There is facet hypertrophy at all levels between L3 and S1. There is no focal vertebral body height loss. There is atherosclerotic calcification of the abdominal aorta. Procedure Note Renetta Fallon MD - 04/08/2023 EXAMINATION: XR LUMBAR SPINE 2 OR 3 VIEWS (GENERIC) CLINICAL HISTORY: s/p surgery (as entered by ordering provider inthe order requisition) TECHNIQUE: AP and lateral views of the lumbar spine. COMPARISON: Lumbar spine radiographs 03/11/2023 and 02/28/2023. FINDINGS: The last rib-bearing vertebral body corresponds to T12. There are 5 nonrib-bearing lumbar-type vertebral bodies. There are postoperative changes status post posterior decompression atL3-L5. There is focal rightward curvature of the upper lumbar spine. 5 mm retrolisthesis of L1 and L2. 7 mm retrolisthesis of L2 on L3.. There is disc space narrowing at all levels of the lumbar spine withrelative sparing at L1-2. There is facet hypertrophy at all levels between L3 and S1. There is no focal vertebral body height loss. There is atherosclerotic calcification of the abdominal aorta. IMPRESSION 1. Status post posterior decompression at L3-L5. 2. Multilevel degenerative disc disease and facet arthropathy isunchanged. Thank you for letting us participate in the care of this patient. If youare a health care provider and have any questions regarding this report,please contact the number below. For patients who have questions please contactthe health critical care rn that requested your imaging first. Electronically signed by: Renetta Fallon MD, [facility]([phone]), at 04/08/2023 11:42 AM Brennan Willams MD IMG DX ORDERABLES * (ABNORMAL) Prothrombin Time (02/28/2023 1:30 PM EST) Prothrombin Time 12.7(H) 9.4 - 12.5 sec [facility] International Normalization Ratio 1.1 [facility] Comment: An INR <2.0 indicates adequate [...] Comment Spec In Lab Brennan Willams MD HEMATOLOGY ORDERABLE S [facility] [place] [address] * (ABNORMAL) Basic Metabolic Panel (non-fasting) (02/28/2023 1:30 PM EST) Glucose 118 65 - 199 mg/dL [facility] Comment:Diabetes: >=200 mg/d L plus symptoms Blood Urea Nitrogen 17 10 - 20 mg/dL [facility] Creatinine 0.76(L) 0.80 - 1.50 mg/dL [facility] Sodium 140 135 - 145 mmol/L [facility] Potassium 3.9 3.5 - 5.0 mmol/L [facility] Comment: Please note: ??Patients with WBC >100,000 may have falsely elevated Potassium levels. ??For accurate Potassium quantification in these patients send serum separator tube (gold top) for subsequent determinations. ??Contact the Clinical Chemistry Laboratory if there are any questions. Chloride 99 98 - 107 mmol/L [facility] Carbon Dioxide 27 22 - 31 mmol/L [facility] Anion Gap 14 5 - 15 mmol/L [facility] Calcium 10.0 8.5 - 10.5 mg/dL [facility] Est Glomerular Filtration Rate 90 >=60 mL/min/1. 73 m?? [facility] Comment: This patient's estimated GFR was [...] MD CHEMISTRY ORDERABLES [facility] [place] [address] documented in this encounter Visit Diagnoses Diagnosis Spinal stenosis of lumbar region with neurogenic claudication Spinal stenosis, lumbar region, with neurogenic claudication Pain in extremity, unspecified extremity Spinal stenosis of lumbar region with neurogenic claudication Spinal stenosis, lumbar region, with neurogenic claudication documented in this encounter Care Teams Plating Foreman Relationship Specialty Start Date End Date Hiram Shankar APRN [address] [place] [address] PCP - General Family Medicine 02/05/23 documented as of this encounter
--- OUTSIDE RECORDS SUMMARY | 2024-06-01 14:40 | XMS_ITS | Encounter Summary ---
[place] [address] Care Team Providers Care Tab Cutting Machine Operator Name Role Phone Hiram Shankar APRN Primary Care Provider [phone] Reason for Visit * Auth/Cert (Routine) Specialty Diagnoses / Procedures Referred By Contac t Referred To Contact Diagnoses Spinal stenosis Procedures PRO LAMINEC/FACETECT/FORAMIN, LUMBAR 1 SEG PRO SPIVEY FACETECTOMY&FORAMOT 1 VRT SGM EA ADDL SGM LAMINECTOMY, FACETECTOMY & FORAMINOTOMY,LUMBAR, ONE LEVEL (WRVU 15.37) EA ADD'L VERTEBRAL SEGMENT CERVICAL, THORACIC, LUMBAR (WRVU 3.47) MODIFIER L3 MODIFIER L4 MODIFIER L5 Brennan Doyle MD [facility] [place] [address] [facility] Referral ID Status Reason Start Date Expiration Date Visits Re quested Visits Authorized [id number] 1 1 Encounter Details Date Type Department Care Team (Late st Contact Info) Description 03/11/2023 7:36 AM EST Anesthesia Event [place] [address] Hollis Ruff MD [facility] [place] [address] Noreen Reaves [place] [address] Anesthesia Record Procedure Summary Procedure Name Responsible Anesthesiologist Anesthesia Start Time Anesthesia Stop Time LAMINECTOMY, FACETECTOMY & FORAMINOTOMY,LUMBAR, ONE LEVEL [facility] (Midline: Spine Lumbar) Hollis Ruff MD 03/11/23 0736 03/11/23 1104 Events Date Time Event Comment 03/11/2023 0716 0736 AN Verify 0736 Start 0736 An Start Data 0745 An Induction 0748 An Intubation 0802 Anesthesia Ready 0816 Procedure Start 1056 Extubation/LMA Out 1056 an stop data 1101 Recovery or ICU Handoff Vicky ent care was transferred to the destination unit staff after review of the patient's medical history, current anesthetic/surgical status and plan, according to the Provider Handoff Checklist. 1104 Stop Meds Name Total fentaNYL 100 mcg IV Lidocaine 50 mg Propofol 220 mg Rocuronium 110 mg ePHEDrine 15 mg Ondansetron 8 mg PHENYLephrine INF 6,190 mcg ceFAZolin (Ancef) 2 g vial a ttach to sodium chloride 0.9% 100 mL Mini-Bag Plus 2 g tranexamic acid 800 mg HYDROmorphone 0.4 mg ketorolac 30 mg sugammadex 200 mg lactated ringers infusion 0 mL * Agents Name O2 Sevoflurane (et) * Blood No blood administrations on file. Lines, Drains, and Airways Type Details Placement Removal Incision 03/11/23; 0815; post erior, midline, lower; lumbar spine; vertical 03/11/23 0815 by Jose Luis Lacey RN PIV 03/11/23; 0648; [id number] catheter system; 20 gauge; brachial vein, left; distraction; 03/12/23; 1218 03/11/23 0648 by Elisa Linn RN 03/12/23 1218 by Brennan Reynolds RN ETT Mask Ventilation: Ad junct (2); ETT Type: Cuffed; ETT Size: 7.5 mm; Mac Blade: 3; Notes: Asleep, Pre-O2, Cricoid Pressure, Stylette; Attempts: 1; Laryngoscopy Grade: 3; ETT Placement Verified By: Capnometry, Visual; Secured at Teeth: 23 cm; Inserted by: Demarcus; Removal Date: 03/11/23; Removal Time: 1056 03/11/23 0753 by Anoop Tracy MD 03/11/23 1056 by Anoop Tracy MD Urethral Catheter 03/11/23; 0754; Surg nora longer than 2 hours, Need for intraoperative urine output monitoring; indwelling double lumen catheter; latex; 14; inserted at this facility; 1; 10; 10; none; drainage bag; 03/12/23; 0438 03/11/23 0754 by Jose Luis Lacey RN 03/12/23 0438 by Yazmin Cantu RN documented in this encounter Social History Tobacco Use Types Packs/Day Years [...] on file documented as of this encounter OR Notes * Anesthesia Postprocedure Evaluation - Anoop Tracy MD - 03/11/2023 11:04 AM EST Department of Anesthesiology Post-procedure Note Patient: Elie Camacho Procedure Summary Date: 03/11/23 Room / Location: [facility] OR [address] [place] [address] MAIN OR Anesthesia Start: 735 Anesthesia Stop: 1103 Procedures: LAMINECTOMY, FACETECTOMY & FORAMINOTOMY,LUMBAR, ONE LEVEL (WRVU 15.37) (Midline: Spine Lumbar) EA ADD'L VERTEBRAL SEGMENT CERVICAL, THORACIC, LUMBAR (WRVU 3.47) (Spine Thoracic) MODIFIER L3 (Spine Lumbar) MODIFIER L4 (Spine Lumbar) MODIFIER L5 (Spine Lumbar) Diagnosis: Spinal stenosis of lumbar region with neurogenic claudication (Spinal stenosis) Surgeons: Brennan Doyle MD Responsible Provider: Hollis Ruff MD Anesthesia Type: general ASA Status: 3 All Anesthesia Providers: Anesthesiologist: Hollis Ruff MD Retail Event Assistant: Anoop Tracy MD Vitals Value Taken Time BP 158/76 03/11/23 1100 Temp Pulse 73 03/11/23 1104 Resp 20 03/11/23 1104 SpO2 99 % 03/11/23 1104 Pain Level Vitals shown include unfiled device data. Patient Location: PACU/[facility] Level of Consciousness: Awake and Alert Pain Management: Satisfactory Analgesia PONV: None Cardiovascular Status: At Baseline Respiratory Status: At Baseline Postoperative Fluid Status: Intravascular EUvolemia Possible Anesthetic Complications: NONE apparent at time of evaluation Final Primary Anesthesia Type: General (The anesthetic type performed was the same as planned.) Comments: Alert, following commands. Moving all extremities. Oxygenating adequately on simple face mask. BP at baseline. Sinus rhythm, regular rate. Appears comfortable. * Anesthesia Preprocedure Evaluation - Hollis Ruff MD - 03/05/2023 3:05 PM EST Pre-Anesthesia Evaluation for: Elie Camacho a 82 y.o. male. Procedure(s): LAMINECTOMY, FACETECTOMY & FORAMINOTOMY,LUMBAR, ONE LEVEL (WRVU 15.37) EA ADD'L VERTEBRAL SEGMENT CERVICAL, THORACIC, LUMBAR (WRVU 3.47) MODIFIER L3 MODIFIER L4 MODIFIER L5 Patient Active Problem List Diagnosis Date Noted ??? Spinal stenosis of lumbar region with neurogenic claudication 02/28/2023 ??? Actinic keratosis 03/23/2020 ??? Atrial fibrillation 03/23/2020 ??? Chest pain 03/23/2020 ??? Do not resuscitate status 03/23/2020 ??? First degree atrioventricular block 03/23/2020 ??? Gastroesophageal reflux disease with esophagitis 03/23/2020 ??? History of cataract removal with insertion of prosthetic lens 03/23/2020 ??? Hypocalcemia 03/23/2020 ??? Hypomagnesemia 03/23/2020 ??? Nonsustained ventricular tachycardia 03/23/2020 ??? Pain in joint 03/23/2020 ??? Palpitations 03/23/2020 ??? Encounter for deep vein thrombosis (DVT) prophylaxis 03/23/2020 ??? Physician Orders for Life-Sustaining Treatment 03/23/2020 ??? Problem related to discharge planning 03/23/2020 ??? Shoulder pain 03/23/2020 ??? Syncope 03/23/2020 ??? Tinnitus 03/23/2020 ??? Microscopic hematuria 04/08/2017 ??? Trochanteric bursitis of right hip 11/18/2015 ??? Peripheral neuropathy 11/24/2014 ??? Essential hypertension 02/25/2013 ??? Diabetes mellitus 09/24/2012 ??? Hypercholesterolemia 09/24/2012 ??? Benign prostatic hyperplasia 05/28/2012 Past Medical History: Diagnosis Date ??? Cancer prostate No past surgical history on file. Social History Tobacco Use ??? Smoking status: Former ??? Smokeless tobacco: Never Substance Use Topics ??? Alcohol use: Yes Alcohol/week: 7.0 standard drinks of alcohol Types: 7 Shots of liquor per week Social History Substance and Sexual Activity Drug Use Yes ??? Types: Marijuana Comment: 1 bowl nightly for sleep No Known Allergies Medications: MAR and/or home medications have been reviewed. Physical Exam: Preprocedure Vitals Current as of 03/05/23 1505 No BP, pulse, respiration, SpO2, or temperature recorded. Height: 180.3 cm (5' 11) (02/28/23) Weight: 83.9 kg (185 lb) (02/28/23) BMI: 25.8 IBW: 75.3 kg (165 lb 14.8 oz) Airway Assessment: Mallampati: II Neck ROM: full Cardiovascular Assessment: Rhythm: regular system normal Pulmonary Assessment: breath sounds clear to auscultation pulmonary exam normal Dental Assessment: - normal exam Misc Assessment: Last Filed Perioperative Cognitive Screening Value Time User AD8 Total Score: 0 02/28/2023 1:00 PM Maria Del Carmen Brennan RN AD8 Informant: Other Informant 02/28/2023 1:00 PM Maria Del Carmen Brennan RN CFS Frailty Score: 4 02/28/2023 1:00 PM Maria Del Carmen Brennan RN Anesthesia Plan: ASA 3 general, with a(n) intravenous induction 82 y.o. male with history of neurogenic claudication in the setting of spinal stenosis at L3-5 scheduled for L3-5 laminectomy. Medical history: Afib (diltiazem, eliquis), NIDDM, HTN (amlodipine-benazepril), 1st degree block, GERD Anesthetic History: no documented records, however pt states no prior problems w/ anesthesia TTE 2019 with LVEF 56%, normal RV function, RVSP 23, no significant valvulopathy Functional Capacity: can walk up stairs with difficulty, limited by back and leg pain Last 3 wbc, hgb, hct plt 02/28/23 1330 WBC 5.6 HGB 15.7 HCT 45.7 PLATELET 212 Last 3 Lytes 02/28/23 1330 NA 140 K 3.9 CL 99 CO2 27 BUN 17 CREATININE 0.76* Plan: GETA Standard ASA monitors Adequate IV access I have discussed the case with the resident, reviewed the pertinent details in the chart, interviewed and examined the patient. I agree with the documented history, exam findings and management plan. Hollis Ruff MD Informed Consent: Anesthetic plan and risks discussed with patient. Plan discussed with resident. Anesthesia Screening Note: Date and Time of Entry: 03/05/2023 3:05 PM Entered By: Zahida Dillard MD Reason for Evaluation: Decision Support/Risk Assessment Hx of Anesthesia Problem: Possible do not intubate status Screening Visit Type: Telephone Call Additional/Outside Records Requested? Did not request medical information from outside organization. Findings, Assessment and Plan: Elie Camacho is a 82 y.o. patient scheduled for single level lumbar laminectomy, referred to [facility] for evaluation of comorbidities and concern for do not intubate status. Patient's problem list was notable for Do not attempt intubation. It was unclear if this was due to a difficult airway or a patient desire to avoid intubation. On discussion with patient, he did not understand what intubation meant. He does have an advanced directive and relays that his intentionwith this is to avoid aggressive life sustaining treatment in the setting of no chance for a meaningful survival after critical illness. He is completely fine with being intubated for surgery. He denies any known history of difficult intubation. He states his mouth opening and normal and he does not have any masses or limited neck mobility. PMH otherwise notable for: Atrial fibrillation, HTN - metoprolol, amlodipine-benazepril, diltiazem, apixaban Daily cannabis use No longer regularly using EtOH Relevant PSH: Shoulder surgery Anesthetic/Airway Hx: No reported prior problems with anesthesia Cardiopulmonary Test Results: TTE 2019 with LVEF 56%, normal RV function, RVSP 23, no significant valvulopathy Functional Capacity: can walk up stairs with difficulty, limited by back and leg pain Allergies reviewed Labs reviewed ASSESSMENT: 82 y/o patient scheduled for lumbar laminectomy. Comorbidities do not seem prohibitive towards proceeding with surgery or in need of further workup. Patient is amenable to intubation for surgery. Perioperative code status to be discussed on day of surgery. Low concern for difficult airway. Follow-Up Items: None Zahida Dillard MD 03/05/2023 Perioperative Care Clinic phone extension: [phone] documented in this encounter Plan of Treatment Not on file documented as of this encounter Visit Diagnoses Not on filedocumented in this encounter Administered Medications Inactive Administered Medications - up to 3 most recent administrations Medication Order MAR Action Action Date Dose Rate Site ceFAZolin (Ancef) 2 g vial attach to sodium chloride 0.9% 100 mL Mini-Bag Plus 2 g, Intravenous, EVERY 4 HOURS, 1 dose, First dose on Sat03/11/23 at 0645, Administer over 30 Minutes, Redose after 4 hours., Day of Surgery (Day of Procedure), Indication for (Active or Suspected): Prophylaxis New Bag 03/11/2023 8:08 AM EST 2 g ePHEDrine sulfate (5 mg/mL) multi-dose injection Intravenous, PRN, Starting on Sat03/11/23 at 0835, Until Sat03/11/23 at 1104, Anesthesia Intra-op, Routine Given 03/11/2023 8:40 AM EST 10 mg Given 03/11/2023 8:35 AM EST 5 mg fentaNYL (pf) (50 mcg/mL) multi-dose injection Intravenous, PRN, Starting on Sat03/11/23 at 0827, Until Sat03/11/23 at 1104, Anesthesia Intra-op, Routine Given 03/11/2023 8:29 AM EST 50 mcg Given 03/11/2023 8:27 AM EST 50 mcg HYDROmorphone (Dilaudid) (2 mg/mL) multi-dose injection solution Intravenous, PRN, Starting on Sat03/11/23 at 0947, Until Sat03/11/23 at 1104, Anesthesia Intra-op, Routine Given 03/11/2023 10:22 AM EST 0.2 mg Given 03/11/2023 9:47 AM EST 0.2 mg ketorolac (Toradol) (30 mg/mL) injection Intravenous, PRN, Starting on Sat03/11/23 at 1021, Until Sat03/11/23 at 1104, Anesthesia Intra-op, Routine Given 03/11/2023 10:21 AM EST 30 mg lactated ringers infusion 1,000 mL, at 100 mL/hr, Intravenous, CONTINUOUS, Starting on Sat03/11/23 at 0645, Until Sat03/11/23 at 1120, Day of Surgery (Day of Procedure) New Bag 03/11/2023 7:35 AM EST lidocaine (pf) (Xylocaine) (20 mg/mL) 2% injection syringe Intravenous, PRN, Starting on Sat03/11/23 at 0745, Until Sat03/11/23 at 1104, Anesthesia Intra-op, Routine Given 03/11/2023 7:45 AM EST 50 mg ondansetron (pf) (Zofran) (2 mg/mL) injection Intravenous, PRN, Starting on Sat03/11/23 at 1021, Until Sat03/11/23 at 1055, Anesthesia Intra-op, Routine Given 03/11/2023 10:21 AM EST 8 mg PHENYLephrine (Saúl-Synephrine) (80 mcg/mL) in sodium chloride 0.9% 250 mL infusion Intravenous, CONTINUOUS PRN, Starting on Sat03/11/23 at 0823, Until Sat03/11/23 at 1104, Anesthesia Intra-op, Routine Rate/Dose Change 03/11/2023 10:21 AM EST 40 mcg/min 30 mL/hr Rate/Dose Change 03/11/2023 9:54 AM EST 50 mcg/min 37.5 mL /hr Rate/Dose Change 03/11/2023 8:41 AM EST 40 mcg/min 30 mL/h r propofoL (Diprivan) 10 mg/mL bolus injection (Anesthesia) Intravenous, PRN, Starting on Sat03/11/23 at 0829, Until Sat03/11/23 at 1104, Anesthesia Intra-op Given 03/11/2023 8:29 AM EST 20 mg Given 03/11/2023 7:46 AM EST 50 mg Given 03/11/2023 7:45 AM EST 150 mg rocuronium (Zemuron) (10 mg/mL) multi-dose injection Intravenous, PRN, Starting on Sat03/11/23 at 0828, Until Sat03/11/23 at 1104, Anesthesia Intra-op, Routine Given 03/11/2023 10:07 AM EST 10 mg Given 03/11/2023 8:28 AM EST 50 mg Given 03/11/2023 7:46 AM EST 50 mg sugammadex (Bridion) 100 mg/mL injection Intravenous, PRN, Starting on Sat03/11/23 at 1023, Until Sat03/11/23 at 1104, Anesthesia Intra-op, Routine Given 03/11/2023 10:23 AM EST 200 mg tranexamic acid (Cyklokapron) (100 mg/mL) IV bolus Intravenous, Administer over 8 Hours, PRN, Starting on Sat03/11/23 at 0819, Until Sat03/11/23 at 1104, Anesthesia Intra-op, Routine Given 03/11/2023 8:19 AM EST 800 mg documented in this encounter Care Teams Tab Cutting Machine Operator Relationship Specialty Start Date End Date Hiram Shankar, SHUBHAM [address] [place] [address] PCP - General Family Medicine 02/05/23 documented as of this encounter
--- OUTSIDE RECORDS SUMMARY | 2024-06-01 14:40 | XMS_ITS | Encounter Summary ---
[place] [address] Care Team Providers Care Loom Fixer Supervisor Name Role Phone Hiram Shankar APRN Primary Care Provider [phone]- [phone] Encounter Details Date Type Department Care Team (Late st Contact Info) Description 03/06/2023 Notes [place] [address] Yesica Samson RN Social History [...] as of this encounter Progress Notes * Yesica Samson RN - 03/06/2023 2:01 PM EST High Risk Interdisciplinary Geriatric Surgery Conference Report Patient: Elie Camacho Date of Conference: Surgery Foundry Melt Supervisor: Anesthesia Foundry [employer]elt Supervisor: Nursing Foundry Melt Supervisor: Case Management/Social Work Rep: Geriatric Medicine Foundry Melt Supervisor: Psychiatry Foundry Melt Supervisor: 03/06/2023 Jovana Lewis/ Hollis Hugo 02/28/2023 12:30 PM Procedure Details as of: Planned Procedure LAMINECTOMY, FACETECTOMY & FORAMINOTOMY,LUMBAR, ONE LEVEL (WRVU 15.37), EA ADD'L VERTEBRAL SEGMENT CERVICAL, THORACIC, LUMBAR (WRVU 3.47), MODIFIER L3, MODIFIER L4, MODIFIER L5 Procedure Date 03/11/2023 Surgeon JANNETTE WILLAMS Brief History of Present Illness: Elie Camacho is a 82 y.o. male. Patient's recent notable history includes: spinal stenosis of lumbar region with neurogenic claudication; Afib; 1st degree atrioventricular block; non-sustained ventricular tachycardia (2019); HTN; HLD; DM2; peripheral neuropathy; BPH; hypocalcemia; hypomagnesemia; microscopic hematuria; DVT; restless legs syndrome; syncope; tinnitus; insomnia; BMI 25. Overall Health & Treatment Goals: N/a Postoperative Care Planning: Patient lives in [place], [place] with Annette. [facility] has [facility] outpatient PT at [facility] in the past. Preoperative Geriatric Vulnerability Screening Results: Age > 85: No 02/28/2023 12:30 PM Risk Screening Date: Impaired Cognition per Mini-Cog (Elective Screen): Not Assessed Impaired Cognition per AD8 (Elective Screen): No Frailty (Elective Screen): Positive Delirium Risk (Elective Screen): At risk Impaired Mobility (Elective Screen): Yes Impaired Functional Status (Elective Screen): No impairment/totally independent Malnutrition: Negative Difficulty Swallowing: Negative Palliative Care Consult Indicated: Not assessed Overall High Risk Assessment: Positive Advanced Directives: On file in eDH?: N DPOA Activated (If yes, provide contact information): NO Preoperative Code Status: Not Documented Notes / Comments for Patient Admission: Overall Interdisciplinary Assessment: Proceed with surgery without any further workup / intervention Anesthesia Recommendation: Use high risk geriatric anesthesia pathway Impaired Cognition: N/A Delirium Risk: Implement postoperative delirium prevention pathway Impaired Functional Status: PT/OT consultation with visit POD1 Impaired Mobility: PT/OT consultation with visit POD1 Malnutrition: N/A Difficulty Swallowing: N/A Palliative Care: N/A Other: Communication Plan: Note signed and available in eDH, Note routed to surgeon and Note routed to PCP Please consider use of the Postoperative Geriatric Surgery [place] Order set for standard recommendations regarding delirium prevention and pain management. Specific recommendations include: - Patient is at increased risk for delirium due to current use of deliriogenic medications. Recommend discussing with family on the day of surgery to reinforce delirium prevention measures and signs/symptoms of delirium. - Patient has recently started taking gabapentin and is current titrating up to 1200mg daily. Advise patient stay at lower dose until surgery on 11/20 in order to decrease delirium risk. - Patient may experience side effects of dizziness from gabapentin and should be considered a high risk for falls while inpatient. - Patient currently has 13 steps to enter his home, and should be evaluated by PT/OT for stairs prior to discharge. - Advise early and frequent mobilization due to hx of DVTs. - Patient currently uses marijuana nightly for insomnia; if stay is extended beyond planned overnight, please consider a low threshold for placing a BIT team consult (pager [phone]), for inpatient support and symptom management. - Patient should have a f/u with his PCP within ten days of discharge. Thank you for allowing us to participate in the care of Mr. Camacho. Please consider a consult to Gerontology service (pager [phone]), if indicated, and do not hesitate to contact the [facility] program with further questions or concerns. documented in this encounter Plan of Treatment Not on file documented as of this encounter Visit Diagnoses Not on filedocumented in this encounter Care Teams Loom Fixer Supervisor Relationship Specialty Start Date End Date Hiram Shankar, SHUBHAM [address] [place] [address] PCP - General Family Medicine 02/05/23 documented as of this encounter
--- OUTSIDE RECORDS SUMMARY | 2024-06-01 14:40 | XMS_ITS | Encounter Summary ---
[place] [address] Care Team Providers Care Assisted Living Home Director Name Role Phone Hiram Shankar APRN Primary Care Provider +1- [phone] Encounter Details Date Type Department Care Team (Late st Contact Info) Description 02/28/2023 Telephone [facility] [place] [address] Dina Stacy LPN Social History [...] Telephone Encounter - Dina Stacy LPN - 02/28/2023 2:04 PM EST Images from the original note were not included. Met with today following the surgical evaluation for purpose of providing pre and post operative instructions and to plan for any pre/post- operative discharge needs. Pre-op Medication Holds: Advised pt of need to hold anticoagulants, NSAIDs, ASA products, and Fish Oil for ~10 days preoperatively. Reviewed medication list. Pt agreed to hold Meloxicam and Ibuprofen as instructed. is noted to be taking Eliquis as prescribed by (unknown). Pt advised to continue to takeanticoagulant as ordered until he is cleared to hold the anticoagulant by his prescribning provider. Informed that we would call him re the medication hold after receiving authorization from his prescribing provider. Sent PCP note requesting authorization to hold Eliquis for 3 days pre operatively. Opioid Risks and Pain Management: Reviewed salient points within Acute Opioid Therapy Informed Consent. denies any questions or concerns. Offered pt a copy of consent for home reference. Signed Consent Form passed to the [place] recruiting scheduler for scanning. Reviewed with that he is likely to experience some postoperative incisional and extremity pain, to include expectations re potential new or increased N/T. Explained that the timing and intensity of this pain is variable. Reviewed in detail non-opioid pain mgmt strategies that should be put in place postoperatively to minimize opioid use. Strategies discussed included: rest and relaxation, activity modification, regular repositioning, regular Acetaminophen & ibuprofen use, hourly ice application for local analgesia/inflammation. Explained that the non-opioid pain mgmt strategies are intended to be the first line of treatment to assist with his postop pain. Instructed to Initiate the regular use ofice and OTC medication immediately upon return home, even if this was not documented in his discharge instructions. Reinforced with pt that he should continue the non-opioid pain mgmt treatments for as long as he is requiring any opioids; that the opioid is the first treatment that should be discontinued. Advised that any opioid pain medication that is prescribed is to be used to supplement the non-opioid methods. Advised pt that he is to take the least amt of opioid possible, and the expectation is that he will reduce use as the postoperative pain subsides. Advised pt that he should never exceed the prescribed amt without obtaining authorization from the prescribing provider. See PDMP query below. Reviewed current and historical opioid use. is not noted to be on opioids currently. Acute post-operative pain mgmt is expected to be managed by: Spine team Provided instructions and general expectations re prescription refill practices/timing. Acute Opioid Prescribin02/28/2023 Opioid [place]MP [place] PD[place] Query Date 02/28/2023 Comment No concerns, 2 tabs Ambien No data to display 02/28/2023 Acute Opioid Specific Questions Date Acute Consent signed 02/28/2023 Considered the risk of opioid misuse, abuse, diversion? Yes Activity: Reviewed with our expectations re activity postoperatively, to include use of good body mechanics, to relax when moving rather than tensing/guarding, and our expectations re progressive walking upon return home. Advised that he would not be able to drive while taking opioid pain medication. Home Support/Services Expected: Discussed home environment and support available following discharge. Patient has the support of at discharge. It's anticipated that pt will go home Employment Status/Disability/FMLA: Employment status: retired Job/Job demands: active Expected first day of disability: day of surgery Length of time pt is expecting to be OOW: 8 A copy of Spine Center Pre/Post-Operative Reference sheet provided to pt; reviewed the content. Encouraged to review these instructions prior to coming into the hospital and then again upon return home so that the instructions will be recalled easily. verbalized understanding of the information reviewed.. was given the contact information for the Spine Center Nursing staff; he was encouraged to call pre or postoperatively with any questions or concerns. documented in this encounter Plan of Treatment Not on file documented as of this encounter Visit Diagnoses Not on filedocumented in this encounter Care Teams Assisted Living Home Director Relationship Specialty Start Date End Date Hiram Shankar, SHUBHAM [address] [place] [address] PCP - General Family Medicine 02/05/23 documented as of this encounter
--- OUTSIDE RECORDS SUMMARY | 2024-06-01 14:40 | XMS_ITS | Encounter Summary ---
Author Organization Pending Sale To [facility] [place] [address] Care Team Providers Care Drug Safety Coordinator Name Role Phone Hiram Shankar APRN Primary Care Provider +1- [phone] Encounter Details Date Type Department Care Team (Latest Contact Info) Description 04/08/2023 9:34 AM EST - 04/08/2023 11:59 PM [facility] Encounter XRay at [address] [place] [address] Brennan Doyle MD [facility] [place] [address] Spinal stenosis of lumbar region with neurogenic [...] 40 mg by mouth every morning. 10/09/2004 ondansetron (Zofran) 4 mg tablet Take 1 tablet by mouth every 8 hours as needed for Nausea. 15 tablet 03/18/2023 06/19/2023 polyethylene glycoL (Miralax) 17 gram/dose Powder Take [...] Date/Time Associated Diagnosis Comments XR LUMBAR SPINE 2 OR 3 VIEWS Routine 04/08/2023 9:46 AM EST Spinal stenosis of lumbar region [...] who have questions please contact the health direct care supervisor that requested your imaging first. ? Electronically signed by: Renetta Fallon MD, [facility] ([phone]), at 04/08/2023 11:42 AM Narrative 04/08/2023 11:42 [...] patients who have questions please contactthe health direct care supervisor that requested your imaging first. Electronically signed by: Renetta Fallon MD, [facility]([phone]), at 04/08/2023 11:42 AM Brennan Doyle MD IMG DX ORDERABLES documented in this encounter Visit Diagnoses Diagnosis Spinal stenosis of lumbar region with neurogenic claudication Spinal stenosis, lumbar region, with neurogenic claudication documented in this encounter Care Teams Drug Safety Coordinator Relationship Specialty Start Date End Date Hiram Shankar APRN [address] [place] [address] PCP - General Family Medicine 02/05/23 documented as of this encounter
--- OUTSIDE RECORDS SUMMARY | 2024-06-01 14:40 | XMS_ITS | Encounter Summary ---
Author Organization [place] [address] Care Team Providers Care Appliance Fixer Name Role Phone Hiram Shankar APRN Primary Care Provider +1- [phone] Encounter Details Date Type Department Care Team (Latest Contact Info) Description 04/08/2023 Travel Social History Tobacco Use Types Packs/Day [...] on filedocumented in this encounter Care Teams Appliance Fixer Relationship Specialty Start Date End Date Hiram Shankar APRN [address] [place] [address] PCP - General Family Medicine 02/05/23 documented as of this encounter
--- OUTSIDE RECORDS SUMMARY | 2024-06-01 14:40 | XMS_ITS | Encounter Summary ---
Author Organization [facility] [place] [address] Care Team Providers Care Director Of Patient Care Name Role Phone Hiram Shankar APRN Primary Care Provider +1- [phone] Reason for Visit * Consultation (Routine) - Closed Specialty Diagnoses / Procedures Referred By Contac t Referred To Contact Pre-Admission Testing Diagnoses Do not attempt intubation Brennan Doyle MD [facility] [place] [address] [facility] Pre Admit [place] [address] [place] [address] Referral ID Status Reason Start Date Expiration Date V isits Requested Visits Authorized [id number] Closed Consult Only 02/28/2023 02/28/2024 1 1 Encounter Details Date Type Department Care Team (Late st Contact Info) Description 03/05/2023 3:00 PM EST TH Visit (TeleHealth) [place] [address] Social History Tobacco Use Types Packs/Day Years [...] on filedocumented in this encounter Care Teams Director Of Patient Care Relationship Specialty Start Date End Date Hiram Shankar APRN [address] [place] [address] PCP - General Family Medicine 02/05/23 documented as of this encounter
--- OUTSIDE RECORDS SUMMARY | 2024-06-01 14:40 | XMS_ITS | Encounter Summary ---
[place] [address] Care Team Providers Care Fruit Tester Name Role Phone Hiram Shankar APRN Primary Care Provider +1- [phone] Encounter Details Date Type Department Care Team (Late st Contact Info) Description 03/06/2023 Telephone [facility] [place] [address] Nader Espino RN Social History [...] Telephone Encounter - Dina Stacy LPN - 03/07/2023 9:25 AM EST Placed call to Elie to advise we have authorization from Benito Dorantes MD to hold Eliquis for3 days pre op, He understands today is his last day until surgery to take his Eliquis and he will hold it for Saturday, Saturday and Saturday, surgery is on Saturday03-11-23 * Telephone Encounter - Nader Espino RN - 03/06/2023 4:31 PM EST Received call from nurse Yuki in PCP, Dr. Dorantes's office. She is calling with Dr. Dorantes'sauthorization for patient to hold his Eliquis for 3 days prior to 03/11/2023 surgery. documented in this encounter Plan of Treatment Not on file documented as of this encounter Visit Diagnoses Not on filedocumented in this encounter Care Teams Fruit Tester Relationship Specialty Start Date End Date Hiram Shankar APRN [address] [place] [address] PCP - General Family Medicine 02/05/23 documented as of this encounter
--- OUTSIDE RECORDS SUMMARY | 2024-06-01 14:40 | XMS_ITS | Encounter Summary ---
Author Organization [facility] Address [facility] [place] [address] Care Team Providers Care Consumer Affairs Specialist Name Role Phone Hiram Shankar APRN Primary Care Provider +1- [phone] Reason for Visit * Reason Comments Follow-up F/U to MRI and surge ry Encounter Details Date Type Department Care Team (Late st Contact Info) Description 06/19/2023 10:30 AM EST Office Visit [place] [address] Geovany Youssef PA [facility] [place] [address] S/P lumbar laminectomy; Spinal stenosis of lumbar region with neurogenic claudication; Radiculopathy of lumbar region Social History Tobacco Use Types Packs/Day Years Used Date Smoking Tobacco: Former Cigarettes Q uit: 1975 Smokeless Tobacco: Never Alcohol Use Standard Drinks/Week Comments Yes 7 (1 standard drink = 0.6 oz pur e alcohol) [facility] Inpatient Questions Answer Date Recorded [...] - Inhaled Oxygen Concentration - - Weight 82.4 kg (181 lb 9.6 oz) 06/19/2023 10:27 AM EST Height 180.3 cm (5' 11) 06/19/2023 10:27 AM EST Body Mass Index 25.33 06/19/2023 10:27 AM EST documented in this encounter Progress Notes * Geovany Youssef PA - 06/19/2023 10:30 AM EST Images from the original note were not included. [facility] Geovany Youssef PA-C Dear Colleagues, I had the pleasure of seeing this patient at the [facility] for evaluation. Surgery overview: Date of Surgery: 03/11/23 Surgery: L3-5 laminectomy Surgeon: Dr. Doyle HPI: Elie is an 82 year old male who returns to clinic in follow up to review MRI results which were obtained for worsening back and leg symptoms after undergoing the above procedure with Dr. Doyle. Our last visit occurred on 06/06/23 at which point we decided to pursue MRI wwo and an oral steroid taper. He returns today to review MRI results which was obtained 06/13/23. He reports significant progressively worsening of right leg pain and weakness. This has resulted inmultiple falls. He requires a cane to ambulate. He is unable to use stairs due to his weakness. 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 He has not noticed improvement with gabapentin or oral steroids. No bowel/bladder changes. No red flag symptoms. Medications and allergies: reviewed and can be found in eDH Physical Exam: Resting in no acute distress. Enters clinic in wheel chair, can to walk short distances. He has diminished sensation in right lateral thigh and leg. He has 4/5 right hip flexion weakness, 3/5 right knee extension, 4/5 right dorsiflexion, 5/5 plantar flexion. Imaging: MRI report as follows: FINDINGS: Trace retrolisthesis of L2 on L3, [...] present in the dorsal spinal canal bilaterally. There is edema [...] left subarticular recess stenosis, not significantly changed. IMPRESSION 1. Improved patency of [...] Right iliopsoas edema without coalescent fluid collection. Assessment: Elie is an 82 year old male who presents to clinic for evaluation of worsening low back pain and right leg weakness. He underwent L3-5 laminectomy after which he was doing quite well but symptoms worsened more recently and has been rapidly progressive. He has not had improvements with medications. MRI shows extensive changes including expected postop changes. Overall, there has been no acute wor sening however his symptoms seem to correlate most with an L3 or L4 pattern based on pain pattern and weakness which could be related to some of the severe foraminal stenosis seen on imaging. Given the rapid progression and impact on his daily activities and increased fall risk, I think meeting with Dr. Doyle to discuss next steps is warranted. We will have him follow up with Dr. Doyle. I will update Dr. Doyle with case. Plan: 1) Follow up with Dr. Doyle for further discussion. Sincerely, Geovany Youssef PA-C [facility] documented in this encounter Plan of Treatment Not on file documented as of this encounter Visit Diagnoses Diagnosis S/P lumbar laminectomy Other postprocedural status Spinal stenosis of lumbar region with neurogenic claudication Spinal stenosis, lumbar region, with neurogenic claudication Radiculopathy of lumbar region Thoracic or lumbosacral neuritis or radiculitis, unspecified documented in this encounter Care Teams Consumer Affairs Specialist Relationship Specialty Start Date End Date Hiram Shankar, SHUBHAM [address] [place] [address] PCP - General Family Medicine 02/05/23 documented as of this encounter
--- OUTSIDE RECORDS SUMMARY | 2024-06-01 14:40 | XMS_ITS | Encounter Summary ---
[place] [address] Care Team Providers Care Insurance Checker Name Role Phone Hiram Shankar APRN Primary Care Provider +1- [phone] Encounter Details Date Type Department Care Team (Late st Contact Info) Description 05/22/2023 Telephone [place] [address] Nader Espino RN Social History Tobacco Use Types Packs/Day Years Used Date Smoking Tobacco: Former Cigarettes Q uit: 1975 Smokeless Tobacco: Never Alcohol Use Standard Drinks/Week Comments Yes 7 (1 standard drink = 0.6 oz pur e alcohol) [facility] Inpatient Questions Answer Date Recorded Does Anyone [...] Telephone Encounter - Nader Espino RN - 05/22/2023 9:53 AM EST Return of right buttock and thigh pain especially at night, he stopped Gabapentin last week, stateshe ran out of his current supply. Patient is s/p 03/11/2023 L3-L5 Laminectomy. When see in follow up post op week 4 his bilateral lower extremity symptoms were improved. The pain is mostly in the buttock sometimes goes into the thigh. He had been taking 100 mg of Gabapentin in the morning and 200 mg at HS. He reports he has been on higher doses in the past. Above discussed with Dr. Doyle, he recommends that he resume the Gabapentin, he can start with 300 mg at HS. Patient was contacted and informed, he reports that he was able to refill his current 100 mg Gabapentin and will take 300 mg at HS. He will update us if his symptoms do not improve. documented in this encounter Plan of Treatment Not on file documented as of this encounter Visit Diagnoses Not on filedocumented in this encounter Care Teams Insurance Checker Relationship Specialty Start Date End Date Hiram Shankar APRN [address] [place] [address] PCP - General Family Medicine 02/05/23 documented as of this encounter
--- OUTSIDE RECORDS SUMMARY | 2024-06-01 14:40 | XMS_ITS | Encounter Summary ---
Author Organization [facility] [place] [address] Care Team Providers Care Ssas Developer Name Role Phone Hiram Shankar APRN Primary Care Provider +1- [phone] Encounter Details Date Type Department Care Team (Latest Contact Info) Description 04/01/2023 Travel Social History Tobacco Use Types Packs/Day [...] on filedocumented in this encounter Care Teams Ssas Developer Relationship Specialty Start Date End Date Hiram Shankar APRN [address] [place] [address] PCP - General Family Medicine 02/05/23 documented as of this encounter
--- OUTSIDE RECORDS SUMMARY | 2024-06-01 14:41 | XMS_ITS | Encounter Summary ---
Author Organization [facility] Address [address] [place] [address] Care Team Providers Care Legal Coordinator Name Role Phone Sanjana Langley MD Primary Care Provider [phone] Encounter Details Date Type Department Care Team (Late st Contact Info) Description 03/16/2020 Lab Requisition [facility] Pathology & Laboratory Medicine - [facility] [address], [place] [address] Outr Resulting Lab, Provider Social History Tobacco Use Types Packs/Day Years Used Date Smoking Tobacco: Never Assessed Sex and Gender Information Value Date Recorded Sex Assigned at Not on file Legal Sex Male 18:17 EST Gender Identity Not on file Sexual Orientation Not on file documented as of this encounter Plan of Treatment Not on file documented as of this encounter Procedures Procedure Name Priority Date/Time Associated Diagnosis Comments LYME AB After X-Ray 02/21/2020 15:30 EST documented in this encounter Results * LYME AB (02/21/2020 15:30 EST) Lyme Ab Negative Negative 04/19/2020 14:40 EST [facility] Comment:New 3rd generation a ssay in use 09/30/2019 Blood VENOUS BLOOD / Unknown 02/21/2020 15:30 EST 04/12/2020 10:50 EST us Provider Outr Resulting Lab IMMUNOLOGY AND SEROL OGY ORDERABLES Final Result [facility] [address] [place] [address] documented in this encounter Visit Diagnoses Not on filedocumented in this encounter Care Teams Legal Coordinator Relationship Specialty Start Date End Date Sanjana Langley MD [address] [place] [address] PCP - General 12/15/15 documented as of this encounter
--- OUTSIDE RECORDS SUMMARY | 2024-06-01 14:41 | XMS_ITS | Encounter Summary ---
Author Organization [facility] Address [address] [place] [address] Care Team Providers Care Outside Collector Name Role Phone Unknown, Provider Primary Care Provider Jovanna ilable Encounter Details Date Type Department Care Team (Late st Contact Info) Description 12/12/2015 Results Only [facility] [phone] Sheldon Langley MD [address] [place] [address] Social History Tobacco Use Types Packs/Day Years [...] Procedure Name Priority Date/Time Associated Diagnosis Comments SURGICAL PATHOLOGY Routine 12/12/2015 9:46 EDT documented in this encounter Results * SURGICAL PATHOLOGY (12/12/2015 9:46 EDT) Pathology Report: SURGICAL PATHOLOGY REPORT Reports generated via electronic interface contain original data; however they are lacking the format of the original report. Caution should be taken when reading/interpreting unformatted reports. Name: ? ELIE CAMACHO ? Accession #: ? [id number] ? : ? 1940 (Age: 74) ??M ? Collect Date: ? 12/12/2015 ? Location: ? [facility] ? Receive Date: ? 12/13/2015 ? Provider: SHELDON LANGLEY MD Copy to: ? Final Pathologic Diagnosis: SKIN OF LEG, RIGHT, SHAVE BIOPSY: - Epidermal hyperplasia and hyperkeratosis with underlying reactive blood vessels. ??See microscopic and comment. Comment: The findings are relatively non-specific, despite deeper levels. On deeper sections there are reactive blood vessels within the dermis. The epidermis shows hyperplasia and hyperkeratosis. The blood vessels are transected. While the findings could represent a superficial sampling of a hemangioma, definitive findings are not noted. Clinical correlation is recommended. ??(Dr. Mayorga)/[facility] Microscopic Description: Sections consist of a shave biopsy skin. ??There is orthohyperkeratosis with focal parakeratosis. ??The epidermis shows mild hyperplasia. There is a suggestive of a channel. ??There is hypergranulosis. ??In areas, the rete are widened with mild fibrosis of the dermal collagen fibers. ??There are underlying reactive blood vessels. ??Deeper levels have been examined. ??(Dr. Mayorga)/[facility] Document reviewed and electronically signed by: JOSHUA MAYORGA MD Report ??Date: 12/14/2015 14:27 By the signature above, the attending physician certifies that he/she has personally conducted a gross and/or microscopic examination of the described specimens and rendered or confirmed the above diagnosis. Specimen(s) Received: Shave biopsy right leg Clinical History: Non-healing papule Gross Description: ? Received in formalin labelled with proper patient identification (initials S, W) and right leg is a shave biopsy of pink skin (0.5 x 0.3 x 0.1 cm). There is a central gillespie macule that measures 0.2 x 0.1 cm. Submitted intact in [facility]es 12/13/2015 11:19 AM End of Report [facility] 12/12/2015 9:46 EDT 12/13/2015 9:46 EDT us Sheldon Langley MD PATHOLOGY ORDERABLES Final Result [facility] [address] [place] [address] documented in this encounter Visit Diagnoses Not on filedocumented in this encounter Care Teams Outside Collector Relationship Specialty Start Date End Date Unknown, Provider, PCP - General 02/28/15 12/14/15 documented as of this encounter
--- OUTSIDE RECORDS SUMMARY | 2024-06-01 14:41 | XMS_ITS | Clinical Summary ---
Author Organization [facility] Address [address] [place] [address] Care Team Providers Care Contracting Engineer Name Role Phone Sanjana Langley MD Primary Care Provider [phone] Social History Tobacco Use Types Packs/Day Years Used Date Smoking Tobacco: Never Assessed Sex and Gender Information Value Date Recorded Sex Assigned at Not on file Legal Sex Male 18:17 EST Gender Identity Not on file Sexual Orientation Not on file Plan of Treatment Health Maintenance Due Date Last Done Comments Fall Risk Screening 2006 RSV Immunization ( o r 60+ Years) (1 - 1-dose 75+ series) 2016 COVID-19 Vaccine ( season) 2023 Insurance [employer] MEDICARE [employer] [place] Care Teams Contracting Engineer Relationship Specialty Start Date End Date Sanjana Langley MD [address] [place] [address] PCP - General 12/15/15
--- OUTSIDE RECORDS SUMMARY | 2024-06-01 14:41 | XMS_ITS | Referral Summary ---
Author Organization [facility] [place] Address [address] [place] [address] Care Team Providers Care Financial Analysis Consultant Name Role Phone Sanjana Langley MD Primary Care Provider [phone] Social History Tobacco Use Types Packs/Day Years Used Date Smoking Tobacco: Never Assessed Sex and Gender Information Value Date Recorded Sex Assigned at Not on file Legal Sex Male 18:17 EST Gender Identity Not on file Sexual Orientation Not on file Plan of Treatment Not on file [place] [id number] Care Teams Financial Analysis Consultant Relationship Specialty Start Date End Date Sanjana Langley MD [address] [place] [address] PCP - General 12/15/15
--- OUTSIDE RECORDS SUMMARY | 2024-06-01 14:41 | XMS_ITS | Encounter Summary ---
Author Organization [facility] Address [address] [place] [address] Care Team Providers Care Site Damage Prevention Technician Name Role Phone Unavailable Primary Care Provider Unavailabl e Encounter Details Date Type Department Care Team (Late st Contact Info) Description 03/08/2008 Before PRISM Converted Visit (Maple) [facility] - Maple conversion [address] [place] [address] Jose Lorenzo MD [address] [place] [address] Social History Tobacco Use Types Packs/Day Years [...] Date/Time Associated Diagnosis Comments SURGICAL PATHOLOGY Routine 03/08/2008 0:00 EST documented in this encounter Results * SURGICAL PATHOLOGY (03/08/2008 0:00 EST) Pathology Report: SURGICAL PATHOLOGY REPORT ? Reports generated via electronic interface contain original data; ? however they are lacking the format of the original report. ? Caution should be taken when reading/interpreting unformatted reports. ? Name: ? CAMACHO, VINES L ? Accession #: ? [id number] ? : ? 1940 (Age: 67) ??M ? Collect Date: ? 03/08/2008 ? Location: ? [facility] ? Receive Date: ? 03/09/2008 ? Provider: JOSE AGUILERAELSON MD ? Copy to: JOEL GUZMAN MD ? Final Pathologic Diagnosis: ? Esophagus, 40 cm, biopsy: ? 1. ?Squamocolumnar mucosa with acute and chronic inflammation and ? reactive epithelial changes. ? - Immunostaining for Helicobacter pylori is negative. ? 2. ?? Negative for intestinal metaplasia. ? 3. ?? Negative for dysplasia. ? Comment: ? This case was reviewed at the intradepartmental consultation conference. ?? (Dr. Espino)/mpl ? Immunohistochemical staining was performed on this case to further ? characterize the lesion. ??Positive and negative controls stained appropriately. ? Block ?Antibody (Clone) ? Result ? H. pylori (polyclonal, [facility]) ? negative ? (Dr. Espino)/mpl ? NOTE: ??One or more of the reagents used in immunohistochemical testing in this case may not have been cleared or approved by the U.S. Food and Drug ? Administration (FDA). ??The FDA has determined that such clearance or approval is not necessary. ??These tests are used for clinical purposes. ??They should not be regarded as investigational or for research. ??These reagents' ??performance ? characteristics have been determined by [facility]. ??This ? laboratory is certified under the Clinical Laboratory Improvement Amendments of 1988 (CLIA-88) as qualified to perform high complexity clinical laboratory ? testing. ? Document reviewed and electronically signed by: ? GETACHEW GonzalezhB ? Report ??Date: 03/11/2008 15:48 ? By the signature above, the attending physician certifies that he/she has ? personally conducted a gross and/or microscopic examination of the described ? specimens and rendered or confirmed the above diagnosis. ? Specimen(s) Received: ? Esophagus @ 30 cm bx ? Clinical History: ? H/O Garsia's esophagus (remote) ? Gross Description: ? Received in Hollande's fixative labelled Camacho and bx esophagus 40 cm bx are six gillespie-pink irregular soft tissues ranging from 0.2 x 0.1 x 0.1 cm to ?? 0.4 x 0.3 x 0.2 cm. ??The specimens are entirely submitted as (A1) and (A2). ??(Carmine aCrpio)/romina ? End of Report ? [facility] 03/08/2008 03/09/2008 12: 26 EST us Jose Lorenzo MD PATHOLOGY ORDERABLES Final Result [facility] [address] [place] [address] documented in this encounter Visit Diagnoses Not on filedocumented in this encounter
--- OUTSIDE RECORDS SUMMARY | 2024-06-01 14:41 | XMS_ITS | Encounter Summary ---
Author Organization [facility] Address [address] [place] [address] Care Team Providers Care Ms Sql Dba Name Role Phone Unknown, Provider Primary Care Provider Unava ilable Encounter Details Date Type Department Care Team (Latest Contact Info) Description 12/12/2015 6:52 EDT - 12/12/2015 23:59 EDT Hospital Encounter [address] [address] Unknown, ProviderMD Discharge Disposition: Auto Discharge Social History Tobacco Use Types Packs/Day Years Used Date Smoking Tobacco: Never Assessed Sex and Gender Information Value Date Recorded Sex Assigned at Not on file Legal Sex Male 18:17 EST Gender Identity Not on file Sexual Orientation Not on file documented as of this encounter Discharge Disposition Disposition Code Departure Means Destination Auto Discharge Home documented in this encounter Plan of Treatment Not on file documented as of this encounter Visit Diagnoses Not on filedocumented in this encounter Care Teams Ms Sql Dba Relationship Specialty Start Date End Date Unknown, ProviderMD PCP - General 02/28/15 12/14/15 documented as of this encounter
--- OUTSIDE RECORDS SUMMARY | 2024-06-01 14:41 | XMS_ITS | Encounter Summary ---
Author Organization [facility] [place] [address] Care Team Providers Care Laboratory Supervisor Name Role Phone Agapito ANDRADE MD, Keanu Wolf Primary Care Provider Reason for Visit * Consultation (Routine) - Canceled Specialty Diagnoses / Procedures Referred By Contact Referred To Contact Electrophysiology / Cardiology Diagnoses syncope, v tach Procedures syncope, v tach Annette Navarro MD [address] [place], [place] [id number] [place] [address] [address] [place] [phone] Referral ID Status Reason Start Date Expiration Date V isits Requested Visits Authorized [id number] Canceled 03/16/2020 03/16/2021 1 1 Encounter Details Date Type Department Care Team ([facility] st Contact Info) Description 03/25/2020 2:15 PM EST Office Visit Cardiology at [place] [phone] Karl Alcocer PA [facility] [place] [place] [address] On amiodarone therapy Social History Tobacco Use Types Packs/Day Years Used Date Smoking Tobacco: Former Smokeless Tobacco: Never Sex and Gender Information Value Date Recorded Sex Assigned at Not on file Gender Identity Not on file Sexual Orientation Not on file documented as of this encounter Last Filed Vital Signs Vital Sign Reading Time Taken Comments Blood Pressure 137/61 03/25/2020 2:04 PM EST Pulse 56 03/25/2020 2:04 PM EST Temperature - - Respiratory Rate - - Oxygen Saturation 98% 03/25/2020 2:04 PM EST Inhaled Oxygen Concentration - - Weight 84.2 kg (185 lb 9.6 oz) 03/25/2020 2:04 P M EST Height 180.3 cm (5' 11) 03/25/2020 2:04 PM EST Body Mass Index 25.89 03/25/2020 2:04 PM EST documented in this encounter Progress Notes * Karl Alcocer PA - 03/25/2020 2:15 PM EST Cardiac Electrophysiology Clinic Note Patient: Elie Glass : 1940 Brief HPI: Mr Glass is a 79 y.o. male with a PMH significant for for longstanding atrial fibrillation on Apixaban, DM II, essential hypertension GERD and BPH who is referred by Dr Navarro at [facility] for non-sustained VT identified on cardiac monitor technician. He experienced a near-syncopal episode on 02/22/2020and was seen in the ED. He explains that he was talking to his on the phone about his irregular heart rhythm and pressed on his carotid artery to feel his pulse when his arm dropped and the phone hit the floor. He went to the ED because he thought he was back in a-fib and had been told to go to the ED if he ever experienced a prolonged episode. Transthoracic echocardiogram done in the ED showed normal heart function with LVEF of 56% and normal sized atria. An ECG done at the time showed sinus bradycardia at 56 bpm with no other abnormalities. Mr Glass was asked to wear a cardiac monitoring device following this episode and two short episode of non-sustained VT were recorded that were very mildly symptomatic. He was subsequently started on amiodarone 200 mg qd and reports that this has not helped at all. ROS: Constitutional: - fatigue, - fever, - chills Respiratory: - shortness of breath, - cough, - apnea, - wheezing Cardiovascular: + palpitations, + unusual rates, - chest pain Gastrointestinal: - nausea, - vomiting, - abdominal pain, - diarrhea Neurological: + lightheadedness, - dizziness, - syncope, - weakness Psychiatric: - anxious Vitals: Last Set of Vitals and range of vitals over past 24 hours: Last value Range last 24 hrs Temperature Temp: -- Heart Rate Heart Rate: 56 Heart Rate: [56] Blood Pressure BP: 137/61 BP: (137)/(61) Respiratory Rate Resp: -- SpO2 SpO2: 98 % SpO2: [98 %] Physical Exam: General- No acute distress, sitting comfortably in exam room chair HEENT- Head atraumatic, normocephalic Skin- Warm and dry Neck- No JVD noted Cardiovascular- S1/S2 regular rate and rhythm. No murmur, rub or gallop Lungs- Clear to auscultation bilaterally Extremities- Pulses equal bilaterally. No edema noted Neuro- A&Ox3 EKG (03/25/2020): Sinus rhythm with 1st degree A-V block @ 60 bpm. Assessment & Plan: 79 y.o. male with a PMH significant for for longstanding atrial fibrillation on Apixaban, DM II, essential hypertension GERD and BPH who is referred by Dr Navarro at [facility] for non-sustained VT identifiedon cardiac monitor technician. A recent transthoracic echocardiogram showed normal heart function with LVEF of56% and normal sized atria. Patient had experienced at least two short, mostly asymptomatic episodes of non-sustained VT at 172 and 190 bpm respectively. He was started on amiodarone 200 mg qd and this has not helped his symptoms of palpitations. He reports that they may even be worse now than before he started the medication. At this time, Mr Glass does not have indication for ICD as he has no structural heart disease or ischemia and has not had any syncopal episodes attributable to ventricular dysrhythmia. He reports feeling symptomatic (palpitations) from frequent PVCs at night when he is trying to sleep. He doesn'tappear to have an arrhythmia warranting increase of his amiodarone so we will discontinue this medication and start him on 25 mg Toprol qhs for rate control and have him follow up with Dr Cardona in 3 months at [facility]. He will notify us if he doesn't see improvement or if there are any adverse effects ( bradycardia) from the Toprol as we have room to adjust the dose if needed. EBER Lieberman 03/25/2020 Pager: [phone] documented in this encounter Plan of Treatment Not on file documented as of this encounter Procedures Procedure Name Priority Date/Time Associated Diagnosis Comments HC VENIPUNCTURE Routine 03/25/2020 3:07 PM EST On amiodarone therapy HEPATIC FUNCTION PANEL Routine 03/25/2020 3:07 PM EST On amiodarone therapy BASIC METABOLIC PANEL Routine 03/25/2020 3:07 PM EST On amiodarone therapy EKG 12-LEAD Routine 03/25/2020 2:04 PM EST On amiodarone therapy documented in this encounter Results * Basic Metabolic Panel (non-fasting) (03/25/2020 3:07 PM EST) Glucose 156 65 - 199 mg/dL [facility] Comment:Diabetes: >=200 mg/d L plus symptoms Blood Urea Nitrogen 12 10 - 20 mg/dL [facility] Creatinine 0.92 0.80 - 1.50 mg/dL [facility] Sodium 139 135 - 145 mmol/L [facility] Potassium 4.1 3.5 - 5.0 mmol/L [facility] Comment: Please note: ??Patients with WBC >100,000 may have falsely elevated Potassium levels. ??For accurate Potassium quantification in these patients send serum separator tube (gold top) for subsequent determinations. ??Contact the Clinical Chemistry Laboratory if there are any questions. Chloride 103 98 - 107 mmol/L [facility] Carbon Dioxide 25 22 - 31 mmol/L [facility] Anion Gap 11 5 - 15 mmol/L [facility] Calcium 9.3 8.5 - 10.5 mg/dL [facility] Est Glomerular Filtration Rate 79 >=60 mL/min/1. 73 m?? [facility] Comment: This patient? s estimated glomerular filtration rate (eGFR) is between 79 mL/min/1.73 m2 (patients with less muscle mass per kg body weight) and 92 mL/min/1.73 m2 (patients with more muscle mass per kg body weight) as determined by the CKD-EPI equation. Assessment of eGFR is not appropriate when creatinine concentrations are rapidly changing. For clinical decisions where creatinine clearance will affect therapy, a 24-hour urine creatinine clearance may be advised. Assignment of CKD stage 1 ? 5 for patients with an eGFR near the transition point between stages may be based on clinical assessment of muscle mass and symptoms in addition to eGFR. Blood specimen (specimen) 03/25/2020 3:07 PM EST 03/25/2020 3:24 PM EST Narrative Resulting Agency Comment Spec In Lab Teressa Green MD CHEMISTRY ORDERABLES Performing Organization Address [facility] Co de Phone Number [facility] [place] [address] * Hepatic Function Panel (03/25/2020 3:07 PM EST) Protein, Total 6.5 6.1 - 8.0 gm/dL [facility] Albumin 4.7 3.2 - 5.2 gm/dL [facility] Aspartate Aminotransferase 15 0 - 39 unit/L [facility] Alanine Aminotransferase 19 0 - 55 unit/L [facility] Alkaline Phosphatase 81 40 - 130 unit/L [facility] Bilirubin, Total 0.4 0.2 - 1.3 mg/dL [facility] Bilirubin, Direct 0.1 0.0 - 0.3 mg/dL [facility] Blood specimen (specimen) 03/25/2020 3:07 PM EST 03/25/2020 3:24 PM EST Narrative Resulting Agency Comment Spec In Lab Teressa Green MD CHEMISTRY ORDERABLES Performing Organization Address [facility] Co de Phone Number [facility] [place] [address] * TSH [place] (03/25/2020 3:07 PM EST) Thyroid Stimulating Hormone 1.51 0.27 - 4.20 mcIU/mL [facility] Blood specimen (specimen) 03/25/2020 3:07 PM EST 03/25/2020 3:24 PM EST Narrative Resulting Agency Comment Spec In Lab Teressa Green MD CHEMISTRY ORDERABLES Performing Organization Address City/[facility]/ZIP Co de Phone Number [facility] [place] [address] * EKG 12 Lead (03/25/2020 2:04 PM EST) Ventricular rate 60 BPM MUSE SYSTEM Atrial Rate 60 BPM MUSE SYSTEM P-R Interval 220 ms MUSE SYSTEM QRS Duration 84 ms MUSE SYSTEM Q-T Interval 446 ms MUSE SYSTEM QTC Calculated (Bezet) 446 ms MUSE SYSTEM Calculated P [place] 9 degrees MUSE SYSTEM Calculated R [place] 11 degrees MUSE SYSTEM Calculated T [place] 56 degrees MUSE SYSTEM INTERPRETATION Sinus rhythm with 1st degree A-V block Otherwise normal ECG No previous ECGs available Confirmed by MD Mahamed, [facility] ([id number]) on 03/25/2020 2:31:04 PM MUSE SYSTEM 03/25/2020 2:04 PM EST 03/25/2020 2:31 PM EST Teressa Green MD ECG ORDERABLES Performing Organization Address City/[facility]/ZIP Co de Phone Number MUSE SYSTEM documented in this encounter Visit Diagnoses Diagnosis On amiodarone therapy documented in this encounter Care Teams Laboratory Supervisor Relationship Specialty Start Date End Date Keanu Altman III, MD [address] [address] PCP - General 03/14/10 02/04/23 documented as of this encounter
--- OUTSIDE RECORDS SUMMARY | 2024-06-01 14:41 | XMS_ITS | Encounter Summary ---
Author Organization [facility] Address [address] [place] [address] Care Team Providers Care Thoracic Surgeon Name Role Phone Sanjana Langley MD Primary Care Provider Encounter Details Date Type Department Care Team (Late st Contact Info) Description 02/05/2022 Lab Requisition [facility] Pathology & Laboratory Medicine - [facility] [address] [place] [address] Mac Ravi MD [address] [place] [address] [phone] Encounter for other general examination Social History Tobacco Use Types Packs/Day Years [...] Priority Date/Time Associated Diagnosis Comments SURGICAL PATHOLOGY Today 02/05/2022 9: 30 EDT Encounter for other general examination documented in this encounter Results * SURGICAL PATHOLOGY (02/05/2022 9:30 EDT) Note to Patient The following pathology results have been interpreted by your pathologist and may be available to you before your health provider has had the opportunity to review them. Please allow time for your provider to receive these results and explore management options, if applicable. 02/07/2022 13:39 EDT [facility] Final Diagnosis A. SKIN OF EAR, RIGHT, EXCISION: - Basal cell carcinoma, nodular type. - Margins negative for basal cell carcinoma. 02/07/2022 13:39 [facility] Attestation By the signature below, the attending physician certifies that they have 1) personally conducted a gross and/or microscopic examination of the described specimen(s), and/or personally interpreted the results of laboratory testing of the described specimen(s), and 2) personally rendered or confirmed the above diagnosis. 02/07/2022 13:39 [facility] at 1339 Microscopic Description Irregularly shaped islands of atypical basal cells infiltrate the dermis. The basal cells have scant cytoplasm and round dark nuclei. Mitotic figures and apoptotic bodies are evident. The nuclei at the periphery of the islands have a palisaded arrangement. The islands are associated with a fibromyxoid stroma and there is cleft formation between some of the islands and stroma. 02/07/2022 13:39 [facility] Clinical History Rt ear ulceration x months 02/07/2022 13:39 [facility] Gross Description A. Received in formalin labelled with proper patient identification (initials S, W) and Rt ear is an oriented ovoid excision of gillespie-white skin. Referencing the drawing on the requisition, the short suture represents superior/anterior and the long suture represents inferior/posterio r. The long suture is arbitrarily designated as 6 o'clock and the short suture is approximately at 2 o'clock. The specimen measures 1.7 cm from 12 o'clock to 6 o'clock, 1.2 cm from 9 o'clock to 3 o'clock, and is excised to a depth of 0.2 cm. There is a central irregular gillespie-brown ulcerated lesion that measures 0.9 x 0.8 cm. The 3 o'clock margin is inked blue and the 9 o'clock margin is inked black. The specimen is serially sectioned from 12 o'clock to 6 o'clock and is entirely submitted as follows: BLOCK OBRIEN A1- 12 o'clock tip, reverse en face A2-A3- 4 central sections A4- 6 o'clock tip, reverse en face SONIA BARNARD 02/06/2022 9:07 02/07/2022 13:39 [facility] Performing Lab [facility] 02/07/2022 13:39 [facility] Scanned Images 02/07/2022 13:39 EDT [facility] Tissue TISSUE SPECIMEN FROM SKIN / Unknown 02/05/2022 9:30 EDT 02/05/2022 23:32 EDT us Mac Ravi MD PATHOLOGY ORDERABLES Final Resul t [facility] [address] [place] [address] documented in this encounter Visit Diagnoses Diagnosis Encounter for other general examination documented in this encounter Care Teams Thoracic Surgeon Relationship Specialty Start Date End Date Sanjana Langley MD [address] [place], [place] [id number] PCP - General 12/15/15 documented as of this encounter
--- OUTSIDE RECORDS SUMMARY | 2024-06-01 14:41 | XMS_ITS | Encounter Summary ---
Author Organization [facility] Address [address] [place] [address] Care Team Providers Care Pelletizer Name Role Phone Sanjana Langley MD Primary Care Provider [phone] Encounter Details Date Type Department Care Team (Late st Contact Info) Description 04/24/2022 Lab Requisition [facility] Pathology & Laboratory Medicine - [facility] [address] [place], [place] [id number] Outr Resulting Lab, Provider Social History Tobacco [...] Procedure Name Priority Date/Time Associated Diagnosis Comments PSA TOTAL, DIAGNOSTIC Routine 04/24/2022 11:17 EST documented in this encounter Results * PSA TOTAL, DIAGNOSTIC (04/24/2022 11:17 EST) PSA 0.6 <=6.5 ng/mL 04/24/2022 19:21 EST [facility] Blood VENOUS BLOOD / Unknown 04/24/2022 11:17 EST 04/24/2022 17:10 EST Narrative [facility] - 04/24/2022 19:21 EST NOTE: Serum PSA concentration should not be interpreted as absolute evidence for the presence or absence of malignant disease. Assayed on Siemens ADVIA Tokutekaur XPT using chemiluminescent technology.??Values obtained by using different assay methods cannot be used interchangeably. us Provider Outr Resulting Lab CHEMISTRY & BLOOD GA S ORDERABLES Final Result [facility] [address] [place] [address] documented in this encounter Visit Diagnoses Not on filedocumented in this encounter Care Teams Pelletizer Relationship Specialty Start Date End Date Sanjana Langley MD [address] [place], [place] [id number] PCP - General 12/15/15 documented as of this encounter
--- OUTSIDE RECORDS SUMMARY | 2024-06-01 14:41 | XMS_ITS | Encounter Summary ---
Author Organization [facility] Address [address] [place] [address] Care Team Providers Care Branch Rental Manager Name Role Phone Sanjana Langley MD Primary Care Provider Encounter Details Date Type Department Care Team (Late st Contact Info) Description 06/09/2020 Lab Requisition [facility] Pathology & Laboratory Medicine - [facility] [address] [place] [address] Outr Resulting Lab, Provider Social History Tobacco [...] Procedure Name Priority Date/Time Associated Diagnosis Comments ZZCOVID-19 TEST [facility] PCR Today 06/09/2020 10:38 EST COVID-19 TESTING Routine 06/09/2020 10:3 8 EST documented in this encounter Results * COVID-19 TEST [facility] PCR (06/09/2020 10:38 EST) Swab ENTIRE NASOPHARYNX / Unknown 06/09/2020 10:38 EST 06/09/2020 16:13 EST us Provider Outr Resulting Lab MICROBIOLOGY - GENER AL ORDERABLES Final Result [facility] [address] [place] [address] * COVID-19 TESTING (06/09/2020 10:38 EST) COVID-19 rt-PCR Result Negative Negative 06/10/2020 13:36 EST [facility] Comment: This test was developed and its performance characteristics determined by [facility]. It has not been cleared or approved by the US Food and Drug Administration. FDA does not require this test to go through premarket FDA review. This test is used for clinical purposes. It should not be regarded as investigational or for research. This laboratory is certified under the Clinical Laboratory Improvement Amendments (CLIA) as qualified to perform high complexity clinical laboratory testing. This test is based on the [facility] COVID-19 Emergency Use Authorization (EUA) assay, with minor modification as defined by the FDA Performed on the [employer] Pro RT-PCR System. This test has not been FDA cleared or approved. This test has been authorized by FDA under an EUA for use by authorized laboratories. This test has been authorized only for detection of nucleic acid from 2019-nCoV, not for any other viruses or pathogens. This test is only authorized for the duration of the declaration that circumstances exist justifying the authorization of emergency use of in vitro diagnostic tests for detection and/or diagnosis of 2019-nCoV under section 564(b)(1) of Act, 21 U.S.C ?? 360bbb-3(b) (1), unless the authorization is terminated or revoked sooner. Negative results do not preclude 2019-nCoV infection and should not be used as the sole basis for treatment or other patient management decisions. Negative results must be combined with clinical observations, patient history, and epidemiological information. Performing Lab [facility] Lab 06/10/2020 13:36 EST [facility] Swab 06/09/2020 10:3 8 EST 06/09/2020 16:13 EST us Provider Outr Resulting Lab MICROBIOLOGY - GENER AL ORDERABLES Final Result [facility] [address] [place] [address] documented in this encounter Visit Diagnoses Not on filedocumented in this encounter Care Teams Branch Rental Manager Relationship Specialty Start Date End Date Sanjana Langley MD [address] [place] [address] PCP - General 12/15/15 documented as of this encounter
--- OUTSIDE RECORDS SUMMARY | 2024-06-01 14:41 | XMS_ITS | Encounter Summary ---
Author Organization [facility] Address [address] [place] [address] Care Team Providers Care Food Order Delivery Runner Name Role Phone Sanjana Langley MD Primary Care Provider Encounter Details Date Type Department Care Team (Late st Contact Info) Description 11/17/2021 Lab Requisition [facility] Pathology & Laboratory Medicine - [facility] [address] [place], [place] [address] Outr Resulting Lab, Provider Social History Tobacco [...] Associated Diagnosis Comments PSA TOTAL, DIAGNOSTIC Routine 11/17/2021 9:50 EDT documented in this encounter Results * PSA TOTAL, DIAGNOSTIC (11/17/2021 9:50 EDT) PSA 0.5 <=6.5 ng/mL 11/17/2021 18:18 EDT [facility] Blood VENOUS BLOOD / Unknown 11/17/2021 9:50 EDT 11/17/2021 17:12 EDT Narrative [facility] - 11/17/2021 18:18 EDT NOTE: Serum PSA concentration should not be interpreted as absolute evidence for the presence or absence of malignant disease. Assayed on Siemens ADVIA Symptifyaur XPT using chemiluminescent technology.??Values obtained by using different assay methods cannot be used interchangeably. us Provider Outr Resulting Lab CHEMISTRY & BLOOD GA S ORDERABLES Final Result [facility] [address] [place] [address] documented in this encounter Visit Diagnoses Not on filedocumented in this encounter Care Teams Food Order Delivery Runner Relationship Specialty Start Date End Date Sanjana Langley MD [address] [place] [address] PCP - General 12/15/15 documented as of this encounter
--- OUTSIDE RECORDS SUMMARY | 2024-06-01 14:41 | XMS_ITS | Encounter Summary ---
Author Organization [facility] Address [address] [place] [address] Care Team Providers Care Product Lead Name Role Phone Sanjana Langley MD Primary Care Provider Encounter Details Date Type Department Care Team (Late st Contact Info) Description 12/21/2022 Lab Requisition [facility] Pathology & Laboratory Medicine - [facility] [address] [place], [place] [address] Outr Resulting Lab, Provider Social History Tobacco [...] Associated Diagnosis Comments PSA TOTAL, DIAGNOSTIC Routine 12/21/2022 9:27 EDT documented in this encounter Results * PSA TOTAL, DIAGNOSTIC (12/21/2022 9:27 EDT) PSA 0.9 <=6.5 ng/mL 12/24/2022 8:56 EDT [facility] Blood VENOUS BLOOD / Unknown 12/21/2022 9:27 EDT 12/21/2022 18:04 EDT Narrative [facility] - 12/24/2022 8:56 EDT NOTE: Serum PSA concentration should not be interpreted as absolute evidence for the presence or absence of malignant disease. Assayed on Siemens ADVIA Carrot.mxaur XPT using chemiluminescent technology.??Values obtained by using different assay methods cannot be used interchangeably. us Provider Outr Resulting Lab CHEMISTRY & BLOOD GA S ORDERABLES Final Result [facility] [address] [place] [address] documented in this encounter Visit Diagnoses Not on filedocumented in this encounter Care Teams Product Lead Relationship Specialty Start Date End Date Sanjana Langley MD [address] [place] [address] PCP - General 12/15/15 documented as of this encounter
--- OUTSIDE RECORDS SUMMARY | 2024-06-01 14:41 | XMS_ITS | Encounter Summary ---
Author Organization [facility] Address [address] [place] [address] Care Team Providers Care Sterile Preparation Technician Name Role Phone Sanjana Langley MD Primary Care Provider Encounter Details Date Type Department Care Team (Late st Contact Info) Description 05/12/2021 Lab Requisition [facility] Pathology & Laboratory Medicine - [facility] [address] [place], [place] [address] Outr Resulting Lab, Provider Social History Tobacco [...] Associated Diagnosis Comments PSA TOTAL, DIAGNOSTIC Routine 05/12/2021 10:29 EST documented in this encounter Results * PSA TOTAL, DIAGNOSTIC (05/12/2021 10:29 EST) PSA 0.5 0.0 - 6.5 ng/mL 05/12/2021 17:13 EST [facility] Blood VENOUS BLOOD / Unknown 05/12/2021 10:29 EST 05/12/2021 16:31 EST Narrative [facility] - 05/12/2021 17:13 EST NOTE: Serum PSA concentration should not be interpreted as absolute evidence for the presence or absence of malignant disease. Assayed on Siemens ADVIA Blaze healthaur XPT using chemiluminescent technology.??Values obtained by using different assay methods cannot be used interchangeably. us Provider Outr Resulting Lab CHEMISTRY & BLOOD GA S ORDERABLES Final Result [facility] [address] [place] [address] documented in this encounter Visit Diagnoses Not on filedocumented in this encounter Care Teams Sterile Preparation Technician Relationship Specialty Start Date End Date Sanjana Langley MD [address] [place] [address] PCP - General 12/15/15 documented as of this encounter
--- OUTSIDE RECORDS SUMMARY | 2024-06-01 14:41 | XMS_ITS | Encounter Summary ---
Author Organization [facility] Address [facility] [place] [address] Care Team Providers Care Lot Associate Name Role Phone Agapito ANDRADE MD, Keanu Wolf Primary Care Provider Encounter Details Date Type Department Care Team (Late st Contact Info) Description 01/25/2023 Ancillary Procedure Radiology Library at [facility] [place] [address] Brennan Doyle MD [facility] [place] [place] [address] Social History Tobacco Use Types Packs/Day Years [...] FILM LIBRARY STORAGE ONLY MR SPINE Routine 01/25/2023 12:00 AM EDT documented in this encounter Results * Film Library- Storage Only MR Spine (01/25/2023 12:00 AM EDT) Narrative KATHY - 02/14/2023 7:57 AM EDT This exam is auto-finalizing. It's purpose is for storage only. Brennan Doyle MD IMG FILM LIBRARY ORD ERABLES [facility] [place] documented in this encounter Visit Diagnoses Not on filedocumented in this encounter Care Teams Lot Associate Relationship Specialty Start Date End Date Keanu Altman III, MD [address] [place] [address] PCP - General 03/14/10 02/04/23 documented as of this encounter
--- OUTSIDE RECORDS SUMMARY | 2024-06-01 14:41 | XMS_ITS | Encounter Summary ---
Author Organization [facility] Address [address] [place] [address] Care Team Providers Care Social Scientist Name Role Phone Sanjana Langley MD Primary Care Provider [phone] Encounter Details Date Type Department Care Team (Late st Contact Info) Description 05/03/2020 Lab Requisition [facility] Pathology & Laboratory Medicine - [facility] [address] [place], [place] [address] Outr Resulting Lab, Provider Social History Tobacco [...] Associated Diagnosis Comments PSA TOTAL, DIAGNOSTIC Routine 05/03/2020 11:20 EST documented in this encounter Results * PSA TOTAL, DIAGNOSTIC (05/03/2020 11:20 EST) PSA 0.5 0.0 - 6.5 ng/mL 05/03/2020 22:29 EST [facility] Blood VENOUS BLOOD / Unknown 05/03/2020 11:20 EST 05/03/2020 21:01 EST Narrative [facility] - 05/03/2020 22:29 EST NOTE: Serum PSA concentration should not be interpreted as absolute evidence for the presence or absence of malignant disease. Assayed on Siemens ADVIA Localyticsaur XPT using chemiluminescent technology.??Values obtained by using different assay methods cannot be used interchangeably. us Provider Outr Resulting Lab CHEMISTRY & BLOOD GA S ORDERABLES Final Result [facility] [address] [place] [address] documented in this encounter Visit Diagnoses Not on filedocumented in this encounter Care Teams Social Scientist Relationship Specialty Start Date End Date Sanjana Langley MD [address] [place] [address] PCP - General 12/15/15 documented as of this encounter
--- OUTSIDE RECORDS SUMMARY | 2024-06-01 14:41 | XMS_ITS | Encounter Summary ---
Author Organization [place] [address] Care Team Providers Care Cocoa Bean Roaster Name Role Phone Agapito ANDRADE MD, Keanu Wolf Primary Care Provider Encounter Details Date Type Department Care Team (Latest Contact Info) Description 02/21/2020 10:59 PM EST - 02/21/2020 11:59 PM EST Hospital [place] [id number] Discharge Disposition: Home Social History Tobacco Use Types Packs/Day Years Used Date Smoking Tobacco: Never Assessed Sex and Gender Information Value Date Recorded Sex Assigned at Not on file Gender Identity Not on file Sexual Orientation Not on file documented as of this encounter Medications at Time of Discharge Medication Sig Dispensed Refills Start Date End Date metFORMIN (Glucophage) 500 mg Tablet Take 500 mg by mouth 2 times daily (with meals). 06/23/2019 amLODIPine-benazepril (LOTREL) 5-20 mg Capsule Take 1 capsule by mouth every morning. 06/23/2019 dilTIAZem (Cardizem) 120 mg Tablet Daily, as needed 09/21/2015 esomeprazole (NEXIUM) 40 mg capsule Take 40 mg by mouth every morning. 10/09/2004 apixaban (Eliquis) 5 mg Tablet Take 5 mg by mouth 2 times daily. 04/17/2019 03/12/2023 amlodipine-benazepril (LOTREL) 5-20 mg per capsule 1 Capsule(s), PO, Once daily 04/08/2005 03/23/2020 DILTiazem (CARDIZEM) 120 mg tablet 120MG, PO, Q8H 04/08/2005 03/23/2020 indomethacin (INDOCIN) 25 mg capsule 25MG, PO, Three times daily 02/09/2005 03/23/2020 documented as of this encounter Plan of Treatment Not on file documented as of this encounter Procedures Procedure Name Priority Date/Time Associated Diagnosis Comments COVID-19 PCR Routine 02/21/2020 4:23 PM EST documented in this encounter Results * COVID-19 PCR (02/21/2020 4:23 PM EST) SARS-CoV-2 RNA Not Detected Not Detected [facility] Comment: This result should be interpreted in combination with the clinical observations, patient history and epidemiological information in making a final diagnosis. For testing of asymptomatic individuals, assay performance characteristics and clinical utility have not been evaluated. Testing for SARS-CoV-2 (Severe acute respiratory syndrome coronavirus 2, formerly known as 2019 novel coronavirus or 2019-nCoV) to aid in the diagnosis of COVID-19 is performed using the Twitter m SARS-CoV-2 Assay as authorized by the FDA Emergency Use Authorization (EUA). This EUA assay is intended for In-vitro Diagnostic (IVD) use with respiratory specimens such as nasopharyngeal swabs collected from individuals during the acute phase of infection. This assay is performed based on the instructions for use provided by [employer] and additional guidance provided by CDC and FDA. Testing is performed in the [facility] within the Department of Pathology and Laboratory Medicine at [facility], certified under the Clinical Laboratory Improvement Amendments of 1988 (CLIA), 42 U.S.C. 263a, to perform high complexity tests. Assay performance has been verified according to clinical laboratory regulatory requirements for use with specimens collected from individuals suspected of COVID-19. Test results are provided above. A result of ? Not Detected? indicates that the viral RNA target is not present above the limit of detection, but does not preclude SARS-CoV-2 infection. False negative results may occur if a specimen is improperly collected, transported or handled; if amplification inhibitors are present; or if inadequate numbers of viral particles are present in the specimen. When a diagnostic test is negative, the possibility of a false negative result should be considered in the context of a patient? s recent exposures and the presence of clinical signs and symptoms consistent with COVID-19. A result of ? Detected? indicates that RNA from SARS-CoV-2 was detected and the patient is infected. As required or requested by public health authorities, positive specimens may be sent for additional testing. Positive and negative predictive values for this test are highly dependent on disease prevalence. A result of ? Invalid? indicates that neither the viral RNA targets nor the internal control target was detected. An invalid result suggests the presence of inhibitors. Recollection and re-testing is recommended in the case of an invalid result. CDC COVID-19 criteria for testing on human specimens and clinical management guidance information are available at the CDC Coronavirus Disease 2019 (COVID-19) webpage under ? Information for Healthcare Professionals? (https://www.cdc.gov/coronavirus/2019-ncov/hcp/index.html) Additional information about this and other EUA tests can be found in provider and patient fact sheets at the following FDA website: https://www.fda.gov/medical-devices/saghghbszdf-dzurjyk-9170-dncpy-18-ydubbznxs- use-a zvmzamdipxddl-yrihnqz-xiwcger/anszq-bmrkhvtrltx-dutk SARS-CoV-2 RNA Source Nasal [facility] Specimen from nose (specimen) Other / Unknown 02/21/2020 4:23 PM EST 02/22/2020 11:51 PM EST Narrative Resulting Agency Comment Spec In Lab Yovani Piña MD MOLECULAR ORDERABLES Performing Organization Address City/State/[facility] Co de Phone Number [facility] [place] [address] documented in this encounter Visit Diagnoses Not on filedocumented in this encounter Care Teams Cocoa Bean Roaster Relationship Specialty Start Date End Date Keanu Altman III, MD [address] [place], [place] [address] PCP - General 03/14/10 02/04/23 documented as of this encounter
--- OUTSIDE RECORDS SUMMARY | 2024-06-01 14:41 | XMS_ITS | Encounter Summary ---
[place] [address] Care Team Providers Care Cost Control Analyst Name Role Phone Hiram Shankar APRN Primary Care Provider [phone] Reason for Referral * Consultation (Routine) - Closed Specialty Diagnoses / Procedures Referred By Contac t Referred To Contact [facility] Diagnoses Low back pain, unspecified back pain laterality, unspecified chronicity, unspecified whether sciatica present Spine-Lumbar neural foraminal narrowing/MRI 01/25/23 @ [facility](called x1) Hiram Shankar APRN [address] [place] [address] [facility] [place] [address] Referral ID Status Reason Start Date Expiration Date V isits Requested Visits Authorized [id number] Closed Consult, Test & Treat PCP Updated and/or Approved 02/05/2023 02/05/2024 1 1 Encounter Details Date Type Department Care Team (Late st Contact Info) Description 02/05/2023 Transcribe Orders eDH Incoming Referrals [phone] Hiram Shankar APRN [address] [place], [place] [id number] Low back pain, unspecified back pain laterality, unspecified chronicity, unspecified whether sciatica present Social History Tobacco Use Types Packs/Day Years Used Date Smoking Tobacco: Former Smokeless Tobacco: Never Sex and Gender Information Value Date Recorded Sex Assigned at Not on file Gender Identity Not on file Sexual Orientation Not on file documented as of this encounter Plan of Treatment Scheduled Referrals Name Type Priority Associated Diagnoses Orde r Schedule Referral to Spine Center Outpatient Referral Routine Low back pain, unspecified back pain laterality, unspecified chronicity, unspecified whether sciatica present Ordered: 02/05/2023 documented as of this encounter Visit Diagnoses Diagnosis Low back pain, unspecified back pain laterality, unspecified chronicity, unspecified whether sciatica present documented in this encounter Care Teams Cost Control Analyst Relationship Specialty Start Date End Date Hiram Shankar, PROPOSAL LEAD WRITER [address] [place] [address] PCP - General Family Medicine 02/05/23 documented as of this encounter
--- OUTSIDE RECORDS SUMMARY | 2024-06-01 14:41 | XMS_ITS | Encounter Summary ---
[place] [address] Care Team Providers Care Muskrat Trapper Name Role Phone Hiram Shankar APRN Primary Care Provider [phone] Reason for Referral * Consultation (Routine) - Closed Specialty Diagnoses / Procedures Referred By Contac t Referred To Contact [facility] Diagnoses Radiculopathy of lumbar region Central spinal stenosis Spinal stenosis of lumbar region with neurogenic claudication Geovany Youssef PA [facility] [place] [address] [facility] [place] [place] [address] Referral ID Status Reason Start Date Expiration Date V isits Requested Visits Authorized [id number] Closed Surgical 02/15/2023 02/15/2024 1 1 Reason for Visit * Reason Comments Back Pain Lower back/bilateral buttocks and hips w/ bilateral leg weakness and altered gait * Consultation (Routine) - Closed Specialty Diagnoses / Procedures Referred By Contac t Referred To Contact [facility] Diagnoses Low back pain, unspecified back pain laterality, unspecified chronicity, unspecified whether sciatica present Spine-Lumbar neural foraminal narrowing/MRI 01/25/23 @ [facility](called x1) Hiram Shankar APRN [address] [place] [address] [facility] [place] [address] Referral ID Status Reason Start Date Expiration Date V isits Requested Visits Authorized [id number] Closed Consult, Test & Treat PCP Updated and/or Approved 02/05/2023 02/05/2024 1 1 Encounter Details Date Type Department Care Team (Latest Contact Info) Description 02/15/2023 3:45 PM EDT Office Visit [place] [phone] Geovany Youssef PA [facility] [address] [place] [address] Radiculopathy of lumbar region; Central spinal stenosis; Spinal stenosis of lumbar region with neurogenic claudication Social History Tobacco Use Types Packs/Day Years Used Date Smoking Tobacco: Former Smokeless Tobacco: Never Tobacco Cessation:Counseling Given: Not Answered Sex and Gender Information Value Date Recorded [...] - - Weight 83.9 kg (185 lb) 02/15/2023 3:29 PM EDT Height 180.3 cm (5' 11) 02/15/2023 3:29 PM EDT Body Mass Index 25.8 02/15/2023 3:29 PM EDT documented in this encounter Progress Notes * Geovany Youssef PA - 02/15/2023 3:45 PM EDT Images from the original note were not included. [facility] Geovany Youssef PA-C Dear Colleagues, I had the pleasure of seeing this patient at the [facility] for evaluation. Chief Complaint: Back pain HPI: Elie is an 82 year old male who presents to clinic for evaluation of back pain and decreased walking tolerance. He notes that symptoms have been progressively worsening. He reports a significantly limited walking tolerance due to the pain. He finds some relief with sitting. He has done physical therapy without significant relief. Medications and allergies reviewed and can be found in eDH Review of systems: As above in HPI Imaging: Reviewed imaging available in edh. Advanced degenerative disc changes from L2- S1. Multilevel severebilateral neural foraminal narrowing. Moderate central canal stenosis at L3-4 and L4-5 Assessment Diagnosis: -Lumbar spondylosis with radiculopathy and claudication symptoms Elie is an 82 year old male who presents to clinic for evaluation of back pain and decreased walking tolerance. He has had progressively worsening symptoms. Back pain is most problematic for him and this prevents him from longer distances. Imaging shows degenerative changes throughout the lumbar spine resulting in varying degrees of central and foraminal stenosis. We discussed surgical consult.We will have him follow up with surgeon for further discussion with XR prior. We discussed gabapentin which script was sent. Plan: 1) Follow up with surgeon for further discussion. XR prior. 2) Gabapentin Thank you for letting me participate in this patient's care. Sincerely, Geovany Youssef PA-C [facility] documented in this encounter Plan of Treatment Scheduled Referrals Name Type Priority Associated Diagnoses Orde r Schedule Referral to Pain and Spine Center (Internal only) Outpatient Referral Routine Radiculopathy of lumbar region Central spinal stenosis Spinal stenosis of lumbar region with neurogenic claudication Ordered: 02/15/2023 documented as of this encounter Results * [...] ? Electronically signed by: Mathew Rizo MD, [facility] ??([phone]), at 02/28/2023 2:00 PM Narrative 02/28/2023 2:00 [...] first. Electronically signed by: Mathew Rizo MD, [facility]([phone]), at 02/28/2023 2:00 PM Mason Min MD [...] claudication documented in this encounter Care Teams Muskrat Trapper Relationship Specialty Start Date End Date Hiram Shankar APRN [address] [place] [address] PCP - General Family Medicine 02/05/23 documented as of this encounter
--- OUTSIDE RECORDS SUMMARY | 2024-06-01 14:41 | XMS_ITS | Encounter Summary ---
[place] [address] Care Team Providers Care Exceptional Children Teacher Assistant Name Role Phone Agapito ANDRADE MD, Keanu Wolf Primary Care Provider Encounter Details Date Type Department Care Team (Late st Contact Info) Description 03/23/2020 Orders Only Cardiology at [address] [phone] Karl Alcocer PA [facility] [place] [address] On amiodarone therapy Social History Tobacco Use Types Packs/Day Years Used Date Smoking Tobacco: Never Assessed Sex and Gender Information Value Date Recorded Sex Assigned at Not on file Gender Identity Not on file Sexual Orientation Not on file documented as of this encounter Plan of Treatment Not on file documented as of this encounter Results * TSH Kirby (03/25/2020 3:07 PM EST) Pathologist [facility] Thyroid Stimulating Hormone 1.51 0.27 - 4.20 mcIU/mL [facility] Blood specimen (specimen) 03/25/2020 3:07 PM EST 03/25/2020 3:24 PM EST Narrative Resulting Agency Comment Spec In Lab Teressa Green MD CHEMISTRY ORDERABLES [facility] [place] [address] * Hepatic Function Panel (03/25/2020 3:07 PM EST) Pathologist [facility] Protein, Total 6.5 6.1 - 8.0 gm/dL [facility] Albumin 4.7 3.2 - 5.2 gm/dL [facility] Aspartate Aminotransferase 15 0 - 39 unit/L [facility] Alanine Aminotransferase 19 0 - 55 unit/L [facility] Alkaline Phosphatase 81 40 - 130 unit/L [facility] Bilirubin, Total 0.4 0.2 - 1.3 mg/dL [facility] Bilirubin, Direct 0.1 0.0 - 0.3 mg/dL [facility] Blood specimen (specimen) 03/25/2020 3:07 PM EST 03/25/2020 3:24 PM EST Narrative Resulting Agency Comment Spec In Lab Teressa Green MD CHEMISTRY ORDERABLES Performing Organization Address City/State/[facility] Co de Phone Number [facility] [place] [address] * Basic Metabolic Panel (non-fasting) (03/25/2020 3:07 PM EST) [facility] Glucose 156 65 - 199 mg/dL [facility] Comment:Diabetes: >=200 mg/d L plus symptoms Blood Urea Nitrogen 12 10 - 20 mg/dL [facility] Creatinine 0.92 0.80 - 1.50 mg/dL [facility] Sodium 139 135 - 145 mmol/L [facility] Potassium 4.1 3.5 - 5.0 mmol/L [facility] Comment: Please note: ??Patients with WBC >100,000 may have falsely elevated Potassium levels. ??For accurate Potassium quantification in these patients send serum separator tube (gold top) for subsequent determinations. ??Contact the Clinical Chemistry Laboratory if there are any questions. Chloride 103 98 - 107 mmol/L [facility] Carbon Dioxide 25 22 - 31 mmol/L [facility] Anion Gap 11 5 - 15 mmol/L [facility] Calcium 9.3 8.5 - 10.5 mg/dL [facility] Est Glomerular Filtration Rate 79 >=60 mL/min/1. 73 m?? [facility] Comment: This patient? s estimated [...] Green MD CHEMISTRY ORDERABLES Performing Organization Address City/[facility] Co de Phone Number [facility] [place] [address] * EKG 12 Lead (03/25/2020 2:04 PM EST) Ventricular rate 60 BPM MUSE SYSTEM Atrial Rate 60 BPM MUSE SYSTEM P-R Interval 220 ms MUSE SYSTEM QRS Duration 84 ms MUSE SYSTEM Q-T Interval 446 ms MUSE SYSTEM QTC Calculated (Bezet) 446 ms MUSE SYSTEM Calculated P [place] 9 degrees MUSE SYSTEM Calculated R [place] 11 degrees MUSE SYSTEM Calculated T [place] 56 degrees MUSE SYSTEM INTERPRETATION Sinus rhythm with 1st degree A-V block Otherwise normal ECG No previous ECGs available Confirmed by MD Mahamed, Albert ([id number]) on 03/25/2020 2:31:04 PM MUSE SYSTEM 03/25/2020 2:04 PM EST 03/25/2020 2:31 PM EST Teressa Green MD ECG ORDERABLES Performing Organization Address City/[facility]/ZIP Co de Phone Number MUSE SYSTEM documented in this encounter Visit Diagnoses Diagnosis On amiodarone therapy documented in this encounter Care Teams Exceptional Children Teacher Assistant Relationship Specialty Start Date End Date Keanu Altman III, MD [address] [place] [address] PCP - General 03/14/10 02/04/23 documented as of this encounter
--- OUTSIDE RECORDS SUMMARY | 2024-06-01 14:41 | XMS_ITS | Encounter Summary ---
Author Organization [facility] Address [address] [place] [address] Care Team Providers Care 4Th Grade Math Teacher Name Role Phone Sanjana Langley MD Primary Care Provider Encounter Details Date Type Department Care Team (Late st Contact Info) Description 11/04/2020 Lab Requisition [facility] Pathology & Laboratory Medicine - [facility] [address] [place], [place] [address] Outr Resulting Lab, Provider Social History Tobacco [...] Associated Diagnosis Comments PSA TOTAL, DIAGNOSTIC Routine 11/04/2020 11:11 EDT documented in this encounter Results * PSA TOTAL, DIAGNOSTIC (11/04/2020 11:11 EDT) PSA 0.3 0.0 - 6.5 ng/mL 11/07/2020 9:27 EDT [facility] Blood VENOUS BLOOD / Unknown 11/04/2020 11:11 EDT 11/04/2020 16:00 EDT Narrative [facility] - 11/07/2020 9:27 EDT NOTE: Serum PSA concentration should not be interpreted as absolute evidence for the presence or absence of malignant disease. Assayed on Siemens ADVIA [employer]aur XPT using chemiluminescent technology.??Values obtained by using different assay methods cannot be used interchangeably. us Provider Outr Resulting Lab CHEMISTRY & BLOOD GA S ORDERABLES Final Result [facility] [address] [place] [address] documented in this encounter Visit Diagnoses Not on filedocumented in this encounter Care Teams 4Th Grade Math Teacher Relationship Specialty Start Date End Date Sanjana Langley MD [address] [place] [address] PCP - General 12/15/15 documented as of this encounter
--- OUTSIDE RECORDS SUMMARY | 2024-06-01 14:41 | XMS_ITS | Encounter Summary ---
Author Organization Health system Address [address] [place] [address] Care Team Providers Care Agricultural Labor Camp Manager Name Role Phone Sanjana Langley MD Primary Care Provider Encounter Details Date Type Department Care Team (Late st Contact Info) Description 06/22/2022 Lab Requisition [facility] Pathology & Laboratory Medicine - [facility] [address] [place], [place] [address] Outr Resulting Lab, Provider Social History Tobacco [...] Associated Diagnosis Comments PSA TOTAL, DIAGNOSTIC Routine 06/22/2022 9:50 EST documented in this encounter Results * PSA TOTAL, DIAGNOSTIC (06/22/2022 9:50 EST) PSA 0.6 <=6.5 ng/mL 06/22/2022 20:[address] [facility] Blood VENOUS BLOOD / Unknown 06/22/2022 9:50 EST 06/22/2022 18:[address] [facility] - 06/22/2022 20:00 EST NOTE: Serum PSA concentration should not be interpreted as absolute evidence for the presence or absence of malignant disease. Assayed on Siemens ADVIA [employer] XPT using chemiluminescent technology.??Values obtained by using different assay methods cannot be used interchangeably. us Provider Outr Resulting Lab CHEMISTRY & BLOOD GA S ORDERABLES Final Result [facility] [address] [place] [address] documented in this encounter Visit Diagnoses Not on filedocumented in this encounter Care Teams Agricultural Labor Camp Manager Relationship Specialty Start Date End Date Sanjana Langley MD [address] [place], [place] [id number] PCP - General 12/15/15 documented as of this encounter
--- OUTSIDE RECORDS SUMMARY | 2024-06-01 14:41 | XMS_ITS | Encounter Summary ---
Author Organization [facility] Address [address] [place] [address] Care Team Providers Care Gluer Machine Setup Operator Name Role Phone Sanjana Langley MD Primary Care Provider [phone] Encounter Details Date Type Department Care Team (Late st Contact Info) Description 08/21/2023 Lab Requisition [facility] Pathology & Laboratory Medicine - [facility] [address] [place], [place] [address] Outr Resulting Lab, Provider Social History Tobacco [...] Procedure Name Priority Date/Time Associated Diagnosis Comments SPEP, INCLUDES QUANTITATION OF MONOCLONAL SPIKE PERFORMABLE Today 08/21/2023 10:55 EDT SPEP, INCLUDES QUANTITATION OF MONOCLONAL SPIKE Routine 08/21/2023 10:55 EDT PROTEIN, TOTAL Today 08/21/2023 10:55 EDT documented in this encounter Results * (ABNORMAL) SPEP, INCLUDES QUANTITATION OF MONOCLONAL SPIKE PERFORMABLE (08/21/2023 10:55 EDT) Albumin % 66.4(H) 55.8 - 66.1 % 08/22/2023 12:57 EDT [facility] Albumin g/dL 4.2 3.6 - 5.2 g/dL 08/22/2023 12:57 EDT [facility] Alpha-1 % 5.4(H) 2.9 - 4.9 % 08/22/2023 12:57 [facility] Alpha-1 g/dL 0.30 0.15 - 0.40 g/dL 08/22/2023 12:57 [facility] Alpha-2 % 13.3(H) 7.1 - 11.8 % 08/22/2023 12:57 [facility] Alpha-2 g/dL 0.90 0.50 - 1.00 g/dL 08/22/2023 12:57 [facility] Beta % 10.9 8.4 - 13.1 % 08/22/2023 12:57 [facility] Beta g/dL 0.70 0.60 - 1.20 g/dL 08/22/2023 12:57 [facility] Gamma % 4.0(L) 11.1 - 18.8 % 08/22/2023 12:57 [facility] Gamma g/dL 0.30(L) 0.60 - 1.60 g/dL 08/22/2023 12:57 [facility] SPEP Comment No apparent monoclonal protein seen on serum electrophoresis 08/22/2023 12:57 [facility] Comment:See scanned/suppleme ntary report. Total Protein 6.4 6.3 - 8.2 g/dL 08/22/2023 12:57 [facility] Blood VENOUS BLOOD / Unknown 08/21/2023 10:55 EDT 08/21/2023 17:30 EDT us Provider Outr Resulting Lab CHEMISTRY & BLOOD GA S ORDERABLES Final Result [facility] [address] [place], [place] [id number] * PROTEIN, TOTAL (08/21/2023 10:55 EDT) Blood VENOUS BLOOD / Unknown 08/21/2023 10:55 EDT 08/21/2023 17:30 EDT us Provider Outr Resulting Lab CHEMISTRY & BLOOD GA S ORDERABLES Final Result [facility] [address] [place], [place] [id number] documented in this encounter Visit Diagnoses Not on filedocumented in this encounter Care Teams Gluer Machine Setup Operator Relationship Specialty Start Date End Date Sanjana Langley MD [address] [place] [address] PCP - General 12/15/15 documented as of this encounter
--- OUTSIDE RECORDS SUMMARY | 2024-06-01 14:41 | XMS_ITS | Encounter Summary ---
Author Organization [facility] Address [address] [place] [address] Care Team Providers Care Track Rider Name Role Phone Sanjana Langley MD Primary Care Provider [phone] Encounter Details Date Type Department Care Team (Late st Contact Info) Description 06/13/2020 Lab Requisition [facility] Pathology & Laboratory Medicine - [facility] [address] [place] [address] Trip Santos MD [address] [place] [address] [place] [address] Encounter for other general examination Social History [...] Date/Time Associated Diagnosis Comments SURGICAL PATHOLOGY Today 06/13/2020 8: 56 EST Encounter for other general examination documented in this encounter Results * SURGICAL PATHOLOGY (06/13/2020 8:56 EST) Final Diagnosis A. PROSTATE, TRANSURETHRAL CURETTAGE (TURP): - Prostatic adenocarcinoma, acinar type. - Woodmere score: 3+ 3 = 6, Grade Group 1. See comment. - Less than 5 % of tissue involved by carcinoma. - Background benign prostatic hyperplasia. - Prostatic urethra with reactive changes. 06/17/2020 10:[address] [facility] Diagnosis Comment The TURP specimen shows focal prostatic adenocarcinoma in several chips (occupying less than 5% of the entirely submitted specimen). In areas the carcinoma is cauterized making grading difficult, however, where preserved the carcinoma forms well differentiated glands and therefore is best classified as grade group 1. A minor component of pattern 4 cannot be entirely excluded due to overlying cautery artifact/distortion . Brusher Tender slides of this case were reviewed at the intradepartmental consultation conference. 06/17/2020 10:23 [facility] Attestation There was significant resident/fellow involvement in the diagnostic evaluation of this case. By the signature below, the attending physician certifies that they have personally conducted a gross and/or microscopic examination of the described specimens and rendered or confirmed the above diagnosis. 06/17/2020 10:23 [facility] at [address] PROSTATE GLAND ??(PROSTATE GLAND: TUR, ENUCLEATION SPECIMEN - All Specimens) SPECIMEN ?? Procedure: ?Transurethral prostatic resection TUMOR ?? Histologic Type: ?Acinar adenocarcinoma ?? Histologic Grade: ? Monica Pattern: ? Primary (Predominant) Woodmere Pattern: ?Pattern 3 ? Secondary (Worst Remaining) Monica Pattern: ?Pattern 3 ? Total Woodmere Score: ?6 ? Grade Group: ?1 ?? Tumor Extent: ? Tumor Quantitation: ? Estimated ??Percentage of Prostatic Tissue Involved by Tumor: ?5 % ? Periprostatic Fat Invasion: ?Not applicable ? Seminal Vesicle Invasion: ?Not applicable ?? Accessory Findings: ? Lymphovascular Invasion: ?Not identified ? Perineural Invasion: ?Not identified ADDITIONAL FINDINGS ?? Additional Pathologic Findings: ?Nodular prostatic hyperplasia 06/17/2020 10:23 [facility] Clinical History Urinary retention 06/17/2020 10:23 [facility] Gross Description A. Received in formalin labelled with proper patient identification (initials S, W) and prostate chips are multiple gillespie-elliott, rubbery and cauterized soft tissue fragments (11.8 g, 4.7 x 4.5 x 1.0 cm in aggregate). Entirely submitted in A1-A17. 100% of the specimen is submitted. CHRIS LOVE DO 06/14/2020 13:27 06/17/2020 10:23 [facility] Resident/Fell ow: Chris Love DO 06/17/2020 10:[address] [facility] Performing Lab [facility] 06/17/2020 10:23 [facility] Scanned Images 06/17/2020 10:23 [facility] Tissue ENTIRE PROSTATE / Unknown 06/13/2020 8:56 EST 06/13/2020 16:43 EST us Trip Santos MD PATHOLOGY ORDERABLES Yue crowe Result [facility] [address] [place] [address] documented in this encounter Visit Diagnoses Diagnosis Encounter for other general examination documented in this encounter Care Teams Track Rider Relationship Specialty Start Date End Date Sanjana Langley MD [address] [place] [address] PCP - General 12/15/15 documented as of this encounter
[2024-06-01 15:22] LABS: Abs Immature Grans 0.03 10^3/uL (0.0-0.06); Absolute Basophil Count 0.02 10^3/uL (0.0-0.2); Absolute Eosinophil Count 0.03 10^3/uL (0.0-0.7); Absolute Lymphocyte Count 1.01 10^3/uL (1.2-3.4); Absolute Neutrophil Count 4.88 10^3/uL (1.2-6.7); Basophils % 0.3 %; Eosinophils % 0.5 %; HCT 43.8 % (40.0-50.0); HGB 14.8 g/dL (13.5-17.5); Immature Grans % 0.5 %; Lymphocytes % 15.4 %; MCH 28.6 pg (27.0-33.0); MCHC 33.8 % (32.0-36.0); MCV 85 fL (80-95); MPV 9.6 fL (8.0-11.0); Monocytes % 9.1 %; Neutrophils % 74.2 %; Platelet Count 180 10^3/uL (130-400); RBC 5.18 10^6/uL (4.36-5.78); RDW 12.4 % (11.8-14.1); RDW-SD 37.8 fL; WBC 6.57 10^3/uL (4.4-10.8)
[2024-06-01] MEDS: Aspirin 81 MG CHEW 324 MG CH (15:23)
[2024-06-01 15:41] LABS: Anion Gap 6.2 mmol/L (3-11); BUN 21 mg/dL (7-18); CO2 27.8 mmol/L (21.0-32.0); CREATININE 0.9 mg/dL (0.70-1.30); Calcium 9.5 mg/dL (8.5-10.1); Chloride 105 mmol/L (98-107); Estimated GFR 85.27 (mL/min/1.73m2); Glucose 132 mg/dL (74-106); Magnesium 1.7 mg/dL (1.8-2.4); Potassium 3.8 mmol/L (3.5-5.1); Sodium 139 mmol/L (136-145); Troponin I 20 ng/L (<or=76)
[2024-06-01] MEDS: Magnesium Oxide 400 MG TAB PO (17:07)
--- NOTE | 2024-06-01 17:11 | W.EDPROG ---
Date of service: 06/01/24 Time of Service: 17:00 Medical Decision Making This patient was signed out to me. Please see previous notes for H&P and initial eval. In brief, 83yo M presenting with high risk exertional chest pain. EKG and initial laboratory workup reassuring. Signed out pending repeat troponin; anticipate [facility] admission unless indication for urgent/emergent ischemic eval. Repeat troponin unchanged. On reassessment remains chest pain free. Discussed with [facility] hospitalist Dr. Fish; pt accepted to medicine service. Awaiting admission orders and transfer to the floor. Quality:SDOH Health Related Social Needs: Health related social needs details none Discharge Plan Discharge Details Chief Complaint: Chest Pain Primary Care Provider: Hiram Shankar ED Provider: Lilliana Saavedra Home Meds and New Rx's Prescriptions: No Action hydrochlorothiazide 25 mg tablet 25 mg PO DAILY Qty: 90 3RF CONTOUR STRIPS 1 strip Sub-Q DAILY Qty: 100 1RF sennosides-docusate sodium [Senna with Docusate Sodium] 8.6-50 mg tablet 2 tab-cap PO BID PRN Rx Instructions: per [facility] discharge metformin 500 mg tablet 500 mg PO BID Qty: 180 4RF gabapentin 300 mg capsule 600 mg PO TID Qty: 540 0RF Eliquis 5 mg tablet 5 mg PO BID Qty: 180 4RF pramipexole 0.5 mg tablet 0.5 mg PO QHS Qty: 90 3RF metoprolol succinate 25 mg tablet extended release 24 hr 25 mg PO DAILY Qty: 90 3RF tamsulosin [Flomax] 0.4 mg capsule 0.4 mg PO DAILY Qty: 90 3RF amlodipine-benazepril [Lotrel] 10-20 mg capsule 1 cap PO DAILY Qty: 90 3RF esomeprazole magnesium [Nexium] 20 mg capsule,delayed release(DR/EC) 20 mg PO DAILY Qty: 90 4RF oxycodone 5 mg tablet 5 mg PO QHS MDD 5 PRN (Reason: pain) Qty: 30 0RF magnesium gluconate 27.5 MG tablet 55 mg PO BID Qty: 60 3RF
[2024-06-01 17:30] LABS: Troponin I 23 ng/L (<or=76)
--- NOTE | 2024-06-01 18:49 | W.PM.HP.N ---
Date of service: 06/01/24 Time of Service: 18:49 Assessment and Plan Assessment and plan (1) Atypical chest pain: Status: Acute Assessment and plan: This is an 83-year-old gentleman with a history of paroxysmal atrial fibrillation presenting with exertional neck discomfort which did not require treatment with nitroglycerin. Patient does not have a history of significant CAD. He does see Dr. Navarro locally. His troponins were negative and will be trended with cardiac monitoring overnight. Doubt should consult with patient and patient is available and consider stress testing prior to proceeding with plan procedure in the pain clinic. His Eliquis was reinitiated. He was given loading dose of aspirin and will be continued on low-dose aspirin daily. [facility] [place] patient has recurrent pain. Stress or something will be given for recurrent pain. Patient should discuss treatment plan for PAF rather than taking intermittent long-acting diltiazem with his metoprolol. May be more appropriate for doses metoprolol for episodes. He is a full code. (2) Hypomagnesemia: Start date: 06/01/24 Status: Acute Assessment and plan: Replete and follow-up lab. (3) Atrial fibrillation: Status: Chronic Assessment and plan: Paroxysmal atrial fibrillation recurrent on low-dose metoprolol. Patient discussed intermittent treatment with up dose of metoprolol if needed and stop diltiazem. He can discuss this with Dr. Navarro. (4) Essential hypertension: Status: Chronic Assessment and plan: Continue outpatient medical therapy and monitor adjusting as needed. 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 (6) Hyperlipidemia: Status: Chronic Assessment and plan: Continue statin. (7) Chronic pain syndrome: Status: Chronic Assessment and plan: Patient is chronically on oxycodone with VPMS checked and appropriate for outpatient medical therapy per medication list. Urine drug screen which would not show oxycodone but monitor for other drug use. Patient does not have high risk for drug misuse. (8) Prostate cancer: Status: Chronic Assessment and plan: Observing management per outpatient charting. (9) JERE (obstructive sleep apnea): Status: Chronic Assessment and plan: Patient should use outpatient treatment while hospitalized with home settings. Follow-up on whether patient uses CPAP or BiPAP. History of Present Illness History of Present Illness Chief Complaint: Exertional neck pain with palpitation. Narrative: This is an 83-year-old male patient who has a history of paroxysmal atrial fibrillation usually on Eliquis but holding this over the last day with impending synovial cyst aspiration at the pain clinic. He has had recent back surgery and has had recurrent pain with his cyst over his back. He has been fairly active and was at the gym doing minimal exercise but he had exertional symptoms of neck discomfort which she has had in the past and palpitations with patient feeling that he was in atrial fibrillation. In the ED he was found to be normal rhythm with a nonischemic EKG. His troponins were negative. Patient states that his palpitations did resolve and his neck discomfort slowly resolved without nitroglycerin sublingually. He usually takes low-dose metoprolol and because he felt that he was having recurrent atrial fibrillation he took some old diltiazem 120 mg. He usually sees Dr. Navarro locally. Patient denies any recent fever or respiratory symptoms and has had no peripheral edema or weight gain. He has had no bleeding sequelae with his Eliquis. He is disappointed that his back surgery did not improve his back pain. He does have some slight swelling over his lower back where he had previous surgery. He has no GI complaints. No focal neurological complaints. The patient will be admitted for observation with his atypical exertional symptoms and trend troponins. If possible, Dr. Franco should be consulted with consideration of stress test prior to proceeding with any procedures at the pain clinic. His Eliquis was reinitiated. He was given in the ED. [facility] [place]. For now he will continue daily low-dose aspirin. He is a full code. Review of Systems Narrative: 13 point review of systems otherwise unrevealing or stable. [facility] All Active Problems (Updated 06/02/24 @ 06:47 by Luiz Fish) Hypomagnesemia (Acute) JERE (obstructive sleep apnea) (Chronic) Atypical chest pain (Acute) Lumbar radiculopathy (Acute) Bilateral lower extremity edema (Acute) Chronic pain syndrome (Chronic) Weakness of right leg (Acute) Lumbosacral plexopathy (Acute) Restless leg syndrome (Acute) Low back pain (Acute) Sleep apnea, unspecified (Acute) Skin lesion of right ear (Acute) Wrist pain (Acute) Skin lesion (Acute) Hyperlipidemia (Chronic) 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 tach-16 beats, asymptomatic, Atrial fibrillation (Chronic) ECHO NEG, HOLTER 04/29 FEW PVC'S/PAC'S Eliqu: Followed by cardiology at [facility] Diabetes mellitus (Acute 09/24/12) no ophtalmopathy: : normal microalb. Essential hypertension (Chronic 02/25/13) Gastroesophageal reflux disease with esophagitis (Acute) H/O [facility], ENDOSCOPY 1994 Peripheral neuropathy (Acute 11/24/14) evaluated : db related Medical History Basal cell carcinoma of right ear Prostate cancer First degree heart block Syncope Surgical History History of tonsillectomy and adenoidectomy S/P TURP (status post transurethral resection of prostate) History of rotator cuff surgery right Extraction of cataract (~2012) B/L Arthroscopy, Shoulder [facility]; LEFT Family History Mother , 88 Diabetes Heart disease Hyperlipidemia Father , 97 No problems noted. Sister Essential hypertension Hyperlipidemia Brother , 62 Diabetes Blastoma Brother No problems noted. Maternal Grandfather , 47 No problems noted. Paternal Grandfather , 85 Hyperlipidemia Hypertension Maternal Grandmother , 85 Essential hypertension Heart disease Hyperlipidemia Paternal Grandmother , 95 No problems noted. Daughter No problems noted. Daughter No problems noted. Daughter No problems noted. Social History Smoking/Tobacco Use Status: Former Tobacco Use Quit Date: 04/22/74 Smoking risk assessment performed?: Yes Alcohol Intake: current Alcohol Intake frequency: 0-2 drinks per day Alcohol type: hard liquor Drug use: Daily Substance use type: marijuana and other Details: MEDICINAL PURPOSES Adopted: No Caregiver/Support person: Yes Household members: spouse Housing: apartment Number of Children: 3 number of grandchildren: 6 Communication Needs: Hard of Hearing and Corrective Lenses Do you need help understanding health information?: Often current occupation: Retired Pets and animals: Yes Pets and animals: other Details: goats Sexually active: Yes Do you think of yourself as: decline to answer Current gender identity: decline to answer What is your relationship status?: How often do you talk on the phone with friends or family?: decline to answer How often do you get together with friends or relatives?: decline to answer How often do you attend congregational or bahai services?: decline to answer Do you belong to any clubs or organized social groups?: no Panel score (0-1 are the most socially isolated patients): 1 Duration: 15-30 minutes/day Frequency: 5-6 times per week Randa/Protestant: OTHER Special randa needs: No Seatbelt use: always Drive intox or ride w/intox sprinkler truck driver: No Firearms in home: Yes Do you feel safe at home: Yes Do you feel safe in your relationship?: Yes Would you like helpful sources: No Meds Allergies and Home Medications Allergies Allergy/AdvReac Type Severity Reaction Status Date / Time No Known Allergies Allergy Verified 06/01/24 14:28 Home Medications ?Medication ?Instructions ?Recorded ?Confirmed ?Type Contour Strips 1 strip subcut DAILY #100 strips 06/22/16 06/01/24 Clinic magnesium gluconate 27.5 mg 55 mg (2 x 27.5 mg magne- sium 02/22/20 06/01/24 Rx magnesium (500 mg) tablet (500 mg)) PO BID #60 tab-caps sennosides 8.6 mg-docusate sodium 2 tab-cap PO BID PRN 03/18/23 06/01/24 History 50 mg tablet (Senna with Docusate Sodium) metformin 500 mg tablet 500 mg PO BID #180 tab-caps 05/27/23 06/01/24 Rx gabapentin 300 mg capsule 600 mg (2 x 300 mg) PO TID #540 07/03/23 06/01/24 Rx caps apixaban 5 mg tablet (Eliquis) 5 mg PO BID #180 tab-caps 08/21/23 06/01/24 Rx pramipexole 0.5 mg tablet 0.5 mg PO QHS #90 tabs 09/11/23 06/01/24 Rx metoprolol succinate 25 mg 25 mg PO DAILY #90 tabs 10/18/23 06/01/24 Rx tablet,extended release 24 hr tamsulosin 0.4 mg capsule (Flomax) 0.4 mg PO DAILY #90 caps 11/01/23 06/01/24 Rx hydrochlorothiazide 25 mg tablet 25 mg PO DAILY #90 tabs 01/17/24 06/01/24 Rx amlodipine 10 mg-benazepril 20 mg 1 cap PO DAILY #90 caps 02/26/24 06/01/24 Rx capsule (Lotrel) esomeprazole magnesium 20 mg 20 mg PO DAILY #90 tab-caps 05/13/24 06/01/24 Rx capsule,delayed release (Nexium) oxycodone 5 mg tablet 5 mg PO QHS PRN pain #30 tabs 05/20/24 06/01/24 Rx Exam Narrative Exam Narrative: General: Patient appears appropriate for age, alert and oriented x 3 and in no acute distress. He has slightly pressured speech and is very talkative. HEENT: Normocephalic, eyes with pupils equal and react to light symmetrically, extraocular movement intact and sclera anicteric. Oropharynx with moist mucosa and good dentition. Neck: Supple without JVD. Back: Normal posture without CVA tenderness. Loss of lumbar lordotic curve with some slight pitting edema over his lower back. Phalen test negative bilaterally. Lungs: Fair aeration with clear breath sounds bilaterally. No focalized rales or rhonchi. No expiratory wheeze. Heart: Regular rate with irregular rhythm. 3/6 systolic murmur left lower border. No gallop. Abdomen: Normal contour, soft and nontender to palpation no palpable hepatosplenomegaly. Bowel sounds positive all quadrants. No guarding or rebound. Genitalia/rectal: Exam deferred. Extremities: Without clubbing, cyanosis or pitting edema. Fair capillary refill. Skin: Actinic changes over sun exposed areas, otherwise normal color, warm and dry. No bruising. Neuro: Cranial nerves II through XII gross intact, no focalizing motor deficits. No tremor. Psych: Slightly anxious but normal mood. No abnormal thought processes. Remote and recent memory intact. Results Imaging Imaging Studies: EXAM: XR PORTABLE CHEST AP CLINICAL HISTORY: Chest pain TECHNIQUE: 2D digital imaging was performed. COMPARISON: CR XR RIBS RT W PA LAT CHEST from 08/29/2022 FINDINGS: Exam is mildly limited by under penetration at the lung bases and suboptimal pulmonary inflation. LUNGS: Clear. No pleural abnormality seen. HEART: Normal size. AORTA: Normal diameter. BONES: Postsurgical changes in the shoulders. Degenerative changes in the spine. Soft tissues: Unremarkable. IMPRESSION: No acute findings. Labs 06/01/24 15:15 06/01/24 15:15 Labs: Laboratory Results - last 24 hr 06/01/24 06/01/24 15:15 16:45 WBC 6.57 RBC 5.18 Hgb 14.8 Hct 43.8 MCV 85 MCH 28.6 MCHC 33.8 RDW 12.4 Plt Count 180 MPV 9.6 Immature Gran % 0.5 Neutrophils % 74.2 Lymphocytes % 15.4 Monocytes % 9.1 Eosinophils % 0.5 Basophils % 0.3 Nucleated RBC % 0.0 Absolute Neutrophils 4.88 Absolute Lymphocytes 1.01 L Absolute Monocytes 0.60 Absolute Eosinophils 0.03 Absolute Basophils 0.02 Sodium 139 Potassium 3.8 Chloride 105 Carbon Dioxide 27.8 Anion Gap 6.2 BUN 21 H Creatinine 0.9 Est GFR (CKD-EPI 2020) 85.27 Glucose 132 H Calcium 9.5 Magnesium 1.7 L Troponin I 20 23 Last Vital Signs Temp 36.3 C L 06/01/24 14:16 Pulse 50 L 06/01/24 18:10 Resp 12 06/01/24 18:10 BP 145/52 H 06/01/24 18:01 Pulse Ox 94 06/01/24 18:10 PAWSS Have you Been Recently Intoxicated or Drunk Within the Last 30 days?: No Have you Ever Experienced Previous Episodes of Alcohol Withdrawal?: No Have you ever Experienced Withdrawal Seizures?: No Have you ever Experienced Delirium Tremens(DT)s?: No Have you ever undergone Alcohol Rehabilitation Treatment (i.e, inpt ot outpatient treatment programs)?: No Have you ever Experienced Blackouts?: No Have you ever Combined Alcohol with other Downers within the last 90 days?: No Have you ever Combined Alcohol with any other Substance of Abuse during the last 90 days?: No Positive Blood Alcohol level on Presentation? [PCS.BAL]: No Evidence of Increased Autonomic Activity (i.e. HR>120, tremor, sweating, agitation, nausea)?: No Result: 0 Time Spent Time spent with Patient: >75 minutes Time was spent: preparing to see the patient(eg.review tests), obtaining and/or reviewing separately otained hiistory, ordering medications,tests, procedures, indepentently interpreting results, counseling the patient and care coordination
[2024-06-01 18:51] LABS: Troponin I 23 ng/L (<or=76)
--- NOTE | 2024-06-01 20:38 | W.PCEDHO ---
Registration Status: Primary Language: Preferred Language: ED Information & Data Chief Complaint Chest Pain 06/01/24 14:36 Triage Note chest pain since this 06/01/24 14:16 morning radiating to his left shoulder. patient state he has a history of Afib took his diltiazem today. Medical / Surgical History (Last Reviewed 06/01/24 @ 18:49 by Luiz Fish) Basal cell carcinoma of right ear Prostate cancer First degree heart block Syncope (Last Reviewed 06/01/24 @ 18:49 by Luiz Fish) History of tonsillectomy and adenoidectomy S/P TURP (status post transurethral resection of prostate) History of rotator cuff surgery Extraction of cataract (~2012) Arthroscopy, Shoulder Most Recent Vital Signs Temperature 36.3 C L 06/01/24 14:16 Temperature Source Oral 06/01/24 14:16 Pulse 56 L 06/01/24 19:02 Pulse 61 06/01/24 18:57 Respiratory Rate 14 06/01/24 19:02 Respiratory Effort Normal, Non-Labored 06/01/24 19:02 Respiratory Depth Normal 06/01/24 19:02 Respiratory Pattern Normal 06/01/24 19:02 Blood Pressure 149/59 H 06/01/24 19:02 Blood Pressure Mean 89 06/01/24 19:02 Blood Pressure Position Supine 06/01/24 19:02 Pulse Oximetry 96 06/01/24 19:02 Oxygen Delivery Method Room Air 06/01/24 14:16 Oxygen Flow Rate 0 06/01/24 14:16 Allergies No Known Allergies Allergy (Verified 06/01/24 14:28) IV IV Catheter Type [Right Peripheral IV Forearm] IV Catheter Gauge [Right 20 Forearm] Diagnostics 06/01/24 06/01/24 06/01/24 Range/Units 20:04 18:30 16:45 WBC (4.4-10.8) 10^3/uL RBC (4.36-5.78) 10^6/uL Hgb (13.5-17.5) g/dL Hct (40.0-50.0) % MCV (80-95) fL MCH (27.0-33.0) pg MCHC (32.0-36.0) % RDW (11.8-14.1) % Plt Count (130-400) 10^3/uL MPV (8.0-11.0) fL Immature Gran % % Neutrophils % % Lymphocytes % % Monocytes % % Eosinophils % % Basophils % % Nucleated RBC % (0.0-0.3) % Absolute Neutrophils (1.2-6.7) 10^3/uL Absolute Lymphocytes (1.2-3.4) 10^3/uL Absolute Monocytes (0.1-0.8) 10^3/uL Absolute Eosinophils (0.0-0.7) 10^3/uL Absolute Basophils (0.0-0.2) 10^3/uL Sodium (136-145) mmol/L Potassium (3.5-5.1) mmol/L Chloride (98-107) mmol/L Carbon Dioxide (21.0-32.0) mmol/L Anion Gap (3-11) mmol/L BUN (7-18) mg/dL Creatinine (0.70-1.30) mg/dL Est GFR (CKD-EPI 2020) (mL/min/1.73m2) Glucose (74-106) mg/dL Calcium (8.5-10.1) mg/dL Magnesium (1.8-2.4) mg/dL Troponin I 23 23 (<or=76) ng/L COVID-19 Source Pending SARS-CoV-2 (PCR) Pending Influenza Type A (PCR) Pending Influenza Type B (PCR) Pending RSV (PCR) Pending 06/01/24 Range/Units 15:15 WBC 6.57 (4.4-10.8) 10^3/uL RBC 5.18 (4.36-5.78) 10^6/uL Hgb 14.8 (13.5-17.5) g/dL Hct 43.8 (40.0-50.0) % MCV 85 (80-95) fL MCH 28.6 (27.0-33.0) pg MCHC 33.8 (32.0-36.0) % RDW 12.4 (11.8-14.1) % Plt Count 180 (130-400) 10^3/uL MPV 9.6 (8.0-11.0) fL Immature Gran % 0.5 % Neutrophils % 74.2 % Lymphocytes % 15.4 % Monocytes % 9.1 % Eosinophils % 0.5 % Basophils % 0.3 % Nucleated RBC % 0.0 (0.0-0.3) % Absolute Neutrophils 4.88 (1.2-6.7) 10^3/uL Absolute Lymphocytes 1.01 L (1.2-3.4) 10^3/uL Absolute Monocytes 0.60 (0.1-0.8) 10^3/uL Absolute Eosinophils 0.03 (0.0-0.7) 10^3/uL Absolute Basophils 0.02 (0.0-0.2) 10^3/uL Sodium 139 (136-145) mmol/L Potassium 3.8 (3.5-5.1) mmol/L Chloride 105 (98-107) mmol/L Carbon Dioxide 27.8 (21.0-32.0) mmol/L Anion Gap 6.2 (3-11) mmol/L BUN 21 H (7-18) mg/dL Creatinine 0.9 (0.70-1.30) mg/dL Est GFR (CKD-EPI 2020) 85.27 (mL/min/1.73m2) Glucose 132 H (74-106) mg/dL Calcium 9.5 (8.5-10.1) mg/dL Magnesium 1.7 L (1.8-2.4) mg/dL Troponin I 20 (<or=76) ng/L COVID-19 Source SARS-CoV-2 (PCR) Influenza Type A (PCR) Influenza Type B (PCR) RSV (PCR) Intake and Output - 24 Hour Total 06/01/24 14:13 thru 06/01/24 14:16 Weight 86.183 kg Falls Risk Assessment History of Falls No History 06/01/24 15:19 Contributing Factors No Factors 06/01/24 15:19 Fall Total Score 0 06/01/24 15:19 Level of Risk Standard/Low Risk 06/01/24 15:19 Problems (Last Reviewed 06/01/24 @ 18:49 by Luiz Fish) Hypomagnesemia (Acute) JERE (obstructive sleep apnea) (Chronic) Atypical chest pain (Acute) Chronic pain syndrome (Chronic) Hyperlipidemia (Chronic) 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 Information / Comments: Report received from: Elizabeth LUNA
[2024-06-01 20:48] LABS: COVID-19 PCR Negative (Negative); Influenza A PCR Negative (Negative); Influenza B PCR Negative (Negative); RSV PCR Negative (Negative)
[2024-06-01 20:50] LABS: Source Nasopharynx
[2024-06-01] MEDS: Pramipexole 0.25 MG TAB 0.5 MG PO (21:58)
[2024-06-01] MEDS: Apixaban 5 MG TAB PO (21:58)
[2024-06-01] MEDS: Gabapentin 300 MG CAP 600 MG PO (21:58)
[2024-06-01] MEDS: oxyCODONE 5 MG TAB PO (21:59)
[2024-06-01] MEDS: Acetaminophen 325 MG TAB PO (21:59)
[2024-06-01] MEDS: Normal Saline Flush 10 ML SYR IVP (22:00)
[2024-06-01] MEDS: MAGNESIUM SULFATE 2 GM/50 ML BAG IV_INF (22:00)
[2024-06-02 00:45] LABS: Troponin I 22 ng/L (<or=76)
[2024-06-02 00:52] LABS: TSH (W/Ref FT4) 1.41 uIU/mL (0.36-3.74)
[2024-06-02 03:05] VITALS: BP 118/57; PULSE 46; RESP 16; TEMP 36.1; O2SAT 93
[2024-06-02 06:41] LABS: HCT 38.3 % (40.0-50.0); MCH 28.7 pg (27.0-33.0); MCHC 33.9 % (32.0-36.0); MCV 85 fL (80-95); MPV 10.4 fL (8.0-11.0); Platelet Count 185 10^3/uL (130-400); RBC 4.53 10^6/uL (4.36-5.78); RDW 12.9 % (11.8-14.1); RDW-SD 39.3 fL; WBC 4.97 10^3/uL (4.4-10.8)
[2024-06-02 07:09] LABS: Troponin I 15 ng/L (<or=76)
[2024-06-02 07:13] LABS: ALT 21 U/L (16-63); AST 12 U/L (15-37); Albumin 3.5 g/dL (3.4-5.0); Alkaline Phosphatase 78 U/L (46-116); Anion Gap 6.3 mmol/L (3-11); BUN 19 mg/dL (7-18); Bilirubin, Total 0.31 mg/dL (0.2-1.0); CO2 29.7 mmol/L (21.0-32.0); CREATININE 0.9 mg/dL (0.70-1.30); Calcium 8.7 mg/dL (8.5-10.1); Chloride 106 mmol/L (98-107); Estimated GFR 85.27 (mL/min/1.73m2); Glucose 119 mg/dL (74-106); Magnesium 2.1 mg/dL (1.8-2.4); Potassium 3.7 mmol/L (3.5-5.1); Sodium 142 mmol/L (136-145); Total Protein 5.8 g/dL (6.4-8.2)
[2024-06-02 07:17] LABS: *AMPHETAMINES SCREEN URINE Negative (Negative); *BARBITURATES SCREEN URINE Negative (Negative); *BENZODIAZEPINES SCREEN URINE Negative (Negative); Cannabinoids THC Positive (Negative); Cocaine Screen,Urine Negative (Negative); METHADONE URINE SCREEN Negative (Negative); OPIATES URINE SCREEN Negative (Negative)
[2024-06-02 07:18] LABS: Tricyclic Antidepressants Negative (Negative)
[2024-06-02 09:38] VITALS: BP 147/68; PULSE 54
[2024-06-02] MEDS: Esomeprazole 40 MG CAPCR PO (09:40)
[2024-06-02] MEDS: hydroCHLOROthiazide 25 MG TAB PO (09:40)
[2024-06-02] MEDS: Apixaban 5 MG TAB PO (09:40)
[2024-06-02] MEDS: Magnesium Gluconate 500 MG TAB PO (09:41)
[2024-06-02] MEDS: Gabapentin 300 MG CAP 600 MG PO (09:41)
[2024-06-02] MEDS: Aspirin 81 MG CHEW PO (09:41)
[2024-06-02] MEDS: Metoprolol CR 25 MG TABCR PO (09:41)
[2024-06-02] MEDS: Tamsulosin 0.4 MG CAPCR PO (09:41)
[2024-06-02] MEDS: amLODIPine 10 MG TAB PO (09:41)
[2024-06-02] MEDS: Benazepril 10 MG TAB 20 MG PO (09:41)
[2024-06-02] MEDS: Normal Saline Flush 10 ML SYR IVP (09:42)
--- NOTE | 2024-06-02 11:56 | DSE_ITS ---
Date of service: 06/02/24 Time of Service: 11:56 DS: Diagnosis Discharge Diagnosis (1) Atypical chest pain: Status: Acute (2) Hypomagnesemia: Status: Acute (3) Atrial fibrillation: Status: Chronic (4) Essential hypertension: Status: Chronic (5) Type 2 diabetes mellitus with diabetic nephropathy: Status: Chronic (6) Hyperlipidemia: Status: Chronic (7) Chronic pain syndrome: Status: Chronic (8) Prostate cancer: Status: Chronic (9) JERE (obstructive sleep apnea): Status: Chronic Discharge Plan Disposition Patient Disposition: Home Condition: Good Discharge Details Reason For Visit: Atypical chest pain, PAF, NIDDM, Hypomagnesemia Admit Date/Time: 06/01/24 19:16 Admit Provider: Raina Yin Attending Provider: Raina Yin Primary Care Provider: Hiram Shankar Hospital Course Hospital Course: Chief Complaint: * Exertional neck discomfort and palpitations, suspected paroxysmal atrial fibrillation (PAF). History: This is an 83-year-old male with a history of paroxysmal atrial fibrillation, previously managed with Eliquis, but held for one day prior to impending synovial cyst aspiration at the pain clinic. The patient also has a recent history of back surgery and recurrent back pain due to a cyst. He had exertional symptoms, including neck discomfort and palpitations, which he believes were related to atrial fibrillation. In the Emergency Department, he was found to have normal sinus rhythm on EKG, with a non-ischemic pattern. Troponin levels were negative. The patient?s neck discomfort gradually resolved, and his palpitations subsided without the need for nitroglycerin. He took his old diltiazem 120 mg, which is not part of his usual regimen, due to concerns of atrial fibrillation recurrence. The patient is typically prescribed low-dose metoprolol. He reports no fever, respiratory symptoms, or peripheral edema. He denies any GI complaints and has had no bleeding complications with Eliquis. The patient expressed dissatisfaction with the outcomes of his recent back surgery, noting slight swelling in the lower back where the surgery was performed. No focal neurological complaints were noted. Clinical Course: * ED Evaluation: The patient presented with exertional neck discomfort and palpitations. On evaluation, he had normal sinus rhythm, and his troponins were negative. The patient's symptoms of neck discomfort and palpitations resolved without nitroglycerin. * Cardiac Monitoring: Given his history of paroxysmal atrial fibrillation, cardiac monitoring was initiated. His troponin levels were trended overnight to assess for any cardiac concerns and were negative. Management: * Medications: * Apixaban: Reinitiated after being held for 1 day in anticipation of the patient's procedure * Low-dose metoprolol: To be continued. * Daily low-dose aspirin: Re-initiated with a loading dose in the ED. * Diltiazem: Used intermittently by the patient for symptoms of atrial fibrillation; discuss with cardiology for appropriate management. * Cardiology Consultation: A consult with Dr. Franco is recommended to consider a stress test prior to any procedures at the pain clinic. A cardiology consultation is also recommended for management of recurrent atrial fibrillation symptoms. * Pain Management: The patient?s recurrent pain, particularly related to his back, will be monitored. He is advised to discuss alternative treatment options for managing his pain with his primary care provider and pain clinic. Plan: * Hold Eliquis until confirmation from Dr. Sierra regarding the upcoming injection scheduled for May, at 10:45 AM. * Dr. Sierra's office is aware of the patient receiving 2 doses of Eliquis and will contact the patient regarding the injection plan. * Continue to hold Apixaban and low dose aspirin. * Full code status. * Follow-up with PCP and cardiology for ongoing management of paroxysmal atrial fibrillation, particularly regarding the use of metoprolol and diltiazem for future episodes. * Discuss pain management options with Dr. Navarro and pain clinic, as the back surgery did not significantly alleviate symptoms. Additional Instructions: * Apixaban: Continue to hold until further instructions from Dr. Sierra regarding the planned injection. * Scheduled Appointment: The patient?s injection is scheduled for May, at 10:[address] Sierra's office will contact the patient regarding this. * Follow-up: Follow up with primary care provider and cardiology to discuss management of atrial fibrillation and back pain. Home Meds and New Rx's Prescriptions: Continued hydrochlorothiazide 25 mg tablet 25 mg PO DAILY Qty: 90 3RF CONTOUR STRIPS 1 strip Sub-Q DAILY Qty: 100 1RF sennosides-docusate sodium [Senna with Docusate Sodium] 8.6-50 mg tablet 2 tab-cap PO BID PRN Rx Instructions: per [facility] [place] discharge gabapentin 300 mg capsule 600 mg PO TID Qty: 540 0RF pramipexole 0.5 mg tablet 0.5 mg PO QHS Qty: 90 3RF metoprolol succinate 25 mg tablet extended release 24 hr 25 mg PO DAILY Qty: 90 3RF tamsulosin [Flomax] 0.4 mg capsule 0.4 mg PO DAILY Qty: 90 3RF amlodipine-benazepril [Lotrel] 10-20 mg capsule 1 cap PO DAILY Qty: 90 3RF esomeprazole magnesium [Nexium] 20 mg capsule,delayed release(DR/EC) 20 mg PO DAILY Qty: 90 4RF oxycodone 5 mg tablet 5 mg PO QHS MDD 5 PRN (Reason: pain) Qty: 30 0RF magnesium gluconate 27.5 MG tablet 55 mg PO BID Qty: 60 3RF Discontinued Eliquis 5 mg tablet 5 mg PO BID Qty: 180 4RF No Action metformin 500 mg tablet 500 mg PO BID Qty: 180 4RF Discharge Instructions Instructions: Arrhythmias (DC) Additional Instructions: Continue to HOLD apixaban (Eliquis) until you hear from Dr Sierra regarding your injection. Currently your scheduled injection is on May @ [address] Sierra's office will be in contact with you regarding your appointment, they do know you received 2 doses of apixaban. Follow up with PCP and cardiology. Stand Alone Forms: Nursing Discharge Form Referrals: Hiram Shankar NP [Primary Care Provider] - 06/10/24 1:20 pm (post hospitalization visit within 10 days) Luiz Sierra DO [OSTEOPATHIC DOCTOR] - 06/04/24 10:45 am (Keep appointment 06/04/24 @ 1045 - Dr Sierra's office will contact you. ) Annette Navarro MD [ [facility] STAFF PHYSICIAN] - 06/11/24 11:00 am (post hospitalization for irregular heart rate and bradycardia. ) Activity:: Activity as Tolerated Equipment/Supplies:: No Equipment Needed Diet:: As Tolerated Discharge Orders Discharge Orders: Discharge Order (Routine); Ordered 06/02/24 Ordered By: Raina Yin Discharge Data Discharge Date/Time-TO BE ENTERED AT DEPARTURE: 06/02/24 13:23 DS: Summary Time Spent with Patient providing and/or coordinating discharge services: Greater than 30 minutes Status at Discharge Functional status at discharge: uses cane/walker Overall status at discharge: patient is back to baseline Mental Status: mental status grossly normal Speech and Movement: speech and movement normal Mood: congruent mood Affect: normal affect Quality:SDOH Health Related Social Needs: Health related social needs housing instability, house d, with risk of homelessness (Z59.811), education (Z55.6) Health related social needs details none Exam Narrative Exam Narrative: General: Pleasant elderly male who looks younger than his stated age, laying comfortably in bed, A&Ox3 HEENT: Atraumatic, normocephalic, EOMI, MMM Cardiovascular: RRR, no m/r/g Lungs: CTAB Gastrointestinal: soft, nontender, nondistended Extremities: no e/c/c BLE's, +1 pedal pulses B Psych Mental Status: mental status grossly normal Speech and Movement: speech and movement normal Mood: congruent mood Affect: normal affect DS: Data Vitals/I&O Vitals and I&O: Vital Signs Temperature 36.1 C L 06/02/24 03:05 Temperature Source Tympanic 06/02/24 03:05 Pulse 54 L 06/02/24 09:38 Pulse Rhythm Regular 06/01/24 20:55 Pulse 52 L 06/01/24 20:40 Respiratory Rate 16 06/02/24 03:05 Respiratory Effort Normal, Non-Labored 06/01/24 20:55 Respiratory Depth Normal 06/01/24 20:55 Respiratory Pattern Normal 06/01/24 20:55 Blood Pressure 147/68 H 06/02/24 09:38 Blood Pressure Mean 80 06/01/24 20:31 Blood Pressure Position Supine 06/01/24 19:02 Pulse Oximetry 93 06/02/24 03:05 Oxygen Delivery Method Room Air 06/02/24 09:38 Oxygen Flow Rate 0 06/02/24 09:38 Pain Level 5 06/01/24 21:59 Intake & Output 06/01/24 06/01/24 06/02/24 11:59 23:59 11:59 Intake Total 210 / 210 50 / 50 Output Total 1400 / 1400 Balance 210 / 210 -1350 / -1350 Weight 86.674 kg Intake: IV Oral 200 / 200 50 / 50 Output: Urine 1400 / 1400 Other: Urine Color Yellow Urine Appearance Clear Clear Urine Odor None Data Completed and Pending Labs on day of discharge: Labs from last 24 hours 06/02/24 06/02/24 06/02/24 06:40 06:07 02:00 WBC 4.97 RBC 4.53 Hgb 13.0 L Hct 38.3 L MCV 85 MCH 28.7 MCHC 33.9 RDW 12.9 Plt Count 185 MPV 10.4 Immature Gran % Neutrophils % Lymphocytes % Monocytes % Eosinophils % Basophils % Nucleated RBC % Absolute Neutrophils Absolute Lymphocytes Absolute Monocytes Absolute Eosinophils Absolute Basophils Sodium 142 Potassium 3.7 Chloride 106 Carbon Dioxide 29.7 Anion Gap 6.3 BUN 19 H Creatinine 0.9 Est GFR (CKD-EPI 2020) 85.27 Glucose 119 H Calcium 8.7 Magnesium 2.1 Total Bilirubin 0.31 AST 12 L ALT 21 Alkaline Phosphatase 78 Troponin I 15 Cancelled Total Protein 5.8 L Albumin 3.5 TSH Urine Opiates Screen Negative Urine Methadone Screen Negative Ur Barbiturates Screen Negative Ur Tricyclics Screen Negative Ur Amphetamines Screen Negative U Benzodiazepines Scrn Negative Urine Cocaine Screen Negative Ur THC Screen Positive A COVID-19 Source SARS-CoV-2 (PCR) Influenza Type A (PCR) Influenza Type B (PCR) RSV (PCR) 06/02/24 06/01/24 06/01/24 00:17 20:57 20:04 WBC RBC Hgb Hct MCV MCH MCHC RDW Plt Count MPV Immature Gran % Neutrophils % Lymphocytes % Monocytes % Eosinophils % Basophils % Nucleated RBC % Absolute Neutrophils Absolute Lymphocytes Absolute Monocytes Absolute Eosinophils Absolute Basophils Sodium Potassium Chloride Carbon Dioxide Anion Gap BUN Creatinine Est GFR (CKD-EPI 2020) Glucose Calcium Magnesium Total Bilirubin AST ALT Alkaline Phosphatase Troponin I 22 Cancelled Total Protein Albumin TSH Urine Opiates Screen Urine Methadone Screen Ur Barbiturates Screen Ur Tricyclics Screen Ur Amphetamines Screen U Benzodiazepines Scrn Urine Cocaine Screen Ur THC Screen COVID-19 Source Nasopharynx SARS-CoV-2 (PCR) Negative Influenza Type A (PCR) Negative Influenza Type B (PCR) Negative RSV (PCR) Negative 06/01/24 06/01/24 06/01/24 18:30 16:45 15:15 WBC 6.57 RBC 5.18 Hgb 14.8 Hct 43.8 MCV 85 MCH 28.6 MCHC 33.8 RDW 12.4 Plt Count 180 MPV 9.6 Immature Gran % 0.5 Neutrophils % 74.2 Lymphocytes % 15.4 Monocytes % 9.1 Eosinophils % 0.5 Basophils % 0.3 Nucleated RBC % 0.0 Absolute Neutrophils 4.88 Absolute Lymphocytes 1.01 L Absolute Monocytes 0.60 Absolute Eosinophils 0.03 Absolute Basophils 0.02 Sodium 139 Potassium 3.8 Chloride 105 Carbon Dioxide 27.8 Anion Gap 6.2 BUN 21 H Creatinine 0.9 Est GFR (CKD-EPI 2020) 85.27 Glucose 132 H Calcium 9.5 Magnesium 1.7 L Total Bilirubin AST ALT Alkaline Phosphatase Troponin I 23 23 20 Total Protein Albumin TSH Urine Opiates Screen Urine Methadone Screen Ur Barbiturates Screen Ur Tricyclics Screen Ur Amphetamines Screen U Benzodiazepines Scrn Urine Cocaine Screen Ur THC Screen COVID-19 Source SARS-CoV-2 (PCR) Influenza Type A (PCR) Influenza Type B (PCR) RSV (PCR) 06/01/24 00:17 WBC RBC Hgb Hct MCV MCH MCHC RDW Plt Count MPV Immature Gran % Neutrophils % Lymphocytes % Monocytes % Eosinophils % Basophils % Nucleated RBC % Absolute Neutrophils Absolute Lymphocytes Absolute Monocytes Absolute Eosinophils Absolute Basophils Sodium Potassium Chloride Carbon Dioxide Anion Gap BUN Creatinine Est GFR (CKD-EPI 2020) Glucose Calcium Magnesium Total Bilirubin AST ALT Alkaline Phosphatase Troponin I Total Protein Albumin TSH 1.41 Urine Opiates Screen Urine Methadone Screen Ur Barbiturates Screen Ur Tricyclics Screen Ur Amphetamines Screen U Benzodiazepines Scrn Urine Cocaine Screen Ur THC Screen COVID-19 Source SARS-CoV-2 (PCR) Influenza Type A (PCR) Influenza Type B (PCR) RSV (PCR) PFSH All Active Problems (Updated 06/02/24 @ 12:05 by Raina Yin NP) Hypomagnesemia (Acute) JERE (obstructive sleep apnea) (Chronic) Atypical chest pain (Acute) Lumbar radiculopathy (Acute) Bilateral lower extremity edema (Acute) Chronic pain syndrome (Chronic) Weakness of right leg (Acute) Lumbosacral plexopathy (Acute) Restless leg syndrome (Acute) Low back pain (Acute) Sleep apnea, unspecified (Acute) Skin lesion of right ear (Acute) Wrist pain (Acute) Skin lesion (Acute) Hyperlipidemia (Chronic) 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 tach-16 beats, asymptomatic, Atrial fibrillation (Chronic) ECHO NEG, HOLTER 04/29 FEW PVC'S/PAC'S Eliqu: Followed by cardiology at [facility] Diabetes mellitus (Acute 09/24/12) no ophtalmopathy: : normal microalb. Essential hypertension (Chronic 02/25/13) Gastroesophageal reflux disease with esophagitis (Acute) H/O [facility], ENDOSCOPY 1994 Peripheral neuropathy (Acute 11/24/14) evaluated : db related Medical History Basal cell carcinoma of right ear Prostate cancer First degree heart block Syncope Surgical History History of tonsillectomy and adenoidectomy S/P TURP (status post transurethral resection of prostate) History of rotator cuff surgery right Extraction of cataract (~2012) B/L Arthroscopy, Shoulder [facility]; LEFT Family History Mother , 88 Diabetes Heart disease Hyperlipidemia Father , 97 No problems noted. Sister Essential hypertension Hyperlipidemia Brother , 62 Diabetes Blastoma Brother No problems noted. Maternal Grandfather , 47 No problems noted. Paternal Grandfather , 85 Hyperlipidemia Hypertension Maternal Grandmother , 85 Essential hypertension Heart disease Hyperlipidemia Paternal Grandmother , 95 No problems noted. Daughter No problems noted. Daughter No problems noted. Daughter No problems noted. Social History Smoking/Tobacco Use Status: Former Tobacco Use Quit Date: 04/22/74 Smoking risk assessment performed?: Yes Alcohol Intake: current Alcohol Intake frequency: 0-2 drinks per day Alcohol type: hard liquor Drug use: Daily Substance use type: marijuana and other Details: MEDICINAL PURPOSES Adopted: No Caregiver/Support person: Yes Household members: spouse Housing: apartment Number of Children: 3 number of grandchildren: 6 Communication Needs: Hard of Hearing and Corrective Lenses Do you need help understanding health information?: Often current occupation: Retired Pets and animals: Yes Pets and animals: other Details: goats Sexually active: Yes Do you think of yourself as: decline to answer Current gender identity: decline to answer What is your relationship status?: How often do you talk on the phone with friends or family?: decline to answer How often do you get together with friends or relatives?: decline to answer How often do you attend tenriism or hoahaoism services?: decline to answer Do you belong to any clubs or organized social groups?: no Panel score (0-1 are the most socially isolated patients): 1 Duration: 15-30 minutes/day Frequency: 5-6 times per week Randa/Scientologist: OTHER Special randa needs: No Seatbelt use: always Drive intox or ride w/intox regional flatbed truck driver: No Firearms in home: Yes Do you feel safe at home: Yes Do you feel safe in your relationship?: Yes Would you like helpful sources: No Time Spent with Patient Time Spent with Patient: 45-69 minutes Time was spent: preparing to see the patient(eg.review tests), ordering medications,tests, procedures, referring, communicating with other health intensive care nurse, indepentently interpreting results, counseling the patient and care coordination
--- NOTE | 2024-06-02 12:50 | CMDISCH_ITS ---
Date of service: 06/02/24 Time of Service: 12:50 LACE Index Scoring Tool Questions: Length of Stay (in days): 1 Was the patient admitted via the E.D.?: Yes Comorbidities: Diabetes w/o Complication E.D. Visits: 1 Answers: Total Score: 6 Risk of Readmission: Low Risk Care Management Discharge Plan Reason for Hospitalization: Atypical chest pain Discharge Plan: Elie was already getting dressed for discharge when CM met with him today. He is very happy to be going home. He will require no new services. Elie has appts to follow up with his PCP, cardiology and the pain clinic. Elie will transport home in a private vehicle with his and will continue per his plan of care. Patient/Family Education Needs: Review of discharge instructions, activity, limitations, f/u plan and Ask me 3 SDOH Health Related Social Needs: Health related social needs housing instability, house d, with risk of homelessness (Z59.811), education (Z55.6) Health related social needs details none
== END 2024-06-02 13:23 | disposition home or self-care (01) ==
LOC: ER 19:40 → MS 20:49
PROVIDERS: Emergency Medicine; Family Medicine; Admitting Provider Nurse Practitioner Family; Emergency Provider Student in an Organized Health Care Education/Training Program; PCP Nurse Practitioner Family; Visit Provider Nurse Practitioner Family
DX: R07.89 Other chest pain (principal); E83.42 Hypomagnesemia; I48.0 Paroxysmal atrial fibrillation; I10 Essential (primary) hypertension; E11.21 Type 2 diabetes mellitus with diabetic nephropathy; G89.4 Chronic pain syndrome; E78.2 Mixed hyperlipidemia; G47.33 Obstructive sleep apnea (adult) (pediatric); C61 Malignant neoplasm of prostate; Z79.899 Other long term (current) drug therapy; Z79.01 Long term (current) use of anticoagulants; M54.2 Cervicalgia; M54.16 Radiculopathy, lumbar region; G25.81 Restless legs syndrome; E78.5 Hyperlipidemia, unspecified; Z85.46 Personal history of malignant neoplasm of prostate; E11.42 Type 2 diabetes mellitus with diabetic polyneuropathy
CPT/HCPCS: 00123; 36415; 80048; 80053; 80307; 85027; 87637; 93005; 96365; 96366; 99285; 71045; 83036; 83735; 84443; 84484; 85025; 93010; 99223; 99239; G0378; J1815; J3475

== ENCOUNTER 2024-06-08 16:02 | Emergency (ER) | payer MEDICARE, OTHER, SELFPAY ==
[2024-06-08] VITALS (23 sets, daily range): BP systolic 134–161; BP diastolic 50–74; PULSE 48–73; RESP 10–19; TEMP 36.6; O2SAT 94–98
--- NOTE | 2024-06-08 16:00 | RT.EKG_ITS ---
APPROVED REPORT Exam: Resting ECG Reason for Exam: irreg HR Patient Location: E HR:66 bpm ECG Measurements Heart Rate 66 AXIS [place] 212 P 12 QRSd 90 QRS -9 QT 400 T 74 QTc 420 Conclusion Sinus rhythm...normal P axis, V-rate 60- 99 Borderline prolonged [place] interval...KY >212, V-rate 50- 90
--- NOTE | 2024-06-08 16:42 | W.ED.GENAD ---
Discharge Plan Disposition Patient Disposition: Home Condition: Stable Discharge Details Clinical Impression: Palpitations Primary Care Provider: Hiram Shankar ED Provider: Anoop Robert Home Meds and New Rx's Prescriptions: Continued hydrochlorothiazide 25 mg tablet 25 mg PO DAILY Qty: 90 3RF CONTOUR STRIPS 1 strip Sub-Q DAILY Qty: 100 1RF sennosides-docusate sodium [Senna with Docusate Sodium] 8.6-50 mg tablet 2 tab-cap PO BID PRN Rx Instructions: per [facility] [place] discharge gabapentin 300 mg capsule 600 mg PO TID Qty: 540 0RF pramipexole 0.5 mg tablet 0.5 mg PO QHS Qty: 90 3RF metoprolol succinate 25 mg tablet extended release 24 hr 25 mg PO DAILY Qty: 90 3RF tamsulosin [Flomax] 0.4 mg capsule 0.4 mg PO DAILY Qty: 90 3RF amlodipine-benazepril [Lotrel] 10-20 mg capsule 1 cap PO DAILY Qty: 90 3RF esomeprazole magnesium [Nexium] 20 mg capsule,delayed release(DR/EC) 20 mg PO DAILY Qty: 90 4RF oxycodone 5 mg tablet 5 mg PO QHS MDD 5 PRN (Reason: pain) Qty: 30 0RF metformin 500 mg tablet 500 mg PO BID Qty: 180 4RF magnesium gluconate 27.5 MG tablet 55 mg PO BID Qty: 60 3RF Eliquis 5 mg tablet 5 mg PO BID Discharge Instructions Additional Instructions: Your blood work and bedside ultrasound did not show any concerning findings at this time. I would recommend following up as scheduled with your yarn wrapper. If you feel more ill or have new symptoms such as severe chest pain or chest pressure, difficulty breathing or vomiting return to the emergency department for reevaluation HPI General Mode of arrival: ambulatory. Date/Time Provider Initiated Documentation: 06/08/24 16:07. Limitations to Documentation: no limitations. Information obtained by: patient. History of Present Illness 83 year old M presents to the emergency department with the chief complaint of feels like his heart is beating irregularly, Patient started experiencing this day(s) (1) and it has been intermittent. No relieving factors improve symptom(s), No exacerbating factors reported . Patient notes denies chest pain and shortness of breath. Patient did receive the following treatments prior to arrival, none Related Data Home Medications ?Medication ?Instructions ?Recorded ?Confirmed magnesium gluconate 27.5 mg 55 mg (2 x 27.5 mg magne- sium 02/22/20 06/08/24 magnesium (500 mg) tablet (500 mg)) PO BID #60 tab-caps sennosides 8.6 mg-docusate sodium 2 tab-cap PO BID PRN 03/18/23 06/08/24 50 mg tablet (Senna with Docusate Sodium) gabapentin 300 mg capsule 600 mg (2 x 300 mg) PO TID #540 07/03/23 06/08/24 caps pramipexole 0.5 mg tablet 0.5 mg PO QHS #90 tabs 09/11/23 06/08/24 metoprolol succinate 25 mg 25 mg PO DAILY #90 tabs 10/18/23 06/08/24 tablet,extended release 24 hr tamsulosin 0.4 mg capsule (Flomax) 0.4 mg PO DAILY #90 caps 11/01/23 06/08/24 hydrochlorothiazide 25 mg tablet 25 mg PO DAILY #90 tabs 01/17/24 06/08/24 amlodipine 10 mg-benazepril 20 mg 1 cap PO DAILY #90 caps 02/26/24 06/08/24 capsule (Lotrel) esomeprazole magnesium 20 mg 20 mg PO DAILY #90 tab-caps 05/13/24 06/08/24 capsule,delayed release (Nexium) oxycodone 5 mg tablet 5 mg PO QHS PRN pain #30 tabs 05/20/24 06/08/24 metformin 500 mg tablet 500 mg PO BID #180 tab-caps 06/02/24 06/08/24 apixaban 5 mg tablet (Eliquis) 5 mg PO BID 06/08/24 06/08/24 Previous Rx's ?Medication ?Instructions ?Recorded magnesium gluconate 27.5 mg 55 mg (2 x 27.5 mg magne- sium 02/22/20 magnesium (500 mg) tablet (500 mg)) PO BID #60 tab-caps gabapentin 300 mg capsule 600 mg (2 x 300 mg) PO TID #540 07/03/23 caps pramipexole 0.5 mg tablet 0.5 mg PO QHS #90 tabs 09/11/23 metoprolol succinate 25 mg 25 mg PO DAILY #90 tabs 10/18/23 tablet,extended release 24 hr tamsulosin 0.4 mg capsule (Flomax) 0.4 mg PO DAILY #90 caps 11/01/23 hydrochlorothiazide 25 mg tablet 25 mg PO DAILY #90 tabs 01/17/24 amlodipine 10 mg-benazepril 20 mg 1 cap PO DAILY #90 caps 02/26/24 capsule (Lotrel) esomeprazole magnesium 20 mg 20 mg PO DAILY #90 tab-caps 05/13/24 capsule,delayed release (Nexium) oxycodone 5 mg tablet 5 mg PO QHS PRN pain #30 tabs 05/20/24 metformin 500 mg tablet 500 mg PO BID #180 tab-caps 06/02/24 Allergies Allergy/AdvReac Type Severity Reaction Status Date / Time No Known Allergies Allergy Verified 06/08/24 16:15 General Stated Complaint: Arrhythmia ERICK: 3 Review of Systems All systems reviewed & are unremarkable except as noted in HPI and below Constitutional Constitutional: Denies chills, Denies fever(s) and Denies weakness Cardiovascular Cardiovascular: Denies chest pain, Reports irregular heart rhythm and Denies dyspnea Respiratory Respiratory: Denies cough and Denies dyspnea Gastrointestinal Gastrointestinal: Denies abdominal pain, Denies nausea and Denies vomiting Neurologic Neurologic: Denies weakness Exam Const General: no acute distress Orientation: alert [facility] Head: normal to inspection Ears: external ears normal General nose exam: external nose normal Mouth: moist mucous membranes Eyes General: appearance normal, both eyes and all related structures Neck Neck: normal visual inspection Resp Effort & Inspection: normal respiratory effort and able to speak in complete sentences Auscultation: clear to auscultation bilaterally Cardio Jugular venous pressure: no JVD Rate: regular rate Skin General skin exam: no rashes or lesions noted Neuro General: patient alert and patient oriented x3 Extrem General: normal to inspection Psych Mental Status: mental status grossly normal Course Vital Signs Vital signs: Vital Signs Temperature 36.6 C 06/08/24 16:08 Pulse 71 06/08/24 16:08 Respiratory Rate 12 06/08/24 16:08 Blood Pressure 154/69 H 06/08/24 16:08 Pulse Oximetry 96 06/08/24 16:08 Temperature 36.6 C 06/08/24 16:08 Temperature Source Oral 06/08/24 16:08 Pulse 71 02/17/25 16:08 Respiratory Rate 12 06/08/24 16:08 Blood Pressure 154/69 H 06/08/24 16:08 Blood Pressure Position Sitting 06/08/24 16:08 Pulse Oximetry 96 06/08/24 16:08 Oxygen Delivery Method Room Air 06/08/24 16:08 Oxygen Flow Rate 0 06/08/24 16:08 Pain Level 0 06/08/24 16:08 Medical Decision Making 83-year-old male with a known history of A-fib on Eliquis, comes in with 1 day of intermittently feeling like his heart is beating irregularly. He denies ever feeling like he is in a pass out, difficulty breathing, chest pain, fevers, diaphoresis, vomiting. He states that he currently feels like his heart is beating irregularly, he is in sinus rhythm on the monitor and on his EKG. He has clear lung sounds, no JVD, no abdominal pain. He could be going in and out of A-fib but given he has symptoms now and he is in sinus rhythm unclear if he actually is going into A-fib or if he is having an occasional PVC. He has no signs of DVT on exam no tachycardia and no pleuritic chest pain so I doubt entities such as PE. He has no tearing back pain to suggest dissection. I will check a CBC and CMP to evaluate for anemia and electrolyte abnormalities and send troponins. Labs unremarkable, patient is stable. I did a POCUS which shows no signs of pericardial effusion and normal-appearing EF. He has had symptoms for a day so I do not feel delta troponins would be of benefit. He has follow-up on with his yarn wrapper. Return precautions given Differential Diagnosis Differential Diagnosis: A-fib, electrolyte abnormality Medical Records Medical records reviewed: Yes I reviewed the patient's medical records. Lab Data Lab results reviewed: Yes I reviewed the patient's lab results. ECG Data Attestation: I personally reviewed and interpreted this ECG (s) as follows: Prior ECG tracings: available for review Interpretation: Sinus rhythm, rate of 66, PA 212, no STEMI Quality:SDOH Health Related Social Needs: Health related social needs housing instability, housed, with risk of homelessness (Z59.811), education (Z55.6) Health related social needs details none PFSH All Active Problems (Updated 06/08/24 @ 18:39 by Anoop Robert MD) Palpitations (Acute) Atypical chest pain (Acute) Lumbar radiculopathy (Acute) Bilateral lower extremity edema (Acute) Weakness of right leg (Acute) Lumbosacral plexopathy (Acute) Restless leg syndrome (Acute) Low back pain (Acute) Sleep apnea, unspecified (Acute) Skin lesion of right ear (Acute) Wrist pain (Acute) Skin lesion (Acute) Lower urinary tract symptoms (LUTS) (Acute) Actinic keratosis (Acute) Nonsustained ventricular tachycardia (Acute) 2020-event monitor evaluation after syncope, short-lived nonsustained run of V. tach-16 beats, asymptomatic, Diabetes mellitus (Acute 09/24/12) no ophtalmopathy: : normal microalb. Gastroesophageal reflux disease with esophagitis (Acute) H/O [facility], ENDOSCOPY 1994 Peripheral neuropathy (Acute 11/24/14) evaluated : db related Medical History Basal cell carcinoma of right ear Prostate cancer First degree heart block Syncope Surgical History History of tonsillectomy and adenoidectomy S/P TURP (status post transurethral resection of prostate) History of rotator cuff surgery right Extraction of cataract (~2012) B/L Arthroscopy, Shoulder [facility]; LEFT Family History Mother , 88 Diabetes Heart disease Hyperlipidemia Father , 97 No problems noted. Sister Essential hypertension Hyperlipidemia Brother , 62 Diabetes Blastoma Brother No problems noted. Maternal Grandfather , 47 No problems noted. Paternal Grandfather , 85 Hyperlipidemia Hypertension Maternal Grandmother , 85 Essential hypertension Heart disease Hyperlipidemia Paternal Grandmother , 95 No problems noted. Daughter No problems noted. Daughter No problems noted. Daughter No problems noted. Social History Smoking/Tobacco Use Status: Former Tobacco Use Quit Date: 04/22/74 Smoking risk assessment performed?: Yes Alcohol Intake: current Alcohol Intake frequency: 0-2 drinks per day Alcohol type: hard liquor Drug use: Daily Substance use type: marijuana and other Details: MEDICINAL PURPOSES Adopted: No Caregiver/Support person: Yes Household members: spouse Housing: apartment Number of Children: 3 number of grandchildren: 6 Communication Needs: Hard of Hearing and Corrective Lenses Do you need help understanding health information?: Often current occupation: Retired Pets and animals: Yes Pets and animals: other Details: goats Sexually active: Yes Do you think of yourself as: decline to answer Current gender identity: decline to answer What is your relationship status?: How often do you talk on the phone with friends or family?: decline to answer How often do you get together with friends or relatives?: decline to answer How often do you attend mormon or confucianism services?: decline to answer Do you belong to any clubs or organized social groups?: no Panel score (0-1 are the most socially isolated patients): 1 Duration: 15-30 minutes/day Frequency: 5-6 times per week Randa/Cheondoism: OTHER Special randa needs: No Seatbelt use: always Drive intox or ride w/intox warehouse driver: No Firearms in home: Yes Do you feel safe at home: Yes Do you feel safe in your relationship?: Yes Would you like helpful sources: No
[2024-06-08 17:21] LABS: Abs Immature Grans 0.03 10^3/uL (0.0-0.06); Absolute Basophil Count 0.02 10^3/uL (0.0-0.2); Absolute Eosinophil Count 0.01 10^3/uL (0.0-0.7); Absolute Lymphocyte Count 0.99 10^3/uL (1.2-3.4); Absolute Monocyte Count 0.68 10^3/uL (0.1-0.8); Basophils % 0.3 %; Eosinophils % 0.2 %; HCT 44.9 % (40.0-50.0); HGB 15.2 g/dL (13.5-17.5); Immature Grans % 0.5 %; Lymphocytes % 16.7 %; MCH 28.9 pg (27.0-33.0); MCHC 33.9 % (32.0-36.0); MCV 85 fL (80-95); MPV 9.9 fL (8.0-11.0); Monocytes % 11.5 %; Neutrophils % 70.8 %; Platelet Count 234 10^3/uL (130-400); RBC 5.26 10^6/uL (4.36-5.78); RDW 12.6 % (11.8-14.1); RDW-SD 38.9 fL; WBC 5.93 10^3/uL (4.4-10.8)
[2024-06-08 17:51] LABS: ALT 24 U/L (16-63); AST 13 U/L (15-37); Albumin 4.1 g/dL (3.4-5.0); Alkaline Phosphatase 97 U/L (46-116); Anion Gap 7.7 mmol/L (3-11); BUN 17 mg/dL (7-18); Bilirubin, Total 0.48 mg/dL (0.2-1.0); CO2 28.3 mmol/L (21.0-32.0); CREATININE 1.1 mg/dL (0.70-1.30); Calcium 9.2 mg/dL (8.5-10.1); Chloride 104 mmol/L (98-107); Estimated GFR 67.02 (mL/min/1.73m2); Glucose 143 mg/dL (74-106); Magnesium 1.8 mg/dL (1.8-2.4); NT-proBNP 155 pg/mL (<300); Potassium 3.8 mmol/L (3.5-5.1); Sodium 140 mmol/L (136-145); TSH (W/Ref FT4) 1.12 uIU/mL (0.36-3.74); Troponin I 18 ng/L (<or=76)
[2024-06-08 17:57] LABS: PTT Activated 27.5 sec (20.6-30.2); Prothrombin Time 10.4 sec (9.1-11.1)
== END 2024-06-08 19:16 | disposition home or self-care (01) ==
PROVIDERS: Emergency Provider Emergency Medicine; PCP Nurse Practitioner Family
DX: R00.2 Palpitations (principal); Z59.811 Housing instability, housed, with risk of homelessness; Z55.6 Problems related to health literacy
CPT/HCPCS: 36415; 80053; 93005; 93308; 99284; 83735; 83880; 84443; 84484; 85025; 85610; 85730; 93010

== ENCOUNTER → 2024-06-11 10:51 | Outpatient (BNVA) | payer MEDICARE, OTHER, SELFPAY | PROVIDERS: PCP Nurse Practitioner Family; Referring Provider Nurse Practitioner Family; Visit Provider Internal Medicine Cardiovascular Disease | DX: I48.0 Paroxysmal atrial fibrillation (principal) | CPT/HCPCS: 99214 ==

== ENCOUNTER 2024-07-08 08:32 | Outpatient (CLI) | payer MEDICARE, OTHER, SELFPAY ==
--- NOTE | 2024-07-08 06:00 | DI.RAD_ITS ---
Exam(s) XR PAIN CLINIC LUMBAR SP 2V EXAM: XR PAIN CLINIC LUMBAR SP 2V CLINICAL HISTORY: Dx: Lumbar Radiculopathy. TECHNIQUE: Fluoroscopy was provided for the referring physician for guidance with performing pain cl inic injection procedure. COMPARISON: No exams were available for comparison FINDINGS: Please see procedure note for details. Fluoro time: 55.5 seconds RADIATION DOSE DELIVERED: Ka,r=23.36 mGy
[2024-07-08 09:04] VITALS: BP 146/71; PULSE 65; RESP 20; TEMP 36.7; O2SAT 100
[2024-07-08 09:20] VITALS: PULSE 70; O2SAT 95
[2024-07-08 09:22] VITALS: BP 156/65; PULSE 63; PULSE 64; RESP 12; O2SAT 97
[2024-07-08 09:30] VITALS: PULSE 56; PULSE 57; RESP 13; O2SAT 97
[2024-07-08 09:31] VITALS: BP 145/56; PULSE 55; RESP 13; O2SAT 97
[2024-07-08] MEDS: Dexamethasone Sod. Phos./Pres-Free 10 MG/ML VIAL IJ (09:44)
[2024-07-08] MEDS: Omnipaque 240 MG/ML 50 ML BTL IJ (09:44)
[2024-07-08] MEDS: Nerve Block Tray 1 EACH MC (09:44)
--- NOTE | 2024-07-08 10:20 | PDOC.PAIN_ITS ---
Date of service: 07/08/24 Time of Service: 09:30 Pain Managment Procedure Note Procedure Note Procedure Note: LUMBAR / SACRAL TRANSFORAMINAL INJECTION Elie Glass has been referred to the [facility] for a transforaminal nerve root block and steroid injection. COMMENTS: DX: Lumbosacral radiculopathy Pre-procedure pain VAS was 7/10 Previously evaluated in the office. No changes. Patient was interviewed and the medical record reviewed. There were no medical, pharmacologic, radiographic or other structural contraindications to attempting fluoroscopically guided transforaminal nerve root block and epidural steroid injection. Risks and expected side effects as well as potential benefit of the procedure were reviewed and voiced concerns addressed. The printed consent form was signed and witnessed. Standard time-out procedure was performed. Patient was placed in the prone position on the fluoroscopy table and automated blood pressure cuff and pulse oximeter applied. Fluoroscopy was utilized to identify the right neural foramen between L4 and L5 . A skin loli was made for the needle insertion site. A Chlorhexadine prep was carried out, and sterile d rapes were applied. Local anesthesia was achieved in the skin and subcutaneous tissues. A 22 gauge curved tip spinal needle was then inserted, advanced with fluoroscopic guidance into the neural foramen, confirmed on the lateral view. After negative aspiration, 2 ml of Omnipaque 240 was injected confirming position in A/P and lateral views. This showed a good spread of dye transforaminally into the epidural space. There was no vascular update with contrast injection under continuous fluoroscopy and digital substraction. 15 mg of Dexamethasone was injected, followed by 0.5 ml of 1% Xylocaine flush for the nerve root block, as well. There was no unusual discomfort expressed.The needle was withdrawn. The patient tolerated the procedure well. A Band-Aid was applied. Vital signs were stable throughout the procedure and were as recorded in nursing records. If given, dosages of intravenous drugs for anxiolysis and analgesia were documented in nursing records. Follow up plans and appointments were discussed. Post procedure instruction was given as documented in nursing records and patient was discharged in the care of an identified hammer driver. COMMENTS:He did well with the procedure. Post-procedure pain VAS 2/10. Luiz Sierra DO, MPH [facility] CC: Hiram Shankar NP Coding Conscious Sedation used for procedure: No CPT Codes: Transforaminal Lumbar/Sacral (includes fluoro) - 48036 ([id number] ~G) Additional Codes: Date of Service (51122) Date of service: 07/08/24
== END 2024-07-08 08:33 | disposition home or self-care (01) ==
LOC: PC 08:33
PROVIDERS: PCP Nurse Practitioner Family; Visit Provider Preventive Medicine Occupational Medicine
DX: M54.17 Radiculopathy, lumbosacral region (principal); M54.50 Low back pain, unspecified
CPT/HCPCS: 64483; 72100; J1100; Q9967

== ENCOUNTER 2024-08-12 08:43 | Outpatient (CLI) | payer MEDICARE, OTHER, SELFPAY ==
[2024-08-12 11:28] LABS: Anion Gap 6.9 mmol/L (3-11); BUN 34 mg/dL (7-18); CO2 30.1 mmol/L (21.0-32.0); CREATININE 1.2 mg/dL (0.70-1.30); Calcium 9.7 mg/dL (8.5-10.1); Chloride 104 mmol/L (98-107); Estimated GFR 60.38 (mL/min/1.73m2); Glucose 139 mg/dL (74-106); Potassium 3.8 mmol/L (3.5-5.1); Sodium 141 mmol/L (136-145)
== END 2024-08-12 08:44 | disposition home or self-care (01) ==
LOC: LOS 08:44
PROVIDERS: PCP Nurse Practitioner Family; Visit Provider Family Medicine
DX: I10 Essential (primary) hypertension (principal); R60.0 Localized edema
CPT/HCPCS: 36415; 80048

== ENCOUNTER 2024-10-05 00:48 | Outpatient (CLI) | payer MEDICARE, OTHER, SELFPAY ==
[2024-10-07 16:49] LABS: PSA, Ultrasensitive 1.5 ng/mL (<= 7.2)
== END 2024-10-05 00:49 | disposition home or self-care (01) ==
LOC: LOS 00:49
PROVIDERS: PCP Nurse Practitioner Family; Visit Provider Nurse Practitioner Gerontology
DX: C61 Malignant neoplasm of prostate (principal)
CPT/HCPCS: 36415; 84153

== ENCOUNTER → 2024-10-12 14:21 | Outpatient (BNVA) | payer MEDICARE, OTHER, SELFPAY | PROVIDERS: PCP Nurse Practitioner Family; Visit Provider Nurse Practitioner Gerontology | DX: C61 Malignant neoplasm of prostate (principal); R33.9 Retention of urine, unspecified; R31.0 Gross hematuria; I10 Essential (primary) hypertension; R39.9 Unspecified symptoms and signs involving the genitourinary system | CPT/HCPCS: 99214; 51798 ==

== ENCOUNTER 2024-10-26 07:58 | Outpatient (CLI) | payer MEDICARE, OTHER, SELFPAY ==
--- NOTE | 2024-10-26 07:45 | RT.EKG_ITS ---
APPROVED REPORT Exam: Resting ECG Reason for Exam: cardiac evaluation Patient Location: O HR:71 bpm ECG Measurements Heart Rate 71 AXIS MI 230 P -8 QRSd 104 QRS -25 QT 402 T 50 QTc 437 Conclusion Sinus rhythm...normal P axis, V-rate 50- 99 Prolonged MI interval...MI >220, V-rate 50- 90 RSR' in V1 or V2, probably normal variant...small R' only
== END 2024-10-26 07:59 | disposition home or self-care (01) ==
LOC: DI.CARD 07:59
PROVIDERS: PCP Nurse Practitioner Family; Visit Provider Registered Nurse
DX: I48.0 Paroxysmal atrial fibrillation (principal); I10 Essential (primary) hypertension
CPT/HCPCS: 93010

== ENCOUNTER → 2024-10-26 08:36 | Outpatient (BNVA) | payer MEDICARE, OTHER, SELFPAY | PROVIDERS: PCP Nurse Practitioner Family; Visit Provider Registered Nurse | DX: I48.0 Paroxysmal atrial fibrillation (principal); I10 Essential (primary) hypertension; Z79.01 Long term (current) use of anticoagulants | CPT/HCPCS: 99214 ==

== ENCOUNTER 2024-11-09 02:04 | Outpatient (CLI) | payer MEDICARE, OTHER, SELFPAY ==
[2024-11-09 14:13] LABS: Anion Gap 13.6 mmol/L (3-11); BUN 37 mg/dL (7-18); CO2 26.4 mmol/L (21.0-32.0); Calcium 9.4 mg/dL (8.5-10.1); Chloride 99 mmol/L (98-107); Estimated GFR 42.75 (mL/min/1.73m2); Glucose 144 mg/dL (74-106); Potassium 3.8 mmol/L (3.5-5.1); Sodium 139 mmol/L (136-145)
== END 2024-11-09 02:05 | disposition home or self-care (01) ==
PROVIDERS: PCP Nurse Practitioner Family; Visit Provider Registered Nurse
DX: I48.0 Paroxysmal atrial fibrillation (principal)
CPT/HCPCS: 36415; 80048

== ENCOUNTER 2024-12-11 10:34 | Emergency (ER) | payer MEDICARE, OTHER, SELFPAY ==
--- NOTE | 2024-12-11 10:30 | RT.EKG_ITS ---
APPROVED REPORT Exam: Resting ECG Reason for Exam: dizziness Patient Location: E HR:60 bpm ECG Measurements Heart Rate 60 AXIS IA 236 P 45 QRSd 90 QRS 30 QT 430 T 57 QTc 429 Conclusion Sinus rhythm...normal P axis, V-rate 60- 99 Prolonged IA interval...IA >220, V-rate 50- 90 I have reviewed and interpreted ECG and agree with software generated interpretation.
[2024-12-11 10:38] VITALS: BP 166/53; PULSE 60; RESP 16; O2SAT 95
[2024-12-11 10:44] VITALS: BP 166/53; PULSE 60; RESP 16; TEMP 36.4; O2SAT 95
--- NOTE | 2024-12-11 10:48 | W.ED.GENAD ---
Discharge Plan Disposition Patient Disposition: Home Condition: Good Discharge Details Clinical Impression: Acute dehydration, Nausea & vomiting Primary Care Provider: Hiram Shankar ED Provider: Trish Guadarrama Home Meds and New Rx's Prescriptions: New ondansetron 4 mg tablet,disintegrating 4 mg PO Q8H PRN (Reason: nausea and vomiting) Qty: 10 0RF Continued chlorthalidone 25 mg tablet 25 mg PO DAILY Qty: 90 3RF benazepril 20 mg tablet 20 mg PO DAILY Qty: 90 3RF ibuprofen 200 mg tablet 200 mg PO TID acetaminophen 500 mg capsule 500 mg PO Q6H PRN THC 1 inh inhalation QHS Rx Instructions: Vapes THC Qhs CONTOUR STRIPS 1 strip Sub-Q DAILY Qty: 100 1RF sennosides-docusate sodium [Senna with Docusate Sodium] 8.6-50 mg tablet 2 tab-cap PO BID PRN Rx Instructions: per [facility] [place] esomeprazole magnesium [Nexium] 20 mg capsule,delayed release(DR/EC) 20 mg PO DAILY Qty: 90 4RF metformin 500 mg tablet 500 mg PO BID Qty: 180 4RF pramipexole 0.5 mg tablet 0.5 mg PO QHS Qty: 90 3RF Eliquis 5 mg tablet 5 mg PO BID Qty: 180 3RF metoprolol succinate 25 mg tablet extended release 24 hr 25 mg PO DAILY Qty: 90 3RF tamsulosin [Flomax] 0.4 mg capsule 0.4 mg PO DAILY Qty: 90 3RF oxycodone 5 mg tablet 5 mg PO QHS MDD 5 PRN (Reason: pain) Qty: 30 0RF torsemide 20 mg tablet 20 mg PO DAILY Qty: 60 0RF magnesium gluconate 27.5 MG tablet 55 mg PO BID Qty: 60 3RF Discharge Instructions Instructions: Dehydration, Adult (DC), Nausea and Vomiting, Adult ED Additional Instructions: As we discussed, your labs are reassuring aside from appearing dehydrated. I encourage you to continue with frequent hydration. You may advance your diet as tolerated but please begin with easy to digest foods to help prevent recurrence. This can includes bananas, rice, applesauce, toast. Please avoid red foods or drinks as this can be confused as blood should you vomit again. Please follow-up with your primary care next week for reevaluation. Your potassium was also slightly low here so I do encourage potassium rich foods as well. If you develop any new or worsening symptoms please seek care urgently once again. Referrals: Hiram hSankar DIABETIC EDUCATOR [Primary Care Provider, Medicine] Discharge Data Discharge Date/Time-TO BE ENTERED AT DEPARTURE: 12/11/24 13:31 HPI General Date/Time Provider Initiated Documentation: 12/11/24 10:48. Limitations to Documentation: no limitations. Information obtained by: patient, family () and RN notes reviewed. History of Present Illness 83 year old M presents to the emergency department with the chief complaint of nausea, vomiting, described as moderate, Quality is described as other (nauseated, some lower abdominal discomfort), and is localized to the abdomen. Patient reports no radiation. Patient started experiencing this day(s) and it has been intermittent. No relieving factors improve symptom(s), Eating worsens symptoms . Patient notes loss of appetite, malaise and nausea/vomiting; denies chest pain, cough, rash and shortness of breath. Related Data Home Medications ?Medication ?Instructions ?Recorded ?Confirmed magnesium gluconate 27.5 mg 55 mg (2 x 27.5 mg magne- sium 02/22/20 12/11/24 magnesium (500 mg) tablet (500 mg)) PO BID #60 tab-caps sennosides 8.6 mg-docusate sodium 2 tab-cap PO BID PRN 03/18/23 12/11/24 50 mg tablet (Senna with Docusate Sodium) esomeprazole magnesium 20 mg 20 mg PO DAILY #90 tab-caps 05/13/24 12/11/24 capsule,delayed release (Nexium) metformin 500 mg tablet 500 mg PO BID #180 tab-caps 06/02/24 12/11/24 pramipexole 0.5 mg tablet 0.5 mg PO QHS #90 tabs 08/06/24 12/11/24 apixaban 5 mg tablet (Eliquis) 5 mg PO BID #180 tabs 08/12/24 12/11/24 benazepril 20 mg tablet 20 mg PO DAILY #90 tabs 08/12/24 12/11/24 THC 1 inh inhalation QHS 09/08/24 12/11/24 acetaminophen 500 mg capsule 500 mg PO Q6H PRN 09/08/24 12/11/24 ibuprofen 200 mg tablet 200 mg PO TID 09/08/24 12/11/24 metoprolol succinate 25 mg 25 mg PO DAILY #90 tabs 09/09/24 12/11/24 tablet,extended release 24 hr tamsulosin 0.4 mg capsule (Flomax) 0.4 mg PO DAILY #90 caps 09/21/24 12/11/24 chlorthalidone 25 mg tablet 25 mg PO DAILY #90 tabs 10/26/24 12/11/24 oxycodone 5 mg tablet 5 mg PO QHS PRN pain #30 tabs 12/02/24 12/11/24 torsemide 20 mg tablet 20 mg PO DAILY #60 tabs 12/10/24 12/11/24 ondansetron 4 mg disintegrating 4 mg PO Q8H PRN nausea and 12/11/24 tablet vomiting #10 tabs Previous Rx's ?Medication ?Instructions ?Recorded magnesium gluconate 27.5 mg 55 mg (2 x 27.5 mg magne- sium 02/22/20 magnesium (500 mg) tablet (500 mg)) PO BID #60 tab-caps esomeprazole magnesium 20 mg 20 mg PO DAILY #90 tab-caps 05/13/24 capsule,delayed release (Nexium) metformin 500 mg tablet 500 mg PO BID #180 tab-caps 06/02/24 pramipexole 0.5 mg tablet 0.5 mg PO QHS #90 tabs 08/06/24 apixaban 5 mg tablet (Eliquis) 5 mg PO BID #180 tabs 08/12/24 benazepril 20 mg tablet 20 mg PO DAILY #90 tabs 08/12/24 metoprolol succinate 25 mg 25 mg PO DAILY #90 tabs 09/09/24 tablet,extended release 24 hr tamsulosin 0.4 mg capsule (Flomax) 0.4 mg PO DAILY #90 caps 09/21/24 chlorthalidone 25 mg tablet 25 mg PO DAILY #90 tabs 10/26/24 oxycodone 5 mg tablet 5 mg PO QHS PRN pain #30 tabs 12/02/24 torsemide 20 mg tablet 20 mg PO DAILY #60 tabs 12/10/24 ondansetron 4 mg disintegrating 4 mg PO Q8H PRN nausea and 12/11/24 tablet vomiting #10 tabs Allergies Allergy/AdvReac Type Severity Reaction Status Date / Time No Known Allergies Allergy Verified 12/11/24 10:41 General Stated Complaint: GenMedical ERICK: 3 Review of Systems Constitutional Constitutional: Reports as per HPI, Denies chills, Denies fever(s) and Denies headache(s) ENT Ears, Nose, Mouth, and Throat: Denies headache(s) Cardiovascular Cardiovascular: Reports as per HPI, Denies chest pain and Denies dyspnea Respiratory Respiratory: Reports as per HPI, Denies cough and Denies dyspnea Gastrointestinal Gastrointestinal: Reports as per HPI Genitourinary Genitourinary: Denies system reviewed and no additional complaints, except as documented (patient denies any change in urinary habits) Musculoskeletal Musculoskeletal: Reports as per HPI and Denies back pain Integumentary/Breasts Skin/Breast: Reports as per HPI and Denies rash Neurologic Neurologic: Reports as per HPI and Denies headache(s) Exam Const General: cooperative, healthy appearing, comfortable, no acute distress and well developed Nutritional Appearance: average body habitus and well nourished Orientation: alert and awake [facility] Head: normal to inspection Resp Effort & Inspection: normal respiratory effort, able to speak in complete sentences and no respiratory distress Auscultation: clear to auscultation bilaterally, no rales, no rhonchi and no wheezes Cardio Rate: regular rate Rhythm: regular rhythm Heart Sounds: murmur systolic (right sternal boarder) GI Inspection: normal to inspection Palpation: soft, no hepatosplenomegaly, no guarding, no masses, not rigid and tender (low central abdomen) Percussion: normal to percussion Skin General skin exam: no rashes or lesions noted Trauma: no lacerations or abrasions Neuro General: patient alert and patient awake Cognition: normal cognition Speech: speech normal Gait: normal gait Course Vital Signs Vital signs: Vital Signs Pulse 60 12/11/24 10:38 Respiratory Rate 16 12/11/24 10:38 Blood Pressure 166/53 H 12/11/24 10:38 Pulse Oximetry 95 12/11/24 10:38 Temperature 36.4 C 12/11/24 10:44 Temperature Source Oral 12/11/24 10:44 Pulse 60 12/11/24 10:44 Respiratory Rate 16 12/11/24 10:44 Blood Pressure 166/53 H 12/11/24 10:44 Blood Pressure Position Sitting 12/11/24 10:44 Pulse Oximetry 95 12/11/24 10:44 Oxygen Delivery Method Room Air 12/11/24 10:44 Oxygen Flow Rate 0 12/11/24 10:44 Pain Level 0 12/11/24 10:44 Medical Decision Making Patient is a pleasant 83-year-old gentleman, accompanied by his , past medical history of prostate cancer that is being monitored, presented with chief complaint of nausea and vomiting that has been intermittent for the past 3 days. He reports that on Saturday he went golfing, that night had large amount of leg cramping which is atypical. He does report that as he still recovering from surgery he is not drinking as much water as he typically does. He states that the following day he had 1 episode of nausea and emesis. This seemed to have resolved until last night when, after dinner, had recurrence of symptoms. States that he said some slight diarrhea but nothing significant. States that all of his emesis has been nonbloody. He continues to have nausea currently. He denies any chest pain or shortness of breath. No exertional component to his symptoms. Has some low central abdominal discomfort but no significant this pain. He is questioning if he may be retaining some urine but is having this checked frequently with urology. He denies any back pain or other symptoms at this time. On exam, patient appears nontoxic. He is hemodynamically stable. His lungs are clear, normal cardiac exam. He did have a systolic murmur, best heard over the right sternal border. This does correlate with the past documentation from cardiology. Abdomen is benign. He does report some mild discomfort low central abdomen over the bladder but this does not seem to be any significant pain. Patient does appear dehydrated, dry mucous membranes. Will begin some IV fluids and continue to monitor. Will also obtain a UA, concerning for possible UTI with the location of discomfort. Labs are obtained, no significant abnormality aside from an elevated BUN which does fit clinically with the patient clearly. Dehydrated. He is feeling significantly improved after IV hydration. He had initially reported some lightheadedness with standing up but feels that the symptoms are resolving after the hydration. Patient is now tolerating p.o. intake. His potassium was minimally low at 3.3. 20 mg was given to him orally along with food and fluids and he was able to tolerate this well. The patient did receive Zofran which did not have obvious good effect. Will continue on this as needed. Return precautions were discussed. No indication at this point for sepsis, ACS. Patient did have 2 negative delta tropes. Patient does not have a UTI, no evidence to suggest pyelonephritis. He will follow-up with urology regarding the bladder discomfort. We did discuss advancement of diet and continued hydration. Strict return precautions discussed. All his questions and concerns were addressed and he is in agreement this plan. Dictation completed using [employer] dictation software. Please excuse any errors or fire patrol anomalies that may remain. 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-microalbuminuria, also neuropathy of feet Atrial fibrillation (Chronic) ECHO NEG, HOLTER 04/29 FEW PVC'S/PAC'S Eliquis/2017: Followed by cardiology at [facility] Chronic pain syndrome (Chronic) Spinal stenosis (Acute) Essential hypertension (Chronic 02/25/13) Atypical chest pain (Acute) Lumbar radiculopathy (Acute) Bilateral lower extremity edema (Acute) Weakness of right leg (Acute) Lumbosacral plexopathy (Acute) Restless leg syndrome (Acute) Low back pain (Acute) Sleep apnea, unspecified (Acute) Skin lesion of right ear (Acute) Wrist pain (Acute) Skin lesion (Acute) Lower urinary tract symptoms (LUTS) (Acute) Actinic keratosis (Acute) Diabetes mellitus (Acute 09/24/12) no ophtalmopathy: : normal microalb. Gastroesophageal reflux disease with esophagitis (Acute) H/O [facility]S, ENDOSCOPY 1994 Peripheral neuropathy (Acute 11/24/14) evaluated : db related Medical History (Updated 12/11/24 @ 13:23 by EBER Payne) JERE (obstructive sleep apnea) Hyperlipidemia Prostate cancer adenocarcinoma/ post TURP/ , as of 07/2021-watchful waiting regarding prostate cancer Basal cell carcinoma of right ear Prostate cancer First degree heart block Syncope Surgical History History of tonsillectomy and adenoidectomy S/P TURP (status post transurethral resection of prostate) History of rotator cuff surgery right Extraction of cataract (~2012) B/L Arthroscopy, Shoulder [facility]; LEFT Family History Mother , 88 Diabetes Heart disease Hyperlipidemia Father , 97 No problems noted. Sister Essential hypertension Hyperlipidemia Brother , 62 Diabetes Blastoma Brother No problems noted. Maternal Grandfather , 47 No problems noted. Paternal Grandfather , 85 Hyperlipidemia Hypertension Maternal Grandmother , 85 Essential hypertension Heart disease Hyperlipidemia Paternal Grandmother , 95 No problems noted. Daughter No problems noted. Daughter No problems noted. Daughter No problems noted. Social History Smoking/Tobacco Use Status: Former Tobacco Use Quit Date: 04/22/74 Smoking risk assessment performed?: Yes Alcohol Intake: current Alcohol Intake frequency: 0-2 drinks per day Alcohol type: beer Drug use: Daily Substance use type: marijuana and other Details: MEDICINAL PURPOSES Adopted: No Caregiver/Support person: Yes Household members: spouse Housing: apartment Number of Children: 3 number of grandchildren: 6 Communication Needs: Hard of Hearing and Corrective Lenses Do you need help understanding health information?: Often current occupation: Retired Pets and animals: Yes Pets and animals: other Details: goats Sexually active: Yes Do you think of yourself as: decline to answer Current gender identity: decline to answer What is your relationship status?: How often do you talk on the phone with friends or family?: decline to answer How often do you get together with friends or relatives?: decline to answer How often do you attend restoration or sikh services?: decline to answer Do you belong to any clubs or organized social groups?: no Panel score (0-1 are the most socially isolated patients): 1 Duration: 15-30 minutes/day Frequency: 5-6 times per week Randa/Advent: OTHER Special randa needs: No Seatbelt use: always Drive intox or ride w/intox coal tram driver: No Firearms in home: Yes Do you feel safe at home: Yes Do you feel safe in your relationship?: Yes Would you like helpful sources: No PAWSS Have you Been Recently Intoxicated or Drunk Within the Last 30 days?: No Have you Ever Experienced Previous Episodes of Alcohol Withdrawal?: No Have you ever Experienced Withdrawal Seizures?: No Have you ever Experienced Delirium Tremens(DT)s?: No Have you ever undergone Alcohol Rehabilitation Treatment (i.e, inpt ot outpatient treatment programs)?: No Have you ever Experienced Blackouts?: No Have you ever Combined Alcohol with other Downers within the last 90 days?: No Have you ever Combined Alcohol with any other Substance of Abuse during the last 90 days?: No Positive Blood Alcohol level on Presentation? [PCS.BAL]: Unable to Obtain Evidence of Increased Autonomic Activity (i.e. HR>120, tremor, sweating, agitation, nausea)?: No Result: 0
[2024-12-11 11:30] LABS: Abs Immature Grans 0.03 10^3/uL (0.0-0.06); HCT 37.0 % (40.0-50.0); HGB 12.7 g/dL (13.5-17.5); Immature Grans % 0.5 %; MCH 29.4 pg (27.0-33.0); MCHC 34.3 % (32.0-36.0); MCV 86 fL (80-95); MPV 9.7 fL (8.0-11.0); Platelet Count 196 10^3/uL (130-400); RBC 4.32 10^6/uL (4.36-5.78); RDW 12.1 % (11.8-14.1); RDW-SD 37.9 fL; WBC 5.58 10^3/uL (4.4-10.8)
[2024-12-11] MEDS: Lactated Ringers 1,000 ML 1000 ML IV (11:33)
[2024-12-11] MEDS: Ondansetron 4 MG/2 ML VIAL IVP (11:33)
[2024-12-11 11:45] LABS: Glucose Negative (Negative)
[2024-12-11 11:54] LABS: ALT 23 U/L (16-63); AST 20 U/L (15-37); Albumin 4.0 g/dL (3.4-5.0); Alkaline Phosphatase 74 U/L (46-116); Anion Gap 11.3 mmol/L (3-11); BUN 42 mg/dL (7-18); Bilirubin, Total 0.7 mg/dL (0.2-1.0); CO2 31.7 mmol/L (21.0-32.0); Calcium 9.4 mg/dL (8.5-10.1); Chloride 99 mmol/L (98-107); Estimated GFR 46.19 (mL/min/1.73m2); Glucose 126 mg/dL (74-106); Magnesium 2.2 mg/dL (1.8-2.4); Potassium 3.3 mmol/L (3.5-5.1); Sodium 142 mmol/L (136-145); Total Protein 7.1 g/dL (6.4-8.2)
[2024-12-11 11:59] LABS: Lipase 35 U/L (<78)
[2024-12-11 12:00] LABS: Troponin I 20 ng/L (<or=76)
[2024-12-11] MEDS: Potassium Chloride 20 MEQ TABCR PO (12:20)
[2024-12-11 13:04] LABS: Troponin I 18 ng/L (<or=76)
== END 2024-12-11 13:31 | disposition home or self-care (01) ==
PROVIDERS: Emergency Provider Physician Assistant; PCP Nurse Practitioner Family
DX: R11.2 Nausea with vomiting, unspecified (principal); E86.0 Dehydration; R10.30 Lower abdominal pain, unspecified; Z59.811 Housing instability, housed, with risk of homelessness
CPT/HCPCS: 36415; 80053; 83690; 93005; 96361; 96374; 99284; 81003; 83735; 84484; 85025; 93010; J2405

== ENCOUNTER → 2025-01-25 13:21 | Outpatient (BNVA) | payer MEDICARE, OTHER, SELFPAY | PROVIDERS: PCP Nurse Practitioner Family; Visit Provider Registered Nurse | DX: I48.0 Paroxysmal atrial fibrillation (principal); I10 Essential (primary) hypertension; Z79.01 Long term (current) use of anticoagulants; R07.9 Chest pain, unspecified; R06.00 Dyspnea, unspecified | CPT/HCPCS: 99214 ==

== ENCOUNTER 2025-02-03 00:16 | Outpatient (CLI) | payer MEDICARE, OTHER, SELFPAY ==
--- NOTE | 2025-02-03 08:27 | DI.US_ITS ---
APPROVED REPORT EXAM: Comprehensive 2D, Doppler, and color-flow Echocardiogram Patient Location: Out-Patient [facility] Mill: Meghna Patel RDCS (AE) Indications: Dyspnea, Fatigue Other Information Study Quality: Adequate Conclusion Normal left ventricular wall thickness and chamber size. Ejection fraction is 60%. Wall motion is normal Normal right ventricular size and function Mildly enlarged left atrium. Normal right atrial size Aortic valve is trileaflet and sclerotic without stenosis or regurgitation Mildly thickened mitral leaflets. Mild mitral regurgitation Wall motion Left Ventricle The left ventricle is normal size. The left ventricular systolic function is normal. The left ventricular ejection fraction is within the normal range. There is normal left ventricular wall thickness. There is normal LV segmental wall motion. There is no ventricular septal defect visualized. LVEF is 60%. Right Ventricle The right ventricle is normal size. The right ventricular systolic function is normal. Atria Left atrium is mildly dilated. The right atrium size is normal. The interatrial septum is intact with no evidence for an atrial septal defect. Aortic Valve The Aortic valve is mildly sclerotic. Aortic valve is trileaflet. There is no aortic valvular stenosis. No aortic regurgitation is present. Mitral Valve Mildly thickened mitral leaflets No evidence of mitral valve stenosis. Mild mitral regurgitation. Tricuspid Valve The tricuspid valve is normal in structure. There is no tricuspid valve stenosis. Trace tricuspid regurgitation. Unable to assess PA pressure. Pulmonic Valve The pulmonary valve is normal in structure. There is no pulmonic valvular stenosis. Trace to mild pulmonic regurgitation. Great Vessels The aortic root is normal in size. The ascending aorta is normal in size. Aortic arch is normal in caliber. IVC is normal in size and collapses >50% with inspiration. Pericardium There is no pericardial effusion. 2D Dimensions IVSD d PLAX 1.00 cm M: 0.6-1.2 Ao Root d 3.29 cm M: 3.1 - 3.7 LVPW d PLAX 1.02 cm M: 0.6 - 1.2 Ao Asc Diam d 3.49 cm M: 2.6 - 3.4 LVID d PLAX 4.80 cm M: 4.2 - 5.8 LVDs 3.30 cm M: 2.5 - 4.0 LV EF Teichholz 60.1 % FS 32.06 % LV EDV (Teich) 107.6 mL LV ESV (Teich) 42.9 mL M-Mode TAPSE 2.88 cm (M/F) >1.7 Auto EF LV EDV A4C 131.6 mL LV EDV A2C 143.8 mL LV EDV BP 137.2 mL LV ESV A4C 54.1 mL LV ESV A2C 58.3 mL LV ESV BP 56.1 mL LVEF(%) A4C 58.9 % LVEF(%) A2C 59.4 % LVEF(%) BP 59.2 % LV SV A4C 77.6 ml LV SV A2C 85.4 ml LV SV BP 81.2 ml LV CO A4C 4.5 L/min LV CO A2C 4.8 L/min LV CO BP 4.6 L/min HR A4C 58.25 BPM HR A2C 55.97 BPM LV EDV Index (BP) LA Volume LA Length A4C 4.9 cm LA Length A2C 5.1 cm LA Area A4C s 17.01 cm2 LA Area A2C s 17.41 cm2 LA Vol A4C A-L 50.54 mL LA Vol A2C A-L 50.43 mL LA Vol Biplane A-L 51.7 mL LA Vol/BSA A4C A-L LA Vol/BSA A2C A-L LA Vol/BSA BP A-L 48.8 mL/m2 LA Vol A4C MOD 46.3 mL LA Vol A2C MOD 45.5 mL LA Vol BP MOD 46.9 mL RA Volume RA Area A4C 14.3 cm2 RA ESV A4C (A-L) 34.3mL RA Vol/BSA A4C A-L RA Length A4C 5.1 cm RA ESV A4C (MOD) 32.7mL LV Diastology MV E' medial 0.081 (>0.07 m/s) MV E Vmax 0.75 (0.4-1.3 m/s) MV E/E' MED 9.31 (<14) MV A Vmax 0.85 (0.4-1.3 m/s) MV E' lateral 0.077 (>0.1 m/s) E/A Ratio 0.9 MV E/E' LAT 9.76 (<14) MV E' Average 0.079 m/s MV E/E'(average) 9.53 Aortic Valve AoV Vmax 1.87 m/s LVOT Vmax 1.02 m/s AoV Peak Grad 14.0 mmHg LVOT Peak Grad 4.2 mmHg AoV Area (Vmax) 1.90 cm2 LVOT VTI 0.260 m AoV VTI 0.461 m LVOT Mean Grad 2.5 mmHg AoV Mean Darrell. 1.29 m/s LVOT SV 90.23 mL AoV Mean Grad 7.7 mmHg LVOT Diam s 2.10 cm AoV Area (VTI) 1.96 cm2 AV Regurg Peak Gr. 13.97 mmHg Velocity Ratio 0.55 Mitral Valve MV DT 218 (160-240 msec) MV Vmax TIPS 0.86 m/s MV Mean Grad 1.3 (<2mmHg) MV VTI 0.326 m Pulmonary Valve PV Vmax 0.97 (0.5-1.5 m/s) RVOT Vmax 0.87 m/s PV Peak Grad 3.7 mmHg RVOT Peak Gr. 3.0 mmHg PV Mean Darrell 0.71 m/s RVOT VTI 0.194 m PV Mean Grad 2.3 mmHg RVOT Mean Gr. 1.9 mmHg Tricuspid Valve RA Pressure 3.00 mmHg TV S' 0.15 m/s
== END 2025-02-03 00:36 ==
LOC: DI 00:16
PROVIDERS: PCP Nurse Practitioner Family; Visit Provider Registered Nurse
DX: R06.00 Dyspnea, unspecified (principal)
CPT/HCPCS: 93306

== ENCOUNTER 2025-02-04 05:50 | Outpatient (CLI) | payer MEDICARE, OTHER, SELFPAY ==
--- NOTE | 2025-02-04 07:15 | DI.NM_ITS ---
APPROVED REPORT Exam: Pharmacologic Patient Location: Out-Patient Room/Bed: Stress Nurse: Carmine Olsen RN Ordering Provider:RORY VALENCIA, Contact Number: BMI: 27.33 Baseline Rhythm: Sinus Bradycardia; First Degree AV Heart Block. Indications: Chest Pain. Medical History Medical History: JERE; HLD; HTN; Prostate Cancer; First Degree AV Heart Block; Syncope; Diabetes Mellitus Type 2; Atrial Fibrillation; Chronic Pain Syndrome; Atypical Chest Pain; Bilateral Lower Extremity Edema; GERD; Peripheral Neuropathy; RLS. Cardiac Medications: Amlodipine; Apixaban; Benazepril; Clorthalidone; Nexium; Magnesium Gluconate; Metoprolol Succinate; Ondansetron; Oxycodone; Pramipexole; Tamsulosin; THC. Allergies: None. Cardiac Risk Factors: Family Hx; HLD; HTN; Diabetes Mellitus Type 2. Previous Cardiac Procedures: None. Pretest Chest Pain Characteristics: None. Exercise History: Indeterminate. Physical Disabilities: Back problems; Severe pain with standing; Balance difficulties (uses a straight cane for ambulation); Recent fall. Lung Sounds: Clear bilaterally throughout, anterior and posterior. Heart Sounds: S1 and S2 auscultated. Stress Test Details Test: Pharmacologic stress testing performed using 0.4 mg of regadenoson per 5 mL given IV over 10 seconds. Reason for pharmacologic stress test: physical limitation. Nuclear Acquisition: Rest Tc-99m/Stress Tc-99m 1 day Rest Isotope: Tc-99m Sestamibi. Dose: 10.0 Date: 02/04/2025 Injection Time: 0930 Stress Isotope: Tc-99m Sestamibi. Dose: 30.0 Date: 02/04/2025 Injection Time: 1130 HR Resting HR Supine: 59 bpm Max Heart Rate (APMHR): 137 bpm Target HR (85% APMHR): 116 bpm Max HR Achieved: 82 bpm % of APMHR: 60 Recovery HR: 72 bpm BP Resting BP Supine: 166/80 mmHg Max BP: 166/80 mmHg Recovery BP: 130/74 mmHg ECG Resting ECG: Sinus Bradycardia; First Degree AV Heart Block. Ectopy: None. Stress ECG: Sinus Rhythm. ST Change: Nondiagnostic low heart rate. Arrhythmia: Rare PAC; Rare PVC. Recovery ECG: Sinus Rhythm. Recovery ST Change: Nondiagnostic low heart rate. Recovery Arrhythmia: None. Clinical Stress Symptoms: Dyspnea. Angina Score: None Rate Pressure Product: [id number] Stress ECG Conclusion 1. Resting electrocardiogram was normal 2. Patient underwent testing using pharmacologic stress with regadenoson 3. Peak heart rate achieved was 60% of maximal predicted for age 4. Electrocardiographic portion of the test was nondiagnostic 5. See MPI report Stress Test Summary STAGE HR BP SpO2 Symptoms NOTES Supine 59 166/80 98 1 min post Lexiscan injection 56 160/72 96 Pt. c/o mild shortness of breath. 3 min post Lexiscan injection 75 132/68 98 Pt. denies any shortness of breath and states that it has resolved. 6 min post Lexiscan injection 72 130/74 98 Pt. performed a NM MPI stress test using a laying lexiscan protocol. Laying lexiscan protocol was used due to pt.'s physical limitations (Back problems; Severe pain with standing; Balance difficulties (uses a straight cane for ambulation); Recent fall). Pt. c/o mild shortness of breath immediately post lexiscan injection, which had resolved prior to the pt. leaving the Stress Lab. Pt. was conversing pleasantly with nursing staff upon leaving the Stress Lab. Pt. left ambulatory, accompanied by nursing staff, in no apparent distress. MPI Conclusion Myocardial perfusion is normal. There is no ischemia or evidence of prior infarction Ejection fraction is 55%. Wall motion appears normal
[2025-02-04] MEDS: Regadenoson 0.4 MG/5 ML SYR IVP (11:29)
== END 2025-02-04 06:10 ==
LOC: DI 05:52
PROVIDERS: PCP Nurse Practitioner Family; Visit Provider Registered Nurse
DX: R07.9 Chest pain, unspecified (principal)
CPT/HCPCS: 78452; 93016; 93018; 93017; J2785

== ENCOUNTER 2025-02-09 00:09 | Outpatient (CLI) | payer MEDICARE, OTHER, SELFPAY ==
[2025-02-09 13:13] LABS: ALT 26 U/L (16-63); AST 13 U/L (15-37); Albumin 4.0 g/dL (3.4-5.0); Alkaline Phosphatase 88 U/L (46-116); Anion Gap 9.8 mmol/L (3-11); BUN 16 mg/dL (7-18); Bilirubin, Total 0.5 mg/dL (0.2-1.0); CO2 28.2 mmol/L (21.0-32.0); Calcium 8.9 mg/dL (8.5-10.1); Chloride 101 mmol/L (98-107); Estimated GFR 84.74 (mL/min/1.73m2); Glucose 156 mg/dL (74-106); Potassium 4.0 mmol/L (3.5-5.1); Sodium 139 mmol/L (136-145); Total Protein 7.0 g/dL (6.4-8.2); Vitamin B12 876 pg/mL (193-986)
== END 2025-02-09 00:10 | disposition home or self-care (01) ==
LOC: LOS 00:09
PROVIDERS: PCP Nurse Practitioner Family; Visit Provider Nurse Practitioner Family
DX: I10 Essential (primary) hypertension (principal); G62.9 Polyneuropathy, unspecified
CPT/HCPCS: 36415; 80053; 82607

== ENCOUNTER 2025-03-03 09:54 | Outpatient (CLI) | payer MEDICARE, OTHER, SELFPAY ==
--- NOTE | 2025-03-03 06:00 | DI.RAD_ITS ---
Exam(s) XR PAIN CLINIC LUMBAR SP 2V EXAM: XR PAIN CLINIC LUMBAR SP 2V CLINICAL HISTORY: DX: Lumbar Radiculopathy. TECHNIQUE: Fluoroscopy was provided for the referring physician for guidance with performing pain clinic injection procedure. COMPARISON: No exams were available for comparison FINDINGS: Please see procedure note for details. Fluoro time: 32.8 seconds RADIATION DOSE DELIVERED: Ka,r=12.5 mGy
[2025-03-03 10:08] VITALS: BP 177/79; PULSE 61; RESP 20; TEMP 37.2; O2SAT 97
--- NOTE | 2025-03-03 10:38 | PDOC.PAIN ---
Date of service: 03/03/25 Time of Service: 10:38 Pain Managment Procedure Note Procedure Note Procedure Note: PROCEDURE NOTE LEFT L3 TRANSFORAMINAL EPIDURAL STEROID INJECTION Chief Complaint: LEFT leg pain. Date of Service: March 03, 2025 Patient: Elie Glass Provider: Luiz Sierra DO, MPH Elie Glass has been [facility] to [facility] for a transforaminal epidural steroid injection. Pre-operative diagnosis: Lumbosacral Radiculopathy ICD-10 M54.17 Post-operative diagnosis: Same Pre-Procedure Pain: VAS= 7/10 Comments: I previously evaluated the patient in our clinic and their symptoms remain the same as they were at that time. Elie was interviewed and the medical record reviewed. There were no medical, pharmacologic, radiographic or other structural contraindications to attempting a fluoroscopically-guided transforaminal lumbar epidural steroid injection. The risks, benefits, and potential side effects were reviewed with the patient. Risks include, but are not limited to, [id number] headache, infection, bleeding, nerve injury, spinal cord damage, allergic reaction, possible increase in symptoms over the ensuing 24 to 48 hours, paralysis, and . The patient appeared to understand, questions were answered to the patient?s satisfaction and the patient agreed to proceed. Once I obtained informed verbal consent, the printed consent form was signed by the patient and myself. A standard time-out procedure was performed. Elie was placed in the prone position on the fluoroscopy table and automated blood pressure cuff, three lead EKG, and pulse oximeter were applied. The skin entry point for entering/approaching the left L3 space for the transforaminal epidural steroid injection was marked. Following thorough chlorhexadine preparation of the skin and draping, 2 ml of 1% lidocaine was infiltrated into the skin over the entry point and subcutaneous tissues. Under fluoroscopic guidance, in ipsilateral oblique view, a co-axial approach using a 5 22G spinal needle was advanced to the base of the left L3 pedicle. The needle was advanced to the superio-posterior aspect of the neural foramen under lateral view. Oblique and AP views were rechecked. Under AP and lateral views, 1 ml of Omnipaque-240 was injected while visualized with fluoroscopy. There was no evidence of intravascular or intrathecal uptake, the epidural space was delineated. Next 1.5 ml of preservative-free Dexamethasone (10 mg/ml) was injected after negative aspiration. This was followed by 1 ml of preservative-free 1% lidocaine. (49 mls of Omnipaque-240 was wasted) There was no unusual discomfort expressed by Elie. The needle was withdrawn without difficulty. Elie was observed and was without hemodynamic, neurologic, or allergic reactions.? Fluoroscopic images were digitally archived. Elie's vital signs were stable throughout the procedure and were as recorded in the docflowsheet by the nursing staff.? If given, dosages of intravenous drugs for anxiolysis and analgesia were documented in MAR. Follow up plans and appointments were discussed with Elie. Post procedure instruction was given as documented in nursing records and having met discharge criteria Elie was [facility] the [facility]. COMMENTS: Post-procedure pain: VAS= 5/10. Elie to contact [facility] as needed. If at least 50% improvement in pain and/or function for at least 3 months is achieved, this procedure can be repeated. I personally performed this entire procedure. LUIZ SIERRA DO, MPH ABPMR-subspecialty board certification in Pain Medicine [facility] Coding Conscious Sedation used for procedure: No CPT Codes: Transforaminal Lumbar/Sacral (includes fluoro) - 50166 ([id number] ~G) Additional Codes: Date of Service () Diagnoses: Lumbar radiculopathy
[2025-03-03 10:58] VITALS: BP 179/87; PULSE 63; RESP 14; O2SAT 98
[2025-03-03] MEDS: Nerve Block Tray 1 EACH MC (10:59)
[2025-03-03] MEDS: Omnipaque 240 MG/ML 50 ML BTL IJ (10:59)
[2025-03-03] MEDS: Dexamethasone 10 MG/ML VIAL 15 MG IJ (11:02)
== END 2025-03-03 09:55 | disposition home or self-care (01) ==
LOC: PC 09:54
PROVIDERS: PCP Nurse Practitioner Family; Visit Provider Preventive Medicine Occupational Medicine
DX: M54.50 Low back pain, unspecified (principal); M54.17 Radiculopathy, lumbosacral region
CPT/HCPCS: 64483; 72100; J1100; Q9967

== ENCOUNTER 2025-04-13 07:13 | Outpatient (CLI) | payer MEDICARE, OTHER, SELFPAY | END 2025-04-13 07:14 | disposition home or self-care (01) | LOC: LOS 07:13 | PROVIDERS: PCP Nurse Practitioner Family; Visit Provider Nurse Practitioner Gerontology | DX: Z85.46 Personal history of malignant neoplasm of prostate (principal) | CPT/HCPCS: 36415; 84153 ==

== ENCOUNTER → 2025-04-19 14:20 | Outpatient (BNVA) | payer MEDICARE, OTHER, SELFPAY | PROVIDERS: PCP Nurse Practitioner Family; Visit Provider Nurse Practitioner Gerontology | DX: C61 Malignant neoplasm of prostate (principal); R33.9 Retention of urine, unspecified; R31.0 Gross hematuria; R39.9 Unspecified symptoms and signs involving the genitourinary system | CPT/HCPCS: 99213; 51798 ==